=== PATIENT | male | born 1960 | race African-American/Black ===

== ENCOUNTER 2016-11-06 14:46 | Inpatient (IN) | payer MEDICARE, MEDICAID ==
[~2016-11-06] VITALS: Ht 182.9 cm; Wt 135.2 kg
[~2016-11-06 14:46] MED LIST: ALLO100T PO; APIX5TAB PO; ASPI81TA44 PO; CARV12.52 PO; CARV25TA PO; COLE1TAB PO; CYAN10002 IM; DIGO125T PO; DILT180C2 PO; DILT180C64 PO; FAMO-63 PO; FURO20TA3 PO; HYDR-2666 PO; INSU100I13 SQ; INSU100I16 SQ; INSU100I17 SQ; INSU100I27 SQ; INSU100I7 SQ; LACT20SO PO; LEVO250T25 PO; LOSA1TAB17 PO; LOSA25TA PO; LOSA50TA2 PO; LUBI8CAP3 PO; MAGN296S PO; METF500T9 PO; METR500T PO; PANT40TA5 PO; POLY17PO5 PO; POTA10TA10 PO; PRED-220 PO; SACC250C PO; SIME80TA PO; TEMA15CA6 PO
[2016-11-06] MEDS ORDERED: DILTIAZEM 125 MG in IV DEXTROSE 5% 100 ML IV PRN (15:45)
[2016-11-06 15:56] LABS: BASO # 0.1 x10^3/uL (0.0-0.2); BASO % 2 % (0-3); EOS % 4 % (0-3); HEMATOCRIT 40.1 % (39.0-53.0); HEMOGLOBIN 13.4 g/dL (13.0-17.5); LYMPH # 1.6 x10^3/uL (1.0-4.8); LYMPH % 31 % (24-48); MEAN CORPUSCULAR HEMOGLOBIN 31 pg (25-35); MEAN CORPUSCULAR HGB CONC 34 g/dL (31-37); MEAN CORPUSCULAR VOLUME 92 fL (79-100); MONO % 10 % (0-9); NEUT % 55 % (31-73); PLATELET COUNT 222 x10^3/uL (140-400); RED BLOOD COUNT 4.34 x10^6/uL (4.30-5.70); RED CELL DISTRIBUTION WIDTH 13.5 % (11.5-14.5); WHITE BLOOD COUNT 5.4 x10^3/uL (4.0-11.0)
[2016-11-06] MEDS ORDERED: ASPIRIN 81 MG TAB.CHEW PO ONE (16:00)
[2016-11-06] MEDS ORDERED: IV NORMAL SALINE 1000ML BAG 1,000 ML IV SCH (16:00)
[2016-11-06 16:04] LABS: PROTHROMBIN TIME PATIENT 12.6 SEC (11.7-14.0)
--- NOTE | 2016-11-06 16:11 | EKG ---
[facility] [address] [place] [address] Test Date: 2016-11-06 Test Time: 15:00:08 Pat Name: REBEKAH GAMEZ Department: Room: Gender: M Integrity Consultant: : 1960 Requested By: DEMARIO WADSWORTH Order Number: [id number] Reading MD: Measurements Intervals [place] Rate: 95 P: CA: QRS: -32 QRSD: 84 T: 31 QT: 342 QTc: 433 Interpretive Statements IRREGULAR RHYTHM, NO P-WAVE FOUND ABNORMAL LEFT AXIS DEVIATION QRS(T) CONTOUR ABNORMALITY CONSISTENT WITH ANTERIOR INFARCT AGE UNDETERMINED CONSISTENT WITH INFEROLATERAL INFARCT PROBABLY OLD ABNORMAL ECG RI6.01 No previous ECG available for comparison
[2016-11-06 16:19] LABS: CREATININE 1.4 mg/dL (0.7-1.3); GFR 63.7
[2016-11-06 16:25] LABS: ALBUMIN 3.5 g/dL (3.4-5.0); DIRECT BILIRUBIN 0.2 mg/dL (0.0-0.2); MAGNESIUM 1.8 mg/dL (1.8-2.4); TOTAL BILIRUBIN 0.9 mg/dL (0.2-1.0); TOTAL PROTEIN 7.5 g/dL (6.4-8.2)
[2016-11-06 16:27] LABS: BILIRUBIN,URINE NEGATIVE (NEG); GLUCOSE,URINE 250 mg/dL (NEG); NITRITE,URINE NEGATIVE (NEG); PH,URINE 5.5; PROTEIN,URINE NEGATIVE (NEG-TRACE); UROBILINOGEN,URINE 0.2 mg/dL (0.2 mg/dL)
--- NOTE | 2016-11-06 16:29 | PHYS DOC ---
Past Medical History Past Medical History: A-Fib, Asthma, Cancer, CVA, Depression, Diabetes-Type II , High Cholesterol, Hypertension, Renal Disease, Other Additional Past Medical Histor: Sleep Apnea, C-PAP, MULTIPLE CARDIAC TUMORS, HOGDKINS LYMPHOMA,GOUT, C-DIFF Past Surgical History: Angioplasty, Coronary Bypass Surgery, Pacemaker, Tonsillectomy, Other Additional Past Surgical Histo: 2 surgeries to attempt to remove tumors on heart,Adenoids Alcohol Use: Occasionally Drug Use: None Adult General Chief Complaint Chief Complaint: CHEST PAIN HPI HPI Patient is a 56 year old male who presents with complaint of chest pain and shortness of breath. Patient states that he has had worsening symptoms over the past week. Patient was recently admitted to the hospital and treated for chest pain with a negative workup for acute myocardial ischemia. Patient states that he is continuing to have pain along the right side of his chest underneath her ribs. Patient started getting worsening shortness of breath and went to go see his primary physician. The patient was referred to the emergency department by his physician, Dr. Ford, after the patient was found to have A. fib with a rapid heart rate. Patient has not had any associated fevers. Patient rates his pain currently as 7 out of 10 on my evaluation. Patient denies any substernal pain at this time. Patient states that his pain does not radiate. The patient shortness of breath symptoms worsen with exertion. Review of Systems Review of Systems Constitutional: Denies fever or chills [] Eyes: Denies change in visual acuity, redness, or eye pain [] HENT: Denies nasal congestion or sore throat [] Respiratory: Shortness breath [] Cardiovascular: Chest pain, palpitations, dyspnea on exertion [] GI: Denies abdominal pain, nausea, vomiting, bloody stools or diarrhea [] : Denies dysuria or hematuria [] Musculoskeletal: Denies back pain or joint pain [] Integument: Denies rash or skin lesions [] Neurologic: Denies headache, focal weakness or sensory changes [] Endocrine: Denies polyuria or polydipsia [] Current Medications Current Medications Current Medications Medications (Trade) Dose Ordered Sig/Lizzie Start Time Stop Time Status Last Admin Dose Admin Acetaminophen (Tylenol) 650 mg PRN Q4HRS PRN 11/06/16 16:30 11/07/16 16:29 11/06/16 21:15 650 MG Aspirin 324 mg 324 mg 1X ONCE 11/06/16 16:00 11/06/16 16:01 DC 11/06/16 16:12 324 MG Diltiazem HCl/ Dextrose (Cardizem) 125 ml @ 0 mls/hr CONT PRN 11/06/16 15:45 11/06/16 16:14 5 MLS/HR Fentanyl Citrate (Fentanyl 2ml Vial) 50 mcg PRN Q2HR PRN 11/06/16 16:30 11/07/16 16:29 11/06/16 21:15 50 MCG Ondansetron HCl (Zofran) 4 mg PRN Q8HRS PRN 11/06/16 16:30 11/07/16 16:29 Sodium Chloride 1,000 ml @ 0 mls/hr Q0M 11/06/16 16:00 Allergies Allergies Allergies Coded Allergies Type Severity Reaction Last Updated Verified No Known Drug Allergies 09/02/16 No Physical Exam Physical Exam Constitutional: Alert, obese, afebrile, no acute distress. [] HENT: Normocephalic, atraumatic, bilateral external ears normal, oropharynx moist, no oral exudates, nose normal. [] Eyes: PERRLA, EOMI, conjunctiva normal, no discharge. [] Neck: Normal range of motion, no tenderness, supple, no stridor. [] Cardiovascular: Tachycardia, irregular rhythm, no murmur [] Lungs & Thorax: Bilateral breath sounds clear to auscultation [] Abdomen: Bowel sounds normal, soft, no tenderness, no masses, no pulsatile masses. [] Skin: Warm, dry, no erythema, no rash. [] Back: No tenderness, no CVA tenderness. [] Extremities: No tenderness, no cyanosis, no clubbing, ROM intact, 1+ pitting edema bilaterally. [] Neurologic: Alert and oriented X 3, normal motor function, normal sensory function, no focal deficits noted. [] Current Patient Data Vital Signs Vital Signs Date Time Temp Pulse Resp B/P Pulse Ox O2 Delivery O2 Flow Rate FiO2 11/06/16 17:37 92 10 172/101 97 Room Air 11/06/16 15:05 98.1 98.1 Lab Values Laboratory Tests Test 11/06/16 15:40 11/06/16 16:20 White Blood Count 5.4x10^3/uL (4.0-11.0) Red Blood Count 4.34x10^6/uL (4.30-5.70) Hemoglobin 13.4g/dL (13.0-17.5) Hematocrit 40.1% (39.0-53.0) Mean Corpuscular Volume 92fL (79-100) Mean Corpuscular Hemoglobin 31pg (25-35) Mean Corpuscular Hemoglobin Concent 34g/dL (31-37) Red Cell Distribution Width 13.5% (11.5-14.5) Platelet Count 222x10^3/uL (140-400) Neutrophils (%) (Auto) 55% (31-73) Lymphocytes (%) (Auto) 31% (24-48) Monocytes (%) (Auto) 10% (0-9) H Eosinophils (%) (Auto) 4% (0-3) H Basophils (%) (Auto) 2% (0-3) Neutrophils # (Auto) 2.9x10^3uL (1.8-7.7) Lymphocytes # (Auto) 1.6x10^3/uL (1.0-4.8) Monocytes # (Auto) 0.5x10^3/uL (0.0-1.1) Eosinophils # (Auto) 0.2x10^3/uL (0.0-0.7) Basophils # (Auto) 0.1x10^3/uL (0.0-0.2) Prothrombin Time 12.6SEC (11.7-14.0) Prothrombin Time INR 1.0 (0.8-1.1) Sodium Level 137mmol/L (136-145) Potassium Level 4.0mmol/L (3.5-5.1) Chloride Level 102mmol/L (98-107) Carbon Dioxide Level 28mmol/L (21-32) Anion Gap 7 (6-14) Blood Urea Nitrogen 22mg/dL (8-26) Creatinine 1.4mg/dL (0.7-1.3) H Estimated GFR (Cockcroft-Gault) 63.7 Glucose Level 181mg/dL (70-99) H Calcium Level 9.0mg/dL (8.5-10.1) Magnesium Level 1.8mg/dL (1.8-2.4) Total Bilirubin 0.9mg/dL (0.2-1.0) Direct Bilirubin 0.2mg/dL (0.0-0.2) Aspartate Amino Transferase (AST) 13U/L (15-37) L Alanine Aminotransferase (ALT) 22U/L (16-63) Alkaline Phosphatase 70U/L (46-116) Creatine Kinase 87U/L (39-308) Creatine Kinase MB (Mass) 1.8ng/mL (0.0-3.6) Creatine Kinase MB Relative Index 2.1% (0-4) Troponin I Quantitative 0.024ng/mL (0.000-0.055) IS-Xyq-F-Type Natriuretic Peptide 411pg/mL (0-124) H Total Protein 7.5g/dL (6.4-8.2) Albumin 3.5g/dL (3.4-5.0) Urine Collection Type Unknown Urine Color Yellow Urine Clarity Clear Urine pH 5.5 Urine Specific [place] 1.020 Urine Protein Negativemg/dL (NEG-TRACE) Urine Glucose (UA) 250mg/dL (NEG) Urine Ketones (Stick) Negativemg/dL (NEG) Urine Blood Negative (NEG) Urine Nitrite Negative (NEG) Urine Bilirubin Negative (NEG) Urine Urobilinogen Dipstick 0.2mg/dL (0.2 mg/dL) Urine Leukocyte Esterase Negative (NEG) Urine RBC 0/HPF (0-2) Urine WBC 0/HPF (0-4) Urine Squamous Epithelial Cells None/LPF Urine Bacteria 0/HPF (0-FEW) Urine Mucus Mod/LPF Laboratory Tests 11/06/16 15:40 Laboratory Tests 11/06/16 15:40 EKG EKG Interpreted by me: Heart rate 95, atrial fibrillation, rapid rate, left axis deviation, no acute ST/T-wave abnormalities present [] Radiology/Procedures Radiology/Procedures [facility] [address] [place], [place] [id number] IMAGING REPORT Signed PATIENT: REBEKAH GAMEZ ACCOUNT: [id number] : 1960 LOCATION: ER AGE: 56 SEX: M EXAM STATUS: REG ER ORD. PHYSICIAN: DEMARIO WADSWORTH MD REASON: chest pain PROCEDURE: PORTABLE CHEST 1V Portable chest, 11/06/2016: History: Chest pain Comparison is made to a study from 10/30/2016. There is been a previous median sternotomy. A left sided transvenous pacemaker is in place with a single lead extending into the right ventricle. The heart is at the upper limits of normal in size. The pulmonary vascularity is normal. No pulmonary infiltrates are seen. There is no evidence of pleural fluid. IMPRESSION: No acute cardiopulmonary abnormality is detected. DICTATED and SIGNED BY: NOELLE COSTA MD DATE: 11/06/16 3990 CC: DEMARIO WADSWORTH MD; PEMA HINOJOSA MD ~ [] Course & Med Decision Making Course & Med Decision Making Pertinent Labs and Imaging studies reviewed. (See chart for details) Patient brought an EKG to the emergency department which showed a heart rate of 116. The patient has been in A. fib with RVR. I spoke with Dr. Lew who evaluated the patient in hospital. He agreed with initiation of a Cardizem drip at this time for rate control. He will follow patient in hospital. Patient was admitted to Dr. Ford for further care. Dragon Disclaimer Dragon Disclaimer This electronic medical record was generated, in whole or in part, using a voice recognition dictation system. Departure Departure Impression: Primary Impression: Atrial fibrillation with RVR Additional Impressions: Chest pain Type 2 diabetes mellitus Disposition: ADMITTED INPATIENT Admitting Physician: Roshan Ford Condition: GUARDED Referrals: PEMA HINOJOSA MD (PCP) Problem Qualifiers Additional Impressions: Chest pain Chest pain type: unspecified Qualified Code: R07.9 - Chest pain, unspecified Type 2 diabetes mellitus Diabetes mellitus complication status: with hyperglycemia Diabetes mellitus jail insulin use: unspecified jail insulin use status Qualified Code : E11.65 - Type 2 diabetes mellitus with hyperglycemia DEMARIO WADSWORTH MD Nov 06, 2016 16:29
[2016-11-06] MEDS ORDERED: ACETAMINOPHEN 325 MG TABLET. PO PRN (16:30)
[2016-11-06] MEDS ORDERED: FENTANYL PF 100 MCG/2 ML VIAL. IV PRN (16:30)
[2016-11-06] MEDS ORDERED: ONDANSETRON PF 4 MG/2 ML VIAL. IV PRN (16:30)
--- NOTE | 2016-11-06 16:38 | RAD ---
Portable chest, 11/06/2016: History: Chest pain Comparison is made to a study from 10/30/2016. There is been a previous median sternotomy. A left sided transvenous pacemaker is in place with a single lead extending into the right ventricle. The heart is at the upper limits of normal in size. The pulmonary vascularity is normal. No pulmonary infiltrates are seen. There is no evidence of pleural fluid. IMPRESSION: No acute cardiopulmonary abnormality is detected.
[2016-11-06 16:39] LABS: BACTERIA,URINE 0 /HPF (0-FEW); RBC,URINE 0 /HPF (0-2); WBC,URINE 0 /HPF (0-4)
[2016-11-06 16:46] LABS: CKMB INDEX 2.1 % (0-4); CKMB MASS 1.8 ng/mL (0.0-3.6)
[2016-11-06] MEDS ORDERED: SINCALIDE IV ONE (19:00)
[2016-11-06] MEDS ORDERED: NORMAL SALINE IV ONE (19:00)
--- NOTE | 2016-11-06 20:40 | RAD ---
PROCEDURE Hepatobiliary scintigraphy. HISTORY Right upper quadrant pain. TECHNIQUE Hepatobiliary scintigraphy was performed. 5.0 millicuries technetium 99 M labeled Choletec IV was administered without complication. 2.7 micrograms of CCK was administered and gallbladder ejection fraction calculated. COMPARISON None provided. FINDINGS There is prompt uptake of radiotracer by the hepatic parenchyma. Gallbladder is visualized by 10 minutes. Bowel activity is noted. Gallbladder ejection fraction is calculated at 91 percent. IMPRESSION Normal hepatobiliary scintigraphy with normal gallbladder ejection fraction. Electronically signed by: Damian Bose MD (Nov 06, 2016 20:39:37)
[2016-11-06 21:00] VITALS: BP 134/98
[2016-11-06] MEDS ORDERED: DEXTROSE 50% 25 GM / 50ML DISP.SYRIN. IV PRN (22:45)
[2016-11-06] MEDS ORDERED: TEMAZEPAM 15 MG CAPSULE PO PRN (22:45)
[2016-11-06] MEDS ORDERED: MAGNESIUM CITRATE 296 ML SOLUTION. PO PRN (22:45)
[2016-11-06] MEDS ORDERED: HYDROCODONE/APAP 5/325MG TABLET. PO PRN (22:45)
[2016-11-06] MEDS ORDERED: LACTULOSE 20 GM/30 ML SOLUTION. PO PRN (23:00)
[2016-11-06] MEDS ORDERED: INSULN ASP PRT/INSULIN ASPART 300 UNITS/3 ML INSULN.PEN. SQ SCH (23:00)
[2016-11-06 23:43] VITALS: BP 183/97
[2016-11-06] MEDS ORDERED: LABETALOL 20 MG/4 ML DISP.SYRIN. IVP ONE (23:45)
--- NOTE | 2016-11-07 00:32 | ACF ---
Admission Forms Criteria CHEST PAIN Clinical Indications for Admission to Inpatient Care (Place 'X' for any and all applicable criteria): Admission is indicated for chest pain and ANY ONE of the following(1)(2)(3)(4)(5 ): [ ]I. Angina with acute coronary syndrome (Also use Myocardial Infarction or Angina guideline) [X ]II. Hemodynamic instability [ ]III. Angina needing acute intervention as indicated by ALL of the following( 11)(12): [ ]a) Unstable angina is present as indicated by angina that is ANY ONE of the following: [ ]i) New onset [ ]ii) Nocturnal [ ]iii) Prolonged at rest [ ]iv) Progressive [ ]b) Angina warrants acute intervention as indicated by ANY ONE of the following: [ ]i) Recurrent angina (e.g, not responding as previously to treatment) [ ]ii) Angina at rest or with low-level activities despite initial medical therapy [ ]iii) New or presumably new ST-segment depression on ECG [ ]iv) Signs or symptoms of heart failure (eg, dyspnea, pulmonary edema) [ ]v) New or worsening mitral regurgitation [ ]vi) Hemodynamic instability [ ]vii) Dangerous arrhythmia (eg, sustained ventricular tachycardia) [ ]viii) History of percutaneous coronary intervention within 6 months [ ]ix) History of coronary artery bypass graft surgery [ ]x) MARTHA risk score of 2 or greater[A] [ ]xi) History of Diabetes(14) [ ]xii) High-risk cardiac ischemia findings on noninvasive testing (e.g, echocardiogram, treadmill testing, nuclear scan) [ ]xiii) Chronic renal insufficiency (ie, estimated GFR less than 60 mL/min/1.732m) [ ]xiv) Left ventricular ejection fraction less than 40% [ ]IV. Evidence of LA (eg, cardiac biomarkers positive, ST-segment elevation on ECG) also use Myocardial Infarction Criteria Form. [ ]V. Pulmonary edema [ ]. Respiratory distress [ ]VII. Chest pain indicative of serious diagnosis other than coronary artery disease (eg, aortic dissection) [ ]VIII. Contraindications and/or Inappropriate clinical situations for Observational Care in patients with Chest Pain, when ANY ONE of the following is required: [ ]a) Patient with risk factor for pulmonary embolism, acute coronary syndrome and myocardial infarction (18) [ ]b) Patient with Pulmonary embolism require an average LOS of 4.3 days, therefore emergency department observation management is inappropriate 18,23 [ ]c) Painful condition/s in the elderly, have the highest rate of recidivism after emergency department observation management (10.8%) 20,21,22 [ ]d) Elevated cardiac biomarker requires intensive and exhaustive care (19) [ ]IX. General contraindications and/or Inappropriate clinical situations for Observational Care in patients with Chest Pain, when ANY ONE of the following is required: [ ]a) Prediction of prolongation of LOS based on ANY ONE of the following may be considered as a contraindication for observational care 2, 3, 4, 5, 6, 7, 8, 9, 10, 11 [ ]i) Age > 65 yrs. [ ]ii) Patient arriving by ambulance [ ]iii) Patient with high acuity [ ]iv) Patient requiring vital sign monitoring [ ]v) Patient on IV medication [ ]b) Systolic blood pressures 180mmHg 3,12 [ ]c) Patient with altered mental status including delirium and other alteration of consciousness, (3) [ ]d) Patient whose discharge disposition will be to a snf home or rehabilitation home should not be managed in Emergency Department Observation Unit. CMS rule requires 3 days hospital stay before such placement. 3,13 [ ]e) Patient with failure to thrive due to broad array of etiologies 3,16,17 [ ]f) Inability to ambulate 3,14 Extended stay beyond goal length of stay may be needed for (1)(28): [ ]a) Specific condition diagnosed after evaluation (eg, pulmonary embolism, aortic dissection) [ ]b) Unstable angina [ ]c) Continued suspicion of acute coronary syndrome with inability to complete needed cardiac evaluation (eg, patient clinically unable to undergo stress testing) [ ]d) Myocardial infarction (Contents from ANGINA and CHEST PAIN clinical indications for admission to inpatient care have been integrated in this form) The original [email or web address] content created by [employer] has been revised. The portions of the content which have been revised are identified through the use of italic text or in bold, and [employer] or [employer] has neither reviewed nor approved the modified material. All other unmodified content is copyright [employer]. Please see references footnoted in the original [email or web address] edition 2016 Admission Criteria Met?: Yes GAIL RAZA Nov 07, 2016 00:32
[2016-11-07 03:20] VITALS: BP 192/96
[2016-11-07] MEDS ORDERED: LOSARTAN POTASSIUM 50 MG TABLET. PO SCH ×2 (05:00→09:00)
[2016-11-07 05:43] LABS: BASO % 1 % (0-3); EOS % 5 % (0-3); HEMATOCRIT 40.1 % (39.0-53.0); HEMOGLOBIN 13.3 g/dL (13.0-17.5); LYMPH # 1.7 x10^3/uL (1.0-4.8); LYMPH % 37 % (24-48); MEAN CORPUSCULAR HEMOGLOBIN 32 pg (25-35); MEAN CORPUSCULAR HGB CONC 33 g/dL (31-37); MEAN CORPUSCULAR VOLUME 96 fL (79-100); MONO % 10 % (0-9); NEUT % 48 % (31-73); PLATELET COUNT 200 x10^3/uL (140-400); RED BLOOD COUNT 4.18 x10^6/uL (4.30-5.70); RED CELL DISTRIBUTION WIDTH 13.7 % (11.5-14.5); WHITE BLOOD COUNT 4.6 x10^3/uL (4.0-11.0)
[2016-11-07 07:04] LABS: CALCIUM 8.5 mg/dL (8.5-10.1); CREATININE 1.4 mg/dL (0.7-1.3); GFR 63.7; POTASSIUM 3.3 mmol/L (3.5-5.1)
[2016-11-07 07:50] VITALS: BP 159/107
[2016-11-07] MEDS ORDERED: POTASSIUM CHLORIDE 10 MEQ TABLET.ER. PO SCH (08:00)
[2016-11-07] MEDS ORDERED: ASPIRIN 81 MG TAB.CHEW PO SCH (09:00)
[2016-11-07] MEDS ORDERED: METFORMIN XR 500 MG TAB.ER.24H PO SCH (09:00)
[2016-11-07] MEDS ORDERED: LUBIPROSTONE 8 MCG CAPSULE PO SCH (09:00)
[2016-11-07] MEDS ORDERED: ALLOPURINOL 100 MG TABLET. PO SCH (09:00)
[2016-11-07] MEDS: CARVEDILOL 12.5 MG TABLET PO SCH ×2 (09:09→17:00)
[2016-11-07 10:40] VITALS: BP 146/83
[2016-11-07 11:08] VITALS: BP 151/88
[2016-11-07] MEDS ORDERED: DILTIAZEM HCL 120 MG CAP.ER.24H PO SCH (11:45)
[2016-11-07] MEDS ORDERED: LIDOCAINE (700MG/PATCH) PATCH. TD SCH (12:00)
--- NOTE | 2016-11-07 13:20 | PDOC1 ---
History and Physical Date of Admission Date of Admission DATE: 11/07/16 TIME: 13:17 Past Medical History Cardiovascular: AFIB, CAD, HTN Pulmonary: COPD CENTRAL NERVOUS SYSTEM: CVA, TIA GI: Constipation Heme/Onc: B12 deficiency, Other Psych: Depression Rheumatologic: Gout Endocrine: Diabetes Family History Family History: Cancer, Diabetes Social History ALCOHOL: heavy Current Problem List Problem List Problems Medical Problems: (1) Atrial fibrillation with RVR Status: Acute (2) Atrial fibrillation with RVR Status: Acute (3) Chest pain Status: Acute (4) Type 2 diabetes mellitus Status: Acute Problems: Current Medications Current Medications Current Medications Aspirin 324 mg 324 mg 1X ONCE PO Last administered on 11/06/16 16:12; Start at 16:00; Stop 11/06/16 at 16:01; Status DC Sodium Chloride 1,000 ml @ 0 mls/hr Q0M IV ; Start 11/06/16 at 16:00 Diltiazem HCl/ Dextrose (Cardizem) 125 ml @ 0 mls/hr CONT PRN IV SEE I/O RECORD Last administered on 11/06/16 16:14; Start 11/06/16 at 15:45; Stop at 11:44; Status DC Ondansetron HCl (Zofran) 4 mg PRN Q8HRS PRN IV NAUSEA/VOMITING; Start 11/06/16 at 16:30; Stop 11/07/16 at 16:29 Fentanyl Citrate (Fentanyl 2ml Vial) 50 mcg PRN Q2HR PRN IV PAIN Last administered on 11/06/16 21:15; Start 11/06/16 at 16:30; Stop 11/07/16 at 16:29 Acetaminophen 650 mg 650 mg PRN Q4HRS PRN PO FEVER Last administered on 21:15; Start 11/06/16 at 16:30; Stop 11/07/16 at 16:29 Sincalide/Sodium Chloride (Kinevac/Iv Sodium Chloride 0.9% 50ml) 30 ml @ 120 mls/hr 1X ONCE IV Last administered on 11/06/16 19:00; Start 11/06/16 at 19:00 ; Stop 11/06/16 at 19:14; Status DC Allopurinol (Zyloprim) 100 mg DAILY PO ; Start 11/07/16 at 09:00 Aspirin (Children'S Aspirin) 81 mg DAILY PO ; Start 11/07/16 at 09:00 Carvedilol (Coreg) 12.5 mg BIDWMEALS PO Last administered on 11/07/16 09:09; Start 11/07/16 at 08:00 Acetaminophen/ Hydrocodone Bitart (Lortab 5/325) 1 tab PRN Q4HRS PRN PO MILD PAIN; Start 11/06/16 at 22:45 Insulin Aspart Prota 70%/Aspart 30% (Novolog Mix 70-30) 30 units QHS SQ Last administered on 11/06/16 23:44; Start 11/06/16 at 23:00 Losartan Potassium (Cozaar) 100 mg DAILY PO ; Start 11/07/16 at 09:00; Stop at 09:00; Status DC Lubiprostone (Amitiza) 8 mcg BID PO ; Start 11/07/16 at 09:00 Magnesium Citrate (Citroma) 296 ml PRN DAILY PRN PO CONSTIPATION; Start at 22:45 Metformin HCl (Glucophage Xr) 500 mg DAILY PO ; Start 11/07/16 at 09:00 Temazepam (Restoril) 15 mg PRN QHS PRN PO INSOMNIA; Start 11/06/16 at 22:45 Lactulose 20 gm PRN BID PRN PO CONSTIPATION; Start 11/06/16 at 23:00 Potassium Chloride (Klor-Con) 10 meq DAILYWBKFT PO ; Start 11/07/16 at 08:00 Dextrose 12.5 gm PRN Q15MIN PRN IV SEE COMMENTS; Start 11/06/16 at 22:45 Labetalol HCl (Normodyne) 10 mg 1X ONCE IVP Last administered on 11/06/16 23: 37; Start 11/06/16 at 23:45; Stop 11/06/16 at 23:46; Status DC Losartan Potassium (Cozaar) 100 mg DAILY PO Last administered on 11/07/16 04:39 ; Start 11/07/16 at 05:00 Diltiazem HCl (Cardizem 24hr Cd) 120 mg DAILY PO Last administered on 11/07/16 12:48; Start 11/07/16 at 11:45 Lidocaine (Lidoderm) 1 patch DAILY TD ; Start 11/07/16 at 12:00 Active Scripts Active Cozaar (Losartan Potassium) 50 Mg Tablet 100 Mg PO DAILY Lactulose 20 Gm/30 Ml Solution 20 Gm PO BID PRN Novolog Mix 70-30 Flexpen Syrn (Insuln Asp Prt/Insulin Aspart) 100 Unit/1 Ml Insuln.pen 30 Units SQ QHS Hydrocodone-Apap 5-325 (Hydrocodone Bit/Acetaminophen) 1 Each Tablet 1 Tab PO PRN Q4HRS PRN 14 Days Carvedilol 12.5 Mg Tablet 12.5 Mg PO BIDWMEALS Restoril (Temazepam) 15 Mg Capsule 15 Mg PO PRN QHS PRN Reported Magnesium Citrate 296 Ml Solution 296 Ml PO PRN PRN Amitiza (Lubiprostone) 8 Mcg Capsule 2 Cap PO BID Allopurinol 100 Mg Tablet 100 Mg PO DAILY Potassium Chloride 10 Meq Tablet.er 10 Meq PO DAILY Metformin Hcl Er (Metformin Hcl) 500 Mg Tab.er.24h 1 Tab PO DAILY Children's Aspirin (Aspirin) 81 Mg Tab.chew 81 Mg PO DAILY Allergies Allergies: Coded Allergies: No Known Drug Allergies (Unverified , 09/02/16) Vitals Vitals Vital Signs Date Time Temp Pulse Resp B/P Pulse Ox O2 Delivery O2 Flow Rate FiO2 11/07/16 12:48 73 145/88 11/07/16 11:08 97.5 22 95 Room Air 97.5 Labs Labs Laboratory Tests Test 11/06/16 15:40 11/06/16 16:20 11/06/16 20:54 11/06/16 23:00 White Blood Count 5.4x10^3/uL (4.0-11.0) Red Blood Count 4.34x10^6/uL (4.30-5.70) Hemoglobin 13.4g/dL (13.0-17.5) Hematocrit 40.1% (39.0-53.0) Mean Corpuscular Volume 92fL (79-100) Mean Corpuscular Hemoglobin 31pg (25-35) Mean Corpuscular Hemoglobin Concent 34g/dL (31-37) Red Cell Distribution Width 13.5% (11.5-14.5) Platelet Count 222x10^3/uL (140-400) Neutrophils (%) (Auto) 55% (31-73) Lymphocytes (%) (Auto) 31% (24-48) Monocytes (%) (Auto) 10% (0-9) Eosinophils (%) (Auto) 4% (0-3) Basophils (%) (Auto) 2% (0-3) Neutrophils # (Auto) 2.9x10^3uL (1.8-7.7) Lymphocytes # (Auto) 1.6x10^3/uL (1.0-4.8) Monocytes # (Auto) 0.5x10^3/uL (0.0-1.1) Eosinophils # (Auto) 0.2x10^3/uL (0.0-0.7) Basophils # (Auto) 0.1x10^3/uL (0.0-0.2) Prothrombin Time 12.6SEC (11.7-14.0) Prothromb Time International Ratio 1.0 (0.8-1.1) Sodium Level 137mmol/L (136-145) Potassium Level 4.0mmol/L (3.5-5.1) Chloride Level 102mmol/L (98-107) Carbon Dioxide Level 28mmol/L (21-32) Anion Gap 7 (6-14) Blood Urea Nitrogen 22mg/dL (8-26) Creatinine 1.4mg/dL (0.7-1.3) Estimated GFR (Cockcroft-Gault) 63.7 Glucose Level 181mg/dL (70-99) Calcium Level 9.0mg/dL (8.5-10.1) Magnesium Level 1.8mg/dL (1.8-2.4) Total Bilirubin 0.9mg/dL (0.2-1.0) Direct Bilirubin 0.2mg/dL (0.0-0.2) Aspartate Amino Transf (AST/SGOT) 13U/L (15-37) Alanine Aminotransferase (ALT/SGPT) 22U/L (16-63) Alkaline Phosphatase 70U/L (46-116) Creatine Kinase 87U/L (39-308) Creatine Kinase MB (Mass) 1.8ng/mL (0.0-3.6) Creatine Kinase MB Relative Index 2.1% (0-4) Troponin I Quantitative 0.024ng/mL (0.000-0.055) < 0.017ng/mL (0.000-0.055) PN-Hwy-V-Type Natriuretic Peptide 411pg/mL (0-124) Total Protein 7.5g/dL (6.4-8.2) Albumin 3.5g/dL (3.4-5.0) Urine Collection Type Unknown Urine Color Yellow Urine Clarity Clear Urine pH 5.5 Urine Specific [place] 1.020 Urine Protein Negativemg/dL (NEG-TRACE) Urine Glucose (UA) 250mg/dL (NEG) Urine Ketones (Stick) Negativemg/dL (NEG) Urine Blood Negative (NEG) Urine Nitrite Negative (NEG) Urine Bilirubin Negative (NEG) Urine Urobilinogen Dipstick 0.2mg/dL (0.2 mg/dL) Urine Leukocyte Esterase Negative (NEG) Urine RBC 0/HPF (0-2) Urine WBC 0/HPF (0-4) Urine Squamous Epithelial Cells None/LPF Urine Bacteria 0/HPF (0-FEW) Urine Mucus Mod/LPF Glucose (Fingerstick) 150mg/dL (70-99) Test 11/07/16 04:45 11/07/16 07:51 11/07/16 11:11 White Blood Count 4.6x10^3/uL (4.0-11.0) Red Blood Count 4.18x10^6/uL (4.30-5.70) Hemoglobin 13.3g/dL (13.0-17.5) Hematocrit 40.1% (39.0-53.0) Mean Corpuscular Volume 96fL (79-100) Mean Corpuscular Hemoglobin 32pg (25-35) Mean Corpuscular Hemoglobin Concent 33g/dL (31-37) Red Cell Distribution Width 13.7% (11.5-14.5) Platelet Count 200x10^3/uL (140-400) Neutrophils (%) (Auto) 48% (31-73) Lymphocytes (%) (Auto) 37% (24-48) Monocytes (%) (Auto) 10% (0-9) Eosinophils (%) (Auto) 5% (0-3) Basophils (%) (Auto) 1% (0-3) Neutrophils # (Auto) 2.2x10^3uL (1.8-7.7) Lymphocytes # (Auto) 1.7x10^3/uL (1.0-4.8) Monocytes # (Auto) 0.4x10^3/uL (0.0-1.1) Eosinophils # (Auto) 0.2x10^3/uL (0.0-0.7) Basophils # (Auto) 0.0x10^3/uL (0.0-0.2) Sodium Level 136mmol/L (136-145) Potassium Level 3.3mmol/L (3.5-5.1) Chloride Level 101mmol/L (98-107) Carbon Dioxide Level 24mmol/L (21-32) Anion Gap 11 (6-14) Blood Urea Nitrogen 21mg/dL (8-26) Creatinine 1.4mg/dL (0.7-1.3) Estimated GFR (Cockcroft-Gault) 63.7 Glucose Level 261mg/dL (70-99) Calcium Level 8.5mg/dL (8.5-10.1) Troponin I Quantitative 0.023ng/mL (0.000-0.055) Glucose (Fingerstick) 98mg/dL (70-99) 85mg/dL (70-99) Laboratory Tests Test 11/06/16 15:40 11/06/16 16:20 11/06/16 20:54 11/06/16 23:00 White Blood Count 5.4x10^3/uL (4.0-11.0) Red Blood Count 4.34x10^6/uL (4.30-5.70) Hemoglobin 13.4g/dL (13.0-17.5) Hematocrit 40.1% (39.0-53.0) Mean Corpuscular Volume 92fL (79-100) Mean Corpuscular Hemoglobin 31pg (25-35) Mean Corpuscular Hemoglobin Concent 34g/dL (31-37) Red Cell Distribution Width 13.5% (11.5-14.5) Platelet Count 222x10^3/uL (140-400) Neutrophils (%) (Auto) 55% (31-73) Lymphocytes (%) (Auto) 31% (24-48) Monocytes (%) (Auto) 10% (0-9) Eosinophils (%) (Auto) 4% (0-3) Basophils (%) (Auto) 2% (0-3) Neutrophils # (Auto) 2.9x10^3uL (1.8-7.7) Lymphocytes # (Auto) 1.6x10^3/uL (1.0-4.8) Monocytes # (Auto) 0.5x10^3/uL (0.0-1.1) Eosinophils # (Auto) 0.2x10^3/uL (0.0-0.7) Basophils # (Auto) 0.1x10^3/uL (0.0-0.2) Prothrombin Time 12.6SEC (11.7-14.0) Prothromb Time International Ratio 1.0 (0.8-1.1) Sodium Level 137mmol/L (136-145) Potassium Level 4.0mmol/L (3.5-5.1) Chloride Level 102mmol/L (98-107) Carbon Dioxide Level 28mmol/L (21-32) Anion Gap 7 (6-14) Blood Urea Nitrogen 22mg/dL (8-26) Creatinine 1.4mg/dL (0.7-1.3) Estimated GFR (Cockcroft-Gault) 63.7 Glucose Level 181mg/dL (70-99) Calcium Level 9.0mg/dL (8.5-10.1) Magnesium Level 1.8mg/dL (1.8-2.4) Total Bilirubin 0.9mg/dL (0.2-1.0) Direct Bilirubin 0.2mg/dL (0.0-0.2) Aspartate Amino Transf (AST/SGOT) 13U/L (15-37) Alanine Aminotransferase (ALT/SGPT) 22U/L (16-63) Alkaline Phosphatase 70U/L (46-116) Creatine Kinase 87U/L (39-308) Creatine Kinase MB (Mass) 1.8ng/mL (0.0-3.6) Creatine Kinase MB Relative Index 2.1% (0-4) Troponin I Quantitative 0.024ng/mL (0.000-0.055) < 0.017ng/mL (0.000-0.055) SC-Wfp-K-Type Natriuretic Peptide 411pg/mL (0-124) Total Protein 7.5g/dL (6.4-8.2) Albumin 3.5g/dL (3.4-5.0) Urine Collection Type Unknown Urine Color Yellow Urine Clarity Clear Urine pH 5.5 Urine Specific [place] 1.020 Urine Protein Negativemg/dL (NEG-TRACE) Urine Glucose (UA) 250mg/dL (NEG) Urine Ketones (Stick) Negativemg/dL (NEG) Urine Blood Negative (NEG) Urine Nitrite Negative (NEG) Urine Bilirubin Negative (NEG) Urine Urobilinogen Dipstick 0.2mg/dL (0.2 mg/dL) Urine Leukocyte Esterase Negative (NEG) Urine RBC 0/HPF (0-2) Urine WBC 0/HPF (0-4) Urine Squamous Epithelial Cells None/LPF Urine Bacteria 0/HPF (0-FEW) Urine Mucus Mod/LPF Glucose (Fingerstick) 150mg/dL (70-99) Test 11/07/16 04:45 11/07/16 07:51 11/07/16 11:11 White Blood Count 4.6x10^3/uL (4.0-11.0) Red Blood Count 4.18x10^6/uL (4.30-5.70) Hemoglobin 13.3g/dL (13.0-17.5) Hematocrit 40.1% (39.0-53.0) Mean Corpuscular Volume 96fL (79-100) Mean Corpuscular Hemoglobin 32pg (25-35) Mean Corpuscular Hemoglobin Concent 33g/dL (31-37) Red Cell Distribution Width 13.7% (11.5-14.5) Platelet Count 200x10^3/uL (140-400) Neutrophils (%) (Auto) 48% (31-73) Lymphocytes (%) (Auto) 37% (24-48) Monocytes (%) (Auto) 10% (0-9) Eosinophils (%) (Auto) 5% (0-3) Basophils (%) (Auto) 1% (0-3) Neutrophils # (Auto) 2.2x10^3uL (1.8-7.7) Lymphocytes # (Auto) 1.7x10^3/uL (1.0-4.8) Monocytes # (Auto) 0.4x10^3/uL (0.0-1.1) Eosinophils # (Auto) 0.2x10^3/uL (0.0-0.7) Basophils # (Auto) 0.0x10^3/uL (0.0-0.2) Sodium Level 136mmol/L (136-145) Potassium Level 3.3mmol/L (3.5-5.1) Chloride Level 101mmol/L (98-107) Carbon Dioxide Level 24mmol/L (21-32) Anion Gap 11 (6-14) Blood Urea Nitrogen 21mg/dL (8-26) Creatinine 1.4mg/dL (0.7-1.3) Estimated GFR (Cockcroft-Gault) 63.7 Glucose Level 261mg/dL (70-99) Calcium Level 8.5mg/dL (8.5-10.1) Troponin I Quantitative 0.023ng/mL (0.000-0.055) Glucose (Fingerstick) 98mg/dL (70-99) 85mg/dL (70-99) VTE Prophylaxis Ordered VTE Prophylaxis Devices: Yes VTE Pharmacological Prophylaxi: Yes Assessment/Plan Assessment/Plan full report dictated, Afib, RVR, rate now controlled after being started on IV cardizem, will try to change to po and hopefully discharge later today, 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
[2016-11-07 15:52] VITALS: BP 128/95
[2016-11-07] MEDS ORDERED: LIDO700A4 TD (16:08)
[2016-11-07] MEDS ORDERED: DILT120C97 PO (16:08)
--- NOTE | 2016-11-07 16:24 | PDOC2 ---
CONSULT Date of Consult Date of Consult DATE: 11/07/16 TIME: 16:18 Reason for Consult Reason for Consult: Chest pain and A. fib with RVR Referring Physician Referring Physician: Dr. Ford Identification/Chief Complaint Chief Complaint Chest pain and A. fib with RVR History of Present Illness Reason for Visit: This patient is a 56-year-old gentleman that has had multiple recent admissions to this institution. He has a known cardiomyopathy as well as as hypertension, obesity, atrial fibrillation, and episodes of chest pains. The chest pains that he has been having are more of a right upper quadrant and right lower chest pains that are sharp no diaphoresis, no loss of consciousness , he has had some palpitations from time to time but they are not related to the chest pains from the right side of the chest. He comes in feeling his fast pulse and ongoing constant pain to the right upper quadrant. The troponins were negative and his EKG shows no changes. Past Medical History Cardiovascular: AFIB, CAD, HTN Pulmonary: COPD CENTRAL NERVOUS SYSTEM: CVA, TIA GI: Constipation Heme/Onc: B12 deficiency, Other Psych: Depression Rheumatologic: Gout Endocrine: Diabetes Family History Family History: Cancer, Diabetes Social History ALCOHOL: heavy Current Problem List Problem List Problems Medical Problems: (1) Atrial fibrillation with RVR Status: Acute (2) Atrial fibrillation with RVR Status: Acute (3) Chest pain Status: Acute (4) Type 2 diabetes mellitus Status: Acute Current Medications Current Medications Current Medications Aspirin 324 mg 324 mg 1X ONCE PO Last administered on 11/06/16 16:12; Start at 16:00; Stop 11/06/16 at 16:01; Status DC Sodium Chloride 1,000 ml @ 0 mls/hr Q0M IV ; Start 11/06/16 at 16:00 Diltiazem HCl/ Dextrose (Cardizem) 125 ml @ 0 mls/hr CONT PRN IV SEE I/O RECORD Last administered on 11/06/16 16:14; Start 11/06/16 at 15:45; Stop at 11:44; Status DC Ondansetron HCl (Zofran) 4 mg PRN Q8HRS PRN IV NAUSEA/VOMITING; Start 11/06/16 at 16:30; Stop 11/07/16 at 16:29 Fentanyl Citrate (Fentanyl 2ml Vial) 50 mcg PRN Q2HR PRN IV PAIN Last administered on 11/06/16 21:15; Start 11/06/16 at 16:30; Stop 11/07/16 at 16:29 Acetaminophen 650 mg 650 mg PRN Q4HRS PRN PO FEVER Last administered on 21:15; Start 11/06/16 at 16:30; Stop 11/07/16 at 16:29 Sincalide/Sodium Chloride (Kinevac/Iv Sodium Chloride 0.9% 50ml) 30 ml @ 120 mls/hr 1X ONCE IV Last administered on 11/06/16 19:00; Start 11/06/16 at 19:00 ; Stop 11/06/16 at 19:14; Status DC Allopurinol (Zyloprim) 100 mg DAILY PO Last administered on 11/07/16 16:09; Start 11/07/16 at 09:00 Aspirin (Children'S Aspirin) 81 mg DAILY PO Last administered on 11/07/16 16:09 ; Start 11/07/16 at 09:00 Carvedilol (Coreg) 12.5 mg BIDWMEALS PO Last administered on 11/07/16 09:09; Start 11/07/16 at 08:00 Acetaminophen/ Hydrocodone Bitart (Lortab 5/325) 1 tab PRN Q4HRS PRN PO MILD PAIN; Start 11/06/16 at 22:45 Insulin Aspart Prota 70%/Aspart 30% (Novolog Mix 70-30) 30 units QHS SQ Last administered on 11/06/16 23:44; Start 11/06/16 at 23:00 Losartan Potassium (Cozaar) 100 mg DAILY PO ; Start 11/07/16 at 09:00; Stop at 09:00; Status DC Lubiprostone (Amitiza) 8 mcg BID PO Last administered on 11/07/16 16:08; Start 11/07/16 at 09:00 Magnesium Citrate (Citroma) 296 ml PRN DAILY PRN PO CONSTIPATION; Start at 22:45 Metformin HCl (Glucophage Xr) 500 mg DAILY PO ; Start 11/07/16 at 09:00 Temazepam (Restoril) 15 mg PRN QHS PRN PO INSOMNIA; Start 11/06/16 at 22:45 Lactulose 20 gm PRN BID PRN PO CONSTIPATION; Start 11/06/16 at 23:00 Potassium Chloride (Klor-Con) 10 meq DAILYWBKFT PO Last administered on 16:09; Start 11/07/16 at 08:00 Dextrose 12.5 gm PRN Q15MIN PRN IV SEE COMMENTS; Start 11/06/16 at 22:45 Labetalol HCl (Normodyne) 10 mg 1X ONCE IVP Last administered on 11/06/16 23: 37; Start 11/06/16 at 23:45; Stop 11/06/16 at 23:46; Status DC Losartan Potassium (Cozaar) 100 mg DAILY PO Last administered on 11/07/16 04:39 ; Start 11/07/16 at 05:00 Diltiazem HCl (Cardizem 24hr Cd) 120 mg DAILY PO Last administered on 11/07/16 12:48; Start 11/07/16 at 11:45 Lidocaine (Lidoderm) 1 patch DAILY TD Last administered on 11/07/16 16:09; Start 11/07/16 at 12:00 Active Scripts Active Cozaar (Losartan Potassium) 50 Mg Tablet 100 Mg PO DAILY Lactulose 20 Gm/30 Ml Solution 20 Gm PO BID PRN Novolog Mix 70-30 Flexpen Syrn (Insuln Asp Prt/Insulin Aspart) 100 Unit/1 Ml Insuln.pen 30 Units SQ QHS Hydrocodone-Apap 5-325 (Hydrocodone Bit/Acetaminophen) 1 Each Tablet 1 Tab PO PRN Q4HRS PRN 14 Days Carvedilol 12.5 Mg Tablet 12.5 Mg PO BIDWMEALS Restoril (Temazepam) 15 Mg Capsule 15 Mg PO PRN QHS PRN Reported Magnesium Citrate 296 Ml Solution 296 Ml PO PRN PRN Amitiza (Lubiprostone) 8 Mcg Capsule 2 Cap PO BID Allopurinol 100 Mg Tablet 100 Mg PO DAILY Potassium Chloride 10 Meq Tablet.er 10 Meq PO DAILY Metformin Hcl Er (Metformin Hcl) 500 Mg Tab.er.24h 1 Tab PO DAILY Children's Aspirin (Aspirin) 81 Mg Tab.chew 81 Mg PO DAILY Allergies Allergies: Coded Allergies: No Known Drug Allergies (Unverified , 09/02/16) Physical Exam Physical Exam H EENT pupils are reactive. Oral mucosa well-hydrated. Neck is supple no JVD. Lungs clear. Heart irregularly irregular, no changes in murmur. Abdomen is protuberant but soft bowel sounds are present there is tenderness over the right upper quadrant. Extremities 1+ edema. Impression this patient comes in with palpitations and A. fib with RVR but after receiving IV Cardizem he is ventricular response has slowed down into the 80s. To me he just has chronic atrial fibrillation and we need to control the rate. The chest and right upper quadrant pain of the abdomen do not appear to be cardiac in nature and he may be more due to chest wall. I agree with present plan to discharge the patient and send him home on by mouth Cardizem. I will follow the patient as an outpatient. Thank you very much for asking me to participate in the care of this patient Vitals VITALS Vital Signs Date Time Temp Pulse Resp B/P Pulse Ox O2 Delivery O2 Flow Rate FiO2 11/07/16 15:52 96 23 128/95 94 Room Air 11/07/16 11:08 97.5 97.5 Labs Labs Laboratory Tests Test 11/06/16 15:40 11/06/16 16:20 11/06/16 20:54 11/06/16 23:00 White Blood Count 5.4x10^3/uL (4.0-11.0) Red Blood Count 4.34x10^6/uL (4.30-5.70) Hemoglobin 13.4g/dL (13.0-17.5) Hematocrit 40.1% (39.0-53.0) Mean Corpuscular Volume 92fL (79-100) Mean Corpuscular Hemoglobin 31pg (25-35) Mean Corpuscular Hemoglobin Concent 34g/dL (31-37) Red Cell Distribution Width 13.5% (11.5-14.5) Platelet Count 222x10^3/uL (140-400) Neutrophils (%) (Auto) 55% (31-73) Lymphocytes (%) (Auto) 31% (24-48) Monocytes (%) (Auto) 10% (0-9) Eosinophils (%) (Auto) 4% (0-3) Basophils (%) (Auto) 2% (0-3) Neutrophils # (Auto) 2.9x10^3uL (1.8-7.7) Lymphocytes # (Auto) 1.6x10^3/uL (1.0-4.8) Monocytes # (Auto) 0.5x10^3/uL (0.0-1.1) Eosinophils # (Auto) 0.2x10^3/uL (0.0-0.7) Basophils # (Auto) 0.1x10^3/uL (0.0-0.2) Prothrombin Time 12.6SEC (11.7-14.0) Prothromb Time International Ratio 1.0 (0.8-1.1) Sodium Level 137mmol/L (136-145) Potassium Level 4.0mmol/L (3.5-5.1) Chloride Level 102mmol/L (98-107) Carbon Dioxide Level 28mmol/L (21-32) Anion Gap 7 (6-14) Blood Urea Nitrogen 22mg/dL (8-26) Creatinine 1.4mg/dL (0.7-1.3) Estimated GFR (Cockcroft-Gault) 63.7 Glucose Level 181mg/dL (70-99) Calcium Level 9.0mg/dL (8.5-10.1) Magnesium Level 1.8mg/dL (1.8-2.4) Total Bilirubin 0.9mg/dL (0.2-1.0) Direct Bilirubin 0.2mg/dL (0.0-0.2) Aspartate Amino Transf (AST/SGOT) 13U/L (15-37) Alanine Aminotransferase (ALT/SGPT) 22U/L (16-63) Alkaline Phosphatase 70U/L (46-116) Creatine Kinase 87U/L (39-308) Creatine Kinase MB (Mass) 1.8ng/mL (0.0-3.6) Creatine Kinase MB Relative Index 2.1% (0-4) Troponin I Quantitative 0.024ng/mL (0.000-0.055) < 0.017ng/mL (0.000-0.055) GE-Tns-W-Type Natriuretic Peptide 411pg/mL (0-124) Total Protein 7.5g/dL (6.4-8.2) Albumin 3.5g/dL (3.4-5.0) Urine Collection Type Unknown Urine Color Yellow Urine Clarity Clear Urine pH 5.5 Urine Specific [place] 1.020 Urine Protein Negativemg/dL (NEG-TRACE) Urine Glucose (UA) 250mg/dL (NEG) Urine Ketones (Stick) Negativemg/dL (NEG) Urine Blood Negative (NEG) Urine Nitrite Negative (NEG) Urine Bilirubin Negative (NEG) Urine Urobilinogen Dipstick 0.2mg/dL (0.2 mg/dL) Urine Leukocyte Esterase Negative (NEG) Urine RBC 0/HPF (0-2) Urine WBC 0/HPF (0-4) Urine Squamous Epithelial Cells None/LPF Urine Bacteria 0/HPF (0-FEW) Urine Mucus Mod/LPF Glucose (Fingerstick) 150mg/dL (70-99) Test 11/07/16 04:45 11/07/16 07:51 11/07/16 11:11 White Blood Count 4.6x10^3/uL (4.0-11.0) Red Blood Count 4.18x10^6/uL (4.30-5.70) Hemoglobin 13.3g/dL (13.0-17.5) Hematocrit 40.1% (39.0-53.0) Mean Corpuscular Volume 96fL (79-100) Mean Corpuscular Hemoglobin 32pg (25-35) Mean Corpuscular Hemoglobin Concent 33g/dL (31-37) Red Cell Distribution Width 13.7% (11.5-14.5) Platelet Count 200x10^3/uL (140-400) Neutrophils (%) (Auto) 48% (31-73) Lymphocytes (%) (Auto) 37% (24-48) Monocytes (%) (Auto) 10% (0-9) Eosinophils (%) (Auto) 5% (0-3) Basophils (%) (Auto) 1% (0-3) Neutrophils # (Auto) 2.2x10^3uL (1.8-7.7) Lymphocytes # (Auto) 1.7x10^3/uL (1.0-4.8) Monocytes # (Auto) 0.4x10^3/uL (0.0-1.1) Eosinophils # (Auto) 0.2x10^3/uL (0.0-0.7) Basophils # (Auto) 0.0x10^3/uL (0.0-0.2) Sodium Level 136mmol/L (136-145) Potassium Level 3.3mmol/L (3.5-5.1) Chloride Level 101mmol/L (98-107) Carbon Dioxide Level 24mmol/L (21-32) Anion Gap 11 (6-14) Blood Urea Nitrogen 21mg/dL (8-26) Creatinine 1.4mg/dL (0.7-1.3) Estimated GFR (Cockcroft-Gault) 63.7 Glucose Level 261mg/dL (70-99) Calcium Level 8.5mg/dL (8.5-10.1) Troponin I Quantitative 0.023ng/mL (0.000-0.055) Glucose (Fingerstick) 98mg/dL (70-99) 85mg/dL (70-99) Laboratory Tests Test 11/06/16 16:20 11/06/16 20:54 11/06/16 23:00 11/07/16 04:45 Urine Collection Type Unknown Urine Color Yellow Urine Clarity Clear Urine pH 5.5 Urine Specific [place] 1.020 Urine Protein Negativemg/dL (NEG-TRACE) Urine Glucose (UA) 250mg/dL (NEG) Urine Ketones (Stick) Negativemg/dL (NEG) Urine Blood Negative (NEG) Urine Nitrite Negative (NEG) Urine Bilirubin Negative (NEG) Urine Urobilinogen Dipstick 0.2mg/dL (0.2 mg/dL) Urine Leukocyte Esterase Negative (NEG) Urine RBC 0/HPF (0-2) Urine WBC 0/HPF (0-4) Urine Squamous Epithelial Cells None/LPF Urine Bacteria 0/HPF (0-FEW) Urine Mucus Mod/LPF Glucose (Fingerstick) 150mg/dL (70-99) Troponin I Quantitative < 0.017ng/mL (0.000-0.055) 0.023ng/mL (0.000-0.055) White Blood Count 4.6x10^3/uL (4.0-11.0) Red Blood Count 4.18x10^6/uL (4.30-5.70) Hemoglobin 13.3g/dL (13.0-17.5) Hematocrit 40.1% (39.0-53.0) Mean Corpuscular Volume 96fL (79-100) Mean Corpuscular Hemoglobin 32pg (25-35) Mean Corpuscular Hemoglobin Concent 33g/dL (31-37) Red Cell Distribution Width 13.7% (11.5-14.5) Platelet Count 200x10^3/uL (140-400) Neutrophils (%) (Auto) 48% (31-73) Lymphocytes (%) (Auto) 37% (24-48) Monocytes (%) (Auto) 10% (0-9) Eosinophils (%) (Auto) 5% (0-3) Basophils (%) (Auto) 1% (0-3) Neutrophils # (Auto) 2.2x10^3uL (1.8-7.7) Lymphocytes # (Auto) 1.7x10^3/uL (1.0-4.8) Monocytes # (Auto) 0.4x10^3/uL (0.0-1.1) Eosinophils # (Auto) 0.2x10^3/uL (0.0-0.7) Basophils # (Auto) 0.0x10^3/uL (0.0-0.2) Sodium Level 136mmol/L (136-145) Potassium Level 3.3mmol/L (3.5-5.1) Chloride Level 101mmol/L (98-107) Carbon Dioxide Level 24mmol/L (21-32) Anion Gap 11 (6-14) Blood Urea Nitrogen 21mg/dL (8-26) Creatinine 1.4mg/dL (0.7-1.3) Estimated GFR (Cockcroft-Gault) 63.7 Glucose Level 261mg/dL (70-99) Calcium Level 8.5mg/dL (8.5-10.1) Test 11/07/16 07:51 11/07/16 11:11 Glucose (Fingerstick) 98mg/dL (70-99) 85mg/dL (70-99) GEORGES DE LA FUENTE MD Nov 07, 2016 16:24
--- NOTE | 2016-11-07 16:37 | PDOC ---
Provider Note Provider Note discharge dictated #[id number] Meli FIELDS MD Nov 07, 2016 16:37
--- NOTE | 2016-11-07 18:44 | HP ---
ADMIT DATE: 11/07/2016 HISTORY AND PHYSICAL AND DISCHARGE SUMMARY COMBINED. ADMISSION DIAGNOSIS: Atrial fibrillation with rapid ventricular response. DISCHARGE DIAGNOSES: Atrial fibrillation with rapid ventricular response. ASSOCIATED DIAGNOSES: Type 2 diabetes, right chest wall pain, hypertension, chronic diastolic heart failure, hyperlipidemia, history of Hodgkin's disease, obstructive sleep apnea, gout, stage III chronic kidney disease. HISTORY OF PRESENT ILLNESS AND HOSPITAL COURSE: This is a 56-year-old -[place] Citizen male who was just released on 11/02/2016 from this facility after receiving a pacemaker. He came in to the office to follow up on his right upper quadrant abdominal pain for which no etiology was determined while he was in the hospital. While here though he was noted to have a heart rate of approximately 140. EKG was done and confirmed he had atrial fib with a rate ranging from 120-140. He was therefore sent back to the Emergency Room where he was started on a Cardizem drip. Overnight on the drip, though his heart rate has stabilized and is now in the 80s. He is taking p.o. well and his other medications well and is transitioned to oral Cardizem 120 mg, which seems to be holding down his rate. He was seen in consultation by Dr. Lew. No other cardiac changes were made. His pacemaker is doing well. His right upper quadrant abdominal pain was evaluated with a HIDA scan which was unremarkable showing normal gallbladder function. He has previously had a gastric emptying study that was quick to empty and previous imaging with CT scans also was unrevealing. PAST MEDICAL HISTORY: Significant for poorly controlled diabetes, but he seems to be on a better insulin regimen, but he does no appetite or diet control. History of atrial fib, CHF, hypertension, hyperlipidemia, Hodgkin's lymphoma, allergic rhinitis. PAST SURGICAL HISTORY: Include colonoscopy in 2013 and lymphoma resection ____. He was hospitalized in 2012 with a stroke and 2002 with lymphoma and CHF in 2009 and he just recently had his pacemaker placed this past week. ALLERGIES: He has no known drug allergies. HOME MEDICATIONS: Potassium chloride 10 mEq daily, Amitiza 8 mcg b.i.d., indomethacin 50 mg t.i.d., MiraLax 17 grams daily, carvedilol 25 mg b.i.d., mirtazapine 15 mg at bedtime, loratadine 10 mg daily, allopurinol 100 mg daily, NovoLog 70/30 insulin 70 units b.i.d., metformin 500 mg 2 daily. FAMILY HISTORY: Mother is alive at 80+ years with diabetes, end-stage renal disease. Father is with prostate and colon cancer, brother has colon cancer. Maternal grandmother had end-stage renal disease. SOCIAL HISTORY: He is not a smoker. He does drink some alcohol. His diet quality is poor. He will typically drink 7-9 drinks daily. Denies any substance abuse. He is not and lives alone, is disabled. REVIEW OF SYSTEMS: CONSTITUTIONAL: Negative for fever, chills or night sweats. ENT: Negative for sore throat or allergy symptoms. RESPIRATORY: Negative for cough. CARDIOVASCULAR: Chest pain around his pacemaker site. MUSCULOSKELETAL: Denies back pain or any gout symptoms, no acute joint swelling. SKIN: Without rashes or new lesions. NEUROLOGIC: Negative for syncope or seizures. Urinary: Negative for dysuria. PHYSICAL EXAMINATION: VITAL SIGNS: 299.4 pounds, BMI of 41. Blood pressure 124/72, heart rate of 113 and irregular. CHEST: Lungs are clear. ABDOMEN: Obese, soft, minimal edema. No clubbing, no cyanosis. Neurologic: He is alert. He is oriented. He is ambulating well. His pacemaker site is a little bit tender, but healing. He has got his left arm in a shoulder harness. LABORATORY DATA: Show a normal CBC. Potassium is 3.3 this morning, otherwise chemistry is unremarkable, EGFR 63, creatinine 1.4. Troponin is negative, second one did come up to 0.023 though. Urinalysis positive for glucose. Coags were unremarkable. IMAGING STUDIES: Chest x-ray showed no acute cardiopulmonary abnormality. His HIDA scan showed normal hepatobiliary scintigraphy with normal gallbladder ejection fraction. He does have some pinpoint tenderness on his anterior chest wall consistent with a Rib-Tip syndrome. ASSESSMENT: 1. Atrial fibrillation with RVR that has now been controlled with IV Cardizem and converted to p.o. and maintaining controlled rate. 2. Right upper quadrant/ right chest wall pain consistent with Rib-Tip syndrome. No evidence of gallbladder dysfunction or other etiology. 3. Type 2 diabetes, pretty well controlled here, but his diet at home is not good. PLAN: He will be released home. DISCHARGE MEDICATIONS: diltiazem CD 120 mg daily, Lidoderm patch daily to his right anterior lower rib area, allopurinol 100 mg daily, aspirin 81 daily, carvedilol 12.5 b.i.d. with meals, hydrocodone APAP 5/325 q.4 hours p.r.n. pain while recovering from his pacemaker placement, NovoLog mix 70/30, 30 units subQ h.s., lactulose 20 grams b.i.d., losartan 100 mg daily, Amitiza 8 mcg 2 caps b.i.d., magnesium citrate p.r.n. constipation, metformin extended release 500 mg 1 daily, potassium chloride 10 mEq daily, temazepam 15 mg at bedtime. PLAN: Diet will be diabetic. He will avoid alcohol and will follow up in the office with me within a week or two and with Dr. Lew. W Cata FIELDS MD DR: JESUS/sagar JOB#: [id number] / [id number]
== END 2016-11-07 18:28 | disposition home or self-care (01) | DRG 309 ==
LOC: ER 14:46 → 2 NORTH 17:37
PROVIDERS: ADMIT Family Medicine; ATTEND Family Medicine
DX: I48.91 Unspecified atrial fibrillation (principal); I13.0 Hypertensive heart and chronic kidney disease with heart failure and stage 1 through stage 4 chronic kidney disease, or unspecified chronic kidney disease; I50.32 Chronic diastolic (congestive) heart failure; Z68.41 Body mass index [BMI] 40.0-44.9, adult; I42.9 Cardiomyopathy, unspecified; E11.22 Type 2 diabetes mellitus with diabetic chronic kidney disease; E66.9 Obesity, unspecified; E78.00 Pure hypercholesterolemia, unspecified; E78.5 Hyperlipidemia, unspecified; G47.33 Obstructive sleep apnea (adult) (pediatric); I25.10 Atherosclerotic heart disease of native coronary artery without angina pectoris; J44.9 Chronic obstructive pulmonary disease, unspecified; E11.65 Type 2 diabetes mellitus with hyperglycemia; F32.9 Major depressive disorder, single episode, unspecified; E53.8 Deficiency of other specified B group vitamins; J45.909 Unspecified asthma, uncomplicated; M10.9 Gout, unspecified; N18.3 Chronic kidney disease, stage 3 (moderate); Z80.0 Family history of malignant neoplasm of digestive organs; Z83.3 Family history of diabetes mellitus; Z85.71 Personal history of Hodgkin lymphoma; Z86.73 Personal history of transient ischemic attack (TIA), and cerebral infarction without residual deficits; Z95.0 Presence of cardiac pacemaker; Z80.42 Family history of malignant neoplasm of prostate
CPT/HCPCS: 36415; 71010; 78226; 80048; 80076; 81001; 82553; 82947; 83735; 83880; 84484; 85027; 85610; 93005; 96365; 96366; 96374; 96375; A9537; J1815; J2805; J3010; J3490; 99285-25

== ENCOUNTER 2017-01-04 09:59 | Emergency (ER) | payer MEDICARE, MEDICAID ==
[~2017-01-04] VITALS: Ht 182.9 cm; Wt 135.6 kg
[~2017-01-04 09:59] MED LIST changes: +DILT120C97 PO; +LIDO700A4 TD
[2017-01-04] MEDS ORDERED: ASPIRIN 325 MG TABLET PO ONE (10:15)
--- NOTE | 2017-01-04 10:20 | EKG ---
[facility] [address] [place] [address] Test Date: 2017-01-04 Test Time: 10:10:33 Pat Name: REBEKAH GAMEZ Department: Room: Gender: M Needleworker: : 1960 Requested By: Bernardino PUENTES Order Number: [id number] Reading MD: Jewel Hunt Measurements Intervals [place] Rate: 128 P: ND: QRS: -42 QRSD: 82 T: 37 QT: 308 QTc: 453 Interpretive Statements ACCELERATED JUNCTIONAL RHYTHM ABNORMAL LEFT AXIS DEVIATION QRS(T) CONTOUR ABNORMALITY CONSISTENT WITH ANTERIOR INFARCT PROBABLY OLD CONSISTENT WITH INFEROLATERAL INFARCT PROBABLY OLD RI6.01 Unconfirmed report Electronically Signed On 01-04-2017 14:19:45 CRIMPER OPERATOR by Jewel Hunt
[2017-01-04 10:34] LABS: BASO # 0.1 x10^3/uL (0.0-0.2); BASO % 1 % (0-3); EOS % 1 % (0-3); HEMATOCRIT 40.7 % (39.0-53.0); LYMPH # 1.4 x10^3/uL (1.0-4.8); LYMPH % 23 % (24-48); MEAN CORPUSCULAR HEMOGLOBIN 32 pg (25-35); MEAN CORPUSCULAR HGB CONC 34 g/dL (31-37); MEAN CORPUSCULAR VOLUME 92 fL (79-100); MONO % 11 % (0-9); NEUT % 64 % (31-73); PLATELET COUNT 222 x10^3/uL (140-400); RED BLOOD COUNT 4.43 x10^6/uL (4.30-5.70); RED CELL DISTRIBUTION WIDTH 13.7 % (11.5-14.5); WHITE BLOOD COUNT 5.9 x10^3/uL (4.0-11.0)
--- NOTE | 2017-01-04 10:44 | RAD ---
PA and lateral chest radiographs 01/04/2017 Clinical history: Left-sided chest pain for 2 months. PA and lateral digital radiographs of the chest were obtained. Comparison study is dated 11/06/2016. A pacemaker is unchanged in position. The patient is status post median sternotomy. The cardiac silhouette is mildly enlarged. The thoracic aorta is tortuous. Atherosclerotic calcification of the thoracic aorta is seen. No acute pulmonary infiltrate is noted. No pneumothorax or pleural effusion is seen. Degenerative changes are seen involving the thoracic spine. Impression: No acute abnormality is seen.
[2017-01-04 10:46] LABS: CALCIUM 9.1 mg/dL (8.5-10.1); CREATININE 1.4 mg/dL (0.7-1.3); GFR 63.7; POTASSIUM 4.1 mmol/L (3.5-5.1)
[2017-01-04 11:17] LABS: BARBITURATES NEG (NEG); BENZODIAZEPINES NEG (NEG); CANNABINOIDS NEG (NEG); COCAINE POS (NEG); ETHANOL, URINE NEG (NEG); METHADONE NEG (NEG); OPIATES NEG (NEG); PHENCYCLIDINE NEG (NEG)
[2017-01-04] MEDS ORDERED: DILTIAZEM IV PUSH 25 MG/5 ML VIAL. ONE (12:08)
--- NOTE | 2017-01-04 12:14 | PHYS DOC ---
Past Medical History Past Medical History: A-Fib, Asthma, Cancer, Constipation, CVA, Depression, Diabetes-Type II, High Cholesterol, Hypertension, Renal Disease, Other Additional Past Medical Histor: Sleep Apnea, MULTIPLE CARDIAC TUMORS, HOGDKINS LYMPHOMA,GOUT, C-DIFF Past Surgical History: Angioplasty, Coronary Bypass Surgery, Pacemaker, Tonsillectomy, Other Additional Past Surgical Histo: 2 surgeries to attempt to remove tumors on heart,Adenoids Alcohol Use: Occasionally Drug Use: None Adult General Chief Complaint Chief Complaint: RAPID HEART RATE HPI HPI Patient is a 56 year old male who presents from primary care doctor's office for tachycardia. He notes months of intermittent, brief, frequent right lower chest pain that has been worked up multiple times in the past few months ago. He states this is unchanged from prior examinations. He denies OTC medication use, but he is out of a couple of his home meds. He denies fever or chills, dyspnea, cough, nausea or vomiting, palpitations, diaphoresis, orthopnea, leg pain or swelling, diarrhea, dysuria, back pain. Review of Systems Review of Systems Constitutional: Denies fever or chills [] Eyes: Denies change in visual acuity, redness, or eye pain [] HENT: Denies nasal congestion or sore throat [] Respiratory: Denies cough or shortness of breath [] Cardiovascular: No additional information not addressed in HPI [] GI: Denies abdominal pain, nausea, vomiting, bloody stools or diarrhea [] : Denies dysuria or hematuria [] Musculoskeletal: Denies back pain or joint pain [] Integument: Denies rash or skin lesions [] Neurologic: Denies headache, focal weakness or sensory changes [] Endocrine: Denies polyuria or polydipsia [] Current Medications Current Medications Current Medications Medications (Trade) Dose Ordered Sig/Lizzie Start Time Stop Time Status Last Admin Dose Admin Aspirin (Will Aspirin) 325 mg 1X ONCE 01/04/17 10:15 01/04/17 10:17 DC 01/04/17 10:15 325 MG Diltiazem HCl (Cardizem) 25 mg STK-MED ONCE 01/04/17 12:08 01/04/17 12:09 DC Allergies Allergies Allergies Coded Allergies Type Severity Reaction Last Updated Verified No Known Drug Allergies 09/02/16 No Physical Exam Physical Exam Constitutional: Well developed, well nourished, no acute distress, non-toxic appearance. [] HENT: Normocephalic, atraumatic, bilateral external ears normal, oropharynx moist, nose normal. [] Eyes: PERRLA, EOMI. [] Neck: Normal range of motion, supple. [] Cardiovascular: Regular tachycardia [] Lungs & Thorax: Bilateral breath sounds clear to auscultation [] Abdomen: Bowel sounds normal, soft, no tenderness. [] Skin: Warm, dry, no erythema, no rash. [] Back: No tenderness, no CVA tenderness. [] Extremities: No tenderness, ROM intact, no edema. [] Neurologic: Alert and oriented X 3, normal motor function, normal sensory function, no focal deficits noted. [] Psychologic: Affect normal, judgement normal, mood normal. [] Current Patient Data Vital Signs Vital Signs Date Time Temp Pulse Resp B/P Pulse Ox O2 Delivery O2 Flow Rate FiO2 01/04/17 12:18 126 11 174/96 98 Room Air 01/04/17 10:16 97.6 97.6 Lab Values Laboratory Tests Test 01/04/17 10:15 01/04/17 10:45 White Blood Count 5.9x10^3/uL (4.0-11.0) Red Blood Count 4.43x10^6/uL (4.30-5.70) Hemoglobin 14.0g/dL (13.0-17.5) Hematocrit 40.7% (39.0-53.0) Mean Corpuscular Volume 92fL (79-100) Mean Corpuscular Hemoglobin 32pg (25-35) Mean Corpuscular Hemoglobin Concent 34g/dL (31-37) Red Cell Distribution Width 13.7% (11.5-14.5) Platelet Count 222x10^3/uL (140-400) Neutrophils (%) (Auto) 64% (31-73) Lymphocytes (%) (Auto) 23% (24-48) L Monocytes (%) (Auto) 11% (0-9) H Eosinophils (%) (Auto) 1% (0-3) Basophils (%) (Auto) 1% (0-3) Neutrophils # (Auto) 3.7x10^3uL (1.8-7.7) Lymphocytes # (Auto) 1.4x10^3/uL (1.0-4.8) Monocytes # (Auto) 0.7x10^3/uL (0.0-1.1) Eosinophils # (Auto) 0.1x10^3/uL (0.0-0.7) Basophils # (Auto) 0.1x10^3/uL (0.0-0.2) Prothrombin Time 13.0SEC (11.7-14.0) Prothrombin Time INR 1.0 (0.8-1.1) Sodium Level 141mmol/L (136-145) Potassium Level 4.1mmol/L (3.5-5.1) Chloride Level 104mmol/L (98-107) Carbon Dioxide Level 27mmol/L (21-32) Anion Gap 10 (6-14) Blood Urea Nitrogen 18mg/dL (8-26) Creatinine 1.4mg/dL (0.7-1.3) H Estimated GFR (Cockcroft-Gault) 63.7 Glucose Level 149mg/dL (70-99) H Calcium Level 9.1mg/dL (8.5-10.1) Troponin I Quantitative 0.017ng/mL (0.000-0.055) AP-Vio-O-Type Natriuretic Peptide 577pg/mL (0-124) H Urine Opiates Screen Neg (NEG) Urine Methadone Screen Neg (NEG) Urine Barbiturates Neg (NEG) Urine Phencyclidine Screen Neg (NEG) Urine Amphetamine/Methamphetamine Neg (NEG) Urine Benzodiazepines Screen Neg (NEG) Urine Cocaine Screen Pos (NEG) Urine Cannabinoids Screen Neg (NEG) Urine Ethyl Alcohol Neg (NEG) Laboratory Tests 01/04/17 10:15 Laboratory Tests 01/04/17 10:15 EKG EKG EKG as interpreted by me as accelerated junctional rhythm, rate 128, no ST-T changes, no ectopy Radiology/Procedures Radiology/Procedures Chest xray as interpreted by me with no acute cardiopulmonary disease process Course & Med Decision Making Course & Med Decision Making Pertinent Labs and Imaging studies reviewed. (See chart for details) Laboratory evaluation remarkable for positive cocaine on UDS. Patient adamantly denies use of cocaine. He has decreases in his heart rate to the 70s and 80s with slight vagal maneuvers, but heart rate returns to 120s with activity. He is otherwise asymptomatic other than chronic symptoms. Discussed case with Dr. Lew, cardiology, who has seen the patient at bedside and recommends giving single dose of diltiazem IV and discharging the patient to follow-up. Encouraged medication compliance and drug abstinence (although he continues to deny use). Return precautions given. He understands and agrees with plan. Dragon Disclaimer Dragon Disclaimer This electronic medical record was generated, in whole or in part, using a voice recognition dictation system. Departure Departure Impression: Primary Impression: Chest pain Additional Impression: Tachycardia Disposition: 01 HOME, SELF-CARE Condition: STABLE Referrals: PEMA ARIAS MD (PCP) Patient Instructions: Chest Pain (Nonspecific), [id number] Additional Instructions: Resume your home medications. Follow-up with Dr. Arias and Dr. Lew. Please call for appointment. Return for any concerns. Problem Qualifiers Primary Impression: Chest pain Chest pain type: unspecified Qualified Code: R07.9 - Chest pain, unspecified Bernardino PUENTES MD Jan 04, 2017 12:14
[2017-01-04] MEDS ORDERED: DILTIAZEM IV PUSH 25 MG/5 ML VIAL. IVP ONE (12:15)
[2017-01-04 12:18] VITALS: BP 174/96
== END 2017-01-04 12:38 | disposition home or self-care (01) ==
LOC: ER 09:59
DX: R07.89 Other chest pain (principal); R00.0 Tachycardia, unspecified; E11.22 Type 2 diabetes mellitus with diabetic chronic kidney disease; I12.9 Hypertensive chronic kidney disease with stage 1 through stage 4 chronic kidney disease, or unspecified chronic kidney disease; N18.9 Chronic kidney disease, unspecified; I48.91 Unspecified atrial fibrillation; J45.909 Unspecified asthma, uncomplicated; F32.9 Major depressive disorder, single episode, unspecified; E78.00 Pure hypercholesterolemia, unspecified; M10.9 Gout, unspecified; G47.30 Sleep apnea, unspecified; Z85.72 Personal history of non-Hodgkin lymphomas; Z86.73 Personal history of transient ischemic attack (TIA), and cerebral infarction without residual deficits; Z95.1 Presence of aortocoronary bypass graft; Z96.89 Presence of other specified functional implants
CPT/HCPCS: 36415; 71020; 80048; 83880; 84484; 85027; 85610; 93005; 96374; 99285; G0481; J3490

== ENCOUNTER 2017-05-13 11:20 | Inpatient (IN) | payer MEDICARE, MEDICAID ==
[~2017-05-13] VITALS: Ht 180.3 cm; Wt 140.8 kg
[~2017-05-13 11:20] MED LIST changes: +DILT120C80 PO; -DILT120C97 PO; -HYDR-2666 PO; +HYDR-2758 PO; -LUBI8CAP3 PO; +LUBI8CAP4 PO; -MAGN296S PO; +MAGN296S9 PO; +POLY17PO29 PO; -POLY17PO5 PO; -POTA10TA10 PO; +POTA10TA12 PO
[2017-05-13 11:53] LABS: BASO # 0.1 x10^3/uL (0.0-0.2); BASO % 1 % (0-3); EOS % 2 % (0-3); HEMOGLOBIN 13.2 g/dL (13.0-17.5); LYMPH # 1.5 x10^3/uL (1.0-4.8); LYMPH % 22 % (24-48); MEAN CORPUSCULAR HEMOGLOBIN 33 pg (25-35); MEAN CORPUSCULAR HGB CONC 34 g/dL (31-37); MEAN CORPUSCULAR VOLUME 96 fL (79-100); MONO % 9 % (0-9); NEUT % 65 % (31-73); PLATELET COUNT 189 x10^3/uL (140-400); RED BLOOD COUNT 4.07 x10^6/uL (4.30-5.70); RED CELL DISTRIBUTION WIDTH 14.3 % (11.5-14.5); WHITE BLOOD COUNT 6.7 x10^3/uL (4.0-11.0)
--- NOTE | 2017-05-13 12:07 | RAD ---
Chest radiograph 05/13/2017 at 1149 hours Indication: Shortness of air Comparison: Chest radiograph 01/04/2017 Technique: Single portable upright view of the chest is provided. Findings: Left-sided cardiac device is identified with leads projecting over the right apical. Median sternotomy changes are present. Cardiomediastinal silhouette is borderline enlarged. No pulmonary vascular congestion. No pneumothorax. No pleural effusions. Lungs are clear. Osseous structures are normal. Impression: Borderline cardiomegaly. Lungs are otherwise clear.
[2017-05-13 12:13] LABS: BILIRUBIN,URINE NEGATIVE (NEG); GLUCOSE,URINE 250 mg/dL (NEG); NITRITE,URINE NEGATIVE (NEG); PROTEIN,URINE NEGATIVE (NEG-TRACE); UROBILINOGEN,URINE 0.2 mg/dL (0.2 mg/dL)
[2017-05-13 12:24] LABS: BACTERIA,URINE 0 /HPF (0-FEW); RBC,URINE 0 /HPF (0-2); WBC,URINE 0 /HPF (0-4)
[2017-05-13 12:30] LABS: CREATININE 1.5 mg/dL (0.7-1.3); GFR 58.8; POTASSIUM 4.1 mmol/L (3.5-5.1)
[2017-05-13 12:34] LABS: ALBUMIN 3.4 g/dL (3.4-5.0); ALBUMIN/GLOBULIN RATIO 0.9 (1.0-1.7); TOTAL BILIRUBIN 1.3 mg/dL (0.2-1.0); TOTAL PROTEIN 7.4 g/dL (6.4-8.2)
--- NOTE | 2017-05-13 12:49 | ED.ADGEN ---
Past Medical History Past Medical History: A-Fib, Asthma, Cancer, Constipation, CVA, Depression, Diabetes-Type II, High Cholesterol, Hypertension, Renal Disease, Other Additional Past Medical Histor: Sleep Apnea, MULTIPLE CARDIAC TUMORS, HOGDKINS LYMPHOMA,GOUT, C-DIFF Past Surgical History: Angioplasty, Coronary Bypass Surgery, Pacemaker, Tonsillectomy, Other Additional Past Surgical Histo: 2 surgeries to attempt to remove tumors on heart,Adenoids Alcohol Use: Occasionally Drug Use: None Adult General Chief Complaint Chief Complaint: SHORTNESS OF BREATH HPI HPI Patient is a 56 year old with history of cardiomyopathy, congestive heart failure, A. fib, diabetes who presents with shortness of breath for the past several days. Patient reports increased leg swelling, urinary frequency urgency and dyspnea with exertion. Denies chest pain, chest tightness, wheezing. Patient denies productive cough. No fever chills or sweats. Denies history of DVT or PE. Patient's curing oven tender is Dr. Tee Lew. Patient's PCP is Dr. Alvarez Ford. Review of Systems Review of Systems ROS as per HPI. Current Medications Current Medications Current Medications Medications (Trade) Dose Ordered Sig/Lizzie Start Time Stop Time Status Last Admin Dose Admin Albuterol Sulfate (Ventolin Neb Soln) 5 mg 1X ONCE 05/13/17 13:00 05/13/17 13:01 DC Albuterol/ Ipratropium (Duoneb) 3 ml STK-MED ONCE 05/13/17 13:16 05/13/17 13:17 DC Clonidine HCl (Catapres) 0.3 mg 1X ONCE 05/13/17 13:00 05/13/17 13:01 DC 05/13/17 13:16 0.3 MG Furosemide (Lasix) 40 mg 1X ONCE 05/13/17 13:00 05/13/17 13:01 DC 05/13/17 13:07 40 MG Ipratropium [place] (Atrovent) 0.5 mg 1X ONCE 05/13/17 13:00 05/13/17 13:01 DC Allergies Allergies Allergies Coded Allergies Type Severity Reaction Last Updated Verified No Known Drug Allergies 09/02/16 No Physical Exam Physical Exam Constitutional: Well developed, well nourished, no acute distress, non-toxic appearance. HENT: Normocephalic, atraumatic, bilateral external ears normal, oropharynx moist, no oral exudates, nose normal. Eyes: PERRL. Neck: Normal range of motion, no tenderness. Cardiovascular:Heart rate regular rhythm, no murmur. Lungs & Thorax: Respirations labored, diminished breath sounds secondary to habitus. No wheezes or rales appreciated. Abdomen: Bowel sounds normal, soft, obesity compromising evaluation, nontender. Skin: Warm, dry. Back: No tenderness. Extremities: No tenderness, 1+ bipedal edema, negative Homans signs. Neurologic: Alert and oriented X 3, normal motor function, normal sensory function, no focal deficits noted. Psychologic: Affect normal, judgement normal, mood normal. Current Patient Data Vital Signs Vital Signs Date Time Temp Pulse Resp B/P (MAP) Pulse Ox O2 Delivery O2 Flow Rate FiO2 05/13/17 14:00 122 137/100 (112) 05/13/17 13:17 99 Room Air 05/13/17 11:37 98.6 18 98.6 Lab Values Laboratory Tests Test 05/13/17 11:30 05/13/17 11:45 05/13/17 12:10 Urine Collection Type Unknown Urine Color Yellow Urine Clarity Clear Urine pH 6.0 Urine Specific [place] 1.010 Urine Protein Negative mg/dL (NEG-TRACE) Urine Glucose (UA) 250 mg/dL (NEG) Urine Ketones (Stick) Negative mg/dL (NEG) Urine Blood Negative (NEG) Urine Nitrite Negative (NEG) Urine Bilirubin Negative (NEG) Urine Urobilinogen Dipstick 0.2 mg/dL (0.2 mg/dL) Urine Leukocyte Esterase Negative (NEG) Urine RBC 0 /HPF (0-2) Urine WBC 0 /HPF (0-4) Urine Bacteria 0 /HPF (0-FEW) Urine Hyaline Casts Few /HPF Urine Mucus Slight /LPF White Blood Count 6.7 x10^3/uL (4.0-11.0) Red Blood Count 4.07 x10^6/uL (4.30-5.70) L Hemoglobin 13.2 g/dL (13.0-17.5) Hematocrit 39.0 % (39.0-53.0) Mean Corpuscular Volume 96 fL (79-100) Mean Corpuscular Hemoglobin 33 pg (25-35) Mean Corpuscular Hemoglobin Concent 34 g/dL (31-37) Red Cell Distribution Width 14.3 % (11.5-14.5) Platelet Count 189 x10^3/uL (140-400) Neutrophils (%) (Auto) 65 % (31-73) Lymphocytes (%) (Auto) 22 % (24-48) L Monocytes (%) (Auto) 9 % (0-9) Eosinophils (%) (Auto) 2 % (0-3) Basophils (%) (Auto) 1 % (0-3) Neutrophils # (Auto) 4.3 x10^3uL (1.8-7.7) Lymphocytes # (Auto) 1.5 x10^3/uL (1.0-4.8) Monocytes # (Auto) 0.6 x10^3/uL (0.0-1.1) Eosinophils # (Auto) 0.1 x10^3/uL (0.0-0.7) Basophils # (Auto) 0.1 x10^3/uL (0.0-0.2) Troponin I Quantitative < 0.017 ng/mL (0.000-0.055) Sodium Level 141 mmol/L (136-145) Potassium Level 4.1 mmol/L (3.5-5.1) Chloride Level 103 mmol/L (98-107) Carbon Dioxide Level 29 mmol/L (21-32) Anion Gap 9 (6-14) Blood Urea Nitrogen 18 mg/dL (8-26) Creatinine 1.5 mg/dL (0.7-1.3) H Estimated GFR (Cockcroft-Gault) 58.8 BUN/Creatinine Ratio 12 (6-20) Glucose Level 210 mg/dL (70-99) H Calcium Level 9.0 mg/dL (8.5-10.1) Total Bilirubin 1.3 mg/dL (0.2-1.0) H Aspartate Amino Transferase (AST) 15 U/L (15-37) Alanine Aminotransferase (ALT) 15 U/L (16-63) L Alkaline Phosphatase 76 U/L (46-116) BE-Rzi-T-Type Natriuretic Peptide 467 pg/mL (0-124) H Total Protein 7.4 g/dL (6.4-8.2) Albumin 3.4 g/dL (3.4-5.0) Albumin/Globulin Ratio 0.9 (1.0-1.7) L Laboratory Tests 7/13/17 11:45 Laboratory Tests 05/13/17 12:10 EKG EKG ] Radiology/Procedures Radiology/Procedures [Chest x-ray: NAD per EMS.] Course & Med Decision Making Course & Med Decision Making Pertinent Labs and Imaging studies reviewed. (See chart for details) [Patient with acute congestive heart failure retention. Lasix and blood pressure medication given. Dr. Lew to admit.] Violet Disclaimer Violet Disclaimer This electronic medical record was generated, in whole or in part, using a voice recognition dictation system. MIGUEL GUTIERRES DO May 13, 2017 12:49
[2017-05-13] MEDS ORDERED: ALBUTEROL SULFATE 2.5 MG/3 ML NEBU. NEB ONE (13:00)
[2017-05-13] MEDS ORDERED: IPRATROPIUM BROMIDE 0.5 MG/2.5 ML NEBU. NEB ONE (13:00)
[2017-05-13] MEDS ORDERED: cloNIDine HCL 0.1 MG TABLET PO ONE (13:00)
[2017-05-13] MEDS ORDERED: FUROSEMIDE 40 MG/4 ML VIAL. IVP ONE (13:00)
[2017-05-13] MEDS ORDERED: IPRATRPIUM/ALBUTEROL 0.5/2.5MG 3 ML NEBU. ONE (13:16)
--- NOTE | 2017-05-13 14:32 | EKG ---
[facility] [address] [place] [address] Test Date: 2017-05-13 Test Time: 12:59:22 Pat Name: REBEKAH GAMEZ Department: Room: Gender: M Financial Management Consultant: : 1960 Requested By: MIGUEL GUTIERRES Order Number: [id number] Reading MD: Measurements Intervals [place] Rate: 119 P: ME: QRS: -34 QRSD: 88 T: 38 QT: 332 QTc: 474 Interpretive Statements ACCELERATED JUNCTIONAL RHYTHM ABNORMAL LEFT AXIS DEVIATION INCOMPLETE RIGHT BUNDLE BRANCH BLOCK QRS(T) CONTOUR ABNORMALITY CONSISTENT WITH ANTERIOR INFARCT PROBABLY OLD CONSISTENT WITH INFEROLATERAL INFARCT PROBABLY OLD ABNORMAL ECG RI6.01 No previous ECG available for comparison
--- NOTE | 2017-05-13 15:25 | ACF ---
Admit Criteria Forms Admit Criteria Forms Admit Criteria Forms HEART FAILURE: COMMON COMPLICATIONS (Place 'X' for any and all applicable criteria): Ongoing inpatient care may be indicated for heart failure with 1 or more of the following (1)(2)(3)(4)(5)(6)(7)(8): [ ]I. New-onset heart failure [ ]II. Acute cardiac ischemia causing or associated with failure [ ]III. Ongoing need for care for primary condition requiring frequent therapy adjustments because of changes in cardiac function (eg, drug dosage changes for drugs that are renally metabolized) [ X]IV. Complications of heart failure, including 1 or more of the following: [ ]a) Hemodynamic instability [ ]b) Pericardial effusion [ ]c) Symptomatic pleural effusion [ ]d) Hypoxemia [ ]e) Tachypnea [X ]f) Dyspnea [ ]g) Syncope [ ]h) Altered mental status [ ]i) Acute renal insufficiency that is severe (reduction of more than 50% in estimated glomerular filtration rate from baseline) or progressive reduction of more than 25% in estimated glomerular filtration rate from baseline, with creatinine continuing to rise) [ ]j) Debilitating anasarca (eg tissue breakdown with infection, inability to void due to edema) (E) [ ]k) Clinically significant metabolic abnormalities due to heart failure (eg, new-onset metabolic acidosis) Extended stay may be needed until ALL of the following are present (1)(3)(18)(41 )(55) [ ]a) Hemodynamic stability [ ]b) Stable and effective diuretic regimen established (or patient on stable dialysis regimen if in chronic renal failure) [ ]c) Volume status acceptable on oral medication [ ]d) Breathing comfortably at rest [ ]e) Saturation of arterial oxygen greater than 90% or at acceptable baseline [ ]f) Pulmonary edema absent or improved [ ]g) Peripheral or sacral edema absent or improved [ ]h) Renal function stable and manageable at a lower level of care [ ]i) Complications (eg, pleural effusion) resolved or manageable at a lower level of care [ ]g) Patient or caregiver has received written discharge instructions or educational material addressing activity level, diet, discharge medications, follow-up appointment, weight monitoring, and what to do if symptoms worsen.(25)(26) The original [employer] content created by [employer] has been revised. The portions of the content which have been revised are identified through the use of italic text, and [facility] has neither reviewed nor approved the modified material.All other unmodified content is copyright [facility]. Please see references footnoted in the original [facility] edition 2014 MARAH GODINEZ May 13, 2017 15:25
[2017-05-13] MEDS: IPRATRPIUM/ALBUTEROL 0.5/2.5MG 3 ML NEBU. NEB SCH ×2 (16:00→19:26)
[2017-05-13] MEDS ORDERED: MAGNESIUM CITRATE 296 ML SOLUTION. PO PRN (17:15)
[2017-05-13] MEDS ORDERED: LACTULOSE 20 GM/30 ML SOLUTION. PO PRN (17:30)
[2017-05-13] MEDS ORDERED: hydrALAZINE 20 MG/ML VIAL. IVP PRN (18:30)
[2017-05-13] MEDS ORDERED: ACETAMINOPHEN 325 MG TABLET. PO PRN (18:30)
[2017-05-13] MEDS ORDERED: HYDROcodone/APAP 5/325MG 1 TAB TABLET PO PRN (18:30)
[2017-05-13] MEDS ORDERED: ONDANSETRON PF 4 MG/2 ML VIAL. IV PRN (18:30)
--- NOTE | 2017-05-13 18:30 | PDOC1 ---
History and Physical History of Present Illness History of Present Illness Date of exam 05/13/2017 6:30 PM Chief complaint shortness of breath History of present illness : A 55-year-old -[place] male patient with prior history of "congestive heart failure and type 2 diabetes mellitus and several comorbid conditions who went to see Dr. Lew for regular office follow-up visit, patient noted to have a increased shortness of breath for last 10 days with increased urinary frequency he has to get up and walk to the bathroom every 1 hour. Has been directly to the ER by Dr. Lew patient received IV Lasix in the ER and asking me to admit for a shortness of breath. Initially case was admitted to Dr. Ford later I was asked to take over. At the time of examination, patient complains of shortness of breath for last 10 days with the PND and the urinary frequency denies any noncompliance. He denies any chest pain palpitations or syncope. Past Medical History Past Medical History Diabetes mellitus type 2, chronically uncontrolled; atrial fibrillation; congestive heart failure, EF 35%; hypertension; hyperlipidemia; Hodgkin's lymphoma; history of alcohol abuse; COPD; gout; C. difficile colitis; chronic constipation; Cardiovascular: AFIB, CAD, CHF, HTN Pulmonary: COPD CENTRAL NERVOUS SYSTEM: CVA, TIA GI: Constipation Heme/Onc: B12 deficiency, Other Psych: Depression Rheumatologic: Gout Endocrine: Diabetes Past Surgical History Past Surgical History Pro time heart surgeries to remove cardiac towards pacemaker placement Past Surgical History: Pacemaker Family History Family History Hodgkins lymphoma, prostate cancer, Family History: Cancer, Diabetes Social History Smoke: No ALCOHOL: none Drugs: None Current Medications Current Medications Current Medications Medications (Trade) Dose Ordered Sig/Lizzie Start Time Stop Time Status Last Admin Dose Admin Acetaminophen/ Hydrocodone Bitart (Lortab 5/325) 1 tab PRN Q4HRS PRN 05/13/17 17:15 Albuterol Sulfate (Ventolin Neb Soln) 5 mg 1X ONCE 05/13/17 13:00 05/13/17 13:01 DC Albuterol/ Ipratropium (Duoneb) 3 ml RTQID 05/13/17 16:00 05/14/17 15:59 Allopurinol (Zyloprim) 100 mg DAILY 05/14/17 09:00 Aspirin (Children'S Aspirin) 81 mg DAILY 05/14/17 09:00 Carvedilol (Coreg) 12.5 mg BIDWMEALS 05/13/17 18:00 Clonidine HCl (Catapres) 0.3 mg 1X ONCE 05/13/17 13:00 05/13/17 13:01 DC 05/13/17 13:16 0.3 MG Diltiazem HCl (Cardizem 24hr Cd) 120 mg DAILY 05/14/17 09:00 Furosemide (Lasix) 20 mg BID92 05/14/17 09:00 Insulin Aspart Prota 70%/Aspart 30% (Novolog Mix 70-30) 30 units QHS 05/13/17 21:00 Ipratropium [place] (Atrovent) 0.5 mg 1X ONCE 05/13/17 13:00 05/13/17 13:01 DC Lactulose 20 gm PRN BID PRN 05/13/17 17:30 Lidocaine (Lidoderm) 1 patch DAILY 05/14/17 09:00 Losartan Potassium (Cozaar) 100 mg DAILY 05/14/17 09:00 Lubiprostone (Amitiza) 16 mcg BID 05/13/17 21:00 Magnesium Citrate (Citroma) 296 ml PRN DAILY PRN 05/13/17 17:15 Metformin HCl (Glucophage Xr) 500 mg DAILY 05/14/17 09:00 Potassium Chloride (Klor-Con) 10 meq DAILY 05/14/17 09:00 Temazepam (Restoril) 15 mg PRN QHS PRN 05/13/17 17:15 Allergies Allergies Allergies Coded Allergies Type Severity Reaction Last Updated Verified No Known Drug Allergies 09/02/16 No ROS Review of System CONSTITUTIONAL: No fever or chills EYES: No recent changes SKIN: No rash or itching CARDIOVASCULAR: No chest pain, syncope, palpitations, or edema RESPIRATORY: SOB GASTROINTESTINAL: No nausea, vomiting or abdominal pain NEUROLOGICAL: No headaches or weakness ENDOCRINE: No cold or heat intolerance GENITOURINARY: frequency of urination MUSCULOSKELETAL: No back pain or joint pain LYMPHATICS: No enlarged lymph nodes PSYCHIATRIC: No anxiety or depression Physical Exam Physical Exam GEN.: No apparent distress. Alert and oriented 3, obese HEENT: Head is normocephalic, atraumatic NECK: Supple. No JVD LUNGS: Clear to auscultation. decreased breath sounds. HEART: RRR, S1, S2 present. Peripheral pulses intact ABDOMEN: Soft, nontender. Positive bowel sounds. EXTREMITIES: Without any cyanosis. Mild edema NEUROLOGIC: Normal speech, normal tone PSYCHIATRIC: Normal affect, slow in response SKIN: No no visible ulcerations Vitals Vitals Vital Signs Date Time Temp Pulse Resp B/P (MAP) Pulse Ox O2 Delivery O2 Flow Rate FiO2 05/13/17 16:00 96 112/65 (81) 95 05/13/17 13:17 Room Air 05/13/17 11:37 98.6 18 98.6 Labs Labs Laboratory Tests Test 05/13/17 11:30 05/13/17 11:45 05/13/17 12:10 Urine Collection Type Unknown Urine Color Yellow Urine Clarity Clear Urine pH 6.0 Urine Specific [place] 1.010 Urine Protein Negative mg/dL (NEG-TRACE) Urine Glucose (UA) 250 mg/dL (NEG) Urine Ketones (Stick) Negative mg/dL (NEG) Urine Blood Negative (NEG) Urine Nitrite Negative (NEG) Urine Bilirubin Negative (NEG) Urine Urobilinogen Dipstick 0.2 mg/dL (0.2 mg/dL) Urine Leukocyte Esterase Negative (NEG) Urine RBC 0 /HPF (0-2) Urine WBC 0 /HPF (0-4) Urine Bacteria 0 /HPF (0-FEW) Urine Hyaline Casts Few /HPF Urine Mucus Slight /LPF White Blood Count 6.7 x10^3/uL (4.0-11.0) Red Blood Count 4.07 x10^6/uL (4.30-5.70) Hemoglobin 13.2 g/dL (13.0-17.5) Hematocrit 39.0 % (39.0-53.0) Mean Corpuscular Volume 96 fL (79-100) Mean Corpuscular Hemoglobin 33 pg (25-35) Mean Corpuscular Hemoglobin Concent 34 g/dL (31-37) Red Cell Distribution Width 14.3 % (11.5-14.5) Platelet Count 189 x10^3/uL (140-400) Neutrophils (%) (Auto) 65 % (31-73) Lymphocytes (%) (Auto) 22 % (24-48) Monocytes (%) (Auto) 9 % (0-9) Eosinophils (%) (Auto) 2 % (0-3) Basophils (%) (Auto) 1 % (0-3) Neutrophils # (Auto) 4.3 x10^3uL (1.8-7.7) Lymphocytes # (Auto) 1.5 x10^3/uL (1.0-4.8) Monocytes # (Auto) 0.6 x10^3/uL (0.0-1.1) Eosinophils # (Auto) 0.1 x10^3/uL (0.0-0.7) Basophils # (Auto) 0.1 x10^3/uL (0.0-0.2) Troponin I Quantitative < 0.017 ng/mL (0.000-0.055) Sodium Level 141 mmol/L (136-145) Potassium Level 4.1 mmol/L (3.5-5.1) Chloride Level 103 mmol/L (98-107) Carbon Dioxide Level 29 mmol/L (21-32) Anion Gap 9 (6-14) Blood Urea Nitrogen 18 mg/dL (8-26) Creatinine 1.5 mg/dL (0.7-1.3) Estimated GFR (Cockcroft-Gault) 58.8 BUN/Creatinine Ratio 12 (6-20) Glucose Level 210 mg/dL (70-99) Calcium Level 9.0 mg/dL (8.5-10.1) Total Bilirubin 1.3 mg/dL (0.2-1.0) Aspartate Amino Transf (AST/SGOT) 15 U/L (15-37) Alanine Aminotransferase (ALT/SGPT) 15 U/L (16-63) Alkaline Phosphatase 76 U/L (46-116) CM-Egs-B-Type Natriuretic Peptide 467 pg/mL (0-124) Total Protein 7.4 g/dL (6.4-8.2) Albumin 3.4 g/dL (3.4-5.0) Albumin/Globulin Ratio 0.9 (1.0-1.7) Laboratory Tests Test 05/13/17 11:30 05/13/17 11:45 05/13/17 12:10 Urine Collection Type Unknown Urine Color Yellow Urine Clarity Clear Urine pH 6.0 Urine Specific [place] 1.010 Urine Protein Negative mg/dL (NEG-TRACE) Urine Glucose (UA) 250 mg/dL (NEG) Urine Ketones (Stick) Negative mg/dL (NEG) Urine Blood Negative (NEG) Urine Nitrite Negative (NEG) Urine Bilirubin Negative (NEG) Urine Urobilinogen Dipstick 0.2 mg/dL (0.2 mg/dL) Urine Leukocyte Esterase Negative (NEG) Urine RBC 0 /HPF (0-2) Urine WBC 0 /HPF (0-4) Urine Bacteria 0 /HPF (0-FEW) Urine Hyaline Casts Few /HPF Urine Mucus Slight /LPF White Blood Count 6.7 x10^3/uL (4.0-11.0) Red Blood Count 4.07 x10^6/uL (4.30-5.70) Hemoglobin 13.2 g/dL (13.0-17.5) Hematocrit 39.0 % (39.0-53.0) Mean Corpuscular Volume 96 fL (79-100) Mean Corpuscular Hemoglobin 33 pg (25-35) Mean Corpuscular Hemoglobin Concent 34 g/dL (31-37) Red Cell Distribution Width 14.3 % (11.5-14.5) Platelet Count 189 x10^3/uL (140-400) Neutrophils (%) (Auto) 65 % (31-73) Lymphocytes (%) (Auto) 22 % (24-48) Monocytes (%) (Auto) 9 % (0-9) Eosinophils (%) (Auto) 2 % (0-3) Basophils (%) (Auto) 1 % (0-3) Neutrophils # (Auto) 4.3 x10^3uL (1.8-7.7) Lymphocytes # (Auto) 1.5 x10^3/uL (1.0-4.8) Monocytes # (Auto) 0.6 x10^3/uL (0.0-1.1) Eosinophils # (Auto) 0.1 x10^3/uL (0.0-0.7) Basophils # (Auto) 0.1 x10^3/uL (0.0-0.2) Troponin I Quantitative < 0.017 ng/mL (0.000-0.055) Sodium Level 141 mmol/L (136-145) Potassium Level 4.1 mmol/L (3.5-5.1) Chloride Level 103 mmol/L (98-107) Carbon Dioxide Level 29 mmol/L (21-32) Anion Gap 9 (6-14) Blood Urea Nitrogen 18 mg/dL (8-26) Creatinine 1.5 mg/dL (0.7-1.3) Estimated GFR (Cockcroft-Gault) 58.8 BUN/Creatinine Ratio 12 (6-20) Glucose Level 210 mg/dL (70-99) Calcium Level 9.0 mg/dL (8.5-10.1) Total Bilirubin 1.3 mg/dL (0.2-1.0) Aspartate Amino Transf (AST/SGOT) 15 U/L (15-37) Alanine Aminotransferase (ALT/SGPT) 15 U/L (16-63) Alkaline Phosphatase 76 U/L (46-116) TS-Ptj-V-Type Natriuretic Peptide 467 pg/mL (0-124) Total Protein 7.4 g/dL (6.4-8.2) Albumin 3.4 g/dL (3.4-5.0) Albumin/Globulin Ratio 0.9 (1.0-1.7) VTE Prophylaxis Ordered VTE Prophylaxis Devices: Yes VTE Pharmacological Prophylaxi: No Assessment/Plan Assessment/Plan Acute shortness of breath with prior history of congestive heart failure and sleep apnea. Obesity morbid Hypertension Diabetes mellitus type 2 uncontrolled Sleep apnea Increased urinary frequency Chronic A. fib Plan IV diuresis, monitor electrolytes, monitor intake and output, daily weights, telemetry, Echocardiogram in a.m. Cardiology consultation, pacer interrogation, Prostate ultrasound and PSA ordered as patient has family history prostate cancers Labs reviewed old records reviewed. Case discussed with the Dr. Feliciano, requested me to see the patient. Images reviewed. No congestion noted. EKG personally reviewed, tachycardia with junctional rhythm. Sliding scale insulin with the home long-acting insulin Other chronic conditions in place to be in stable Provide the has needed nebulizations or shortness of breath Encourage CPAP from home. JANELLE PARRA MD May 13, 2017 18:30
[2017-05-13] MEDS ORDERED: DEXTROSE 50% 25 GM / 50ML DISP.SYRIN. IV PRN (19:00)
[2017-05-13 19:10] VITALS: BP 135/92
[2017-05-13] MEDS: CARVEDILOL 12.5 MG TABLET. PO SCH (19:21)
[2017-05-13] MEDS ORDERED: POTASSIUM CHLORIDE 20 MEQ TABLET.ER. PO ONE (20:30)
[2017-05-13] MEDS ORDERED: INSULN ASP PRT/INSULIN ASPART 300 UNITS/3 ML INSULN.PEN. SQ SCH ×2 (20:30→21:00)
[2017-05-13] MEDS: LUBIPROSTONE 8 MCG CAPSULE PO SCH (21:10)
[2017-05-13] MEDS: TEMAZEPAM 15 MG CAPSULE PO PRN (21:10)
[2017-05-13 23:15] VITALS: BP 91/56
[2017-05-14] MEDS: HYDROcodone/APAP 5/325MG 1 TAB TABLET PO PRN ×2 (01:04→20:56)
[2017-05-14 03:20] VITALS: BP 93/63
[2017-05-14 05:59] LABS: BASO % 0 % (0-3); EOS % 4 % (0-3); HEMATOCRIT 36.5 % (39.0-53.0); HEMOGLOBIN 12.5 g/dL (13.0-17.5); LYMPH # 1.3 x10^3/uL (1.0-4.8); LYMPH % 27 % (24-48); MEAN CORPUSCULAR HEMOGLOBIN 33 pg (25-35); MEAN CORPUSCULAR HGB CONC 34 g/dL (31-37); MEAN CORPUSCULAR VOLUME 96 fL (79-100); MONO % 11 % (0-9); NEUT % 58 % (31-73); PLATELET COUNT 172 x10^3/uL (140-400); RED BLOOD COUNT 3.82 x10^6/uL (4.30-5.70); RED CELL DISTRIBUTION WIDTH 14.4 % (11.5-14.5); WHITE BLOOD COUNT 4.8 x10^3/uL (4.0-11.0)
[2017-05-14 06:27] LABS: CALCIUM 8.3 mg/dL (8.5-10.1); CREATININE 1.7 mg/dL (0.7-1.3); GFR 50.9; POTASSIUM 3.6 mmol/L (3.5-5.1)
[2017-05-14 07:00] VITALS: BP 138/77
[2017-05-14] MEDS: IPRATRPIUM/ALBUTEROL 0.5/2.5MG 3 ML NEBU. NEB SCH ×3 (07:29→15:16)
[2017-05-14] MEDS: INSULIN ASPART 300 UNITS/3 ML INSULN.PEN SQ SCH ×5 (08:00→17:32)
[2017-05-14] MEDS: ALLOPURINOL 100 MG TABLET. PO SCH (10:14)
[2017-05-14] MEDS: LOSARTAN POTASSIUM 50 MG TABLET. PO SCH (10:14)
[2017-05-14] MEDS: LUBIPROSTONE 8 MCG CAPSULE PO SCH ×2 (10:15→20:55)
[2017-05-14] MEDS: POTASSIUM CHLORIDE 10 MEQ TABLET.ER. PO SCH (10:15)
[2017-05-14] MEDS: metFORMIN XR 500 MG TAB.ER.24H PO SCH (10:15)
[2017-05-14] MEDS: ASPIRIN CHEWABLE 81 MG TABLET. PO SCH (10:15)
[2017-05-14] MEDS: CARVEDILOL 12.5 MG TABLET. PO SCH ×2 (10:16→17:20)
[2017-05-14] MEDS: FUROSEMIDE 20 MG/2 ML VIAL. IVP SCH ×3 (10:17→17:21)
[2017-05-14] MEDS: LIDOCAINE (700MG/PATCH) PATCH. TD SCH (10:17)
[2017-05-14 11:00] VITALS: BP 135/78
--- NOTE | 2017-05-14 11:32 | PDOC2 ---
CONSULT Date of Consult Date of Consult DATE: 05/14/17 TIME: 11:28 Reason for Consult Reason for Consult: acute chf exacerbation Referring Physician Referring Physician: Gilmar Rivas MD Identification/Chief Complaint Chief Complaint Shortness of breath Problems: Source Source: Patient History of Present Illness Reason for Visit: Mr King is a 56 yr old male who presents with shortness of breath with chf exacerbation and uncontrolled diabetes. The patient was being seen in the outpatient clinic where he was noted to have diffuse edema in his face, arms, and legs. He has had shortness of breath and increased urinary frequency over the past week. He currently doesn't report any chest pain, or shortness of breath. Past Medical History Cardiovascular: AFIB, CAD, CHF, HTN Pulmonary: COPD CENTRAL NERVOUS SYSTEM: CVA, TIA GI: Constipation Heme/Onc: B12 deficiency, Other Psych: Depression Rheumatologic: Gout Endocrine: Diabetes Past Surgical History Past Surgical History: Pacemaker Family History Family History: Cancer, Diabetes Social History No ALCOHOL: none Drugs: None Current Medications Current Medications Current Medications Furosemide (Lasix) 40 mg 1X ONCE IVP Last administered on 05/13/17 13:07; Start 05/13/17 at 13:00; Stop 05/13/17 at 13:01; Status DC Albuterol Sulfate (Ventolin Neb Soln) 5 mg 1X ONCE NEB ; Start 05/13/17 at 13: 00; Stop 05/13/17 at 13:01; Status DC Ipratropium [place] (Atrovent) 0.5 mg 1X ONCE NEB ; Start 05/13/17 at 13:00; Stop 05/13/17 at 13:01; Status DC Clonidine HCl (Catapres) 0.3 mg 1X ONCE PO Last administered on 05/13/17 13: 16; Start 05/13/17 at 13:00; Stop 05/13/17 at 13:01; Status DC Albuterol/ Ipratropium (Duoneb) 3 ml STK-MED ONCE .ROUTE ; Start 05/13/17 at 13: 16; Stop 05/13/17 at 13:17; Status DC Albuterol/ Ipratropium (Duoneb) 3 ml RTQID NEB Last administered on 05/14/17 07:29; Start 05/13/17 at 16:00; Stop 05/14/17 at 15:59 Furosemide (Lasix) 20 mg BID92 IVP Last administered on 05/14/17 10:17; Start 05/14/17 at 09:00 Allopurinol (Zyloprim) 100 mg DAILY PO Last administered on 05/14/17 10:14; Start 05/14/17 at 09:00 Aspirin (Children'S Aspirin) 81 mg DAILY PO Last administered on 05/14/17 10: 15; Start 05/14/17 at 09:00 Carvedilol (Coreg) 12.5 mg BIDWMEALS PO Last administered on 05/14/17 10:16; Start 05/13/17 at 18:00 Diltiazem HCl (Cardizem 24hr Cd) 120 mg DAILY PO Last administered on 10:15; Start 05/14/17 at 09:00 Acetaminophen/ Hydrocodone Bitart (Lortab 5/325) 1 tab PRN Q4HRS PRN PO MILD PAIN Last administered on 05/14/17 01:04; Start 05/13/17 at 17:15 Insulin Aspart Prota 70%/Aspart 30% (Novolog Mix 70-30) 30 units QHS SQ ; Start 05/13/17 at 21:00; Stop 05/13/17 at 21:00; Status DC Lidocaine (Lidoderm) 1 patch DAILY TD Last administered on 05/14/17 10:17; Start 05/14/17 at 09:00 Losartan Potassium (Cozaar) 100 mg DAILY PO Last administered on 05/14/17 10: 14; Start 05/14/17 at 09:00 Lubiprostone (Amitiza) 16 mcg BID PO Last administered on 05/14/17 10:15; Start 05/13/17 at 21:00 Magnesium Citrate (Citroma) 296 ml PRN DAILY PRN PO CONSTIPATION; Start at 17:15 Metformin HCl (Glucophage Xr) 500 mg DAILY PO Last administered on 05/14/17 10 :15; Start 05/14/17 at 09:00 Potassium Chloride (Klor-Con) 10 meq DAILY PO Last administered on 05/14/17 10 :15; Start 05/14/17 at 09:00 Temazepam (Restoril) 15 mg PRN QHS PRN PO INSOMNIA Last administered on 21:10; Start 05/13/17 at 17:15 Lactulose 20 gm PRN BID PRN PO CONSTIPATION; Start 05/13/17 at 17:30 Acetaminophen (Tylenol) 325 mg PRN Q6HRS PRN PO MILD PAIN / TEMP; Start at 18:30 Acetaminophen/ Hydrocodone Bitart (Lortab 5/325) 1 tab PRN Q6HRS PRN PO MODERATE TO SEVERE PAIN; Start 05/13/17 at 18:30; Stop 05/14/17 at 09:15; Status DC Hydralazine HCl (Apresoline) 10 mg PRN Q4HRS PRN IVP ELEVATED BP, SEE COMMENTS ; Start 05/13/17 at 18:30 Ondansetron HCl (Zofran) 4 mg PRN Q8HRS PRN IV NAUSEA/VOMITING; Start 05/13/17 at 18:30 Albuterol Sulfate (Ventolin Neb Soln) 2.5 mg PRN Q4HRS PRN NEB SHORTNESS OF BREATH; Start 05/13/17 at 18:30 Insulin Aspart (NovoLOG) 0-9 UNITS TIDWMEALS SQ ; Start 05/14/17 at 08:00 Dextrose (Dextrose 50%-Water Syringe) 12.5 gm PRN Q15MIN PRN IV SEE COMMENTS; Start 05/13/17 at 19:00 Potassium Chloride (Klor-Con) 20 meq 1X ONCE PO Last administered on 21:10; Start 05/13/17 at 20:30; Stop 05/13/17 at 20:31; Status DC Insulin Aspart Prota 70%/Aspart 30% (Novolog Mix 70-30) 60 units BIDWMEALS SQ Last administered on 05/13/17 21:13; Start 05/13/17 at 20:30 Active Scripts Active Lidoderm (Lidocaine) 700 Mg Adh..patch 1 Patch TD DAILY Diltiazem 24HR Cd (Diltiazem Hcl) 120 Mg Cap.er.24h 120 Mg PO DAILY Cozaar (Losartan Potassium) 50 Mg Tablet 100 Mg PO DAILY Lactulose 20 Gm/30 Ml Solution 20 Gm PO BID PRN Novolog Mix 70-30 Flexpen Syrn (Insuln Asp Prt/Insulin Aspart) 100 Unit/1 Ml Insuln.pen 30 Units SQ QHS Hydrocodone-Apap 5-325 (Hydrocodone Bit/Acetaminophen) 1 Each Tablet 1 Tab PO PRN Q4HRS PRN 14 Days Carvedilol 12.5 Mg Tablet 12.5 Mg PO BIDWMEALS Restoril (Temazepam) 15 Mg Capsule 15 Mg PO PRN QHS PRN Reported Magnesium Citrate 296 Ml Solution 296 Ml PO PRN PRN Amitiza (Lubiprostone) 8 Mcg Capsule 2 Cap PO BID Allopurinol 100 Mg Tablet 100 Mg PO DAILY Potassium Chloride 10 Meq Tablet.er 10 Meq PO DAILY Metformin Hcl Er (Metformin Hcl) 500 Mg Tab.er.24h 1 Tab PO DAILY Children's Aspirin (Aspirin) 81 Mg Tab.chew 81 Mg PO DAILY Allergies Allergies: Coded Allergies: No Known Drug Allergies (Unverified , 09/02/16) Physical Exam General: Alert, No acute distress Lungs: Clear to auscultation (b/l), Normal air movement Heart: Regular rate (and rhythm), Other (S1 and S2 difficult to ausculate ) Extremities: Normal pulses (2/4 radial b/l), Other (improved edema in face, arms, legs) Vitals VITALS Vital Signs Date Time Temp Pulse Resp B/P (MAP) Pulse Ox O2 Delivery O2 Flow Rate FiO2 05/14/17 10:16 69 138/77 05/14/17 07:30 98 Nasal Cannula 2.0 05/14/17 07:00 97.6 18 97.6 Labs Labs Laboratory Tests Test 05/13/17 11:30 05/13/17 11:45 05/13/17 12:10 05/13/17 21:09 Urine Collection Type Unknown Urine Color Yellow Urine Clarity Clear Urine pH 6.0 Urine Specific [place] 1.010 Urine Protein Negative mg/dL (NEG-TRACE) Urine Glucose (UA) 250 mg/dL (NEG) Urine Ketones (Stick) Negative mg/dL (NEG) Urine Blood Negative (NEG) Urine Nitrite Negative (NEG) Urine Bilirubin Negative (NEG) Urine Urobilinogen Dipstick 0.2 mg/dL (0.2 mg/dL) Urine Leukocyte Esterase Negative (NEG) Urine RBC 0 /HPF (0-2) Urine WBC 0 /HPF (0-4) Urine Bacteria 0 /HPF (0-FEW) Urine Hyaline Casts Few /HPF Urine Mucus Slight /LPF White Blood Count 6.7 x10^3/uL (4.0-11.0) Red Blood Count 4.07 x10^6/uL (4.30-5.70) Hemoglobin 13.2 g/dL (13.0-17.5) Hematocrit 39.0 % (39.0-53.0) Mean Corpuscular Volume 96 fL (79-100) Mean Corpuscular Hemoglobin 33 pg (25-35) Mean Corpuscular Hemoglobin Concent 34 g/dL (31-37) Red Cell Distribution Width 14.3 % (11.5-14.5) Platelet Count 189 x10^3/uL (140-400) Neutrophils (%) (Auto) 65 % (31-73) Lymphocytes (%) (Auto) 22 % (24-48) Monocytes (%) (Auto) 9 % (0-9) Eosinophils (%) (Auto) 2 % (0-3) Basophils (%) (Auto) 1 % (0-3) Neutrophils # (Auto) 4.3 x10^3uL (1.8-7.7) Lymphocytes # (Auto) 1.5 x10^3/uL (1.0-4.8) Monocytes # (Auto) 0.6 x10^3/uL (0.0-1.1) Eosinophils # (Auto) 0.1 x10^3/uL (0.0-0.7) Basophils # (Auto) 0.1 x10^3/uL (0.0-0.2) Troponin I Quantitative < 0.017 ng/mL (0.000-0.055) Sodium Level 141 mmol/L (136-145) Potassium Level 4.1 mmol/L (3.5-5.1) Chloride Level 103 mmol/L (98-107) Carbon Dioxide Level 29 mmol/L (21-32) Anion Gap 9 (6-14) Blood Urea Nitrogen 18 mg/dL (8-26) Creatinine 1.5 mg/dL (0.7-1.3) Estimated GFR (Cockcroft-Gault) 58.8 BUN/Creatinine Ratio 12 (6-20) Glucose Level 210 mg/dL (70-99) Calcium Level 9.0 mg/dL (8.5-10.1) Total Bilirubin 1.3 mg/dL (0.2-1.0) Aspartate Amino Transf (AST/SGOT) 15 U/L (15-37) Alanine Aminotransferase (ALT/SGPT) 15 U/L (16-63) Alkaline Phosphatase 76 U/L (46-116) PV-Vnd-W-Type Natriuretic Peptide 467 pg/mL (0-124) Total Protein 7.4 g/dL (6.4-8.2) Albumin 3.4 g/dL (3.4-5.0) Albumin/Globulin Ratio 0.9 (1.0-1.7) Glucose (Fingerstick) 255 mg/dL (70-99) Test 05/13/17 22:15 05/14/17 04:11 05/14/17 06:43 Troponin I Quantitative < 0.017 ng/mL (0.000-0.055) White Blood Count 4.8 x10^3/uL (4.0-11.0) Red Blood Count 3.82 x10^6/uL (4.30-5.70) Hemoglobin 12.5 g/dL (13.0-17.5) Hematocrit 36.5 % (39.0-53.0) Mean Corpuscular Volume 96 fL (79-100) Mean Corpuscular Hemoglobin 33 pg (25-35) Mean Corpuscular Hemoglobin Concent 34 g/dL (31-37) Red Cell Distribution Width 14.4 % (11.5-14.5) Platelet Count 172 x10^3/uL (140-400) Neutrophils (%) (Auto) 58 % (31-73) Lymphocytes (%) (Auto) 27 % (24-48) Monocytes (%) (Auto) 11 % (0-9) Eosinophils (%) (Auto) 4 % (0-3) Basophils (%) (Auto) 0 % (0-3) Neutrophils # (Auto) 2.7 x10^3uL (1.8-7.7) Lymphocytes # (Auto) 1.3 x10^3/uL (1.0-4.8) Monocytes # (Auto) 0.5 x10^3/uL (0.0-1.1) Eosinophils # (Auto) 0.2 x10^3/uL (0.0-0.7) Basophils # (Auto) 0.0 x10^3/uL (0.0-0.2) Sodium Level 141 mmol/L (136-145) Potassium Level 3.6 mmol/L (3.5-5.1) Chloride Level 103 mmol/L (98-107) Carbon Dioxide Level 30 mmol/L (21-32) Anion Gap 8 (6-14) Blood Urea Nitrogen 21 mg/dL (8-26) Creatinine 1.7 mg/dL (0.7-1.3) Estimated GFR (Cockcroft-Gault) 50.9 Glucose Level 191 mg/dL (70-99) Calcium Level 8.3 mg/dL (8.5-10.1) Prostate Specific Antigen 0.40 ng/mL (0.00-4.00) Glucose (Fingerstick) 206 mg/dL (70-99) Laboratory Tests Test 05/13/17 11:30 05/13/17 11:45 05/13/17 12:10 05/13/17 21:09 Urine Collection Type Unknown Urine Color Yellow Urine Clarity Clear Urine pH 6.0 Urine Specific [place] 1.010 Urine Protein Negative mg/dL (NEG-TRACE) Urine Glucose (UA) 250 mg/dL (NEG) Urine Ketones (Stick) Negative mg/dL (NEG) Urine Blood Negative (NEG) Urine Nitrite Negative (NEG) Urine Bilirubin Negative (NEG) Urine Urobilinogen Dipstick 0.2 mg/dL (0.2 mg/dL) Urine Leukocyte Esterase Negative (NEG) Urine RBC 0 /HPF (0-2) Urine WBC 0 /HPF (0-4) Urine Bacteria 0 /HPF (0-FEW) Urine Hyaline Casts Few /HPF Urine Mucus Slight /LPF White Blood Count 6.7 x10^3/uL (4.0-11.0) Red Blood Count 4.07 x10^6/uL (4.30-5.70) Hemoglobin 13.2 g/dL (13.0-17.5) Hematocrit 39.0 % (39.0-53.0) Mean Corpuscular Volume 96 fL (79-100) Mean Corpuscular Hemoglobin 33 pg (25-35) Mean Corpuscular Hemoglobin Concent 34 g/dL (31-37) Red Cell Distribution Width 14.3 % (11.5-14.5) Platelet Count 189 x10^3/uL (140-400) Neutrophils (%) (Auto) 65 % (31-73) Lymphocytes (%) (Auto) 22 % (24-48) Monocytes (%) (Auto) 9 % (0-9) Eosinophils (%) (Auto) 2 % (0-3) Basophils (%) (Auto) 1 % (0-3) Neutrophils # (Auto) 4.3 x10^3uL (1.8-7.7) Lymphocytes # (Auto) 1.5 x10^3/uL (1.0-4.8) Monocytes # (Auto) 0.6 x10^3/uL (0.0-1.1) Eosinophils # (Auto) 0.1 x10^3/uL (0.0-0.7) Basophils # (Auto) 0.1 x10^3/uL (0.0-0.2) Troponin I Quantitative < 0.017 ng/mL (0.000-0.055) Sodium Level 141 mmol/L (136-145) Potassium Level 4.1 mmol/L (3.5-5.1) Chloride Level 103 mmol/L (98-107) Carbon Dioxide Level 29 mmol/L (21-32) Anion Gap 9 (6-14) Blood Urea Nitrogen 18 mg/dL (8-26) Creatinine 1.5 mg/dL (0.7-1.3) Estimated GFR (Cockcroft-Gault) 58.8 BUN/Creatinine Ratio 12 (6-20) Glucose Level 210 mg/dL (70-99) Calcium Level 9.0 mg/dL (8.5-10.1) Total Bilirubin 1.3 mg/dL (0.2-1.0) Aspartate Amino Transf (AST/SGOT) 15 U/L (15-37) Alanine Aminotransferase (ALT/SGPT) 15 U/L (16-63) Alkaline Phosphatase 76 U/L (46-116) RJ-Lcs-G-Type Natriuretic Peptide 467 pg/mL (0-124) Total Protein 7.4 g/dL (6.4-8.2) Albumin 3.4 g/dL (3.4-5.0) Albumin/Globulin Ratio 0.9 (1.0-1.7) Glucose (Fingerstick) 255 mg/dL (70-99) Test 05/13/17 22:15 05/14/17 04:11 05/14/17 06:43 Troponin I Quantitative < 0.017 ng/mL (0.000-0.055) White Blood Count 4.8 x10^3/uL (4.0-11.0) Red Blood Count 3.82 x10^6/uL (4.30-5.70) Hemoglobin 12.5 g/dL (13.0-17.5) Hematocrit 36.5 % (39.0-53.0) Mean Corpuscular Volume 96 fL (79-100) Mean Corpuscular Hemoglobin 33 pg (25-35) Mean Corpuscular Hemoglobin Concent 34 g/dL (31-37) Red Cell Distribution Width 14.4 % (11.5-14.5) Platelet Count 172 x10^3/uL (140-400) Neutrophils (%) (Auto) 58 % (31-73) Lymphocytes (%) (Auto) 27 % (24-48) Monocytes (%) (Auto) 11 % (0-9) Eosinophils (%) (Auto) 4 % (0-3) Basophils (%) (Auto) 0 % (0-3) Neutrophils # (Auto) 2.7 x10^3uL (1.8-7.7) Lymphocytes # (Auto) 1.3 x10^3/uL (1.0-4.8) Monocytes # (Auto) 0.5 x10^3/uL (0.0-1.1) Eosinophils # (Auto) 0.2 x10^3/uL (0.0-0.7) Basophils # (Auto) 0.0 x10^3/uL (0.0-0.2) Sodium Level 141 mmol/L (136-145) Potassium Level 3.6 mmol/L (3.5-5.1) Chloride Level 103 mmol/L (98-107) Carbon Dioxide Level 30 mmol/L (21-32) Anion Gap 8 (6-14) Blood Urea Nitrogen 21 mg/dL (8-26) Creatinine 1.7 mg/dL (0.7-1.3) Estimated GFR (Cockcroft-Gault) 50.9 Glucose Level 191 mg/dL (70-99) Calcium Level 8.3 mg/dL (8.5-10.1) Prostate Specific Antigen 0.40 ng/mL (0.00-4.00) Glucose (Fingerstick) 206 mg/dL (70-99) Assessment/Plan Assessment/Plan Mr King is a 56 yr old male who presented with shortness of breath with acute chf exacerbation and uncontrolled diabetes. 1) chf - continue iv diuretics, echo ordered 2) diabetes - continue home diabetic regimen, symptomatic care Thank you for allowing me to participate in the care of this patient. GEORGES DE LA FUENTE MD May 14, 2017 11:32
--- NOTE | 2017-05-14 14:19 | PDOC ---
PROGRESS NOTES Chief Complaint Chief Complaint Acute shortness of breath 2/2 exacerbation of congestive heart failure and sleep apnea. acute hypoxic resp failure Obesity morbid Hypertension Diabetes mellitus type 2 uncontrolled 70/30 bid Sleep apnea with CPAP urination difficulty, BPH likely Chronic A. fib wo AC PPM plan: fu with card echo lasix 20mg iv bid labs tmr in and out pelvic US pending, neg PSA, add flomax change insulin to levemir 40u qhs, aspart 15u tid, ssi dvt ppx History of Present Illness History of Present Illness on NC which is new to him, 2l SOB uncontrolled dm2 home CPAP nocturnal urination, difficulty to urinate Vitals Vitals Vital Signs Date Time Temp Pulse Resp B/P (MAP) Pulse Ox O2 Delivery O2 Flow Rate FiO2 05/14/17 11:32 Nasal Cannula 2.0 05/14/17 11:00 97.6 75 18 135/78 (97) 99 97.6 Physical Exam General: Alert, No acute distress Heart: Normal S1, Normal S2, Other (IRRegular, no murmurs) Lungs: Clear Abdomen: Normal bowel sounds, Soft Extremities: No clubbing, No cyanosis, Normal pulses (2/4 radial b/l), Other ( improved edema in face, arms, legs) Skin: No rashes Labs LABS Laboratory Tests Test 05/13/17 21:09 05/13/17 22:15 05/14/17 04:11 05/14/17 06:43 Glucose (Fingerstick) 255 mg/dL (70-99) 206 mg/dL (70-99) Troponin I Quantitative < 0.017 ng/mL (0.000-0.055) White Blood Count 4.8 x10^3/uL (4.0-11.0) Red Blood Count 3.82 x10^6/uL (4.30-5.70) Hemoglobin 12.5 g/dL (13.0-17.5) Hematocrit 36.5 % (39.0-53.0) Mean Corpuscular Volume 96 fL (79-100) Mean Corpuscular Hemoglobin 33 pg (25-35) Mean Corpuscular Hemoglobin Concent 34 g/dL (31-37) Red Cell Distribution Width 14.4 % (11.5-14.5) Platelet Count 172 x10^3/uL (140-400) Neutrophils (%) (Auto) 58 % (31-73) Lymphocytes (%) (Auto) 27 % (24-48) Monocytes (%) (Auto) 11 % (0-9) Eosinophils (%) (Auto) 4 % (0-3) Basophils (%) (Auto) 0 % (0-3) Neutrophils # (Auto) 2.7 x10^3uL (1.8-7.7) Lymphocytes # (Auto) 1.3 x10^3/uL (1.0-4.8) Monocytes # (Auto) 0.5 x10^3/uL (0.0-1.1) Eosinophils # (Auto) 0.2 x10^3/uL (0.0-0.7) Basophils # (Auto) 0.0 x10^3/uL (0.0-0.2) Sodium Level 141 mmol/L (136-145) Potassium Level 3.6 mmol/L (3.5-5.1) Chloride Level 103 mmol/L (98-107) Carbon Dioxide Level 30 mmol/L (21-32) Anion Gap 8 (6-14) Blood Urea Nitrogen 21 mg/dL (8-26) Creatinine 1.7 mg/dL (0.7-1.3) Estimated GFR (Cockcroft-Gault) 50.9 Glucose Level 191 mg/dL (70-99) Calcium Level 8.3 mg/dL (8.5-10.1) Prostate Specific Antigen 0.40 ng/mL (0.00-4.00) Test 05/14/17 11:56 Glucose (Fingerstick) 256 mg/dL (70-99) Review of Systems Review of Systems no fever, chills, sob or chest pain Comment Review of Relevant I have reviewed the following items antonino (where applicable) has been applied. Labs Laboratory Tests Test 05/13/17 11:30 05/13/17 11:45 05/13/17 12:10 05/13/17 21:09 Urine Collection Type Unknown Urine Color Yellow Urine Clarity Clear Urine pH 6.0 Urine Specific [place] 1.010 Urine Protein Negative mg/dL (NEG-TRACE) Urine Glucose (UA) 250 mg/dL (NEG) Urine Ketones (Stick) Negative mg/dL (NEG) Urine Blood Negative (NEG) Urine Nitrite Negative (NEG) Urine Bilirubin Negative (NEG) Urine Urobilinogen Dipstick 0.2 mg/dL (0.2 mg/dL) Urine Leukocyte Esterase Negative (NEG) Urine RBC 0 /HPF (0-2) Urine WBC 0 /HPF (0-4) Urine Bacteria 0 /HPF (0-FEW) Urine Hyaline Casts Few /HPF Urine Mucus Slight /LPF White Blood Count 6.7 x10^3/uL (4.0-11.0) Red Blood Count 4.07 x10^6/uL (4.30-5.70) Hemoglobin 13.2 g/dL (13.0-17.5) Hematocrit 39.0 % (39.0-53.0) Mean Corpuscular Volume 96 fL (79-100) Mean Corpuscular Hemoglobin 33 pg (25-35) Mean Corpuscular Hemoglobin Concent 34 g/dL (31-37) Red Cell Distribution Width 14.3 % (11.5-14.5) Platelet Count 189 x10^3/uL (140-400) Neutrophils (%) (Auto) 65 % (31-73) Lymphocytes (%) (Auto) 22 % (24-48) Monocytes (%) (Auto) 9 % (0-9) Eosinophils (%) (Auto) 2 % (0-3) Basophils (%) (Auto) 1 % (0-3) Neutrophils # (Auto) 4.3 x10^3uL (1.8-7.7) Lymphocytes # (Auto) 1.5 x10^3/uL (1.0-4.8) Monocytes # (Auto) 0.6 x10^3/uL (0.0-1.1) Eosinophils # (Auto) 0.1 x10^3/uL (0.0-0.7) Basophils # (Auto) 0.1 x10^3/uL (0.0-0.2) Troponin I Quantitative < 0.017 ng/mL (0.000-0.055) Sodium Level 141 mmol/L (136-145) Potassium Level 4.1 mmol/L (3.5-5.1) Chloride Level 103 mmol/L (98-107) Carbon Dioxide Level 29 mmol/L (21-32) Anion Gap 9 (6-14) Blood Urea Nitrogen 18 mg/dL (8-26) Creatinine 1.5 mg/dL (0.7-1.3) Estimated GFR (Cockcroft-Gault) 58.8 BUN/Creatinine Ratio 12 (6-20) Glucose Level 210 mg/dL (70-99) Calcium Level 9.0 mg/dL (8.5-10.1) Total Bilirubin 1.3 mg/dL (0.2-1.0) Aspartate Amino Transf (AST/SGOT) 15 U/L (15-37) Alanine Aminotransferase (ALT/SGPT) 15 U/L (16-63) Alkaline Phosphatase 76 U/L (46-116) QI-Suz-E-Type Natriuretic Peptide 467 pg/mL (0-124) Total Protein 7.4 g/dL (6.4-8.2) Albumin 3.4 g/dL (3.4-5.0) Albumin/Globulin Ratio 0.9 (1.0-1.7) Glucose (Fingerstick) 255 mg/dL (70-99) Test 05/13/17 22:15 05/14/17 04:11 05/14/17 06:43 05/14/17 11:56 Troponin I Quantitative < 0.017 ng/mL (0.000-0.055) White Blood Count 4.8 x10^3/uL (4.0-11.0) Red Blood Count 3.82 x10^6/uL (4.30-5.70) Hemoglobin 12.5 g/dL (13.0-17.5) Hematocrit 36.5 % (39.0-53.0) Mean Corpuscular Volume 96 fL (79-100) Mean Corpuscular Hemoglobin 33 pg (25-35) Mean Corpuscular Hemoglobin Concent 34 g/dL (31-37) Red Cell Distribution Width 14.4 % (11.5-14.5) Platelet Count 172 x10^3/uL (140-400) Neutrophils (%) (Auto) 58 % (31-73) Lymphocytes (%) (Auto) 27 % (24-48) Monocytes (%) (Auto) 11 % (0-9) Eosinophils (%) (Auto) 4 % (0-3) Basophils (%) (Auto) 0 % (0-3) Neutrophils # (Auto) 2.7 x10^3uL (1.8-7.7) Lymphocytes # (Auto) 1.3 x10^3/uL (1.0-4.8) Monocytes # (Auto) 0.5 x10^3/uL (0.0-1.1) Eosinophils # (Auto) 0.2 x10^3/uL (0.0-0.7) Basophils # (Auto) 0.0 x10^3/uL (0.0-0.2) Sodium Level 141 mmol/L (136-145) Potassium Level 3.6 mmol/L (3.5-5.1) Chloride Level 103 mmol/L (98-107) Carbon Dioxide Level 30 mmol/L (21-32) Anion Gap 8 (6-14) Blood Urea Nitrogen 21 mg/dL (8-26) Creatinine 1.7 mg/dL (0.7-1.3) Estimated GFR (Cockcroft-Gault) 50.9 Glucose Level 191 mg/dL (70-99) Calcium Level 8.3 mg/dL (8.5-10.1) Prostate Specific Antigen 0.40 ng/mL (0.00-4.00) Glucose (Fingerstick) 206 mg/dL (70-99) 256 mg/dL (70-99) Laboratory Tests Test 05/13/17 21:09 05/13/17 22:15 05/14/17 04:11 05/14/17 06:43 Glucose (Fingerstick) 255 mg/dL (70-99) 206 mg/dL (70-99) Troponin I Quantitative < 0.017 ng/mL (0.000-0.055) White Blood Count 4.8 x10^3/uL (4.0-11.0) Red Blood Count 3.82 x10^6/uL (4.30-5.70) Hemoglobin 12.5 g/dL (13.0-17.5) Hematocrit 36.5 % (39.0-53.0) Mean Corpuscular Volume 96 fL (79-100) Mean Corpuscular Hemoglobin 33 pg (25-35) Mean Corpuscular Hemoglobin Concent 34 g/dL (31-37) Red Cell Distribution Width 14.4 % (11.5-14.5) Platelet Count 172 x10^3/uL (140-400) Neutrophils (%) (Auto) 58 % (31-73) Lymphocytes (%) (Auto) 27 % (24-48) Monocytes (%) (Auto) 11 % (0-9) Eosinophils (%) (Auto) 4 % (0-3) Basophils (%) (Auto) 0 % (0-3) Neutrophils # (Auto) 2.7 x10^3uL (1.8-7.7) Lymphocytes # (Auto) 1.3 x10^3/uL (1.0-4.8) Monocytes # (Auto) 0.5 x10^3/uL (0.0-1.1) Eosinophils # (Auto) 0.2 x10^3/uL (0.0-0.7) Basophils # (Auto) 0.0 x10^3/uL (0.0-0.2) Sodium Level 141 mmol/L (136-145) Potassium Level 3.6 mmol/L (3.5-5.1) Chloride Level 103 mmol/L (98-107) Carbon Dioxide Level 30 mmol/L (21-32) Anion Gap 8 (6-14) Blood Urea Nitrogen 21 mg/dL (8-26) Creatinine 1.7 mg/dL (0.7-1.3) Estimated GFR (Cockcroft-Gault) 50.9 Glucose Level 191 mg/dL (70-99) Calcium Level 8.3 mg/dL (8.5-10.1) Prostate Specific Antigen 0.40 ng/mL (0.00-4.00) Test 05/14/17 11:56 Glucose (Fingerstick) 256 mg/dL (70-99) Medications Current Medications Furosemide (Lasix) 40 mg 1X ONCE IVP Last administered on 05/13/17t 13:07; Start 05/13/17 at 13:00; Stop 05/13/17 at 13:01; Status DC Albuterol Sulfate (Ventolin Neb Soln) 5 mg 1X ONCE NEB ; Start 05/13/17 at 13: 00; Stop 05/13/17 at 13:01; Status DC Ipratropium [place] (Atrovent) 0.5 mg 1X ONCE NEB ; Start 05/13/17 at 13:00; Stop 05/13/17 at 13:01; Status DC Clonidine HCl (Catapres) 0.3 mg 1X ONCE PO Last administered on 05/13/17t 13: 16; Start 05/13/17 at 13:00; Stop 05/13/17 at 13:01; Status DC Albuterol/ Ipratropium (Duoneb) 3 ml STK-MED ONCE .ROUTE ; Start 05/13/17 at 13: 16; Stop 05/13/17 at 13:17; Status DC Albuterol/ Ipratropium (Duoneb) 3 ml RTQID NEB Last administered on 05/14/17 11:31; Start 05/13/17 at 16:00; Stop 05/14/17 at 15:59 Furosemide (Lasix) 20 mg BID92 IVP Last administered on 05/14/17 10:17; Start 05/14/17 at 09:00 Allopurinol (Zyloprim) 100 mg DAILY PO Last administered on 05/14/17 10:14; Start 05/14/17 at 09:00 Aspirin (Children'S Aspirin) 81 mg DAILY PO Last administered on 05/14/17 10: 15; Start 05/14/17 at 09:00 Carvedilol (Coreg) 12.5 mg BIDWMEALS PO Last administered on 05/14/17 10:16; Start 05/13/17 at 18:00 Diltiazem HCl (Cardizem 24hr Cd) 120 mg DAILY PO Last administered on 10:15; Start 05/14/17 at 09:00 Acetaminophen/ Hydrocodone Bitart (Lortab 5/325) 1 tab PRN Q4HRS PRN PO MILD PAIN Last administered on 05/14/17 01:04; Start 05/13/17 at 17:15 Insulin Aspart Prota 70%/Aspart 30% (Novolog Mix 70-30) 30 units QHS SQ ; Start 05/13/17 at 21:00; Stop 05/13/17 at 21:00; Status DC Lidocaine (Lidoderm) 1 patch DAILY TD Last administered on 05/14/17 10:17; Start 05/14/17 at 09:00 Losartan Potassium (Cozaar) 100 mg DAILY PO Last administered on 05/14/17 10: 14; Start 05/14/17 at 09:00 Lubiprostone (Amitiza) 16 mcg BID PO Last administered on 05/14/17 10:15; Start 05/13/17 at 21:00 Magnesium Citrate (Citroma) 296 ml PRN DAILY PRN PO CONSTIPATION; Start at 17:15 Metformin HCl (Glucophage Xr) 500 mg DAILY PO Last administered on 05/14/17 10 :15; Start 05/14/17 at 09:00 Potassium Chloride (Klor-Con) 10 meq DAILY PO Last administered on 05/14/17 10 :15; Start 05/14/17 at 09:00 Temazepam (Restoril) 15 mg PRN QHS PRN PO INSOMNIA Last administered on 21:10; Start 05/13/17 at 17:15 Lactulose 20 gm PRN BID PRN PO CONSTIPATION; Start 05/13/17 at 17:30 Acetaminophen (Tylenol) 325 mg PRN Q6HRS PRN PO MILD PAIN / TEMP; Start at 18:30 Acetaminophen/ Hydrocodone Bitart (Lortab 5/325) 1 tab PRN Q6HRS PRN PO MODERATE TO SEVERE PAIN; Start 05/13/17 at 18:30; Stop 05/14/17 at 09:15; Status DC Hydralazine HCl (Apresoline) 10 mg PRN Q4HRS PRN IVP ELEVATED BP, SEE COMMENTS ; Start 05/13/17 at 18:30 Ondansetron HCl (Zofran) 4 mg PRN Q8HRS PRN IV NAUSEA/VOMITING; Start 05/13/17 at 18:30 Albuterol Sulfate (Ventolin Neb Soln) 2.5 mg PRN Q4HRS PRN NEB SHORTNESS OF BREATH; Start 05/13/17 at 18:30 Insulin Aspart (NovoLOG) 0-9 UNITS TIDWMEALS SQ Last administered on 05/14/17 13:42; Start 05/14/17 at 08:00 Dextrose (Dextrose 50%-Water Syringe) 12.5 gm PRN Q15MIN PRN IV SEE COMMENTS; Start 05/13/17 at 19:00 Potassium Chloride (Klor-Con) 20 meq 1X ONCE PO Last administered on 21:10; Start 05/13/17 at 20:30; Stop 05/13/17 at 20:31; Status DC Insulin Aspart Prota 70%/Aspart 30% (Novolog Mix 70-30) 60 units BIDWMEALS SQ Last administered on 05/13/17 21:13; Start 05/13/17 at 20:30; Stop 05/14/17 at 12:14; Status DC Insulin Aspart (NovoLOG) 15 units TIDAC SQ Last administered on 05/14/17 13:40 ; Start 05/14/17 at 12:30 Insulin Detemir (Levemir) 40 units QHS SQ ; Start 05/14/17 at 21:00 Tamsulosin HCl (Flomax) 0.4 mg QHS PO ; Start 05/14/17 at 21:00 Active Scripts Active Lidoderm (Lidocaine) 700 Mg Adh..patch 1 Patch TD DAILY Diltiazem 24HR Cd (Diltiazem Hcl) 120 Mg Cap.er.24h 120 Mg PO DAILY Cozaar (Losartan Potassium) 50 Mg Tablet 100 Mg PO DAILY Lactulose 20 Gm/30 Ml Solution 20 Gm PO BID PRN Novolog Mix 70-30 Flexpen Syrn (Insuln Asp Prt/Insulin Aspart) 100 Unit/1 Ml Insuln.pen 30 Units SQ QHS Hydrocodone-Apap 5-325 (Hydrocodone Bit/Acetaminophen) 1 Each Tablet 1 Tab PO PRN Q4HRS PRN 14 Days Carvedilol 12.5 Mg Tablet 12.5 Mg PO BIDWMEALS Restoril (Temazepam) 15 Mg Capsule 15 Mg PO PRN QHS PRN Reported Magnesium Citrate 296 Ml Solution 296 Ml PO PRN PRN Amitiza (Lubiprostone) 8 Mcg Capsule 2 Cap PO BID Allopurinol 100 Mg Tablet 100 Mg PO DAILY Potassium Chloride 10 Meq Tablet.er 10 Meq PO DAILY Metformin Hcl Er (Metformin Hcl) 500 Mg Tab.er.24h 1 Tab PO DAILY Children's Aspirin (Aspirin) 81 Mg Tab.chew 81 Mg PO DAILY Vitals/I & O Vital Sign - Last 24 Hours 05/13/17 05/13/17 05/13/17 05/13/17 15:00 15:30 16:00 19:10 Temp 97.6 97.6 Pulse 106 106 96 68 Resp 18 B/P (MAP) 113/72 (86) 96/62 (73) 112/65 (81) 135/92 (106) Pulse Ox 95 97 95 98 O2 Delivery Room Air 05/13/17 05/13/17 05/13/1717 19:21 19:28 23:15 01:04 Temp 97.6 97.6 Pulse 73 77 Resp 18 18 B/P (MAP) 135/92 91/56 (68) Pulse Ox 98 97 95 O2 Delivery Room Air Room Air Nasal Cannula O2 Flow Rate 2.0 05/14/17 05/14/17 05/14/17 05/14/17 01:13 02:04 03:20 07:00 Temp 98.5 97.6 98.5 97.6 Pulse 82 69 Resp 20 18 18 B/P (MAP) 93/63 (73) 138/77 (97) Pulse Ox 97 99 O2 Delivery Nasal Cannula Room Air Room Air O2 Flow Rate 2.0 05/14/17 05/14/17 05/14/17 05/14/17 07:30 08:00 10:14 10:15 Pulse 69 69 B/P (MAP) 138/77 138/77 Pulse Ox 98 O2 Delivery Nasal Cannula Room Air O2 Flow Rate 2.0 05/14/17 05/14/17 05/14/17 10:16 11:00 11:32 Temp 97.6 97.6 Pulse 69 75 Resp 18 B/P (MAP) 138/77 135/78 (97) Pulse Ox 99 O2 Delivery Room Air Nasal Cannula O2 Flow Rate 2.0 Intake and Output 05/13/17 05/13/17 05/14/17 15:00 23:00 07:00 Output Total 300 ml Balance -300 ml ALMAS ARELLANO MD May 14, 2017 14:19
[2017-05-14 15:00] VITALS: BP 108/81
[2017-05-14 19:25] VITALS: BP 107/77
[2017-05-14] MEDS: TAMSULOSIN 0.4 MG CAP.ER.24H. PO SCH (20:55)
[2017-05-14] MEDS: HEPARIN PF for SUB-Q USE 5,000 UNIT/0.5 ML VIAL. SQ SCH (21:00)
[2017-05-14] MEDS ORDERED: INSULIN DETEMIR 300 UNITS/3 ML INSULN.PEN. SQ SCH (21:00)
[2017-05-14 23:00] VITALS: BP 104/81
[2017-05-15 03:05] VITALS: BP 138/77
[2017-05-15 05:19] LABS: BASO % 1 % (0-3); EOS % 4 % (0-3); HEMATOCRIT 39.3 % (39.0-53.0); LYMPH # 1.7 x10^3/uL (1.0-4.8); LYMPH % 34 % (24-48); MEAN CORPUSCULAR HEMOGLOBIN 32 pg (25-35); MEAN CORPUSCULAR HGB CONC 33 g/dL (31-37); MEAN CORPUSCULAR VOLUME 98 fL (79-100); MONO % 9 % (0-9); NEUT % 52 % (31-73); PLATELET COUNT 163 x10^3/uL (140-400); RED BLOOD COUNT 4.01 x10^6/uL (4.30-5.70); RED CELL DISTRIBUTION WIDTH 14.6 % (11.5-14.5)
[2017-05-15 05:27] LABS: CALCIUM 8.9 mg/dL (8.5-10.1); CREATININE 1.8 mg/dL (0.7-1.3); GFR 47.6; POTASSIUM 3.9 mmol/L (3.5-5.1)
[2017-05-15 07:30] VITALS: BP 110/73
[2017-05-15] MEDS: INSULIN ASPART 300 UNITS/3 ML INSULN.PEN SQ SCH ×4 (07:30→17:36)
[2017-05-15] MEDS: HEPARIN PF for SUB-Q USE 5,000 UNIT/0.5 ML VIAL. SQ SCH ×3 (07:50→21:27)
[2017-05-15] MEDS: LIDOCAINE (700MG/PATCH) PATCH. TD SCH (08:45)
[2017-05-15] MEDS: ALLOPURINOL 100 MG TABLET. PO SCH (08:49)
[2017-05-15] MEDS: LUBIPROSTONE 8 MCG CAPSULE PO SCH ×2 (08:49→21:20)
[2017-05-15] MEDS: metFORMIN XR 500 MG TAB.ER.24H PO SCH (08:49)
[2017-05-15] MEDS: POTASSIUM CHLORIDE 10 MEQ TABLET.ER. PO SCH (08:49)
[2017-05-15] MEDS: LOSARTAN POTASSIUM 50 MG TABLET. PO SCH (08:50)
[2017-05-15] MEDS: CARVEDILOL 12.5 MG TABLET. PO SCH ×2 (08:51→17:33)
[2017-05-15] MEDS: FUROSEMIDE 20 MG/2 ML VIAL. IVP SCH ×2 (08:51→13:40)
[2017-05-15] MEDS: ASPIRIN CHEWABLE 81 MG TABLET. PO SCH (08:51)
[2017-05-15 11:00] VITALS: BP 113/73
--- NOTE | 2017-05-15 13:19 | PDOC ---
PROGRESS NOTES Subjective Subjective Patient feels better today but still complaining of dyspnea. Objective Objective Vital Signs Date Time Temp Pulse Resp B/P (MAP) Pulse Ox O2 Delivery O2 Flow Rate FiO2 05/15/17 11:00 96.6 72 20 113/73 (86) 96 Room Air 96.6 05/15/17 08:00 2.0 Intake and Output 05/15/17 07:00 Intake Total 2600 ml Output Total 1600 ml Balance 1000 ml Intake Oral 2600 ml Output Urine Total 1600 ml Physical Exam Physical Exam Moving air better. Less edema. Assessment Assessment CHF is improving. I agree with present plan. Comment Review of Relevant I have reviewed the following items antonino (where applicable) has been applied. Labs Laboratory Tests Test 05/13/17 21:09 05/13/17 22:15 05/14/17 04:11 05/14/17 06:43 Glucose (Fingerstick) 255 mg/dL (70-99) 206 mg/dL (70-99) Troponin I Quantitative < 0.017 ng/mL (0.000-0.055) White Blood Count 4.8 x10^3/uL (4.0-11.0) Red Blood Count 3.82 x10^6/uL (4.30-5.70) Hemoglobin 12.5 g/dL (13.0-17.5) Hematocrit 36.5 % (39.0-53.0) Mean Corpuscular Volume 96 fL (79-100) Mean Corpuscular Hemoglobin 33 pg (25-35) Mean Corpuscular Hemoglobin Concent 34 g/dL (31-37) Red Cell Distribution Width 14.4 % (11.5-14.5) Platelet Count 172 x10^3/uL (140-400) Neutrophils (%) (Auto) 58 % (31-73) Lymphocytes (%) (Auto) 27 % (24-48) Monocytes (%) (Auto) 11 % (0-9) Eosinophils (%) (Auto) 4 % (0-3) Basophils (%) (Auto) 0 % (0-3) Neutrophils # (Auto) 2.7 x10^3uL (1.8-7.7) Lymphocytes # (Auto) 1.3 x10^3/uL (1.0-4.8) Monocytes # (Auto) 0.5 x10^3/uL (0.0-1.1) Eosinophils # (Auto) 0.2 x10^3/uL (0.0-0.7) Basophils # (Auto) 0.0 x10^3/uL (0.0-0.2) Sodium Level 141 mmol/L (136-145) Potassium Level 3.6 mmol/L (3.5-5.1) Chloride Level 103 mmol/L (98-107) Carbon Dioxide Level 30 mmol/L (21-32) Anion Gap 8 (6-14) Blood Urea Nitrogen 21 mg/dL (8-26) Creatinine 1.7 mg/dL (0.7-1.3) Estimated GFR (Cockcroft-Gault) 50.9 Glucose Level 191 mg/dL (70-99) Calcium Level 8.3 mg/dL (8.5-10.1) Prostate Specific Antigen 0.40 ng/mL (0.00-4.00) Test 05/14/17 11:56 05/14/17 16:52 05/14/17 21:26 05/15/17 04:30 Glucose (Fingerstick) 256 mg/dL (70-99) 296 mg/dL (70-99) 199 mg/dL (70-99) White Blood Count 5.0 x10^3/uL (4.0-11.0) Red Blood Count 4.01 x10^6/uL (4.30-5.70) Hemoglobin 13.0 g/dL (13.0-17.5) Hematocrit 39.3 % (39.0-53.0) Mean Corpuscular Volume 98 fL (79-100) Mean Corpuscular Hemoglobin 32 pg (25-35) Mean Corpuscular Hemoglobin Concent 33 g/dL (31-37) Red Cell Distribution Width 14.6 % (11.5-14.5) Platelet Count 163 x10^3/uL (140-400) Neutrophils (%) (Auto) 52 % (31-73) Lymphocytes (%) (Auto) 34 % (24-48) Monocytes (%) (Auto) 9 % (0-9) Eosinophils (%) (Auto) 4 % (0-3) Basophils (%) (Auto) 1 % (0-3) Neutrophils # (Auto) 2.6 x10^3uL (1.8-7.7) Lymphocytes # (Auto) 1.7 x10^3/uL (1.0-4.8) Monocytes # (Auto) 0.4 x10^3/uL (0.0-1.1) Eosinophils # (Auto) 0.2 x10^3/uL (0.0-0.7) Basophils # (Auto) 0.0 x10^3/uL (0.0-0.2) Test 05/15/17 05:00 05/15/17 07:40 05/15/17 11:08 Sodium Level 136 mmol/L (136-145) Potassium Level 3.9 mmol/L (3.5-5.1) Chloride Level 100 mmol/L (98-107) Carbon Dioxide Level 29 mmol/L (21-32) Anion Gap 7 (6-14) Blood Urea Nitrogen 22 mg/dL (8-26) Creatinine 1.8 mg/dL (0.7-1.3) Estimated GFR (Cockcroft-Gault) 47.6 Glucose Level 332 mg/dL (70-99) Calcium Level 8.9 mg/dL (8.5-10.1) Glucose (Fingerstick) 252 mg/dL (70-99) 232 mg/dL (70-99) Laboratory Tests Test 05/14/17 16:52 05/14/17 21:26 05/15/17 04:30 05/15/17 05:00 Glucose (Fingerstick) 296 mg/dL (70-99) 199 mg/dL (70-99) White Blood Count 5.0 x10^3/uL (4.0-11.0) Red Blood Count 4.01 x10^6/uL (4.30-5.70) Hemoglobin 13.0 g/dL (13.0-17.5) Hematocrit 39.3 % (39.0-53.0) Mean Corpuscular Volume 98 fL (79-100) Mean Corpuscular Hemoglobin 32 pg (25-35) Mean Corpuscular Hemoglobin Concent 33 g/dL (31-37) Red Cell Distribution Width 14.6 % (11.5-14.5) Platelet Count 163 x10^3/uL (140-400) Neutrophils (%) (Auto) 52 % (31-73) Lymphocytes (%) (Auto) 34 % (24-48) Monocytes (%) (Auto) 9 % (0-9) Eosinophils (%) (Auto) 4 % (0-3) Basophils (%) (Auto) 1 % (0-3) Neutrophils # (Auto) 2.6 x10^3uL (1.8-7.7) Lymphocytes # (Auto) 1.7 x10^3/uL (1.0-4.8) Monocytes # (Auto) 0.4 x10^3/uL (0.0-1.1) Eosinophils # (Auto) 0.2 x10^3/uL (0.0-0.7) Basophils # (Auto) 0.0 x10^3/uL (0.0-0.2) Sodium Level 136 mmol/L (136-145) Potassium Level 3.9 mmol/L (3.5-5.1) Chloride Level 100 mmol/L (98-107) Carbon Dioxide Level 29 mmol/L (21-32) Anion Gap 7 (6-14) Blood Urea Nitrogen 22 mg/dL (8-26) Creatinine 1.8 mg/dL (0.7-1.3) Estimated GFR (Cockcroft-Gault) 47.6 Glucose Level 332 mg/dL (70-99) Calcium Level 8.9 mg/dL (8.5-10.1) Test 05/15/17 07:40 05/15/17 11:08 Glucose (Fingerstick) 252 mg/dL (70-99) 232 mg/dL (70-99) Medications Current Medications Furosemide (Lasix) 40 mg 1X ONCE IVP Last administered on 05/13/17t 13:07; Start 05/13/17 at 13:00; Stop 05/13/17 at 13:01; Status DC Albuterol Sulfate (Ventolin Neb Soln) 5 mg 1X ONCE NEB ; Start 05/13/17 at 13: 00; Stop 05/13/17 at 13:01; Status DC Ipratropium [place] (Atrovent) 0.5 mg 1X ONCE NEB ; Start 05/13/17 at 13:00; Stop 05/13/17 at 13:01; Status DC Clonidine HCl (Catapres) 0.3 mg 1X ONCE PO Last administered on 05/13/17t 13: 16; Start 05/13/17 at 13:00; Stop 05/13/17 at 13:01; Status DC Albuterol/ Ipratropium (Duoneb) 3 ml STK-MED ONCE .ROUTE ; Start 05/13/17 at 13: 16; Stop 05/13/17 at 13:17; Status DC Albuterol/ Ipratropium (Duoneb) 3 ml RTQID NEB Last administered on 05/14/17 15:16; Start 05/13/17 at 16:00; Stop 05/14/17 at 15:59; Status DC Furosemide (Lasix) 20 mg BID92 IVP Last administered on 05/14/17 10:17; Start 05/14/17 at 09:00; Stop 05/14/17 at 17:08; Status DC Allopurinol (Zyloprim) 100 mg DAILY PO Last administered on 05/15/17 08:49; Start 05/14/17 at 09:00 Aspirin (Children'S Aspirin) 81 mg DAILY PO Last administered on 05/15/17 08: 51; Start 05/14/17 at 09:00 Carvedilol (Coreg) 12.5 mg BIDWMEALS PO Last administered on 05/15/17 08:51; Start 05/13/17 at 18:00 Diltiazem HCl (Cardizem 24hr Cd) 120 mg DAILY PO Last administered on 08:49; Start 05/14/17 at 09:00 Acetaminophen/ Hydrocodone Bitart (Lortab 5/325) 1 tab PRN Q4HRS PRN PO MILD PAIN Last administered on 05/14/17 20:56; Start 05/13/17 at 17:15 Insulin Aspart Prota 70%/Aspart 30% (Novolog Mix 70-30) 30 units QHS SQ ; Start 05/13/17 at 21:00; Stop 05/13/17 at 21:00; Status DC Lidocaine (Lidoderm) 1 patch DAILY TD Last administered on 05/15/17 08:45; Start 05/14/17 at 09:00 Losartan Potassium (Cozaar) 100 mg DAILY PO Last administered on 05/15/17 08: 50; Start 05/14/17 at 09:00 Lubiprostone (Amitiza) 16 mcg BID PO Last administered on 05/15/17 08:49; Start 05/13/17 at 21:00 Magnesium Citrate (Citroma) 296 ml PRN DAILY PRN PO CONSTIPATION; Start at 17:15 Metformin HCl (Glucophage Xr) 500 mg DAILY PO Last administered on 05/15/17 08 :49; Start 05/14/17 at 09:00 Potassium Chloride (Klor-Con) 10 meq DAILY PO Last administered on 05/15/17 08 :49; Start 05/14/17 at 09:00 Temazepam (Restoril) 15 mg PRN QHS PRN PO INSOMNIA Last administered on 21:10; Start 05/13/17 at 17:15 Lactulose 20 gm PRN BID PRN PO CONSTIPATION; Start 05/13/17 at 17:30 Acetaminophen (Tylenol) 325 mg PRN Q6HRS PRN PO MILD PAIN / TEMP; Start at 18:30 Acetaminophen/ Hydrocodone Bitart (Lortab 5/325) 1 tab PRN Q6HRS PRN PO MODERATE TO SEVERE PAIN; Start 05/13/17 at 18:30; Stop 05/14/17 at 09:15; Status DC Hydralazine HCl (Apresoline) 10 mg PRN Q4HRS PRN IVP ELEVATED BP, SEE COMMENTS ; Start 05/13/17 at 18:30 Ondansetron HCl (Zofran) 4 mg PRN Q8HRS PRN IV NAUSEA/VOMITING; Start 05/13/17 at 18:30 Albuterol Sulfate (Ventolin Neb Soln) 2.5 mg PRN Q4HRS PRN NEB SHORTNESS OF BREATH; Start 05/13/17 at 18:30 Insulin Aspart (NovoLOG) 0-9 UNITS TIDWMEALS SQ Last administered on 05/15/17 12:07; Start 05/14/17 at 08:00 Dextrose (Dextrose 50%-Water Syringe) 12.5 gm PRN Q15MIN PRN IV SEE COMMENTS; Start 05/13/17 at 19:00 Potassium Chloride (Klor-Con) 20 meq 1X ONCE PO Last administered on 21:10; Start 05/13/17 at 20:30; Stop 05/13/17 at 20:31; Status DC Insulin Aspart Prota 70%/Aspart 30% (Novolog Mix 70-30) 60 units BIDWMEALS SQ Last administered on 05/13/17 21:13; Start 05/13/17 at 20:30; Stop 05/14/17 at 12:14; Status DC Insulin Aspart (NovoLOG) 15 units TIDAC SQ Last administered on 05/14/17 17:31 ; Start 05/14/17 at 12:30; Stop 05/15/17 at 10:44; Status DC Insulin Detemir (Levemir) 40 units QHS SQ ; Start 05/14/17 at 21:00; Stop at 10:44; Status DC Tamsulosin HCl (Flomax) 0.4 mg QHS PO Last administered on 05/14/17 20:55; Start 05/14/17 at 21:00 Heparin Sodium (Porcine) (Heparin Sq) 5,000 unit Q8HRS SQ Last administered on 05/15/17 07:50; Start 05/14/17 at 22:00 Furosemide (Lasix) 40 mg [id number] IVP Last administered on 05/15/17 08:51; Start 05/14/17 at 17:15 Insulin Aspart Prota 70%/Aspart 30% (Novolog Mix 70-30) 15 units QHS SQ ; Start 05/15/17 at 21:00; Stop 05/15/17 at 21:00; Status DC Insulin Aspart Prota 70%/Aspart 30% (Novolog Mix 70-30) 30 units QHS SQ ; Start 05/15/17 at 21:00 Active Scripts Active Lidoderm (Lidocaine) 700 Mg Adh..patch 1 Patch TD DAILY Diltiazem 24HR Cd (Diltiazem Hcl) 120 Mg Cap.er.24h 120 Mg PO DAILY Cozaar (Losartan Potassium) 50 Mg Tablet 100 Mg PO DAILY Lactulose 20 Gm/30 Ml Solution 20 Gm PO BID PRN Hydrocodone-Apap 5-325 (Hydrocodone Bit/Acetaminophen) 1 Each Tablet 1 Tab PO PRN Q4HRS PRN 14 Days Carvedilol 12.5 Mg Tablet 12.5 Mg PO BIDWMEALS Restoril (Temazepam) 15 Mg Capsule 15 Mg PO PRN QHS PRN Reported Magnesium Citrate 296 Ml Solution 296 Ml PO PRN PRN Amitiza (Lubiprostone) 8 Mcg Capsule 2 Cap PO BID Allopurinol 100 Mg Tablet 100 Mg PO DAILY Potassium Chloride 10 Meq Tablet.er 10 Meq PO DAILY Metformin Hcl Er (Metformin Hcl) 500 Mg Tab.er.24h 1 Tab PO DAILY Children's Aspirin (Aspirin) 81 Mg Tab.chew 81 Mg PO DAILY Vitals/I & O Vital Sign - Last 24 Hours 05/14/17 05/14/17 05/14/17 05/14/17 15:00 15:18 17:20 19:25 Temp 97.4 98.2 97.4 98.2 Pulse 71 71 120 Resp 17 22 B/P (MAP) 108/81 (90) 108/81 107/77 (87) Pulse Ox 99 98 O2 Delivery Room Air Nasal Cannula Nasal Cannula O2 Flow Rate 2.0 2.0 05/14/17 05/14/17 05/15/17 05/15/17 20:00 23:00 03:05 07:30 Temp 98.1 97.9 97.7 98.1 97.9 97.7 Pulse 87 84 70 Resp 23 22 20 B/P (MAP) 104/81 (89) 138/77 (97) 110/73 (85) Pulse Ox 96 99 99 O2 Delivery Nasal Cannula Nasal Cannula Nasal Cannula Nasal Cannula O2 Flow Rate 2.0 2.0 2.0 2.0 05/15/17 05/15/17 05/15/17 05/15/17 08:00 08:49 08:50 08:51 Pulse 70 70 70 B/P (MAP) 110/73 110/73 110/73 O2 Delivery Nasal Cannula O2 Flow Rate 2.0 05/15/17 11:00 Temp 96.6 96.6 Pulse 72 Resp 20 B/P (MAP) 113/73 (86) Pulse Ox 96 O2 Delivery Room Air Intake and Output 05/14/17 05/14/17 05/15/17 15:00 23:00 07:00 Intake Total 2000 ml 600 ml Output Total 1100 ml 500 ml Balance 900 ml 100 ml GEORGES DE LA FUENTE MD May 15, 2017 13:19
--- NOTE | 2017-05-15 14:07 | PDOC ---
PROGRESS NOTES Chief Complaint Chief Complaint Acute shortness of breath 2/2 exacerbation of congestive heart failure and sleep apnea. acute hypoxic resp failure Obesity morbid Hypertension Diabetes mellitus type 2 uncontrolled 70/30 bid Sleep apnea with CPAP urination difficulty, BPH likely Chronic A. fib wo AC PPM ABRAM, vasomotor plan: fu with card echo, pelvic US pending lasix 40 mg iv bid as per card labs tmr in and out pelvic US pending, neg PSA, add flomax dc insulin to levemir 40u qhs, aspart 15u tid, since pt refused. will go back to home regimen ,ssi dvt ppx History of Present Illness History of Present Illness on NC which is new to him, 2l SOB uncontrolled dm2, on combined insulin 60u bid, refused the regimen here home CPAP nocturnal urination, difficulty to urinate Vitals Vitals Vital Signs Date Time Temp Pulse Resp B/P (MAP) Pulse Ox O2 Delivery O2 Flow Rate FiO2 05/15/17 11:00 96.6 72 20 113/73 (86) 96 Room Air 96.6 05/15/17 08:00 2.0 Physical Exam General: Alert, No acute distress Heart: Normal S1, Normal S2, Other (IRRegular, no murmurs) Lungs: Clear Abdomen: Normal bowel sounds, Soft Extremities: No clubbing, No cyanosis, Normal pulses (2/4 radial b/l), Other ( improved edema in face, arms, legs) Skin: No rashes Labs LABS Laboratory Tests Test 05/14/17 16:52 05/14/17 21:26 05/15/17 04:30 05/15/17 05:00 Glucose (Fingerstick) 296 mg/dL (70-99) 199 mg/dL (70-99) White Blood Count 5.0 x10^3/uL (4.0-11.0) Red Blood Count 4.01 x10^6/uL (4.30-5.70) Hemoglobin 13.0 g/dL (13.0-17.5) Hematocrit 39.3 % (39.0-53.0) Mean Corpuscular Volume 98 fL (79-100) Mean Corpuscular Hemoglobin 32 pg (25-35) Mean Corpuscular Hemoglobin Concent 33 g/dL (31-37) Red Cell Distribution Width 14.6 % (11.5-14.5) Platelet Count 163 x10^3/uL (140-400) Neutrophils (%) (Auto) 52 % (31-73) Lymphocytes (%) (Auto) 34 % (24-48) Monocytes (%) (Auto) 9 % (0-9) Eosinophils (%) (Auto) 4 % (0-3) Basophils (%) (Auto) 1 % (0-3) Neutrophils # (Auto) 2.6 x10^3uL (1.8-7.7) Lymphocytes # (Auto) 1.7 x10^3/uL (1.0-4.8) Monocytes # (Auto) 0.4 x10^3/uL (0.0-1.1) Eosinophils # (Auto) 0.2 x10^3/uL (0.0-0.7) Basophils # (Auto) 0.0 x10^3/uL (0.0-0.2) Sodium Level 136 mmol/L (136-145) Potassium Level 3.9 mmol/L (3.5-5.1) Chloride Level 100 mmol/L (98-107) Carbon Dioxide Level 29 mmol/L (21-32) Anion Gap 7 (6-14) Blood Urea Nitrogen 22 mg/dL (8-26) Creatinine 1.8 mg/dL (0.7-1.3) Estimated GFR (Cockcroft-Gault) 47.6 Glucose Level 332 mg/dL (70-99) Calcium Level 8.9 mg/dL (8.5-10.1) Test 05/15/17 07:40 05/15/17 11:08 Glucose (Fingerstick) 252 mg/dL (70-99) 232 mg/dL (70-99) Review of Systems Review of Systems no fever, chills, chest pain Comment Review of Relevant I have reviewed the following items antonino (where applicable) has been applied. Labs Laboratory Tests Test 05/13/17 21:09 05/13/17 22:15 05/14/17 04:11 05/14/17 06:43 Glucose (Fingerstick) 255 mg/dL (70-99) 206 mg/dL (70-99) Troponin I Quantitative < 0.017 ng/mL (0.000-0.055) White Blood Count 4.8 x10^3/uL (4.0-11.0) Red Blood Count 3.82 x10^6/uL (4.30-5.70) Hemoglobin 12.5 g/dL (13.0-17.5) Hematocrit 36.5 % (39.0-53.0) Mean Corpuscular Volume 96 fL (79-100) Mean Corpuscular Hemoglobin 33 pg (25-35) Mean Corpuscular Hemoglobin Concent 34 g/dL (31-37) Red Cell Distribution Width 14.4 % (11.5-14.5) Platelet Count 172 x10^3/uL (140-400) Neutrophils (%) (Auto) 58 % (31-73) Lymphocytes (%) (Auto) 27 % (24-48) Monocytes (%) (Auto) 11 % (0-9) Eosinophils (%) (Auto) 4 % (0-3) Basophils (%) (Auto) 0 % (0-3) Neutrophils # (Auto) 2.7 x10^3uL (1.8-7.7) Lymphocytes # (Auto) 1.3 x10^3/uL (1.0-4.8) Monocytes # (Auto) 0.5 x10^3/uL (0.0-1.1) Eosinophils # (Auto) 0.2 x10^3/uL (0.0-0.7) Basophils # (Auto) 0.0 x10^3/uL (0.0-0.2) Sodium Level 141 mmol/L (136-145) Potassium Level 3.6 mmol/L (3.5-5.1) Chloride Level 103 mmol/L (98-107) Carbon Dioxide Level 30 mmol/L (21-32) Anion Gap 8 (6-14) Blood Urea Nitrogen 21 mg/dL (8-26) Creatinine 1.7 mg/dL (0.7-1.3) Estimated GFR (Cockcroft-Gault) 50.9 Glucose Level 191 mg/dL (70-99) Calcium Level 8.3 mg/dL (8.5-10.1) Prostate Specific Antigen 0.40 ng/mL (0.00-4.00) Test 05/14/17 11:56 05/14/17 16:52 05/14/17 21:26 05/15/17 04:30 Glucose (Fingerstick) 256 mg/dL (70-99) 296 mg/dL (70-99) 199 mg/dL (70-99) White Blood Count 5.0 x10^3/uL (4.0-11.0) Red Blood Count 4.01 x10^6/uL (4.30-5.70) Hemoglobin 13.0 g/dL (13.0-17.5) Hematocrit 39.3 % (39.0-53.0) Mean Corpuscular Volume 98 fL (79-100) Mean Corpuscular Hemoglobin 32 pg (25-35) Mean Corpuscular Hemoglobin Concent 33 g/dL (31-37) Red Cell Distribution Width 14.6 % (11.5-14.5) Platelet Count 163 x10^3/uL (140-400) Neutrophils (%) (Auto) 52 % (31-73) Lymphocytes (%) (Auto) 34 % (24-48) Monocytes (%) (Auto) 9 % (0-9) Eosinophils (%) (Auto) 4 % (0-3) Basophils (%) (Auto) 1 % (0-3) Neutrophils # (Auto) 2.6 x10^3uL (1.8-7.7) Lymphocytes # (Auto) 1.7 x10^3/uL (1.0-4.8) Monocytes # (Auto) 0.4 x10^3/uL (0.0-1.1) Eosinophils # (Auto) 0.2 x10^3/uL (0.0-0.7) Basophils # (Auto) 0.0 x10^3/uL (0.0-0.2) Test 05/15/17 05:00 05/15/17 07:40 05/15/17 11:08 Sodium Level 136 mmol/L (136-145) Potassium Level 3.9 mmol/L (3.5-5.1) Chloride Level 100 mmol/L (98-107) Carbon Dioxide Level 29 mmol/L (21-32) Anion Gap 7 (6-14) Blood Urea Nitrogen 22 mg/dL (8-26) Creatinine 1.8 mg/dL (0.7-1.3) Estimated GFR (Cockcroft-Gault) 47.6 Glucose Level 332 mg/dL (70-99) Calcium Level 8.9 mg/dL (8.5-10.1) Glucose (Fingerstick) 252 mg/dL (70-99) 232 mg/dL (70-99) Laboratory Tests Test 05/14/17 16:52 05/14/17 21:26 05/15/17 04:30 05/15/17 05:00 Glucose (Fingerstick) 296 mg/dL (70-99) 199 mg/dL (70-99) White Blood Count 5.0 x10^3/uL (4.0-11.0) Red Blood Count 4.01 x10^6/uL (4.30-5.70) Hemoglobin 13.0 g/dL (13.0-17.5) Hematocrit 39.3 % (39.0-53.0) Mean Corpuscular Volume 98 fL (79-100) Mean Corpuscular Hemoglobin 32 pg (25-35) Mean Corpuscular Hemoglobin Concent 33 g/dL (31-37) Red Cell Distribution Width 14.6 % (11.5-14.5) Platelet Count 163 x10^3/uL (140-400) Neutrophils (%) (Auto) 52 % (31-73) Lymphocytes (%) (Auto) 34 % (24-48) Monocytes (%) (Auto) 9 % (0-9) Eosinophils (%) (Auto) 4 % (0-3) Basophils (%) (Auto) 1 % (0-3) Neutrophils # (Auto) 2.6 x10^3uL (1.8-7.7) Lymphocytes # (Auto) 1.7 x10^3/uL (1.0-4.8) Monocytes # (Auto) 0.4 x10^3/uL (0.0-1.1) Eosinophils # (Auto) 0.2 x10^3/uL (0.0-0.7) Basophils # (Auto) 0.0 x10^3/uL (0.0-0.2) Sodium Level 136 mmol/L (136-145) Potassium Level 3.9 mmol/L (3.5-5.1) Chloride Level 100 mmol/L (98-107) Carbon Dioxide Level 29 mmol/L (21-32) Anion Gap 7 (6-14) Blood Urea Nitrogen 22 mg/dL (8-26) Creatinine 1.8 mg/dL (0.7-1.3) Estimated GFR (Cockcroft-Gault) 47.6 Glucose Level 332 mg/dL (70-99) Calcium Level 8.9 mg/dL (8.5-10.1) Test 05/15/17 07:40 05/15/17 11:08 Glucose (Fingerstick) 252 mg/dL (70-99) 232 mg/dL (70-99) Medications Current Medications Furosemide (Lasix) 40 mg 1X ONCE IVP Last administered on 05/13/17 13:07; Start 05/13/17 at 13:00; Stop 05/13/17 at 13:01; Status DC Albuterol Sulfate (Ventolin Neb Soln) 5 mg 1X ONCE NEB ; Start 05/13/17 at 13: 00; Stop 05/13/17 at 13:01; Status DC Ipratropium [place] (Atrovent) 0.5 mg 1X ONCE NEB ; Start 05/13/17 at 13:00; Stop 05/13/17 at 13:01; Status DC Clonidine HCl (Catapres) 0.3 mg 1X ONCE PO Last administered on 05/13/17 13: 16; Start 05/13/17 at 13:00; Stop 05/13/17 at 13:01; Status DC Albuterol/ Ipratropium (Duoneb) 3 ml STK-MED ONCE .ROUTE ; Start 05/13/17 at 13: 16; Stop 05/13/17 at 13:17; Status DC Albuterol/ Ipratropium (Duoneb) 3 ml RTQID NEB Last administered on 05/14/17 15:16; Start 05/13/17 at 16:00; Stop 05/14/17 at 15:59; Status DC Furosemide (Lasix) 20 mg [id number] IVP Last administered on 05/14/17 10:17; Start 05/14/17 at 09:00; Stop 05/14/17 at 17:08; Status DC Allopurinol (Zyloprim) 100 mg DAILY PO Last administered on 05/15/17 08:49; Start 05/14/17 at 09:00 Aspirin (Children'S Aspirin) 81 mg DAILY PO Last administered on 05/15/17 08: 51; Start 05/14/17 at 09:00 Carvedilol (Coreg) 12.5 mg BIDWMEALS PO Last administered on 05/15/17 08:51; Start 05/13/17 at 18:00 Diltiazem HCl (Cardizem 24hr Cd) 120 mg DAILY PO Last administered on 08:49; Start 05/14/17 at 09:00 Acetaminophen/ Hydrocodone Bitart (Lortab 5/325) 1 tab PRN Q4HRS PRN PO MILD PAIN Last administered on 05/14/17 20:56; Start 05/13/17 at 17:15 Insulin Aspart Prota 70%/Aspart 30% (Novolog Mix 70-30) 30 units QHS SQ ; Start 05/13/17 at 21:00; Stop 05/13/17 at 21:00; Status DC Lidocaine (Lidoderm) 1 patch DAILY TD Last administered on 05/15/17 08:45; Start 05/14/17 at 09:00 Losartan Potassium (Cozaar) 100 mg DAILY PO Last administered on 05/15/17 08: 50; Start 05/14/17 at 09:00 Lubiprostone (Amitiza) 16 mcg BID PO Last administered on 05/15/17 08:49; Start 05/13/17 at 21:00 Magnesium Citrate (Citroma) 296 ml PRN DAILY PRN PO CONSTIPATION; Start at 17:15 Metformin HCl (Glucophage Xr) 500 mg DAILY PO Last administered on 05/15/17 08 :49; Start 05/14/17 at 09:00 Potassium Chloride (Klor-Con) 10 meq DAILY PO Last administered on 05/15/17 08 :49; Start 05/14/17 at 09:00 Temazepam (Restoril) 15 mg PRN QHS PRN PO INSOMNIA Last administered on 21:10; Start 05/13/17 at 17:15 Lactulose 20 gm PRN BID PRN PO CONSTIPATION; Start 05/13/17 at 17:30 Acetaminophen (Tylenol) 325 mg PRN Q6HRS PRN PO MILD PAIN / TEMP; Start at 18:30 Acetaminophen/ Hydrocodone Bitart (Lortab 5/325) 1 tab PRN Q6HRS PRN PO MODERATE TO SEVERE PAIN; Start 05/13/17 at 18:30; Stop 05/14/17 at 09:15; Status DC Hydralazine HCl (Apresoline) 10 mg PRN Q4HRS PRN IVP ELEVATED BP, SEE COMMENTS ; Start 05/13/17 at 18:30 Ondansetron HCl (Zofran) 4 mg PRN Q8HRS PRN IV NAUSEA/VOMITING; Start 05/13/17 at 18:30 Albuterol Sulfate (Ventolin Neb Soln) 2.5 mg PRN Q4HRS PRN NEB SHORTNESS OF BREATH; Start 05/13/17 at 18:30 Insulin Aspart (NovoLOG) 0-9 UNITS TIDWMEALS SQ Last administered on 05/15/17 12:07; Start 05/14/17 at 08:00 Dextrose (Dextrose 50%-Water Syringe) 12.5 gm PRN Q15MIN PRN IV SEE COMMENTS; Start 05/13/17 at 19:00 Potassium Chloride (Klor-Con) 20 meq 1X ONCE PO Last administered on 21:10; Start 05/13/17 at 20:30; Stop 05/13/17 at 20:31; Status DC Insulin Aspart Prota 70%/Aspart 30% (Novolog Mix 70-30) 60 units BIDWMEALS SQ Last administered on 05/13/17 21:13; Start 05/13/17 at 20:30; Stop 05/14/17 at 12:14; Status DC Insulin Aspart (NovoLOG) 15 units TIDAC SQ Last administered on 05/14/17 17:31 ; Start 05/14/17 at 12:30; Stop 05/15/17 at 10:44; Status DC Insulin Detemir (Levemir) 40 units QHS SQ ; Start 05/14/17 at 21:00; Stop at 10:44; Status DC Tamsulosin HCl (Flomax) 0.4 mg QHS PO Last administered on 05/14/17 20:55; Start 05/14/17 at 21:00 Heparin Sodium (Porcine) (Heparin Sq) 5,000 unit Q8HRS SQ Last administered on 05/15/17 13:45; Start 05/14/17 at 22:00 Furosemide (Lasix) 40 mg [id number] IVP Last administered on 7/15/17at 13:40; Start 05/14/17 at 17:15 Insulin Aspart Prota 70%/Aspart 30% (Novolog Mix 70-30) 15 units QHS SQ ; Start 05/15/17 at 21:00; Stop 05/15/17 at 21:00; Status DC Insulin Aspart Prota 70%/Aspart 30% (Novolog Mix 70-30) 30 units QHS SQ ; Start 05/15/17 at 21:00 Active Scripts Active Lidoderm (Lidocaine) 700 Mg Adh..patch 1 Patch TD DAILY Diltiazem 24HR Cd (Diltiazem Hcl) 120 Mg Cap.er.24h 120 Mg PO DAILY Cozaar (Losartan Potassium) 50 Mg Tablet 100 Mg PO DAILY Lactulose 20 Gm/30 Ml Solution 20 Gm PO BID PRN Hydrocodone-Apap 5-325 (Hydrocodone Bit/Acetaminophen) 1 Each Tablet 1 Tab PO PRN Q4HRS PRN 14 Days Carvedilol 12.5 Mg Tablet 12.5 Mg PO BIDWMEALS Restoril (Temazepam) 15 Mg Capsule 15 Mg PO PRN QHS PRN Reported Magnesium Citrate 296 Ml Solution 296 Ml PO PRN PRN Amitiza (Lubiprostone) 8 Mcg Capsule 2 Cap PO BID Allopurinol 100 Mg Tablet 100 Mg PO DAILY Potassium Chloride 10 Meq Tablet.er 10 Meq PO DAILY Metformin Hcl Er (Metformin Hcl) 500 Mg Tab.er.24h 1 Tab PO DAILY Children's Aspirin (Aspirin) 81 Mg Tab.chew 81 Mg PO DAILY Vitals/I & O Vital Sign - Last 24 Hours 05/14/17 05/14/17 05/14/17 05/14/17 15:00 15:18 17:20 19:25 Temp 97.4 98.2 97.4 98.2 Pulse 71 71 120 Resp 17 22 B/P (MAP) 108/81 (90) 108/81 107/77 (87) Pulse Ox 99 98 O2 Delivery Room Air Nasal Cannula Nasal Cannula O2 Flow Rate 2.0 2.0 05/14/17 05/14/17 05/15/17 05/15/17 20:00 23:00 03:05 07:30 Temp 98.1 97.9 97.7 98.1 97.9 97.7 Pulse 87 84 70 Resp 23 22 20 B/P (MAP) 104/81 (89) 138/77 (97) 110/73 (85) Pulse Ox 96 99 99 O2 Delivery Nasal Cannula Nasal Cannula Nasal Cannula Nasal Cannula O2 Flow Rate 2.0 2.0 2.0 2.0 05/15/17 05/15/17 05/15/17 05/15/17 08:00 08:49 08:50 08:51 Pulse 70 70 70 B/P (MAP) 110/73 110/73 110/73 O2 Delivery Nasal Cannula O2 Flow Rate 2.0 05/15/17 11:00 Temp 96.6 96.6 Pulse 72 Resp 20 B/P (MAP) 113/73 (86) Pulse Ox 96 O2 Delivery Room Air Intake and Output 05/14/17 05/14/17 05/15/17 15:00 23:00 07:00 Intake Total 2000 ml 600 ml Output Total 1100 ml 500 ml Balance 900 ml 100 ml ALMAS ARELLANO MD May 15, 2017 14:07
[2017-05-15 15:30] VITALS: BP 101/67
[2017-05-15 19:31] VITALS: BP 110/76
[2017-05-15] MEDS ORDERED: INSULN ASP PRT/INSULIN ASPART 300 UNITS/3 ML INSULN.PEN. SQ SCH ×2 (21:00)
[2017-05-15] MEDS: HYDROcodone/APAP 5/325MG 1 TAB TABLET PO PRN (21:20)
[2017-05-15] MEDS: TEMAZEPAM 15 MG CAPSULE PO PRN (21:21)
[2017-05-15] MEDS: TAMSULOSIN 0.4 MG CAP.ER.24H. PO SCH (21:21)
[2017-05-15] MEDS: INSULN ASP PRT/INSULIN ASPART 300 UNITS/3 ML INSULN.PEN. SQ SCH (21:34)
[2017-05-15 23:19] VITALS: BP_SYST 129; BP_SYST 141; BP_DIAS 66; BP_DIAS 81
[2017-05-16] VITALS (9 sets, daily range): BP systolic 97–141; BP diastolic 68–94
[2017-05-16] MEDS: HYDROcodone/APAP 5/325MG 1 TAB TABLET PO PRN ×2 (02:42→21:42)
[2017-05-16 05:34] LABS: BASO % 1 % (0-3); EOS % 5 % (0-3); HEMATOCRIT 37.3 % (39.0-53.0); HEMOGLOBIN 12.9 g/dL (13.0-17.5); LYMPH # 1.6 x10^3/uL (1.0-4.8); LYMPH % 32 % (24-48); MEAN CORPUSCULAR HEMOGLOBIN 33 pg (25-35); MEAN CORPUSCULAR HGB CONC 35 g/dL (31-37); MEAN CORPUSCULAR VOLUME 95 fL (79-100); MONO % 13 % (0-9); NEUT % 49 % (31-73); PLATELET COUNT 173 x10^3/uL (140-400); RED BLOOD COUNT 3.92 x10^6/uL (4.30-5.70); RED CELL DISTRIBUTION WIDTH 14.3 % (11.5-14.5)
[2017-05-16 05:48] LABS: GFR 42.2; POTASSIUM 3.8 mmol/L (3.5-5.1)
[2017-05-16] MEDS: HEPARIN PF for SUB-Q USE 5,000 UNIT/0.5 ML VIAL. SQ SCH ×3 (06:19→21:54)
[2017-05-16] MEDS: INSULIN ASPART 300 UNITS/3 ML INSULN.PEN SQ SCH ×3 (08:00→17:08)
[2017-05-16] MEDS: LUBIPROSTONE 8 MCG CAPSULE PO SCH ×2 (08:01→21:43)
[2017-05-16] MEDS: POTASSIUM CHLORIDE 10 MEQ TABLET.ER. PO SCH (08:02)
[2017-05-16] MEDS: CARVEDILOL 12.5 MG TABLET. PO SCH ×2 (08:02→17:06)
[2017-05-16] MEDS: LOSARTAN POTASSIUM 50 MG TABLET. PO SCH (08:03)
[2017-05-16] MEDS: ASPIRIN CHEWABLE 81 MG TABLET. PO SCH (08:03)
[2017-05-16] MEDS: ALLOPURINOL 100 MG TABLET. PO SCH (08:03)
[2017-05-16] MEDS: metFORMIN XR 500 MG TAB.ER.24H PO SCH (08:03)
[2017-05-16] MEDS: FUROSEMIDE 20 MG/2 ML VIAL. IVP SCH ×2 (08:04→13:00)
[2017-05-16] MEDS: INSULN ASP PRT/INSULIN ASPART 300 UNITS/3 ML INSULN.PEN. SQ SCH ×2 (08:05→21:53)
[2017-05-16] MEDS: LIDOCAINE (700MG/PATCH) PATCH. TD SCH (08:10)
[2017-05-16] MEDS: ALBUTEROL SULFATE 2.5 MG/3 ML NEBU. NEB PRN ×3 (08:21→17:10)
[2017-05-16] MEDS ORDERED: diphenhydrAMINE HCL 25 MG CAPSULE PO PRN (10:00)
--- NOTE | 2017-05-16 13:03 | PDOC ---
PROGRESS NOTES Chief Complaint Chief Complaint Acute shortness of breath 2/2 exacerbation of congestive heart failure and sleep apnea. acute hypoxic resp failure Obesity morbid Hypertension Diabetes mellitus type 2 uncontrolled 70/30 bid Sleep apnea with CPAP urination difficulty, BPH likely Chronic A. fib wo AC PPM ABRAM, vasomotor erection dysfunction could be 2/2 meds and dm2 plan: fu with card echo pending lasix 40 mg iv bid as per card labs tmr in and out neg PSA, add flomax dc insulin to levemir 40u qhs, aspart 15u tid, since pt refused. will go back to home regimen ,ssi insomnia, add benadryl dvt ppx hope dc in 1-2ds History of Present Illness History of Present Illness on NC which is new to him, 2l SOB better , still on NC 2 L uncontrolled dm2, on combined insulin 60u bid, refused the regimen here. PT usually skip his AM insulin since he takes a big dinner , and skips his other meals usually home CPAP nocturnal urination, difficulty to urinate, erection dysfunction Cr higher Vitals Vitals Vital Signs Date Time Temp Pulse Resp B/P (MAP) Pulse Ox O2 Delivery O2 Flow Rate FiO2 05/16/17 11:00 98.9 87 16 112/76 (88) 96 Nasal Cannula 2.0 98.9 Physical Exam General: Alert, No acute distress Heart: Normal S1, Normal S2, Other (IRRegular, no murmurs) Lungs: Clear Abdomen: Normal bowel sounds, Soft Extremities: No clubbing, No cyanosis, Normal pulses (2/4 radial b/l), Other ( improved edema in face, arms, legs) Skin: No rashes Labs LABS Laboratory Tests Test 05/15/17 16:28 05/15/17 21:28 05/16/17 04:38 05/16/17 07:41 Glucose (Fingerstick) 242 mg/dL (70-99) 297 mg/dL (70-99) 160 mg/dL (70-99) White Blood Count 5.0 x10^3/uL (4.0-11.0) Red Blood Count 3.92 x10^6/uL (4.30-5.70) Hemoglobin 12.9 g/dL (13.0-17.5) Hematocrit 37.3 % (39.0-53.0) Mean Corpuscular Volume 95 fL (79-100) Mean Corpuscular Hemoglobin 33 pg (25-35) Mean Corpuscular Hemoglobin Concent 35 g/dL (31-37) Red Cell Distribution Width 14.3 % (11.5-14.5) Platelet Count 173 x10^3/uL (140-400) Neutrophils (%) (Auto) 49 % (31-73) Lymphocytes (%) (Auto) 32 % (24-48) Monocytes (%) (Auto) 13 % (0-9) Eosinophils (%) (Auto) 5 % (0-3) Basophils (%) (Auto) 1 % (0-3) Neutrophils # (Auto) 2.5 x10^3uL (1.8-7.7) Lymphocytes # (Auto) 1.6 x10^3/uL (1.0-4.8) Monocytes # (Auto) 0.6 x10^3/uL (0.0-1.1) Eosinophils # (Auto) 0.3 x10^3/uL (0.0-0.7) Basophils # (Auto) 0.0 x10^3/uL (0.0-0.2) Sodium Level 138 mmol/L (136-145) Potassium Level 3.8 mmol/L (3.5-5.1) Chloride Level 101 mmol/L (98-107) Carbon Dioxide Level 28 mmol/L (21-32) Anion Gap 9 (6-14) Blood Urea Nitrogen 26 mg/dL (8-26) Creatinine 2.0 mg/dL (0.7-1.3) Estimated GFR (Cockcroft-Gault) 42.2 Glucose Level 189 mg/dL (70-99) Calcium Level 9.0 mg/dL (8.5-10.1) Test 05/16/17 11:41 Glucose (Fingerstick) 175 mg/dL (70-99) Review of Systems Review of Systems no fever, chills, chest pain Comment Review of Relevant I have reviewed the following items antonino (where applicable) has been applied. Labs Laboratory Tests Test 05/14/17 16:52 05/14/17 21:26 05/15/17 04:30 05/15/17 05:00 Glucose (Fingerstick) 296 mg/dL (70-99) 199 mg/dL (70-99) White Blood Count 5.0 x10^3/uL (4.0-11.0) Red Blood Count 4.01 x10^6/uL (4.30-5.70) Hemoglobin 13.0 g/dL (13.0-17.5) Hematocrit 39.3 % (39.0-53.0) Mean Corpuscular Volume 98 fL (79-100) Mean Corpuscular Hemoglobin 32 pg (25-35) Mean Corpuscular Hemoglobin Concent 33 g/dL (31-37) Red Cell Distribution Width 14.6 % (11.5-14.5) Platelet Count 163 x10^3/uL (140-400) Neutrophils (%) (Auto) 52 % (31-73) Lymphocytes (%) (Auto) 34 % (24-48) Monocytes (%) (Auto) 9 % (0-9) Eosinophils (%) (Auto) 4 % (0-3) Basophils (%) (Auto) 1 % (0-3) Neutrophils # (Auto) 2.6 x10^3uL (1.8-7.7) Lymphocytes # (Auto) 1.7 x10^3/uL (1.0-4.8) Monocytes # (Auto) 0.4 x10^3/uL (0.0-1.1) Eosinophils # (Auto) 0.2 x10^3/uL (0.0-0.7) Basophils # (Auto) 0.0 x10^3/uL (0.0-0.2) Hemoglobin A1c 7.9 % (4.8-5.6) Sodium Level 136 mmol/L (136-145) Potassium Level 3.9 mmol/L (3.5-5.1) Chloride Level 100 mmol/L (98-107) Carbon Dioxide Level 29 mmol/L (21-32) Anion Gap 7 (6-14) Blood Urea Nitrogen 22 mg/dL (8-26) Creatinine 1.8 mg/dL (0.7-1.3) Estimated GFR (Cockcroft-Gault) 47.6 Glucose Level 332 mg/dL (70-99) Calcium Level 8.9 mg/dL (8.5-10.1) Test 05/15/17 07:40 05/15/17 11:08 05/15/17 16:28 05/15/17 21:28 Glucose (Fingerstick) 252 mg/dL (70-99) 232 mg/dL (70-99) 242 mg/dL (70-99) 297 mg/dL (70-99) Test 05/16/17 04:38 05/16/17 07:41 05/16/17 11:41 White Blood Count 5.0 x10^3/uL (4.0-11.0) Red Blood Count 3.92 x10^6/uL (4.30-5.70) Hemoglobin 12.9 g/dL (13.0-17.5) Hematocrit 37.3 % (39.0-53.0) Mean Corpuscular Volume 95 fL (79-100) Mean Corpuscular Hemoglobin 33 pg (25-35) Mean Corpuscular Hemoglobin Concent 35 g/dL (31-37) Red Cell Distribution Width 14.3 % (11.5-14.5) Platelet Count 173 x10^3/uL (140-400) Neutrophils (%) (Auto) 49 % (31-73) Lymphocytes (%) (Auto) 32 % (24-48) Monocytes (%) (Auto) 13 % (0-9) Eosinophils (%) (Auto) 5 % (0-3) Basophils (%) (Auto) 1 % (0-3) Neutrophils # (Auto) 2.5 x10^3uL (1.8-7.7) Lymphocytes # (Auto) 1.6 x10^3/uL (1.0-4.8) Monocytes # (Auto) 0.6 x10^3/uL (0.0-1.1) Eosinophils # (Auto) 0.3 x10^3/uL (0.0-0.7) Basophils # (Auto) 0.0 x10^3/uL (0.0-0.2) Sodium Level 138 mmol/L (136-145) Potassium Level 3.8 mmol/L (3.5-5.1) Chloride Level 101 mmol/L (98-107) Carbon Dioxide Level 28 mmol/L (21-32) Anion Gap 9 (6-14) Blood Urea Nitrogen 26 mg/dL (8-26) Creatinine 2.0 mg/dL (0.7-1.3) Estimated GFR (Cockcroft-Gault) 42.2 Glucose Level 189 mg/dL (70-99) Calcium Level 9.0 mg/dL (8.5-10.1) Glucose (Fingerstick) 160 mg/dL (70-99) 175 mg/dL (70-99) Laboratory Tests Test 05/15/17 16:28 05/15/17 21:28 05/16/17 04:38 05/16/17 07:41 Glucose (Fingerstick) 242 mg/dL (70-99) 297 mg/dL (70-99) 160 mg/dL (70-99) White Blood Count 5.0 x10^3/uL (4.0-11.0) Red Blood Count 3.92 x10^6/uL (4.30-5.70) Hemoglobin 12.9 g/dL (13.0-17.5) Hematocrit 37.3 % (39.0-53.0) Mean Corpuscular Volume 95 fL (79-100) Mean Corpuscular Hemoglobin 33 pg (25-35) Mean Corpuscular Hemoglobin Concent 35 g/dL (31-37) Red Cell Distribution Width 14.3 % (11.5-14.5) Platelet Count 173 x10^3/uL (140-400) Neutrophils (%) (Auto) 49 % (31-73) Lymphocytes (%) (Auto) 32 % (24-48) Monocytes (%) (Auto) 13 % (0-9) Eosinophils (%) (Auto) 5 % (0-3) Basophils (%) (Auto) 1 % (0-3) Neutrophils # (Auto) 2.5 x10^3uL (1.8-7.7) Lymphocytes # (Auto) 1.6 x10^3/uL (1.0-4.8) Monocytes # (Auto) 0.6 x10^3/uL (0.0-1.1) Eosinophils # (Auto) 0.3 x10^3/uL (0.0-0.7) Basophils # (Auto) 0.0 x10^3/uL (0.0-0.2) Sodium Level 138 mmol/L (136-145) Potassium Level 3.8 mmol/L (3.5-5.1) Chloride Level 101 mmol/L (98-107) Carbon Dioxide Level 28 mmol/L (21-32) Anion Gap 9 (6-14) Blood Urea Nitrogen 26 mg/dL (8-26) Creatinine 2.0 mg/dL (0.7-1.3) Estimated GFR (Cockcroft-Gault) 42.2 Glucose Level 189 mg/dL (70-99) Calcium Level 9.0 mg/dL (8.5-10.1) Test 05/16/17 11:41 Glucose (Fingerstick) 175 mg/dL (70-99) Medications Current Medications Furosemide (Lasix) 40 mg 1X ONCE IVP Last administered on 05/13/17 13:07; Start 05/13/17 at 13:00; Stop 05/13/17 at 13:01; Status DC Albuterol Sulfate (Ventolin Neb Soln) 5 mg 1X ONCE NEB ; Start 05/13/17 at 13: 00; Stop 05/13/17 at 13:01; Status DC Ipratropium [place] (Atrovent) 0.5 mg 1X ONCE NEB ; Start 05/13/17 at 13:00; Stop 05/13/17 at 13:01; Status DC Clonidine HCl (Catapres) 0.3 mg 1X ONCE PO Last administered on 05/13/17 13: 16; Start 05/13/17 at 13:00; Stop 05/13/17 at 13:01; Status DC Albuterol/ Ipratropium (Duoneb) 3 ml STK-MED ONCE .ROUTE ; Start 05/13/17 at 13: 16; Stop 05/13/17 at 13:17; Status DC Albuterol/ Ipratropium (Duoneb) 3 ml RTQID NEB Last administered on 05/14/17 15:16; Start 05/13/17 at 16:00; Stop 05/14/17 at 15:59; Status DC Furosemide (Lasix) 20 mg BID92 IVP Last administered on 05/14/17 10:17; Start 05/14/17 at 09:00; Stop 05/14/17 at 17:08; Status DC Allopurinol (Zyloprim) 100 mg DAILY PO Last administered on 05/16/17 08:03; Start 05/14/17 at 09:00 Aspirin (Children'S Aspirin) 81 mg DAILY PO Last administered on 05/16/17 08: 03; Start 05/14/17 at 09:00 Carvedilol (Coreg) 12.5 mg BIDWMEALS PO Last administered on 05/16/17 08:02; Start 05/13/17 at 18:00 Diltiazem HCl (Cardizem 24hr Cd) 120 mg DAILY PO Last administered on 08:02; Start 05/14/17 at 09:00 Acetaminophen/ Hydrocodone Bitart (Lortab 5/325) 1 tab PRN Q4HRS PRN PO MILD PAIN Last administered on 05/16/17 02:42; Start 05/13/17 at 17:15 Insulin Aspart Prota 70%/Aspart 30% (Novolog Mix 70-30) 30 units QHS SQ ; Start 05/13/17 at 21:00; Stop 05/13/17 at 21:00; Status DC Lidocaine (Lidoderm) 1 patch DAILY TD Last administered on 05/15/17 08:45; Start 05/14/17 at 09:00 Losartan Potassium (Cozaar) 100 mg DAILY PO Last administered on 05/16/17 08: 03; Start 05/14/17 at 09:00 Lubiprostone (Amitiza) 16 mcg BID PO Last administered on 05/16/17 08:01; Start 05/13/17 at 21:00 Magnesium Citrate (Citroma) 296 ml PRN DAILY PRN PO CONSTIPATION Last administered on 05/15/17 17:33; Start 05/13/17 at 17:15 Metformin HCl (Glucophage Xr) 500 mg DAILY PO Last administered on 05/16/17 08 :03; Start 05/14/17 at 09:00 Potassium Chloride (Klor-Con) 10 meq DAILY PO Last administered on 05/16/17 08 :02; Start 05/14/17 at 09:00 Temazepam (Restoril) 15 mg PRN QHS PRN PO INSOMNIA Last administered on 21:21; Start 05/13/17 at 17:15 Lactulose 20 gm PRN BID PRN PO CONSTIPATION; Start 05/13/17 at 17:30 Acetaminophen (Tylenol) 325 mg PRN Q6HRS PRN PO MILD PAIN / TEMP; Start at 18:30 Acetaminophen/ Hydrocodone Bitart (Lortab 5/325) 1 tab PRN Q6HRS PRN PO MODERATE TO SEVERE PAIN; Start 05/13/17 at 18:30; Stop 05/14/17 at 09:15; Status DC Hydralazine HCl (Apresoline) 10 mg PRN Q4HRS PRN IVP ELEVATED BP, SEE COMMENTS ; Start 05/13/17 at 18:30 Ondansetron HCl (Zofran) 4 mg PRN Q8HRS PRN IV NAUSEA/VOMITING; Start 05/13/17 at 18:30 Albuterol Sulfate (Ventolin Neb Soln) 2.5 mg PRN Q4HRS PRN NEB SHORTNESS OF BREATH Last administered on 05/16/17 08:21; Start 05/13/17 at 18:30 Insulin Aspart (NovoLOG) 0-9 UNITS TIDWMEALS SQ Last administered on 05/15/17 17:36; Start 05/14/17 at 08:00 Dextrose (Dextrose 50%-Water Syringe) 12.5 gm PRN Q15MIN PRN IV SEE COMMENTS; Start 05/13/17 at 19:00 Potassium Chloride (Klor-Con) 20 meq 1X ONCE PO Last administered on 21:10; Start 05/13/17 at 20:30; Stop 05/13/17 at 20:31; Status DC Insulin Aspart Prota 70%/Aspart 30% (Novolog Mix 70-30) 60 units BIDWMEALS SQ Last administered on 05/13/17 21:13; Start 05/13/17 at 20:30; Stop 05/14/17 at 12:14; Status DC Insulin Aspart (NovoLOG) 15 units TIDAC SQ Last administered on 05/14/17 17:31 ; Start 05/14/17 at 12:30; Stop 05/15/17 at 10:44; Status DC Insulin Detemir (Levemir) 40 units QHS SQ ; Start 05/14/17 at 21:00; Stop at 10:44; Status DC Tamsulosin HCl (Flomax) 0.4 mg QHS PO Last administered on 05/15/17 21:21; Start 05/14/17 at 21:00 Heparin Sodium (Porcine) (Heparin Sq) 5,000 unit Q8HRS SQ Last administered on 05/16/17 06:19; Start 05/14/17 at 22:00 Furosemide (Lasix) 40 mg BID92 IVP Last administered on 05/16/17 08:04; Start 05/14/17 at 17:15 Insulin Aspart Prota 70%/Aspart 30% (Novolog Mix 70-30) 15 units QHS SQ ; Start 05/15/17 at 21:00; Stop 05/15/17 at 21:00; Status DC Insulin Aspart Prota 70%/Aspart 30% (Novolog Mix 70-30) 30 units QHS SQ ; Start 05/15/17 at 21:00; Stop 05/15/17 at 21:00; Status DC Insulin Aspart Prota 70%/Aspart 30% (Novolog Mix 70-30) 50 units BID SQ Last administered on 05/15/17 21:34; Start 05/15/17 at 21:00; Stop 05/16/17 at 09:13 ; Status DC Insulin Aspart Prota 70%/Aspart 30% (Novolog Mix 70-30) 50 units QHS SQ ; Start 05/16/17 at 21:00; Stop 05/16/17 at 21:00; Status DC Insulin Aspart Prota 70%/Aspart 30% (Novolog Mix 70-30) 50 units BID SQ ; Start 05/16/17 at 21:00 Diphenhydramine HCl (Benadryl) 25 mg PRN QHS PRN PO INSOMNIA; Start 05/16/17 at 10:00 Active Scripts Active Lidoderm (Lidocaine) 700 Mg Adh..patch 1 Patch TD DAILY Diltiazem 24HR Cd (Diltiazem Hcl) 120 Mg Cap.er.24h 120 Mg PO DAILY Cozaar (Losartan Potassium) 50 Mg Tablet 100 Mg PO DAILY Lactulose 20 Gm/30 Ml Solution 20 Gm PO BID PRN Hydrocodone-Apap 5-325 (Hydrocodone Bit/Acetaminophen) 1 Each Tablet 1 Tab PO PRN Q4HRS PRN 14 Days Carvedilol 12.5 Mg Tablet 12.5 Mg PO BIDWMEALS Restoril (Temazepam) 15 Mg Capsule 15 Mg PO PRN QHS PRN Reported Magnesium Citrate 296 Ml Solution 296 Ml PO PRN PRN Amitiza (Lubiprostone) 8 Mcg Capsule 2 Cap PO BID Allopurinol 100 Mg Tablet 100 Mg PO DAILY Potassium Chloride 10 Meq Tablet.er 10 Meq PO DAILY Metformin Hcl Er (Metformin Hcl) 500 Mg Tab.er.24h 1 Tab PO DAILY Children's Aspirin (Aspirin) 81 Mg Tab.chew 81 Mg PO DAILY Vitals/I & O Vital Sign - Last 24 Hours 05/15/17 05/15/17 05/15/17 05/15/17 15:30 17:33 19:31 20:00 Temp 97.2 97.4 97.2 97.4 Pulse 55 55 83 Resp 20 22 B/P (MAP) 101/67 (78) 101/67 110/76 (87) Pulse Ox 99 96 O2 Delivery Nasal Cannula Nasal Cannula Room Air O2 Flow Rate 2.0 2.0 2.0 05/15/17 05/16/17 05/16/17 05/16/17 23:19 03:05 07:00 08:00 Temp 97.8 97.7 97.9 97.8 97.7 97.9 Pulse 74 84 74 Resp 22 19 14 B/P (MAP) 129/81 (97) 108/72 (84) 141/89 (106) Pulse Ox 98 99 96 O2 Delivery Nasal Cannula Nasal Cannula Nasal Cannula Room Air O2 Flow Rate 2.0 2.0 2.0 2.0 05/16/17 05/16/17 05/16/17 05/16/17 08:02 08:02 08:03 08:21 Pulse 84 84 84 B/P (MAP) 108/72 108/72 108/72 Pulse Ox 96 O2 Delivery Nasal Cannula O2 Flow Rate 2.0 05/16/17 11:00 Temp 98.9 98.9 Pulse 87 Resp 16 B/P (MAP) 112/76 (88) Pulse Ox 96 O2 Delivery Nasal Cannula O2 Flow Rate 2.0 Intake and Output 05/15/17 05/15/17 05/16/17 15:00 23:00 07:00 Intake Total 120 ml 840 ml 1200 ml Output Total 600 ml 950 ml 700 ml Balance -480 ml -110 ml 500 ml ALMAS ARELLANO MD May 16, 2017 13:03
--- NOTE | 2017-05-16 14:13 | PDOC ---
Provider Note Provider Note Covering for Dr. Lew. shortness of breath has significantly improved. There is no edema of the legs. Lungs are clear. He complains of right lower quadrant pain. A sonogram has been requested. Dr. Lew will see him tomorrow. GIULLERMO REARDON MD May 16, 2017 14:13
--- NOTE | 2017-05-16 16:56 | RAD ---
Ultrasound of the right groin. History: Right groin pain Ultrasound was used to evaluate the right groin. There is no adenopathy noted. There is no mass identified. There is no abnormal fluid collection. An evaluation for a hernia was not performed, but a large hernia was not evident.. Impression: 1. No mass or abnormal fluid collection noted in the right groin.
[2017-05-16] MEDS ORDERED: INSULN ASP PRT/INSULIN ASPART 300 UNITS/3 ML INSULN.PEN. SQ SCH (21:00)
[2017-05-16] MEDS: TAMSULOSIN 0.4 MG CAP.ER.24H. PO SCH (21:43)
[2017-05-16] MEDS: TEMAZEPAM 15 MG CAPSULE PO PRN (23:32)
[2017-05-17 03:20] VITALS: BP 97/77
[2017-05-17 05:13] LABS: BASO % 1 % (0-3); EOS % 5 % (0-3); HEMATOCRIT 37.2 % (39.0-53.0); HEMOGLOBIN 12.2 g/dL (13.0-17.5); LYMPH # 1.8 x10^3/uL (1.0-4.8); LYMPH % 34 % (24-48); MEAN CORPUSCULAR HEMOGLOBIN 32 pg (25-35); MEAN CORPUSCULAR HGB CONC 33 g/dL (31-37); MEAN CORPUSCULAR VOLUME 98 fL (79-100); MONO % 11 % (0-9); NEUT % 49 % (31-73); PLATELET COUNT 168 x10^3/uL (140-400); RED CELL DISTRIBUTION WIDTH 14.5 % (11.5-14.5); WHITE BLOOD COUNT 5.2 x10^3/uL (4.0-11.0)
[2017-05-17 05:52] LABS: CALCIUM 8.3 mg/dL (8.5-10.1); CREATININE 1.9 mg/dL (0.7-1.3); GFR 44.8; POTASSIUM 3.9 mmol/L (3.5-5.1)
[2017-05-17] MEDS: HEPARIN PF for SUB-Q USE 5,000 UNIT/0.5 ML VIAL. SQ SCH ×3 (06:28→22:28)
[2017-05-17 07:00] VITALS: BP 147/91
[2017-05-17] MEDS: INSULIN ASPART 300 UNITS/3 ML INSULN.PEN SQ SCH ×3 (08:00→16:27)
[2017-05-17] MEDS: FUROSEMIDE 20 MG/2 ML VIAL. IVP SCH (08:53)
[2017-05-17] MEDS: POTASSIUM CHLORIDE 10 MEQ TABLET.ER. PO SCH (08:54)
[2017-05-17] MEDS: ASPIRIN CHEWABLE 81 MG TABLET. PO SCH (08:54)
[2017-05-17] MEDS: ALLOPURINOL 100 MG TABLET. PO SCH (08:54)
[2017-05-17] MEDS: metFORMIN XR 500 MG TAB.ER.24H PO SCH (08:54)
[2017-05-17] MEDS: LUBIPROSTONE 8 MCG CAPSULE PO SCH ×2 (08:55→22:18)
[2017-05-17] MEDS: LOSARTAN POTASSIUM 50 MG TABLET. PO SCH (08:55)
[2017-05-17] MEDS: CARVEDILOL 12.5 MG TABLET. PO SCH ×2 (08:56→16:31)
[2017-05-17] MEDS: LIDOCAINE (700MG/PATCH) PATCH. TD SCH (08:58)
[2017-05-17] MEDS: INSULN ASP PRT/INSULIN ASPART 300 UNITS/3 ML INSULN.PEN. SQ SCH ×2 (09:02→22:29)
--- NOTE | 2017-05-17 09:54 | PDOC ---
PROGRESS NOTES Subjective Subjective Mr King is sitting up in bed. He doesn't have any chest pain. He still complains of some shortness of breath, more so when he gets up to walk. Objective Objective Vital Signs Date Time Temp Pulse Resp B/P (MAP) Pulse Ox O2 Delivery O2 Flow Rate FiO2 05/17/17 08:56 87 147/91 05/17/17 07:00 97.8 22 96 Room Air 97.8 05/17/17 03:20 2.0 Intake and Output 05/17/17 07:00 Intake Total 2110 ml Output Total 1800 ml Balance 310 ml Intake Oral 2110 ml Output Urine Total 1800 ml Physical Exam Heart: Regular rate (and rhythm), Normal S1, Normal S2 Extremities: No edema (in legs b/l), Normal pulses (2/4 radial b/l) General: Alert, No acute distress Lungs: Normal air movement, Other (lungs sounds improving b/l) Assessment Assessment Mr King has improved breathing and edema showing overall improvement in his CHF. Recommend switching to lasix po 40mg qday Comment Review of Relevant I have reviewed the following items antonino (where applicable) has been applied. Labs Laboratory Tests Test 05/15/17 11:08 05/15/17 16:28 05/15/17 21:28 05/16/17 04:38 Glucose (Fingerstick) 232 mg/dL (70-99) 242 mg/dL (70-99) 297 mg/dL (70-99) White Blood Count 5.0 x10^3/uL (4.0-11.0) Red Blood Count 3.92 x10^6/uL (4.30-5.70) Hemoglobin 12.9 g/dL (13.0-17.5) Hematocrit 37.3 % (39.0-53.0) Mean Corpuscular Volume 95 fL (79-100) Mean Corpuscular Hemoglobin 33 pg (25-35) Mean Corpuscular Hemoglobin Concent 35 g/dL (31-37) Red Cell Distribution Width 14.3 % (11.5-14.5) Platelet Count 173 x10^3/uL (140-400) Neutrophils (%) (Auto) 49 % (31-73) Lymphocytes (%) (Auto) 32 % (24-48) Monocytes (%) (Auto) 13 % (0-9) Eosinophils (%) (Auto) 5 % (0-3) Basophils (%) (Auto) 1 % (0-3) Neutrophils # (Auto) 2.5 x10^3uL (1.8-7.7) Lymphocytes # (Auto) 1.6 x10^3/uL (1.0-4.8) Monocytes # (Auto) 0.6 x10^3/uL (0.0-1.1) Eosinophils # (Auto) 0.3 x10^3/uL (0.0-0.7) Basophils # (Auto) 0.0 x10^3/uL (0.0-0.2) Sodium Level 138 mmol/L (136-145) Potassium Level 3.8 mmol/L (3.5-5.1) Chloride Level 101 mmol/L (98-107) Carbon Dioxide Level 28 mmol/L (21-32) Anion Gap 9 (6-14) Blood Urea Nitrogen 26 mg/dL (8-26) Creatinine 2.0 mg/dL (0.7-1.3) Estimated GFR (Cockcroft-Gault) 42.2 Glucose Level 189 mg/dL (70-99) Calcium Level 9.0 mg/dL (8.5-10.1) Test 05/16/17 07:41 05/16/17 11:41 05/16/17 16:51 05/16/17 20:35 Glucose (Fingerstick) 160 mg/dL (70-99) 175 mg/dL (70-99) 258 mg/dL (70-99) 202 mg/dL (70-99) Test 05/17/17 03:40 05/17/17 08:29 White Blood Count 5.2 x10^3/uL (4.0-11.0) Red Blood Count 3.80 x10^6/uL (4.30-5.70) Hemoglobin 12.2 g/dL (13.0-17.5) Hematocrit 37.2 % (39.0-53.0) Mean Corpuscular Volume 98 fL (79-100) Mean Corpuscular Hemoglobin 32 pg (25-35) Mean Corpuscular Hemoglobin Concent 33 g/dL (31-37) Red Cell Distribution Width 14.5 % (11.5-14.5) Platelet Count 168 x10^3/uL (140-400) Neutrophils (%) (Auto) 49 % (31-73) Lymphocytes (%) (Auto) 34 % (24-48) Monocytes (%) (Auto) 11 % (0-9) Eosinophils (%) (Auto) 5 % (0-3) Basophils (%) (Auto) 1 % (0-3) Neutrophils # (Auto) 2.6 x10^3uL (1.8-7.7) Lymphocytes # (Auto) 1.8 x10^3/uL (1.0-4.8) Monocytes # (Auto) 0.6 x10^3/uL (0.0-1.1) Eosinophils # (Auto) 0.3 x10^3/uL (0.0-0.7) Basophils # (Auto) 0.0 x10^3/uL (0.0-0.2) Sodium Level 138 mmol/L (136-145) Potassium Level 3.9 mmol/L (3.5-5.1) Chloride Level 100 mmol/L (98-107) Carbon Dioxide Level 29 mmol/L (21-32) Anion Gap 9 (6-14) Blood Urea Nitrogen 29 mg/dL (8-26) Creatinine 1.9 mg/dL (0.7-1.3) Estimated GFR (Cockcroft-Gault) 44.8 Glucose Level 242 mg/dL (70-99) Calcium Level 8.3 mg/dL (8.5-10.1) Glucose (Fingerstick) 176 mg/dL (70-99) Laboratory Tests Test 05/16/17 11:41 05/16/17 16:51 05/16/17 20:35 05/17/17 03:40 Glucose (Fingerstick) 175 mg/dL (70-99) 258 mg/dL (70-99) 202 mg/dL (70-99) White Blood Count 5.2 x10^3/uL (4.0-11.0) Red Blood Count 3.80 x10^6/uL (4.30-5.70) Hemoglobin 12.2 g/dL (13.0-17.5) Hematocrit 37.2 % (39.0-53.0) Mean Corpuscular Volume 98 fL (79-100) Mean Corpuscular Hemoglobin 32 pg (25-35) Mean Corpuscular Hemoglobin Concent 33 g/dL (31-37) Red Cell Distribution Width 14.5 % (11.5-14.5) Platelet Count 168 x10^3/uL (140-400) Neutrophils (%) (Auto) 49 % (31-73) Lymphocytes (%) (Auto) 34 % (24-48) Monocytes (%) (Auto) 11 % (0-9) Eosinophils (%) (Auto) 5 % (0-3) Basophils (%) (Auto) 1 % (0-3) Neutrophils # (Auto) 2.6 x10^3uL (1.8-7.7) Lymphocytes # (Auto) 1.8 x10^3/uL (1.0-4.8) Monocytes # (Auto) 0.6 x10^3/uL (0.0-1.1) Eosinophils # (Auto) 0.3 x10^3/uL (0.0-0.7) Basophils # (Auto) 0.0 x10^3/uL (0.0-0.2) Sodium Level 138 mmol/L (136-145) Potassium Level 3.9 mmol/L (3.5-5.1) Chloride Level 100 mmol/L (98-107) Carbon Dioxide Level 29 mmol/L (21-32) Anion Gap 9 (6-14) Blood Urea Nitrogen 29 mg/dL (8-26) Creatinine 1.9 mg/dL (0.7-1.3) Estimated GFR (Cockcroft-Gault) 44.8 Glucose Level 242 mg/dL (70-99) Calcium Level 8.3 mg/dL (8.5-10.1) Test 05/17/17 08:29 Glucose (Fingerstick) 176 mg/dL (70-99) Medications Current Medications Furosemide (Lasix) 40 mg 1X ONCE IVP Last administered on 05/13/17t 13:07; Start 05/13/17 at 13:00; Stop 05/13/17 at 13:01; Status DC Albuterol Sulfate (Ventolin Neb Soln) 5 mg 1X ONCE NEB ; Start 05/13/17 at 13: 00; Stop 05/13/17 at 13:01; Status DC Ipratropium [place] (Atrovent) 0.5 mg 1X ONCE NEB ; Start 05/13/17 at 13:00; Stop 05/13/17 at 13:01; Status DC Clonidine HCl (Catapres) 0.3 mg 1X ONCE PO Last administered on 05/13/17 13: 16; Start 05/13/17 at 13:00; Stop 05/13/17 at 13:01; Status DC Albuterol/ Ipratropium (Duoneb) 3 ml STK-MED ONCE .ROUTE ; Start 05/13/17 at 13: 16; Stop 05/13/17 at 13:17; Status DC Albuterol/ Ipratropium (Duoneb) 3 ml RTQID NEB Last administered on 05/14/17 15:16; Start 05/13/17 at 16:00; Stop 05/14/17 at 15:59; Status DC Furosemide (Lasix) 20 mg [id number] IVP Last administered on 05/14/17 10:17; Start 05/14/17 at 09:00; Stop 05/14/17 at 17:08; Status DC Allopurinol (Zyloprim) 100 mg DAILY PO Last administered on 05/17/17 08:54; Start 05/14/17 at 09:00 Aspirin (Children'S Aspirin) 81 mg DAILY PO Last administered on 05/17/17 08: 54; Start 05/14/17 at 09:00 Carvedilol (Coreg) 12.5 mg BIDWMEALS PO Last administered on 05/17/17 08:56; Start 05/13/17 at 18:00 Diltiazem HCl (Cardizem 24hr Cd) 120 mg DAILY PO Last administered on 08:54; Start 05/14/17 at 09:00 Acetaminophen/ Hydrocodone Bitart (Lortab 5/325) 1 tab PRN Q4HRS PRN PO MILD PAIN Last administered on 05/16/17 21:42; Start 05/13/17 at 17:15 Insulin Aspart Prota 70%/Aspart 30% (Novolog Mix 70-30) 30 units QHS SQ ; Start 05/13/17 at 21:00; Stop 05/13/17 at 21:00; Status DC Lidocaine (Lidoderm) 1 patch DAILY TD Last administered on 05/17/17 08:58; Start 05/14/17 at 09:00 Losartan Potassium (Cozaar) 100 mg DAILY PO Last administered on 05/17/17 08: 55; Start 05/14/17 at 09:00 Lubiprostone (Amitiza) 16 mcg BID PO Last administered on 05/17/17 08:55; Start 05/13/17 at 21:00 Magnesium Citrate (Citroma) 296 ml PRN DAILY PRN PO CONSTIPATION Last administered on 05/15/17 17:33; Start 05/13/17 at 17:15 Metformin HCl (Glucophage Xr) 500 mg DAILY PO Last administered on 05/17/17 08 :54; Start 05/14/17 at 09:00 Potassium Chloride (Klor-Con) 10 meq DAILY PO Last administered on 05/17/17 08 :54; Start 05/14/17 at 09:00 Temazepam (Restoril) 15 mg PRN QHS PRN PO INSOMNIA Last administered on 23:32; Start 05/13/17 at 17:15 Lactulose 20 gm PRN BID PRN PO CONSTIPATION; Start 05/13/17 at 17:30 Acetaminophen (Tylenol) 325 mg PRN Q6HRS PRN PO MILD PAIN / TEMP; Start at 18:30 Acetaminophen/ Hydrocodone Bitart (Lortab 5/325) 1 tab PRN Q6HRS PRN PO MODERATE TO SEVERE PAIN; Start 05/13/17 at 18:30; Stop 05/14/17 at 09:15; Status DC Hydralazine HCl (Apresoline) 10 mg PRN Q4HRS PRN IVP ELEVATED BP, SEE COMMENTS ; Start 05/13/17 at 18:30 Ondansetron HCl (Zofran) 4 mg PRN Q8HRS PRN IV NAUSEA/VOMITING; Start 05/13/17 at 18:30 Albuterol Sulfate (Ventolin Neb Soln) 2.5 mg PRN Q4HRS PRN NEB SHORTNESS OF BREATH Last administered on 05/16/17 17:10; Start 05/13/17 at 18:30 Insulin Aspart (NovoLOG) 0-9 UNITS TIDWMEALS SQ Last administered on 05/16/17 17:08; Start 05/14/17 at 08:00 Dextrose (Dextrose 50%-Water Syringe) 12.5 gm PRN Q15MIN PRN IV SEE COMMENTS; Start 05/13/17 at 19:00 Potassium Chloride (Klor-Con) 20 meq 1X ONCE PO Last administered on 21:10; Start 05/13/17 at 20:30; Stop 05/13/17 at 20:31; Status DC Insulin Aspart Prota 70%/Aspart 30% (Novolog Mix 70-30) 60 units BIDWMEALS SQ Last administered on 05/13/17 21:13; Start 05/13/17 at 20:30; Stop 05/14/17 at 12:14; Status DC Insulin Aspart (NovoLOG) 15 units TIDAC SQ Last administered on 05/14/17 17:31 ; Start 05/14/17 at 12:30; Stop 05/15/17 at 10:44; Status DC Insulin Detemir (Levemir) 40 units QHS SQ ; Start 05/14/17 at 21:00; Stop at 10:44; Status DC Tamsulosin HCl (Flomax) 0.4 mg QHS PO Last administered on 05/16/17 21:43; Start 05/14/17 at 21:00 Heparin Sodium (Porcine) (Heparin Sq) 5,000 unit Q8HRS SQ Last administered on 05/17/17 06:28; Start 05/14/17 at 22:00 Furosemide (Lasix) 40 mg [id number] IVP Last administered on 05/17/17 08:53; Start 05/14/17 at 17:15 Insulin Aspart Prota 70%/Aspart 30% (Novolog Mix 70-30) 15 units QHS SQ ; Start 05/15/17 at 21:00; Stop 05/15/17 at 21:00; Status DC Insulin Aspart Prota 70%/Aspart 30% (Novolog Mix 70-30) 30 units QHS SQ ; Start 05/15/17 at 21:00; Stop 05/15/17 at 21:00; Status DC Insulin Aspart Prota 70%/Aspart 30% (Novolog Mix 70-30) 50 units BID SQ Last administered on 05/15/17 21:34; Start 05/15/17 at 21:00; Stop 05/16/17 at 09:13 ; Status DC Insulin Aspart Prota 70%/Aspart 30% (Novolog Mix 70-30) 50 units QHS SQ ; Start 05/16/17 at 21:00; Stop 05/16/17 at 21:00; Status DC Insulin Aspart Prota 70%/Aspart 30% (Novolog Mix 70-30) 50 units BID SQ Last administered on 05/17/17 09:02; Start 05/16/17 at 21:00 Diphenhydramine HCl (Benadryl) 25 mg PRN QHS PRN PO INSOMNIA Last administered on 05/16/17 23:32; Start 05/16/17 at 10:00 Active Scripts Active Lidoderm (Lidocaine) 700 Mg Adh..patch 1 Patch TD DAILY Diltiazem 24HR Cd (Diltiazem Hcl) 120 Mg Cap.er.24h 120 Mg PO DAILY Cozaar (Losartan Potassium) 50 Mg Tablet 100 Mg PO DAILY Lactulose 20 Gm/30 Ml Solution 20 Gm PO BID PRN Hydrocodone-Apap 5-325 (Hydrocodone Bit/Acetaminophen) 1 Each Tablet 1 Tab PO PRN Q4HRS PRN 14 Days Carvedilol 12.5 Mg Tablet 12.5 Mg PO BIDWMEALS Restoril (Temazepam) 15 Mg Capsule 15 Mg PO PRN QHS PRN Reported Magnesium Citrate 296 Ml Solution 296 Ml PO PRN PRN Amitiza (Lubiprostone) 8 Mcg Capsule 2 Cap PO BID Allopurinol 100 Mg Tablet 100 Mg PO DAILY Potassium Chloride 10 Meq Tablet.er 10 Meq PO DAILY Metformin Hcl Er (Metformin Hcl) 500 Mg Tab.er.24h 1 Tab PO DAILY Children's Aspirin (Aspirin) 81 Mg Tab.chew 81 Mg PO DAILY Vitals/I & O Vital Sign - Last 24 Hours 05/16/17 05/16/17 05/16/17 05/16/17 11:00 13:45 15:00 16:00 Temp 98.9 97.9 98.9 97.9 Pulse 87 77 108 Resp 16 16 B/P (MAP) 112/76 (88) 115/76 (89) 121/81 (94) Pulse Ox 96 96 96 96 O2 Delivery Nasal Cannula Nasal Cannula Room Air Room Air O2 Flow Rate 2.0 2.0 2.0 05/16/17 05/16/17 05/16/17 05/16/17 17:00 17:06 17:13 18:00 Temp 98.9 98.9 98.9 98.9 Pulse 72 108 82 Resp 16 16 B/P (MAP) 124/68 (86) 121/81 115/68 (84) Pulse Ox 98 99 96 O2 Delivery Room Air Nasal Cannula Room Air O2 Flow Rate 2.0 05/16/17 05/16/17 05/16/17 05/16/17 19:25 20:00 22:55 23:00 Temp 97.8 98.2 97.8 98.2 Pulse 93 117 104 Resp 20 20 B/P (MAP) 97/69 (78) 132/94 (107) Pulse Ox 98 97 O2 Delivery Nasal Cannula Room Air Nasal Cannula O2 Flow Rate 2.0 2.0 05/17/17 05/17/17 05/17/17 05/17/17 03:20 05:00 06:00 07:00 Temp 97.9 97.8 97.9 97.8 Pulse 90 103 94 87 Resp 18 22 B/P (MAP) 97/77 (84) 147/91 (109) Pulse Ox 96 96 O2 Delivery Nasal Cannula Room Air O2 Flow Rate 2.0 05/17/17 05/17/17 05/17/17 08:54 08:55 08:56 Pulse 87 87 87 B/P (MAP) 147/91 147/91 147/91 Intake and Output 05/16/17 05/16/17 05/17/17 15:00 23:00 07:00 Intake Total 720 ml 750 ml 640 ml Output Total 1500 ml 300 ml Balance 720 ml -750 ml 340 ml GEORGES DE LA FUENTE MD May 17, 2017 09:54
[2017-05-17 11:00] VITALS: BP 111/81
--- NOTE | 2017-05-17 11:52 | PDOC ---
PROGRESS NOTES Chief Complaint Chief Complaint Acute shortness of breath 2/2 exacerbation of congestive heart failure and sleep apnea. acute hypoxic resp failure Obesity morbid Hypertension Diabetes mellitus type 2 uncontrolled 70/30 bid Sleep apnea with CPAP urination difficulty, BPH likely Chronic A. fib wo AC PPM ABRAM, vasomotor erection dysfunction could be 2/2 meds and dm2 plan: fu with card echo pending lasix 40 mg iv bid as per card, change to 40mg po daily on 05/17 labs tmr in and out neg PSA, add flomax, pelvic US for BPH dc insulin to levemir 40u qhs, aspart 15u tid, since pt refused. will go back to home regimen ,ssi insomnia, add benadryl dvt ppx hba1c 7.9 hope dc tmr, need 6min walk History of Present Illness History of Present Illness on NC which is new to him, 2l SOB better , still on NC 2 L, exertional sob when walk wo NC uncontrolled dm2, on combined insulin 60u bid, refused the regimen here. PT usually skip his AM insulin since he takes a big dinner , and skips his other meals usually home CPAP nocturnal urination, difficulty to urinate, erection dysfunction Cr higher Vitals Vitals Vital Signs Date Time Temp Pulse Resp B/P (MAP) Pulse Ox O2 Delivery O2 Flow Rate FiO2 05/17/17 11:00 97.4 102 20 111/81 (91) 100 97.4 05/17/17 07:00 Room Air 05/17/17 03:20 2.0 Physical Exam General: Alert, No acute distress Heart: Regular rate (and rhythm), Normal S1, Normal S2 Lungs: Clear Abdomen: Normal bowel sounds, Soft Extremities: No edema (in legs b/l), Normal pulses (2/4 radial b/l) Skin: No rashes Labs LABS Laboratory Tests Test 05/16/17 16:51 05/16/17 20:35 05/17/17 03:40 05/17/17 08:29 Glucose (Fingerstick) 258 mg/dL (70-99) 202 mg/dL (70-99) 176 mg/dL (70-99) White Blood Count 5.2 x10^3/uL (4.0-11.0) Red Blood Count 3.80 x10^6/uL (4.30-5.70) Hemoglobin 12.2 g/dL (13.0-17.5) Hematocrit 37.2 % (39.0-53.0) Mean Corpuscular Volume 98 fL (79-100) Mean Corpuscular Hemoglobin 32 pg (25-35) Mean Corpuscular Hemoglobin Concent 33 g/dL (31-37) Red Cell Distribution Width 14.5 % (11.5-14.5) Platelet Count 168 x10^3/uL (140-400) Neutrophils (%) (Auto) 49 % (31-73) Lymphocytes (%) (Auto) 34 % (24-48) Monocytes (%) (Auto) 11 % (0-9) Eosinophils (%) (Auto) 5 % (0-3) Basophils (%) (Auto) 1 % (0-3) Neutrophils # (Auto) 2.6 x10^3uL (1.8-7.7) Lymphocytes # (Auto) 1.8 x10^3/uL (1.0-4.8) Monocytes # (Auto) 0.6 x10^3/uL (0.0-1.1) Eosinophils # (Auto) 0.3 x10^3/uL (0.0-0.7) Basophils # (Auto) 0.0 x10^3/uL (0.0-0.2) Sodium Level 138 mmol/L (136-145) Potassium Level 3.9 mmol/L (3.5-5.1) Chloride Level 100 mmol/L (98-107) Carbon Dioxide Level 29 mmol/L (21-32) Anion Gap 9 (6-14) Blood Urea Nitrogen 29 mg/dL (8-26) Creatinine 1.9 mg/dL (0.7-1.3) Estimated GFR (Cockcroft-Gault) 44.8 Glucose Level 242 mg/dL (70-99) Calcium Level 8.3 mg/dL (8.5-10.1) Review of Systems Review of Systems no fever, chills, chest pain Comment Review of Relevant I have reviewed the following items antonino (where applicable) has been applied. Labs Laboratory Tests Test 05/15/17 16:28 05/15/17 21:28 05/16/17 04:38 05/16/17 07:41 Glucose (Fingerstick) 242 mg/dL (70-99) 297 mg/dL (70-99) 160 mg/dL (70-99) White Blood Count 5.0 x10^3/uL (4.0-11.0) Red Blood Count 3.92 x10^6/uL (4.30-5.70) Hemoglobin 12.9 g/dL (13.0-17.5) Hematocrit 37.3 % (39.0-53.0) Mean Corpuscular Volume 95 fL (79-100) Mean Corpuscular Hemoglobin 33 pg (25-35) Mean Corpuscular Hemoglobin Concent 35 g/dL (31-37) Red Cell Distribution Width 14.3 % (11.5-14.5) Platelet Count 173 x10^3/uL (140-400) Neutrophils (%) (Auto) 49 % (31-73) Lymphocytes (%) (Auto) 32 % (24-48) Monocytes (%) (Auto) 13 % (0-9) Eosinophils (%) (Auto) 5 % (0-3) Basophils (%) (Auto) 1 % (0-3) Neutrophils # (Auto) 2.5 x10^3uL (1.8-7.7) Lymphocytes # (Auto) 1.6 x10^3/uL (1.0-4.8) Monocytes # (Auto) 0.6 x10^3/uL (0.0-1.1) Eosinophils # (Auto) 0.3 x10^3/uL (0.0-0.7) Basophils # (Auto) 0.0 x10^3/uL (0.0-0.2) Sodium Level 138 mmol/L (136-145) Potassium Level 3.8 mmol/L (3.5-5.1) Chloride Level 101 mmol/L (98-107) Carbon Dioxide Level 28 mmol/L (21-32) Anion Gap 9 (6-14) Blood Urea Nitrogen 26 mg/dL (8-26) Creatinine 2.0 mg/dL (0.7-1.3) Estimated GFR (Cockcroft-Gault) 42.2 Glucose Level 189 mg/dL (70-99) Calcium Level 9.0 mg/dL (8.5-10.1) Test 05/16/17 11:41 05/16/17 16:51 05/16/17 20:35 05/17/17 03:40 Glucose (Fingerstick) 175 mg/dL (70-99) 258 mg/dL (70-99) 202 mg/dL (70-99) White Blood Count 5.2 x10^3/uL (4.0-11.0) Red Blood Count 3.80 x10^6/uL (4.30-5.70) Hemoglobin 12.2 g/dL (13.0-17.5) Hematocrit 37.2 % (39.0-53.0) Mean Corpuscular Volume 98 fL (79-100) Mean Corpuscular Hemoglobin 32 pg (25-35) Mean Corpuscular Hemoglobin Concent 33 g/dL (31-37) Red Cell Distribution Width 14.5 % (11.5-14.5) Platelet Count 168 x10^3/uL (140-400) Neutrophils (%) (Auto) 49 % (31-73) Lymphocytes (%) (Auto) 34 % (24-48) Monocytes (%) (Auto) 11 % (0-9) Eosinophils (%) (Auto) 5 % (0-3) Basophils (%) (Auto) 1 % (0-3) Neutrophils # (Auto) 2.6 x10^3uL (1.8-7.7) Lymphocytes # (Auto) 1.8 x10^3/uL (1.0-4.8) Monocytes # (Auto) 0.6 x10^3/uL (0.0-1.1) Eosinophils # (Auto) 0.3 x10^3/uL (0.0-0.7) Basophils # (Auto) 0.0 x10^3/uL (0.0-0.2) Sodium Level 138 mmol/L (136-145) Potassium Level 3.9 mmol/L (3.5-5.1) Chloride Level 100 mmol/L (98-107) Carbon Dioxide Level 29 mmol/L (21-32) Anion Gap 9 (6-14) Blood Urea Nitrogen 29 mg/dL (8-26) Creatinine 1.9 mg/dL (0.7-1.3) Estimated GFR (Cockcroft-Gault) 44.8 Glucose Level 242 mg/dL (70-99) Calcium Level 8.3 mg/dL (8.5-10.1) Test 05/17/17 08:29 Glucose (Fingerstick) 176 mg/dL (70-99) Laboratory Tests Test 05/16/17 16:51 05/16/17 20:35 05/17/17 03:40 05/17/17 08:29 Glucose (Fingerstick) 258 mg/dL (70-99) 202 mg/dL (70-99) 176 mg/dL (70-99) White Blood Count 5.2 x10^3/uL (4.0-11.0) Red Blood Count 3.80 x10^6/uL (4.30-5.70) Hemoglobin 12.2 g/dL (13.0-17.5) Hematocrit 37.2 % (39.0-53.0) Mean Corpuscular Volume 98 fL (79-100) Mean Corpuscular Hemoglobin 32 pg (25-35) Mean Corpuscular Hemoglobin Concent 33 g/dL (31-37) Red Cell Distribution Width 14.5 % (11.5-14.5) Platelet Count 168 x10^3/uL (140-400) Neutrophils (%) (Auto) 49 % (31-73) Lymphocytes (%) (Auto) 34 % (24-48) Monocytes (%) (Auto) 11 % (0-9) Eosinophils (%) (Auto) 5 % (0-3) Basophils (%) (Auto) 1 % (0-3) Neutrophils # (Auto) 2.6 x10^3uL (1.8-7.7) Lymphocytes # (Auto) 1.8 x10^3/uL (1.0-4.8) Monocytes # (Auto) 0.6 x10^3/uL (0.0-1.1) Eosinophils # (Auto) 0.3 x10^3/uL (0.0-0.7) Basophils # (Auto) 0.0 x10^3/uL (0.0-0.2) Sodium Level 138 mmol/L (136-145) Potassium Level 3.9 mmol/L (3.5-5.1) Chloride Level 100 mmol/L (98-107) Carbon Dioxide Level 29 mmol/L (21-32) Anion Gap 9 (6-14) Blood Urea Nitrogen 29 mg/dL (8-26) Creatinine 1.9 mg/dL (0.7-1.3) Estimated GFR (Cockcroft-Gault) 44.8 Glucose Level 242 mg/dL (70-99) Calcium Level 8.3 mg/dL (8.5-10.1) Medications Current Medications Furosemide (Lasix) 40 mg 1X ONCE IVP Last administered on 05/13/17 13:07; Start 05/13/17 at 13:00; Stop 05/13/17 at 13:01; Status DC Albuterol Sulfate (Ventolin Neb Soln) 5 mg 1X ONCE NEB ; Start 05/13/17 at 13: 00; Stop 05/13/17 at 13:01; Status DC Ipratropium [place] (Atrovent) 0.5 mg 1X ONCE NEB ; Start 05/13/17 at 13:00; Stop 05/13/17 at 13:01; Status DC Clonidine HCl (Catapres) 0.3 mg 1X ONCE PO Last administered on 05/13/17 13: 16; Start 05/13/17 at 13:00; Stop 05/13/17 at 13:01; Status DC Albuterol/ Ipratropium (Duoneb) 3 ml STK-MED ONCE .ROUTE ; Start 05/13/17 at 13: 16; Stop 05/13/17 at 13:17; Status DC Albuterol/ Ipratropium (Duoneb) 3 ml RTQID NEB Last administered on 05/14/17 15:16; Start 05/13/17 at 16:00; Stop 05/14/17 at 15:59; Status DC Furosemide (Lasix) 20 mg [id number] IVP Last administered on 05/14/17 10:17; Start 05/14/17 at 09:00; Stop 05/14/17 at 17:08; Status DC Allopurinol (Zyloprim) 100 mg DAILY PO Last administered on 05/17/17 08:54; Start 05/14/17 at 09:00 Aspirin (Children'S Aspirin) 81 mg DAILY PO Last administered on 05/17/17 08: 54; Start 05/14/17 at 09:00 Carvedilol (Coreg) 12.5 mg BIDWMEALS PO Last administered on 05/17/17 08:56; Start 05/13/17 at 18:00 Diltiazem HCl (Cardizem 24hr Cd) 120 mg DAILY PO Last administered on 08:54; Start 05/14/17 at 09:00 Acetaminophen/ Hydrocodone Bitart (Lortab 5/325) 1 tab PRN Q4HRS PRN PO MILD PAIN Last administered on 05/16/17 21:42; Start 05/13/17 at 17:15 Insulin Aspart Prota 70%/Aspart 30% (Novolog Mix 70-30) 30 units QHS SQ ; Start 05/13/17 at 21:00; Stop 05/13/17 at 21:00; Status DC Lidocaine (Lidoderm) 1 patch DAILY TD Last administered on 05/17/17 08:58; Start 05/14/17 at 09:00 Losartan Potassium (Cozaar) 100 mg DAILY PO Last administered on 05/17/17 08: 55; Start 05/14/17 at 09:00 Lubiprostone (Amitiza) 16 mcg BID PO Last administered on 05/17/17 08:55; Start 05/13/17 at 21:00 Magnesium Citrate (Citroma) 296 ml PRN DAILY PRN PO CONSTIPATION Last administered on 05/15/17 17:33; Start 05/13/17 at 17:15 Metformin HCl (Glucophage Xr) 500 mg DAILY PO Last administered on 05/17/17 08 :54; Start 05/14/17 at 09:00 Potassium Chloride (Klor-Con) 10 meq DAILY PO Last administered on 05/17/17 08 :54; Start 05/14/17 at 09:00 Temazepam (Restoril) 15 mg PRN QHS PRN PO INSOMNIA Last administered on 23:32; Start 05/13/17 at 17:15 Lactulose 20 gm PRN BID PRN PO CONSTIPATION; Start 05/13/17 at 17:30 Acetaminophen (Tylenol) 325 mg PRN Q6HRS PRN PO MILD PAIN / TEMP; Start at 18:30 Acetaminophen/ Hydrocodone Bitart (Lortab 5/325) 1 tab PRN Q6HRS PRN PO MODERATE TO SEVERE PAIN; Start 05/13/17 at 18:30; Stop 05/14/17 at 09:15; Status DC Hydralazine HCl (Apresoline) 10 mg PRN Q4HRS PRN IVP ELEVATED BP, SEE COMMENTS ; Start 05/13/17 at 18:30 Ondansetron HCl (Zofran) 4 mg PRN Q8HRS PRN IV NAUSEA/VOMITING; Start 05/13/17 at 18:30 Albuterol Sulfate (Ventolin Neb Soln) 2.5 mg PRN Q4HRS PRN NEB SHORTNESS OF BREATH Last administered on 05/16/17 17:10; Start 05/13/17 at 18:30 Insulin Aspart (NovoLOG) 0-9 UNITS TIDWMEALS SQ Last administered on 05/16/17 17:08; Start 05/14/17 at 08:00 Dextrose (Dextrose 50%-Water Syringe) 12.5 gm PRN Q15MIN PRN IV SEE COMMENTS; Start 05/13/17 at 19:00 Potassium Chloride (Klor-Con) 20 meq 1X ONCE PO Last administered on 21:10; Start 05/13/17 at 20:30; Stop 05/13/17 at 20:31; Status DC Insulin Aspart Prota 70%/Aspart 30% (Novolog Mix 70-30) 60 units BIDWMEALS SQ Last administered on 05/13/17 21:13; Start 05/13/17 at 20:30; Stop 05/14/17 at 12:14; Status DC Insulin Aspart (NovoLOG) 15 units TIDAC SQ Last administered on 05/14/17 17:31 ; Start 05/14/17 at 12:30; Stop 05/15/17 at 10:44; Status DC Insulin Detemir (Levemir) 40 units QHS SQ ; Start 05/14/17 at 21:00; Stop at 10:44; Status DC Tamsulosin HCl (Flomax) 0.4 mg QHS PO Last administered on 05/16/17 21:43; Start 05/14/17 at 21:00 Heparin Sodium (Porcine) (Heparin Sq) 5,000 unit Q8HRS SQ Last administered on 05/17/17 06:28; Start 05/14/17 at 22:00 Furosemide (Lasix) 40 mg BID92 IVP Last administered on 05/17/17 08:53; Start 05/14/17 at 17:15; Stop 05/17/17 at 11:46; Status DC Insulin Aspart Prota 70%/Aspart 30% (Novolog Mix 70-30) 15 units QHS SQ ; Start 05/15/17 at 21:00; Stop 05/15/17 at 21:00; Status DC Insulin Aspart Prota 70%/Aspart 30% (Novolog Mix 70-30) 30 units QHS SQ ; Start 05/15/17 at 21:00; Stop 05/15/17 at 21:00; Status DC Insulin Aspart Prota 70%/Aspart 30% (Novolog Mix 70-30) 50 units BID SQ Last administered on 05/15/17 21:34; Start 05/15/17 at 21:00; Stop 05/16/17 at 09:13 ; Status DC Insulin Aspart Prota 70%/Aspart 30% (Novolog Mix 70-30) 50 units QHS SQ ; Start 05/16/17 at 21:00; Stop 05/16/17 at 21:00; Status DC Insulin Aspart Prota 70%/Aspart 30% (Novolog Mix 70-30) 50 units BID SQ Last administered on 05/17/17 09:02; Start 05/16/17 at 21:00 Diphenhydramine HCl (Benadryl) 25 mg PRN QHS PRN PO INSOMNIA Last administered on 05/16/17 23:32; Start 05/16/17 at 10:00 Furosemide (Lasix) 40 mg DAILY PO ; Start 05/18/17 at 09:00 Active Scripts Active Lidoderm (Lidocaine) 700 Mg Adh..patch 1 Patch TD DAILY Diltiazem 24HR Cd (Diltiazem Hcl) 120 Mg Cap.er.24h 120 Mg PO DAILY Cozaar (Losartan Potassium) 50 Mg Tablet 100 Mg PO DAILY Lactulose 20 Gm/30 Ml Solution 20 Gm PO BID PRN Hydrocodone-Apap 5-325 (Hydrocodone Bit/Acetaminophen) 1 Each Tablet 1 Tab PO PRN Q4HRS PRN 14 Days Carvedilol 12.5 Mg Tablet 12.5 Mg PO BIDWMEALS Restoril (Temazepam) 15 Mg Capsule 15 Mg PO PRN QHS PRN Reported Magnesium Citrate 296 Ml Solution 296 Ml PO PRN PRN Amitiza (Lubiprostone) 8 Mcg Capsule 2 Cap PO BID Allopurinol 100 Mg Tablet 100 Mg PO DAILY Potassium Chloride 10 Meq Tablet.er 10 Meq PO DAILY Metformin Hcl Er (Metformin Hcl) 500 Mg Tab.er.24h 1 Tab PO DAILY Children's Aspirin (Aspirin) 81 Mg Tab.chew 81 Mg PO DAILY Vitals/I & O Vital Sign - Last 24 Hours 05/16/17 05/16/17 05/16/17 05/16/17 13:45 15:00 16:00 17:00 Temp 97.9 98.9 97.9 98.9 Pulse 77 108 72 Resp 16 16 B/P (MAP) 115/76 (89) 121/81 (94) 124/68 (86) Pulse Ox 96 96 96 98 O2 Delivery Nasal Cannula Room Air Room Air Room Air O2 Flow Rate 2.0 2.0 05/16/17 05/16/17 05/16/17 05/16/17 17:06 17:13 18:00 19:25 Temp 98.9 97.8 98.9 97.8 Pulse 108 82 93 Resp 16 20 B/P (MAP) 121/81 115/68 (84) 97/69 (78) Pulse Ox 99 96 98 O2 Delivery Nasal Cannula Room Air Nasal Cannula O2 Flow Rate 2.0 2.0 05/16/17 05/16/17 05/16/17 05/17/17 20:00 22:55 23:00 03:20 Temp 98.2 97.9 98.2 97.9 Pulse 117 104 90 Resp 20 18 B/P (MAP) 132/94 (107) 97/77 (84) Pulse Ox 97 96 O2 Delivery Room Air Nasal Cannula Nasal Cannula O2 Flow Rate 2.0 2.0 05/17/17 05/17/17 05/17/17 05/17/17 05:00 06:00 07:00 08:54 Temp 97.8 97.8 Pulse 103 94 87 87 Resp 22 B/P (MAP) 147/91 (109) 147/91 Pulse Ox 96 O2 Delivery Room Air 05/17/17 05/17/17 05/17/17 08:55 08:56 11:00 Temp 97.4 97.4 Pulse 87 87 102 Resp 20 B/P (MAP) 147/91 147/91 111/81 (91) Pulse Ox 100 Intake and Output 05/16/17 05/16/17 05/17/17 15:00 23:00 07:00 Intake Total 720 ml 750 ml 640 ml Output Total 1500 ml 300 ml Balance 720 ml -750 ml 340 ml ALMAS ARELLANO MD May 17, 2017 11:52
[2017-05-17] MEDS: ALBUTEROL SULFATE 2.5 MG/3 ML NEBU. NEB PRN ×2 (12:18→15:19)
--- NOTE | 2017-05-17 12:19 | RAD ---
Indication polyuria. Assess for enlarged prostate. A limited pelvic ultrasound examination was performed. Examination was targeted to the prostate. The prostate is grossly unremarkable. Prosthetic enlargement is not seen. The prostate volume is estimated at approximately 12 cc
[2017-05-17 15:00] VITALS: BP 105/69
[2017-05-17 19:10] VITALS: BP 86/67
[2017-05-17] MEDS: TAMSULOSIN 0.4 MG CAP.ER.24H. PO SCH (22:18)
[2017-05-17] MEDS: TEMAZEPAM 15 MG CAPSULE PO PRN (22:27)
[2017-05-17 23:05] VITALS: BP 119/75
[2017-05-18 03:15] VITALS: BP 107/76
[2017-05-18 05:12] LABS: BASO # 0.1 x10^3/uL (0.0-0.2); BASO % 1 % (0-3); EOS % 5 % (0-3); HEMATOCRIT 39.1 % (39.0-53.0); HEMOGLOBIN 12.9 g/dL (13.0-17.5); LYMPH # 1.4 x10^3/uL (1.0-4.8); LYMPH % 26 % (24-48); MEAN CORPUSCULAR HEMOGLOBIN 32 pg (25-35); MEAN CORPUSCULAR HGB CONC 33 g/dL (31-37); MEAN CORPUSCULAR VOLUME 97 fL (79-100); MONO % 13 % (0-9); NEUT % 56 % (31-73); PLATELET COUNT 191 x10^3/uL (140-400); RED BLOOD COUNT 4.02 x10^6/uL (4.30-5.70); RED CELL DISTRIBUTION WIDTH 14.5 % (11.5-14.5); WHITE BLOOD COUNT 5.4 x10^3/uL (4.0-11.0)
[2017-05-18 05:34] LABS: CALCIUM 8.6 mg/dL (8.5-10.1); CREATININE 1.8 mg/dL (0.7-1.3); GFR 47.6; POTASSIUM 3.7 mmol/L (3.5-5.1)
[2017-05-18] MEDS: HEPARIN PF for SUB-Q USE 5,000 UNIT/0.5 ML VIAL. SQ SCH ×2 (06:10→14:00)
[2017-05-18 07:00] VITALS: BP 159/99
[2017-05-18] MEDS: ALBUTEROL SULFATE 2.5 MG/3 ML NEBU. NEB PRN (07:49)
[2017-05-18] MEDS: INSULIN ASPART 300 UNITS/3 ML INSULN.PEN SQ SCH ×2 (08:00→12:00)
[2017-05-18] MEDS: LOSARTAN POTASSIUM 50 MG TABLET. PO SCH (08:29)
[2017-05-18] MEDS: LUBIPROSTONE 8 MCG CAPSULE PO SCH (08:29)
[2017-05-18] MEDS: metFORMIN XR 500 MG TAB.ER.24H PO SCH (08:29)
[2017-05-18] MEDS: ASPIRIN CHEWABLE 81 MG TABLET. PO SCH (08:30)
[2017-05-18] MEDS: POTASSIUM CHLORIDE 10 MEQ TABLET.ER. PO SCH (08:30)
[2017-05-18] MEDS: CARVEDILOL 12.5 MG TABLET. PO SCH (08:30)
[2017-05-18] MEDS: ALLOPURINOL 100 MG TABLET. PO SCH (08:31)
[2017-05-18] MEDS: INSULN ASP PRT/INSULIN ASPART 300 UNITS/3 ML INSULN.PEN. SQ SCH (08:31)
[2017-05-18] MEDS: LIDOCAINE (700MG/PATCH) PATCH. TD SCH (08:32)
[2017-05-18] MEDS ORDERED: FUROSEMIDE 40 MG TABLET. PO SCH (09:00)
[2017-05-18] MEDS ORDERED: FURO40TA4 PO (10:55)
[2017-05-18] MEDS ORDERED: TAMS0.4C97 PO (10:55)
[2017-05-18 11:00] VITALS: BP 120/78
--- NOTE | 2017-05-18 12:44 | PDOC ---
PROGRESS NOTES Subjective Subjective Mr King had no acute events overnight. He hasn't had any chest pain. His shortness of breath is improving. Leg edema is resolved. Objective Objective Vital Signs Date Time Temp Pulse Resp B/P (MAP) Pulse Ox O2 Delivery O2 Flow Rate FiO2 05/18/17 11:00 99 22 120/78 (92) 97 Room Air 05/18/17 08:00 2.0 05/18/17 07:00 97.5 97.5 Intake and Output 05/18/17 07:00 Intake Total 840 ml Output Total 2775 ml Balance -1935 ml Intake Oral 840 ml Output Urine Total 1275 ml Stool Total 1500 ml Physical Exam Heart: Regular rate (and rhythm), Normal S1, Normal S2 Extremities: Normal pulses (2/4 radial b/l) General: Alert, No acute distress Lungs: Clear to auscultation (b/l), Normal air movement Assessment Assessment Mr King is a 56 yr old male who presented with chf exacerbation/shortness of breath 1) chf - resolving with lasix po Patient is sufficiently compensated cardiac russo for discharge. Comment Review of Relevant I have reviewed the following items antonino (where applicable) has been applied. Labs Laboratory Tests Test 05/16/17 16:51 05/16/17 20:35 05/17/17 03:40 05/17/17 08:29 Glucose (Fingerstick) 258 mg/dL (70-99) 202 mg/dL (70-99) 176 mg/dL (70-99) White Blood Count 5.2 x10^3/uL (4.0-11.0) Red Blood Count 3.80 x10^6/uL (4.30-5.70) Hemoglobin 12.2 g/dL (13.0-17.5) Hematocrit 37.2 % (39.0-53.0) Mean Corpuscular Volume 98 fL (79-100) Mean Corpuscular Hemoglobin 32 pg (25-35) Mean Corpuscular Hemoglobin Concent 33 g/dL (31-37) Red Cell Distribution Width 14.5 % (11.5-14.5) Platelet Count 168 x10^3/uL (140-400) Neutrophils (%) (Auto) 49 % (31-73) Lymphocytes (%) (Auto) 34 % (24-48) Monocytes (%) (Auto) 11 % (0-9) Eosinophils (%) (Auto) 5 % (0-3) Basophils (%) (Auto) 1 % (0-3) Neutrophils # (Auto) 2.6 x10^3uL (1.8-7.7) Lymphocytes # (Auto) 1.8 x10^3/uL (1.0-4.8) Monocytes # (Auto) 0.6 x10^3/uL (0.0-1.1) Eosinophils # (Auto) 0.3 x10^3/uL (0.0-0.7) Basophils # (Auto) 0.0 x10^3/uL (0.0-0.2) Sodium Level 138 mmol/L (136-145) Potassium Level 3.9 mmol/L (3.5-5.1) Chloride Level 100 mmol/L (98-107) Carbon Dioxide Level 29 mmol/L (21-32) Anion Gap 9 (6-14) Blood Urea Nitrogen 29 mg/dL (8-26) Creatinine 1.9 mg/dL (0.7-1.3) Estimated GFR (Cockcroft-Gault) 44.8 Glucose Level 242 mg/dL (70-99) Calcium Level 8.3 mg/dL (8.5-10.1) Test 05/17/17 11:50 05/17/17 17:06 05/17/17 20:40 05/18/17 03:00 Glucose (Fingerstick) 148 mg/dL (70-99) 164 mg/dL (70-99) 253 mg/dL (70-99) Sodium Level 142 mmol/L (136-145) Potassium Level 3.7 mmol/L (3.5-5.1) Chloride Level 103 mmol/L (98-107) Carbon Dioxide Level 32 mmol/L (21-32) Anion Gap 7 (6-14) Blood Urea Nitrogen 28 mg/dL (8-26) Creatinine 1.8 mg/dL (0.7-1.3) Estimated GFR (Cockcroft-Gault) 47.6 Glucose Level 63 mg/dL (70-99) Calcium Level 8.6 mg/dL (8.5-10.1) Test 05/18/17 03:50 05/18/17 08:06 05/18/17 08:29 05/18/17 09:35 White Blood Count 5.4 x10^3/uL (4.0-11.0) Red Blood Count 4.02 x10^6/uL (4.30-5.70) Hemoglobin 12.9 g/dL (13.0-17.5) Hematocrit 39.1 % (39.0-53.0) Mean Corpuscular Volume 97 fL (79-100) Mean Corpuscular Hemoglobin 32 pg (25-35) Mean Corpuscular Hemoglobin Concent 33 g/dL (31-37) Red Cell Distribution Width 14.5 % (11.5-14.5) Platelet Count 191 x10^3/uL (140-400) Neutrophils (%) (Auto) 56 % (31-73) Lymphocytes (%) (Auto) 26 % (24-48) Monocytes (%) (Auto) 13 % (0-9) Eosinophils (%) (Auto) 5 % (0-3) Basophils (%) (Auto) 1 % (0-3) Neutrophils # (Auto) 3.0 x10^3uL (1.8-7.7) Lymphocytes # (Auto) 1.4 x10^3/uL (1.0-4.8) Monocytes # (Auto) 0.7 x10^3/uL (0.0-1.1) Eosinophils # (Auto) 0.3 x10^3/uL (0.0-0.7) Basophils # (Auto) 0.1 x10^3/uL (0.0-0.2) Glucose (Fingerstick) 55 mg/dL (70-99) 118 mg/dL (70-99) 138 mg/dL (70-99) Test 05/18/17 11:56 Glucose (Fingerstick) 242 mg/dL (70-99) Laboratory Tests Test 05/17/17 17:06 05/17/17 20:40 05/18/17 03:00 05/18/17 03:50 Glucose (Fingerstick) 164 mg/dL (70-99) 253 mg/dL (70-99) Sodium Level 142 mmol/L (136-145) Potassium Level 3.7 mmol/L (3.5-5.1) Chloride Level 103 mmol/L (98-107) Carbon Dioxide Level 32 mmol/L (21-32) Anion Gap 7 (6-14) Blood Urea Nitrogen 28 mg/dL (8-26) Creatinine 1.8 mg/dL (0.7-1.3) Estimated GFR (Cockcroft-Gault) 47.6 Glucose Level 63 mg/dL (70-99) Calcium Level 8.6 mg/dL (8.5-10.1) White Blood Count 5.4 x10^3/uL (4.0-11.0) Red Blood Count 4.02 x10^6/uL (4.30-5.70) Hemoglobin 12.9 g/dL (13.0-17.5) Hematocrit 39.1 % (39.0-53.0) Mean Corpuscular Volume 97 fL (79-100) Mean Corpuscular Hemoglobin 32 pg (25-35) Mean Corpuscular Hemoglobin Concent 33 g/dL (31-37) Red Cell Distribution Width 14.5 % (11.5-14.5) Platelet Count 191 x10^3/uL (140-400) Neutrophils (%) (Auto) 56 % (31-73) Lymphocytes (%) (Auto) 26 % (24-48) Monocytes (%) (Auto) 13 % (0-9) Eosinophils (%) (Auto) 5 % (0-3) Basophils (%) (Auto) 1 % (0-3) Neutrophils # (Auto) 3.0 x10^3uL (1.8-7.7) Lymphocytes # (Auto) 1.4 x10^3/uL (1.0-4.8) Monocytes # (Auto) 0.7 x10^3/uL (0.0-1.1) Eosinophils # (Auto) 0.3 x10^3/uL (0.0-0.7) Basophils # (Auto) 0.1 x10^3/uL (0.0-0.2) Test 05/18/17 08:06 05/18/17 08:29 05/18/17 09:35 05/18/17 11:56 Glucose (Fingerstick) 55 mg/dL (70-99) 118 mg/dL (70-99) 138 mg/dL (70-99) 242 mg/dL (70-99) Medications Current Medications Furosemide (Lasix) 40 mg 1X ONCE IVP Last administered on 05/13/17 13:07; Start 05/13/17 at 13:00; Stop 05/13/17 at 13:01; Status DC Albuterol Sulfate (Ventolin Neb Soln) 5 mg 1X ONCE NEB ; Start 05/13/17 at 13: 00; Stop 05/13/17 at 13:01; Status DC Ipratropium Y[place]an (Atrovent) 0.5 mg 1X ONCE NEB ; Start 05/13/17 at 13:00; Stop 05/13/17 at 13:01; Status DC Clonidine HCl (Catapres) 0.3 mg 1X ONCE PO Last administered on 05/13/17 13: 16; Start 05/13/17 at 13:00; Stop 05/13/17 at 13:01; Status DC Albuterol/ Ipratropium (Duoneb) 3 ml STK-MED ONCE .ROUTE ; Start 05/13/17 at 13: 16; Stop 05/13/17 at 13:17; Status DC Albuterol/ Ipratropium (Duoneb) 3 ml RTQID NEB Last administered on 05/14/17 15:16; Start 05/13/17 at 16:00; Stop 05/14/17 at 15:59; Status DC Furosemide (Lasix) 20 mg BID92 IVP Last administered on 05/14/17 10:17; Start 05/14/17 at 09:00; Stop 05/14/17 at 17:08; Status DC Allopurinol (Zyloprim) 100 mg DAILY PO Last administered on 05/18/17 08:31; Start 05/14/17 at 09:00 Aspirin (Children'S Aspirin) 81 mg DAILY PO Last administered on 05/18/17 08: 30; Start 05/14/17 at 09:00 Carvedilol (Coreg) 12.5 mg BIDWMEALS PO Last administered on 05/18/17 08:30; Start 05/13/17 at 18:00 Diltiazem HCl (Cardizem 24hr Cd) 120 mg DAILY PO Last administered on 08:28; Start 05/14/17 at 09:00 Acetaminophen/ Hydrocodone Bitart (Lortab 5/325) 1 tab PRN Q4HRS PRN PO MILD PAIN Last administered on 05/16/17 21:42; Start 05/13/17 at 17:15 Insulin Aspart Prota 70%/Aspart 30% (Novolog Mix 70-30) 30 units QHS SQ ; Start 05/13/17 at 21:00; Stop 05/13/17 at 21:00; Status DC Lidocaine (Lidoderm) 1 patch DAILY TD Last administered on 05/18/17 08:32; Start 05/14/17 at 09:00 Losartan Potassium (Cozaar) 100 mg DAILY PO Last administered on 05/18/17 08: 29; Start 05/14/17 at 09:00 Lubiprostone (Amitiza) 16 mcg BID PO Last administered on 05/18/17 08:29; Start 05/13/17 at 21:00 Magnesium Citrate (Citroma) 296 ml PRN DAILY PRN PO CONSTIPATION Last administered on 05/15/17 17:33; Start 05/13/17 at 17:15 Metformin HCl (Glucophage Xr) 500 mg DAILY PO Last administered on 05/18/17 08 :29; Start 05/14/17 at 09:00 Potassium Chloride (Klor-Con) 10 meq DAILY PO Last administered on 05/18/17 08 :30; Start 05/14/17 at 09:00 Temazepam (Restoril) 15 mg PRN QHS PRN PO INSOMNIA Last administered on 22:27; Start 05/13/17 at 17:15 Lactulose 20 gm PRN BID PRN PO CONSTIPATION; Start 05/13/17 at 17:30 Acetaminophen (Tylenol) 325 mg PRN Q6HRS PRN PO MILD PAIN / TEMP; Start at 18:30 Acetaminophen/ Hydrocodone Bitart (Lortab 5/325) 1 tab PRN Q6HRS PRN PO MODERATE TO SEVERE PAIN; Start 05/13/17 at 18:30; Stop 05/14/17 at 09:15; Status DC Hydralazine HCl (Apresoline) 10 mg PRN Q4HRS PRN IVP ELEVATED BP, SEE COMMENTS ; Start 05/13/17 at 18:30 Ondansetron HCl (Zofran) 4 mg PRN Q8HRS PRN IV NAUSEA/VOMITING; Start 05/13/17 at 18:30 Albuterol Sulfate (Ventolin Neb Soln) 2.5 mg PRN Q4HRS PRN NEB SHORTNESS OF BREATH Last administered on 05/18/17 07:49; Start 05/13/17 at 18:30 Insulin Aspart (NovoLOG) 0-9 UNITS TIDWMEALS SQ Last administered on 05/16/17 17:08; Start 05/14/17 at 08:00 Dextrose (Dextrose 50%-Water Syringe) 12.5 gm PRN Q15MIN PRN IV SEE COMMENTS Last administered on 05/18/17 08:28; Start 05/13/17 at 19:00 Potassium Chloride (Klor-Con) 20 meq 1X ONCE PO Last administered on 21:10; Start 05/13/17 at 20:30; Stop 05/13/17 at 20:31; Status DC Insulin Aspart Prota 70%/Aspart 30% (Novolog Mix 70-30) 60 units BIDWMEALS SQ Last administered on 05/13/17 21:13; Start 05/13/17 at 20:30; Stop 05/14/17 at 12:14; Status DC Insulin Aspart (NovoLOG) 15 units TIDAC SQ Last administered on 05/14/17 17:31 ; Start 05/14/17 at 12:30; Stop 05/15/17 at 10:44; Status DC Insulin Detemir (Levemir) 40 units QHS SQ ; Start 05/14/17 at 21:00; Stop at 10:44; Status DC Tamsulosin HCl (Flomax) 0.4 mg QHS PO Last administered on 05/17/17 22:18; Start 05/14/17 at 21:00 Heparin Sodium (Porcine) (Heparin Sq) 5,000 unit Q8HRS SQ Last administered on 05/18/17 06:10; Start 05/14/17 at 22:00 Furosemide (Lasix) 40 mg BID92 IVP Last administered on 05/17/17 08:53; Start 05/14/17 at 17:15; Stop 05/17/17 at 11:46; Status DC Insulin Aspart Prota 70%/Aspart 30% (Novolog Mix 70-30) 15 units QHS SQ ; Start 05/15/17 at 21:00; Stop 05/15/17 at 21:00; Status DC Insulin Aspart Prota 70%/Aspart 30% (Novolog Mix 70-30) 30 units QHS SQ ; Start 05/15/17 at 21:00; Stop 05/15/17 at 21:00; Status DC Insulin Aspart Prota 70%/Aspart 30% (Novolog Mix 70-30) 50 units BID SQ Last administered on 05/15/17 21:34; Start 05/15/17 at 21:00; Stop 05/16/17 at 09:13 ; Status DC Insulin Aspart Prota 70%/Aspart 30% (Novolog Mix 70-30) 50 units QHS SQ ; Start 05/16/17 at 21:00; Stop 05/16/17 at 21:00; Status DC Insulin Aspart Prota 70%/Aspart 30% (Novolog Mix 70-30) 50 units BID SQ Last administered on 05/17/17 22:29; Start 05/16/17 at 21:00 Diphenhydramine HCl (Benadryl) 25 mg PRN QHS PRN PO INSOMNIA Last administered on 05/16/17 23:32; Start 05/16/17 at 10:00 Furosemide (Lasix) 40 mg DAILY PO Last administered on 05/18/17 08:31; Start 05/18/17 at 09:00 Active Scripts Active Flomax (Tamsulosin Hcl) 0.4 Mg Cap.er.24h 0.4 Mg PO QHS 30 Days Furosemide 40 Mg Tablet 40 Mg PO DAILY 30 Days Lidoderm (Lidocaine) 700 Mg Adh..patch 1 Patch TD DAILY Diltiazem 24HR Cd (Diltiazem Hcl) 120 Mg Cap.er.24h 120 Mg PO DAILY Cozaar (Losartan Potassium) 50 Mg Tablet 100 Mg PO DAILY Lactulose 20 Gm/30 Ml Solution 20 Gm PO BID PRN Hydrocodone-Apap 5-325 (Hydrocodone Bit/Acetaminophen) 1 Each Tablet 1 Tab PO PRN Q4HRS PRN 14 Days Carvedilol 12.5 Mg Tablet 12.5 Mg PO BIDWMEALS Restoril (Temazepam) 15 Mg Capsule 15 Mg PO PRN QHS PRN Reported Magnesium Citrate 296 Ml Solution 296 Ml PO PRN PRN Amitiza (Lubiprostone) 8 Mcg Capsule 2 Cap PO BID Allopurinol 100 Mg Tablet 100 Mg PO DAILY Potassium Chloride 10 Meq Tablet.er 10 Meq PO DAILY Metformin Hcl Er (Metformin Hcl) 500 Mg Tab.er.24h 1 Tab PO DAILY Children's Aspirin (Aspirin) 81 Mg Tab.chew 81 Mg PO DAILY Vitals/I & O Vital Sign - Last 24 Hours 05/17/17 05/17/17 05/17/17 05/17/17 15:00 15:20 16:31 19:10 Temp 97.7 97.7 97.7 97.7 Pulse 82 82 84 Resp 22 20 B/P (MAP) 105/69 (81) 105/69 86/67 (73) Pulse Ox 98 98 O2 Delivery Room Air Nasal Cannula Nasal Cannula O2 Flow Rate 2.0 2.0 05/17/17 05/17/17 05/18/17 05/18/17 20:00 23:05 03:15 07:00 Temp 98.2 97.8 97.5 98.2 97.8 97.5 Pulse 75 83 92 Resp 18 20 24 B/P (MAP) 119/75 (90) 107/76 (86) 159/99 (119) Pulse Ox 98 93 100 O2 Delivery Room Air Nasal Cannula Room Air Room Air O2 Flow Rate 2.0 05/18/17 05/18/17 05/18/17 05/18/17 07:49 08:00 08:28 08:29 Pulse 92 92 B/P (MAP) 159/99 159/99 Pulse Ox 99 O2 Delivery Nasal Cannula Nasal Cannula O2 Flow Rate 2.0 2.0 05/18/17 05/18/17 08:30 11:00 Pulse 92 99 Resp 22 B/P (MAP) 159/99 120/78 (92) Pulse Ox 97 O2 Delivery Room Air Intake and Output 05/17/17 05/17/17 05/18/17 15:00 23:00 07:00 Intake Total 840 ml Output Total 2100 ml 675 ml Balance -2100 ml 165 ml GEORGES DE LA FUENTE MD May 18, 2017 12:44
--- NOTE | 2017-05-18 13:37 | PDOC3 ---
Discharge Summary [facility] Date of Admission: May 13, 2017 Discharge Date: May 18, 2017 Admitting Diagnosis Acute shortness of breath 2/2 exacerbation of congestive heart failure and sleep apnea. acute hypoxic resp failure Obesity morbid Hypertension Diabetes mellitus type 2 uncontrolled 70/30 bid Sleep apnea with CPAP urination difficulty, BPH likely Chronic A. fib wo AC PPM ABRAM, vasomotor erection dysfunction could be 2/2 meds and dm2 Problems: CONSULTS card Brief Hospital Course Mr. King is a 56 old M, ASTHMa on albuterol 2-3 times per week, no home o2, comes for sob. likely 2/2 CHF. echo still pending. dr. Villegas on board pt feels better with lasix 40mg iv bid, cr stable. he also has c/o frequent urination, UA neg. pelvic US not remarkable. dc home with lasix 40mg daily, flomax, fu with card and uro christopher. 6 min pending dc time 35min General: Alert, No acute distress Heart: Regular rate (and rhythm), Normal S1, Normal S2 Lungs: Clear Abdomen: Normal bowel sounds, Soft Extremities: No edema (in legs b/l), Normal pulses (2/4 radial b/l) Skin: No rashes Patient History: FH: CHF (congestive heart failure) father FH: colon cancer G8 BROTHER Family history: Cardiovascular disease (situation) 32 MOTHER father Family history: Diabetes mellitus (situation) 32 MOTHER Problems: Disposition home CONDITION AT DISCHARGE: Improved Diet cardiac Scheduled Allopurinol (Allopurinol), 100 MG PO DAILY, (Reported) Aspirin (Children's Aspirin), 81 MG PO DAILY, (Reported) Carvedilol (Carvedilol), 12.5 MG PO BIDWMEALS Diltiazem Hcl (Diltiazem 24HR Cd), 120 MG PO DAILY Furosemide (Furosemide), 40 MG PO DAILY Lidocaine (Lidoderm), 1 PATCH TD DAILY Losartan Potassium (Cozaar), 100 MG PO DAILY Lubiprostone (Amitiza), 2 CAP PO BID, (Reported) Metformin Hcl (Metformin Hcl Er), 1 TAB PO DAILY, (Reported) Potassium Chloride (Potassium Chloride), 10 MEQ PO DAILY, (Reported) Tamsulosin Hcl (Flomax), 0.4 MG PO QHS Scheduled PRN Hydrocodone Bit/Acetaminophen (Hydrocodone-Apap 5-325 ), 1 TAB PO PRN Q4HRS PRN for MILD PAIN Lactulose (Lactulose), 20 GM PO BID PRN for CONSTIPATION Magnesium Citrate (Magnesium Citrate), 296 ML PO PRN PRN for CONSTIPATION, ( Reported) Temazepam (Restoril), 15 MG PO PRN QHS PRN for INSOMNIA Discontinued Medications Insuln Asp Prt/Insulin Aspart (Novolog Mix 70-30 Flexpen Syrn), 30 UNITS SQ QHS Follow Up pcp and card in 2 weeks ALMAS ARELLANO MD May 18, 2017 13:37
== END 2017-05-18 14:50 | disposition home or self-care (01) | DRG 291 ==
LOC: ER 11:20 → 2 NORTH 14:30
PROVIDERS: ADMIT Internal Medicine; ATTEND Internal Medicine
DX: I11.0 Hypertensive heart disease with heart failure (principal); N17.0 Acute kidney failure with tubular necrosis; J96.01 Acute respiratory failure with hypoxia; I42.9 Cardiomyopathy, unspecified; E66.01 Morbid (severe) obesity due to excess calories; I25.10 Atherosclerotic heart disease of native coronary artery without angina pectoris; I48.2 Chronic atrial fibrillation; I50.9 Heart failure, unspecified; J44.9 Chronic obstructive pulmonary disease, unspecified; N40.1 Benign prostatic hyperplasia with lower urinary tract symptoms; M10.9 Gout, unspecified; G47.30 Sleep apnea, unspecified; E78.00 Pure hypercholesterolemia, unspecified; E78.5 Hyperlipidemia, unspecified; E53.8 Deficiency of other specified B group vitamins; F32.9 Major depressive disorder, single episode, unspecified; K59.09 Other constipation; F10.10 Alcohol abuse, uncomplicated; Z80.42 Family history of malignant neoplasm of prostate; Z80.7 Family history of other malignant neoplasms of lymphoid, hematopoietic and related tissues; Z80.0 Family history of malignant neoplasm of digestive organs; Z82.49 Family history of ischemic heart disease and other diseases of the circulatory system; Z85.71 Personal history of Hodgkin lymphoma; Z83.3 Family history of diabetes mellitus; Z86.73 Personal history of transient ischemic attack (TIA), and cerebral infarction without residual deficits; Z95.0 Presence of cardiac pacemaker; Z90.89 Acquired absence of other organs; R35.0 Frequency of micturition; E11.65 Type 2 diabetes mellitus with hyperglycemia
CPT/HCPCS: 36415; 71010; 76856; 76881; 80048; 80053; 81001; 82962; 83036; 83880; 84484; 85027; 93005; 94250; 94620; 94640; 94760; 96374; A6539; G0103; J1815; J1940; J7042; J7613; J7620; Q0163; 97110; 99285-25

== ENCOUNTER 2017-05-31 13:48 | Inpatient (IN) | payer MEDICARE, MEDICAID ==
[~2017-05-31] VITALS: Ht 182.9 cm; Wt 136.2 kg
[~2017-05-31 13:48] MED LIST changes: +FURO40TA4 PO; +TAMS0.4C97 PO
--- NOTE | 2017-05-31 14:10 | PHYS DOC ---
Past Medical History Past Medical History: A-Fib, Asthma, Cancer, Constipation, CVA, Depression, Diabetes-Type II, High Cholesterol, Hypertension, Renal Disease, Other Additional Past Medical Histor: Sleep Apnea, MULTIPLE CARDIAC TUMORS, HOGDKINS LYMPHOMA,GOUT, C-DIFF Past Surgical History: Angioplasty, Coronary Bypass Surgery, Pacemaker, Tonsillectomy, Other Additional Past Surgical Histo: 2 surgeries to attempt to remove tumors on heart,Adenoids Alcohol Use: Occasionally Drug Use: None Adult General Chief Complaint Chief Complaint: SHORTNESS OF BREATH HPI HPI Patient is a 56 year old -[place] male who presents with shortness of breath and right-sided chest pain. State his pain in his right chest as a sharp stabbing pain comes and goes can't determine what makes it come on or go away but is been there for the last 2 weeks. He is also complaining of shortness of breath is been getting worse for the last 2 weeks. He states this morning he got up he could hardly ambulatory from bed to his bathroom without becoming short of breath. He states he's been taking his water pill and urinating frequently but is shortness of breath is getting worse. Denies any fevers chills nausea vomiting or abdominal discomfort. He states he's been compliant with all his medications. He does have a remote history of Hodgkin's lymphoma and he has not followed up with the cancer center, even though he is supposed to be having every 6 months CAT scans. Review of Systems Review of Systems Constitutional: Denies fever or chills [] Eyes: Denies change in visual acuity, redness, or eye pain [] HENT: Denies nasal congestion or sore throat [] Respiratory: Positive for cough and shortness of breath [] Cardiovascular: No additional information not addressed in HPI [] GI: Denies abdominal pain, nausea, vomiting, bloody stools or diarrhea [] : Denies dysuria or hematuria [] Musculoskeletal: Denies back pain or joint pain [] Integument: Denies rash or skin lesions [] Neurologic: Denies headache, focal weakness or sensory changes [] Endocrine: Denies polyuria or polydipsia [] Current Medications Current Medications Current Medications Medications (Trade) Dose Ordered Sig/Lizzie Start Time Stop Time Status Last Admin Dose Admin Info (Do NOT chart on this entry -- for MONITORING) 1 each PRN DAILY PRN 05/31/17 16:30 06/02/17 16:29 Iohexol (Omnipaque 350 Mg/ml) 100 ml 1X ONCE 05/31/17 16:30 05/31/17 16:31 DC 05/31/17 16:33 100 ML Ondansetron HCl (Zofran) 4 mg PRN Q8HRS PRN 05/31/17 16:45 06/01/17 16:44 Allergies Allergies Allergies Coded Allergies Type Severity Reaction Last Updated Verified No Known Drug Allergies 09/02/16 No Physical Exam Physical Exam Constitutional: Well developed, well nourished, no acute distress, non-toxic appearance. [] HENT: Normocephalic, atraumatic, bilateral external ears normal, oropharynx moist, no oral exudates, nose normal. [] Eyes: PERRLA, EOMI, conjunctiva normal, no discharge. [] Neck: Normal range of motion, no tenderness, supple, no stridor. [] Cardiovascular:Heart rate tachycardic, no murmur [] Lungs & Thorax: Bilateral breath sounds clear to auscultation [] Abdomen: Bowel sounds normal, soft, no tenderness, no masses, no pulsatile masses. [] Skin: Warm, dry, no erythema, no rash. [] Back: No tenderness, no CVA tenderness. [] Extremities: No tenderness, no cyanosis, no clubbing, ROM intact, no edema. [] Neurologic: Alert and oriented X 3, normal motor function, normal sensory function, no focal deficits noted. [] Psychologic: Affect normal, judgement normal, mood normal. [] Current Patient Data Vital Signs Vital Signs Date Time Temp Pulse Resp B/P (MAP) Pulse Ox O2 Delivery O2 Flow Rate FiO2 05/31/17 14:49 82 14 141/94 (110) 96 Room Air 05/31/17 14:03 97.5 97.5 Lab Values Laboratory Tests Test 05/31/17 14:15 05/31/17 14:20 05/31/17 14:25 D-Dimer (Rimma) < 0.27 ug/mlFEU White Blood Count 6.3 x10^3/uL (4.0-11.0) Red Blood Count 4.06 x10^6/uL (4.30-5.70) L Hemoglobin 13.3 g/dL (13.0-17.5) Hematocrit 38.3 % (39.0-53.0) L Mean Corpuscular Volume 94 fL (79-100) Mean Corpuscular Hemoglobin 33 pg (25-35) Mean Corpuscular Hemoglobin Concent 35 g/dL (31-37) Red Cell Distribution Width 14.2 % (11.5-14.5) Platelet Count 203 x10^3/uL (140-400) Neutrophils (%) (Auto) 65 % (31-73) Lymphocytes (%) (Auto) 22 % (24-48) L Monocytes (%) (Auto) 9 % (0-9) Eosinophils (%) (Auto) 3 % (0-3) Basophils (%) (Auto) 1 % (0-3) Neutrophils # (Auto) 4.1 x10^3uL (1.8-7.7) Lymphocytes # (Auto) 1.4 x10^3/uL (1.0-4.8) Monocytes # (Auto) 0.5 x10^3/uL (0.0-1.1) Eosinophils # (Auto) 0.2 x10^3/uL (0.0-0.7) Basophils # (Auto) 0.1 x10^3/uL (0.0-0.2) Prothrombin Time 12.1 SEC (11.7-14.0) Prothrombin Time INR 1.0 (0.8-1.1) Sodium Level 141 mmol/L (136-145) Potassium Level 3.9 mmol/L (3.5-5.1) Chloride Level 103 mmol/L (98-107) Carbon Dioxide Level 29 mmol/L (21-32) Anion Gap 9 (6-14) Blood Urea Nitrogen 25 mg/dL (8-26) Creatinine 1.6 mg/dL (0.7-1.3) H Estimated GFR (Cockcroft-Gault) 54.6 Glucose Level 227 mg/dL (70-99) H Calcium Level 8.4 mg/dL (8.5-10.1) L Magnesium Level 1.7 mg/dL (1.8-2.4) L Total Bilirubin 1.3 mg/dL (0.2-1.0) H Direct Bilirubin 0.3 mg/dL (0.0-0.2) H Aspartate Amino Transferase (AST) 16 U/L (15-37) Alanine Aminotransferase (ALT) 22 U/L (16-63) Alkaline Phosphatase 79 U/L (46-116) Creatine Kinase 111 U/L (39-308) Creatine Kinase MB (Mass) 2.4 ng/mL (0.0-3.6) Creatine Kinase MB Relative Index 2.2 % (0-4) Troponin I Quantitative < 0.017 ng/mL (0.000-0.055) VC-Vln-D-Type Natriuretic Peptide 392 pg/mL (0-124) H Total Protein 7.2 g/dL (6.4-8.2) Albumin 3.5 g/dL (3.4-5.0) Lipase 93 U/L (73-393) Urine Collection Type Unknown Urine Color Yellow Urine Clarity Clear Urine pH 5.5 Urine Specific [place] 1.020 Urine Protein Negative mg/dL (NEG-TRACE) Urine Glucose (UA) >=1000 mg/dL (NEG) Urine Ketones (Stick) Negative mg/dL (NEG) Urine Blood Negative (NEG) Urine Nitrite Negative (NEG) Urine Bilirubin Negative (NEG) Urine Urobilinogen Dipstick 0.2 mg/dL (0.2 mg/dL) Urine Leukocyte Esterase Negative (NEG) Urine RBC 0 /HPF (0-2) Urine WBC 0 /HPF (0-4) Urine Squamous Epithelial Cells Occ /LPF Urine Bacteria 0 /HPF (0-FEW) Urine Mucus Slight /LPF Laboratory Tests 05/31/17 14:20 Laboratory Tests 05/31/17 14:20 EKG EKG EKG shows sinus rhythm with rate of [address] elevations or T-wave inversions appreciated, left axis deviation noted, QTC 414 milliseconds, as interpreted by me. Radiology/Procedures Radiology/Procedures [facility] [address] [place], [place] [id number] IMAGING REPORT Signed PATIENT: REBEKAH GAMEZ ACCOUNT: [id number] : 1960 LOCATION: ER AGE: 56 SEX: M EXAM STATUS: REG ER ORD. PHYSICIAN: BEATRICE VÁSQUEZ MD REASON: soa PROCEDURE: PORTABLE CHEST 1V Single view of the Chest 05/31/2017 4:10 PM Indication: Shortness of breath. Chest pain Comparison: Chest radiograph May 13, 2017 Findings: No pneumothorax or pleural effusion is seen. No new infiltrate is identified. Heart size is mildly enlarged but stable. There is a pacemaking device from a left subclavian approach which is grossly stable. Prior median sternotomy noted. Superior most sternal wire is noted to be fractured, but similar to prior exam. No acute osseous changes are appreciated. Impression: No evidence of acute cardiopulmonary process or acute change from prior study. DICTATED and SIGNED BY: KIMBERLY CASTANEDA MD DATE: 05/31/17 1430 CC: BEATRICE VÁSQUEZ MD; PEMA HINOJOSA MD ~ Impressions: Shortness of breath Chest pain Course & Med Decision Making Course & Med Decision Making Pertinent Labs and Imaging studies reviewed. (See chart for details) EKG, labs, chest x-ray nonacute. CT angios pending at this time. We'll admit for continued workup and evaluation. Patient's being admitted to the hospitalist with interim orders written. Dragon Disclaimer Dragon Disclaimer This electronic medical record was generated, in whole or in part, using a voice recognition dictation system. Departure Departure Impression: Primary Impression: Shortness of breath Disposition: ADMITTED INPATIENT Admitting Physician: Gwen Navarro Condition: STABLE Referrals: PEMA HINOJOSA MD (PCP) BEATRICE VÁSQUEZ MD May 31, 2017 14:10
--- NOTE | 2017-05-31 14:19 | EKG ---
[facility] [address] [place] [address] Test Date: 2017-05-31 Test Time: 14:05:05 Pat Name: REBEKAH GAMEZ Department: Room: Gender: M Radio Installer: : 1960 Requested By: BEATRICE VÁSQUEZ Order Number: [id number] Reading MD: Tee Lew Measurements Intervals [place] Rate: 81 P: 0 UT: 234 QRS: -25 QRSD: 84 T: 33 QT: 356 QTc: 414 Interpretive Statements SINUS RHYTHM ATRIAL PREMATURE COMPLEX(ES) PROLONGED UT INTERVAL LEFTWARD AXIS QRS(T) CONTOUR ABNORMALITY CONSISTENT WITH INFERIOR INFARCT PROBABLY OLD RI6.01 Unconfirmed report Compared to ECG 05/13/2017 12:59:22 First degree AV block now present Sinus tachycardia no longer present Myocardial infarct finding still present Electronically Signed On 05-31-2017 17:48:43 CDT by Tee Lew
[2017-05-31 14:31] LABS: BASO # 0.1 x10^3/uL (0.0-0.2); BASO % 1 % (0-3); EOS % 3 % (0-3); HEMATOCRIT 38.3 % (39.0-53.0); HEMOGLOBIN 13.3 g/dL (13.0-17.5); LYMPH # 1.4 x10^3/uL (1.0-4.8); LYMPH % 22 % (24-48); MEAN CORPUSCULAR HEMOGLOBIN 33 pg (25-35); MEAN CORPUSCULAR HGB CONC 35 g/dL (31-37); MEAN CORPUSCULAR VOLUME 94 fL (79-100); MONO % 9 % (0-9); NEUT % 65 % (31-73); PLATELET COUNT 203 x10^3/uL (140-400); RED BLOOD COUNT 4.06 x10^6/uL (4.30-5.70); RED CELL DISTRIBUTION WIDTH 14.2 % (11.5-14.5); WHITE BLOOD COUNT 6.3 x10^3/uL (4.0-11.0)
[2017-05-31 14:33] LABS: BILIRUBIN,URINE NEGATIVE (NEG); GLUCOSE,URINE >=1000 mg/dL (NEG); NITRITE,URINE NEGATIVE (NEG); PH,URINE 5.5; PROTEIN,URINE NEGATIVE (NEG-TRACE); UROBILINOGEN,URINE 0.2 mg/dL (0.2 mg/dL)
[2017-05-31 14:41] LABS: BACTERIA,URINE 0 /HPF (0-FEW); RBC,URINE 0 /HPF (0-2); SQUAMOUS EPITHELIAL CELL,UR OCC /LPF; WBC,URINE 0 /HPF (0-4)
[2017-05-31 14:41] LABS: PROTHROMBIN TIME PATIENT 12.1 SEC (11.7-14.0)
--- NOTE | 2017-05-31 14:43 | RAD ---
Single view of the Chest 05/31/2017 4:10 PM Indication: Shortness of breath. Chest pain Comparison: Chest radiograph May 13, 2017 Findings: No pneumothorax or pleural effusion is seen. No new infiltrate is identified. Heart size is mildly enlarged but stable. There is a pacemaking device from a left subclavian approach which is grossly stable. Prior median sternotomy noted. Superior most sternal wire is noted to be fractured, but similar to prior exam. No acute osseous changes are appreciated. Impression: No evidence of acute cardiopulmonary process or acute change from prior study.
[2017-05-31 14:48] LABS: CALCIUM 8.4 mg/dL (8.5-10.1); CREATININE 1.6 mg/dL (0.7-1.3); GFR 54.6; POTASSIUM 3.9 mmol/L (3.5-5.1)
[2017-05-31 14:54] LABS: ALBUMIN 3.5 g/dL (3.4-5.0); DIRECT BILIRUBIN 0.3 mg/dL (0.0-0.2); MAGNESIUM 1.7 mg/dL (1.8-2.4); TOTAL BILIRUBIN 1.3 mg/dL (0.2-1.0); TOTAL PROTEIN 7.2 g/dL (6.4-8.2)
[2017-05-31 15:03] LABS: CKMB MASS 2.4 ng/mL (0.0-3.6)
[2017-05-31] MEDS ORDERED: CONTRAST GIVEN MC PRN (16:30)
[2017-05-31] MEDS ORDERED: IOHEXOL 350 MG/ML 100 ML VIAL. IV ONE (16:30)
[2017-05-31] MEDS ORDERED: ONDANSETRON PF 4 MG/2 ML VIAL. IV PRN (16:45)
--- NOTE | 2017-05-31 16:56 | RAD ---
CT angiography chest 05/31/2017 Clinical indication: Shortness of breath and chest pain. Comparison: CT chest 10/27/2016. Technique: Multiple CT images of the chest were obtained following uneventful intravenous administration of 60 mL Omnipaque 300. MIPS were obtained. Coronal and sagittal reformations were obtained. PQRS Compliance Statement: One or more of the following individualized dose reduction techniques were utilized for this examination: 1. Automated exposure control 2. Adjustment of the mA and/or kV according to patient size 3. Use of iterative reconstruction technique CTA chest: Heart size is normal without significant pericardial effusion. The thoracic aorta is normal in caliber with aortic valvular leaflet calcifications. Prior median sternotomy. Left chest wall cardiac connection device with transvenous pacer lead. No central or major segmental pulmonary artery filling defect to suggest pulmonary embolism. A few stable mildly prominent left axillary mediastinal lymph nodes without pathologic enlargement by CT size criteria. There are right hilar calcified lymph nodes. The central airways are patent. There is a tiny subpleural calcified granuloma in the right lower lobe. Calcified granuloma in the lingula. There are few scattered sub-5 mm noncalcified nodules in the left lung with a artists' booking representative nodule in the left lower lobe (series 3/image 77) which does not need to be followed according to new guidelines. No pleural effusion or pneumothorax. There is multilevel thoracic spondylosis. There are no destructive osseous lesions. Limited images of the upper abdomen: Stable superior pole left renal cyst. Impression: No central or major segmental pulmonary artery filling defect to suggest pulmonary embolism.
[2017-05-31 19:00] VITALS: BP 156/100
[2017-05-31 19:29] VITALS: BP 141/94
[2017-05-31] MEDS ORDERED: INSU100I16 SQ (19:43)
[2017-05-31] MEDS ORDERED: MAGNESIUM CITRATE 296 ML SOLUTION. PO PRN (19:45)
[2017-05-31] MEDS ORDERED: HYDROcodone/APAP 5/325MG 1 TAB TABLET PO PRN (19:45)
[2017-05-31] MEDS ORDERED: TEMAZEPAM 15 MG CAPSULE PO PRN (19:45)
[2017-05-31] MEDS ORDERED: INSU100I17 SQ (19:54)
[2017-05-31] MEDS ORDERED: INSU100V13 SQ (19:54)
[2017-05-31] MEDS ORDERED: LACTULOSE 20 GM/30 ML SOLUTION. PO PRN (20:15)
[2017-05-31] MEDS ORDERED: DEXTROSE 50% 25 GM / 50ML DISP.SYRIN. IV PRN (20:45)
[2017-05-31] MEDS: TAMSULOSIN 0.4 MG CAP.ER.24H. PO SCH (20:55)
[2017-05-31] MEDS: CARVEDILOL 12.5 MG TABLET. PO SCH (20:55)
[2017-05-31] MEDS: LUBIPROSTONE 8 MCG CAPSULE PO SCH (20:55)
[2017-05-31] MEDS: INSULIN ASPART 300 UNITS/3 ML INSULN.PEN SQ SCH (20:59)
[2017-05-31] MEDS: INSULIN DETEMIR 300 UNITS/3 ML INSULN.PEN. SQ SCH (20:59)
[2017-05-31] MEDS ORDERED: ZOLPIDEM 5 MG TABLET. PO PRN (22:15)
[2017-05-31] MEDS ORDERED: ALBUTEROL SULFATE 2.5 MG/3 ML NEBU. NEB PRN (22:15)
--- NOTE | 2017-05-31 22:20 | PDOC1 ---
History and Physical Date of Admission Date of Admission DATE: 05/31/17 TIME: 22:17 History of Present Illness History of Present Illness Patient is a 56 year old -[place] male who presents with shortness of breath and right-sided chest pain. State his pain in his right chest as a sharp stabbing pain comes and goes can't determine what makes it come on or go away but is been there for the last 2 weeks. He is also complaining of shortness of breath is been getting worse for the last 2 weeks. He states this morning he got up he could hardly ambulatory from bed to his bathroom without becoming short of breath. He states he's been taking his water pill and urinating frequently but is shortness of breath is getting worse. Denies any fevers chills nausea vomiting or abdominal discomfort. He states he's been compliant with all his medications. He does have a remote history of Hodgkin's lymphoma and he has not followed up with the cancer center, even though he is supposed to be having every 6 months CAT scans. Past Medical History Cardiovascular: AFIB, CAD, CHF, HTN Pulmonary: COPD CENTRAL NERVOUS SYSTEM: CVA, TIA GI: Constipation Heme/Onc: B12 deficiency, Cancer (Hodgkins), Other Psych: Depression Rheumatologic: Gout Endocrine: Diabetes Past Surgical History Past Surgical History: Pacemaker Family History Family History: Cancer, Diabetes Social History Smoke: No ALCOHOL: none Drugs: None Current Problem List Problem List Problems Medical Problems: (1) Shortness of breath Status: Acute Problems: Current Medications Current Medications Current Medications Iohexol (Omnipaque 350 Mg/ml) 100 ml 1X ONCE IV Last administered on t 16:33; Start 05/31/17 at 16:30; Stop 05/31/17 at 16:31; Status DC Info (Do NOT chart on this entry -- for MONITORING) 1 each PRN DAILY PRN MC SEE COMMENTS; Start 05/31/17 at 16:30; Stop 06/02/17 at 16:29 Ondansetron HCl (Zofran) 4 mg PRN Q8HRS PRN IV NAUSEA/VOMITING; Start 05/31/17 at 16:45; Stop 06/01/17 at 16:44 Allopurinol (Zyloprim) 100 mg DAILY PO ; Start 06/01/17 at 09:00 Aspirin (Children'S Aspirin) 81 mg DAILY08 PO ; Start 06/01/17 at 08:00 Carvedilol (Coreg) 12.5 mg BIDWMEALS PO Last administered on 05/31/17 20:55; Start 05/31/17 at 21:00 Diltiazem HCl (Cardizem 24hr Cd) 120 mg DAILY PO ; Start 06/01/17 at 09:00 Furosemide (Lasix) 40 mg DAILY PO ; Start 06/01/17 at 09:00 Acetaminophen/ Hydrocodone Bitart (Lortab 5/325) 1 tab PRN Q4HRS PRN PO MILD PAIN; Start 05/31/17 at 19:45 Lidocaine (Lidoderm) 1 patch DAILY TD ; Start 06/01/17 at 09:00 Losartan Potassium (Cozaar) 100 mg DAILY PO ; Start 06/01/17 at 09:00 Lubiprostone (Amitiza) 16 mcg BIDWMEALS PO Last administered on 05/31/17 20:55 ; Start 05/31/17 at 21:00 Magnesium Citrate (Citroma) 296 ml PRN DAILY PRN PO CONSTIPATION; Start at 19:45 Metformin HCl (Glucophage Xr) 500 mg DAILYWBKFT PO ; Start 06/03/17 at 08:00 Potassium Chloride (Klor-Con) 10 meq DAILY08 PO ; Start 06/01/17 at 08:00 Tamsulosin HCl (Flomax) 0.4 mg QHS PO Last administered on 05/31/17 20:55; Start 05/31/17 at 21:00 Temazepam (Restoril) 15 mg PRN QHS PRN PO INSOMNIA Last administered on 20:55; Start 05/31/17 at 19:45 Lactulose 20 gm PRN BID PRN PO CONSTIPATION; Start 05/31/17 at 20:15 Insulin Detemir (Levemir) 50 units QHS SQ Last administered on 05/31/17 20:59 ; Start 05/31/17 at 21:00 Insulin Aspart (NovoLOG) 20 units TIDAC SQ ; Start 06/01/17 at 07:30 Insulin Aspart (NovoLOG) 0-9 UNITS QIDACHS SQ Last administered on 05/31/17 20 :59; Start 05/31/17 at 21:00 Dextrose (Dextrose 50%-Water Syringe) 12.5 gm PRN Q15MIN PRN IV SEE COMMENTS; Start 05/31/17 at 20:45 Albuterol/ Ipratropium (Duoneb) 3 ml BID NEB ; Start 05/31/17 at 21:00 Active Scripts Active Flomax (Tamsulosin Hcl) 0.4 Mg Cap.er.24h 0.4 Mg PO QHS 30 Days Furosemide 40 Mg Tablet 40 Mg PO DAILY 30 Days Lidoderm (Lidocaine) 700 Mg Adh..patch 1 Patch TD DAILY Diltiazem 24HR Cd (Diltiazem Hcl) 120 Mg Cap.er.24h 120 Mg PO DAILY Cozaar (Losartan Potassium) 50 Mg Tablet 100 Mg PO DAILY Lactulose 20 Gm/30 Ml Solution 20 Gm PO BID PRN Hydrocodone-Apap 5-325 (Hydrocodone Bit/Acetaminophen) 1 Each Tablet 1 Tab PO PRN Q4HRS PRN 14 Days Carvedilol 12.5 Mg Tablet 12.5 Mg PO BIDWMEALS Restoril (Temazepam) 15 Mg Capsule 15 Mg PO PRN QHS PRN Reported Novolog Mix 70-30 Flexpen Syrn (Insuln Asp Prt/Insulin Aspart) 100 Unit/1 Ml Insuln.pen 60 Unit SQ BID Magnesium Citrate 296 Ml Solution 296 Ml PO PRN PRN Amitiza (Lubiprostone) 8 Mcg Capsule 2 Cap PO BID Allopurinol 100 Mg Tablet 100 Mg PO DAILY Potassium Chloride 10 Meq Tablet.er 10 Meq PO DAILY Metformin Hcl Er (Metformin Hcl) 500 Mg Tab.er.24h 1 Tab PO DAILY Children's Aspirin (Aspirin) 81 Mg Tab.chew 81 Mg PO DAILY Allergies Allergies: Coded Allergies: No Known Drug Allergies (Unverified , 09/02/16) ROS General: YES: Malaise, No: Chills, Night Sweats, Fatigue, Appetite, Other PSYCHOLOGICAL ROS: YES: Sleep disturbances, No: Anxiety, Behavioral Disorder, Concentration difficultie, Decreased libido , Depression, Disorientation, Hallucinations, Hostility, Irritablity, Memory difficulties, Mood Swings, Obsessive thoughts, Other Eyes: No Blurry vision, No Decreased vision, No Double vision, No Dry eyes, No Excessive tearing, No Eye Pain, No Itchy Eyes, No Loss of vision, No Photophobia , No Scotomata, No Uses contacts, No Uses glasses, No Other HEENT: No: Heacaches, Visual Changes, Hearing change, Nasal congestion, Nasal discharge, Oral lesions, Sinus pain, Sore Throat, Epistaxis, Sneezing, Snoring, Tinnitus, Vertigo, Vocal changes, Other Respiratory: YES: Cough, Shortness of breath, SOB with excertion, Sputum Changes Cardiovascular: yes Chest Pain, No Palpitations, No Orthopnea, No Paroxysmal Noc. Dyspnea, No Edema, No Lt Headedness, No Other Gastrointestinal: No Nausea, No Vomiting, No Abdominal Pain, No Diarrhea, No Constipation, No Melena, No Hematochezia, No Other Genitourinary: No Dysuria, No Frequency, No Incontinence, No Hematuria, No Retention, No Discharge, No Urgency, No Pain, No Flank Pain, No Other, No , No , No , No , No , No , No Musculoskeletal: Yes Joint Pain Neurological: No Behavorial Changes, No Bowel/Bladder ControlChng, No Confusion , No Dizziness, No Gait Disturbance, No Headaches, No Impaired Coord/balance, No Memory Loss, No Numbness/Tingling, No Seizures, No Speech Problems, No Tremors, No Visual Changes, No Weakness, No Other Skin: No Dry Skin, No Eczema, No Hair Changes, No Lumps, No Mole Changes, No Mottling, No Nail Changes, No Pruritus, No Rash, No Skin Lesion Changes, No Other, No Acne Physical Exam General: Alert, Oriented X3, Cooperative, mild distress HEENT: EOMI, Mucous membr. moist/pink Lungs: Normal air movement, Other (end wheeze) Heart: no gallops, no murmurs Abdomen: Normal bowel sounds, Soft Extremities: No clubbing, No edema Skin: No significant lesion Neuro: Normal tone, Sensation intact Psych/Mental Status: Mood NL Vitals Vitals Vital Signs Date Time Temp Pulse Resp B/P (MAP) Pulse Ox O2 Delivery O2 Flow Rate FiO2 05/31/17 20:55 82 141/94 05/31/17 19:29 97.5 96 97.5 05/31/17 19:15 Room Air 05/31/17 19:00 18 Labs Labs Laboratory Tests Test 05/31/17 14:15 05/31/17 14:20 05/31/17 14:25 05/31/17 20:28 D-Dimer (Rimma) < 0.27 ug/mlFEU White Blood Count 6.3 x10^3/uL (4.0-11.0) Red Blood Count 4.06 x10^6/uL (4.30-5.70) Hemoglobin 13.3 g/dL (13.0-17.5) Hematocrit 38.3 % (39.0-53.0) Mean Corpuscular Volume 94 fL (79-100) Mean Corpuscular Hemoglobin 33 pg (25-35) Mean Corpuscular Hemoglobin Concent 35 g/dL (31-37) Red Cell Distribution Width 14.2 % (11.5-14.5) Platelet Count 203 x10^3/uL (140-400) Neutrophils (%) (Auto) 65 % (31-73) Lymphocytes (%) (Auto) 22 % (24-48) Monocytes (%) (Auto) 9 % (0-9) Eosinophils (%) (Auto) 3 % (0-3) Basophils (%) (Auto) 1 % (0-3) Neutrophils # (Auto) 4.1 x10^3uL (1.8-7.7) Lymphocytes # (Auto) 1.4 x10^3/uL (1.0-4.8) Monocytes # (Auto) 0.5 x10^3/uL (0.0-1.1) Eosinophils # (Auto) 0.2 x10^3/uL (0.0-0.7) Basophils # (Auto) 0.1 x10^3/uL (0.0-0.2) Prothrombin Time 12.1 SEC (11.7-14.0) Prothromb Time International Ratio 1.0 (0.8-1.1) Sodium Level 141 mmol/L (136-145) Potassium Level 3.9 mmol/L (3.5-5.1) Chloride Level 103 mmol/L (98-107) Carbon Dioxide Level 29 mmol/L (21-32) Anion Gap 9 (6-14) Blood Urea Nitrogen 25 mg/dL (8-26) Creatinine 1.6 mg/dL (0.7-1.3) Estimated GFR (Cockcroft-Gault) 54.6 Glucose Level 227 mg/dL (70-99) Calcium Level 8.4 mg/dL (8.5-10.1) Magnesium Level 1.7 mg/dL (1.8-2.4) Total Bilirubin 1.3 mg/dL (0.2-1.0) Direct Bilirubin 0.3 mg/dL (0.0-0.2) Aspartate Amino Transf (AST/SGOT) 16 U/L (15-37) Alanine Aminotransferase (ALT/SGPT) 22 U/L (16-63) Alkaline Phosphatase 79 U/L (46-116) Creatine Kinase 111 U/L (39-308) Creatine Kinase MB (Mass) 2.4 ng/mL (0.0-3.6) Creatine Kinase MB Relative Index 2.2 % (0-4) Troponin I Quantitative < 0.017 ng/mL (0.000-0.055) TL-Djg-Z-Type Natriuretic Peptide 392 pg/mL (0-124) Total Protein 7.2 g/dL (6.4-8.2) Albumin 3.5 g/dL (3.4-5.0) Lipase 93 U/L (73-393) Urine Collection Type Unknown Urine Color Yellow Urine Clarity Clear Urine pH 5.5 Urine Specific [place] 1.020 Urine Protein Negative mg/dL (NEG-TRACE) Urine Glucose (UA) >=1000 mg/dL (NEG) Urine Ketones (Stick) Negative mg/dL (NEG) Urine Blood Negative (NEG) Urine Nitrite Negative (NEG) Urine Bilirubin Negative (NEG) Urine Urobilinogen Dipstick 0.2 mg/dL (0.2 mg/dL) Urine Leukocyte Esterase Negative (NEG) Urine RBC 0 /HPF (0-2) Urine WBC 0 /HPF (0-4) Urine Squamous Epithelial Cells Occ /LPF Urine Bacteria 0 /HPF (0-FEW) Urine Mucus Slight /LPF Glucose (Fingerstick) 238 mg/dL (70-99) Laboratory Tests Test 05/31/17 14:15 05/31/17 14:20 05/31/17 14:25 05/31/17 20:28 D-Dimer (Rimma) < 0.27 ug/mlFEU White Blood Count 6.3 x10^3/uL (4.0-11.0) Red Blood Count 4.06 x10^6/uL (4.30-5.70) Hemoglobin 13.3 g/dL (13.0-17.5) Hematocrit 38.3 % (39.0-53.0) Mean Corpuscular Volume 94 fL (79-100) Mean Corpuscular Hemoglobin 33 pg (25-35) Mean Corpuscular Hemoglobin Concent 35 g/dL (31-37) Red Cell Distribution Width 14.2 % (11.5-14.5) Platelet Count 203 x10^3/uL (140-400) Neutrophils (%) (Auto) 65 % (31-73) Lymphocytes (%) (Auto) 22 % (24-48) Monocytes (%) (Auto) 9 % (0-9) Eosinophils (%) (Auto) 3 % (0-3) Basophils (%) (Auto) 1 % (0-3) Neutrophils # (Auto) 4.1 x10^3uL (1.8-7.7) Lymphocytes # (Auto) 1.4 x10^3/uL (1.0-4.8) Monocytes # (Auto) 0.5 x10^3/uL (0.0-1.1) Eosinophils # (Auto) 0.2 x10^3/uL (0.0-0.7) Basophils # (Auto) 0.1 x10^3/uL (0.0-0.2) Prothrombin Time 12.1 SEC (11.7-14.0) Prothromb Time International Ratio 1.0 (0.8-1.1) Sodium Level 141 mmol/L (136-145) Potassium Level 3.9 mmol/L (3.5-5.1) Chloride Level 103 mmol/L (98-107) Carbon Dioxide Level 29 mmol/L (21-32) Anion Gap 9 (6-14) Blood Urea Nitrogen 25 mg/dL (8-26) Creatinine 1.6 mg/dL (0.7-1.3) Estimated GFR (Cockcroft-Gault) 54.6 Glucose Level 227 mg/dL (70-99) Calcium Level 8.4 mg/dL (8.5-10.1) Magnesium Level 1.7 mg/dL (1.8-2.4) Total Bilirubin 1.3 mg/dL (0.2-1.0) Direct Bilirubin 0.3 mg/dL (0.0-0.2) Aspartate Amino Transf (AST/SGOT) 16 U/L (15-37) Alanine Aminotransferase (ALT/SGPT) 22 U/L (16-63) Alkaline Phosphatase 79 U/L (46-116) Creatine Kinase 111 U/L (39-308) Creatine Kinase MB (Mass) 2.4 ng/mL (0.0-3.6) Creatine Kinase MB Relative Index 2.2 % (0-4) Troponin I Quantitative < 0.017 ng/mL (0.000-0.055) VW-Qqv-M-Type Natriuretic Peptide 392 pg/mL (0-124) Total Protein 7.2 g/dL (6.4-8.2) Albumin 3.5 g/dL (3.4-5.0) Lipase 93 U/L (73-393) Urine Collection Type Unknown Urine Color Yellow Urine Clarity Clear Urine pH 5.5 Urine Specific [place] 1.020 Urine Protein Negative mg/dL (NEG-TRACE) Urine Glucose (UA) >=1000 mg/dL (NEG) Urine Ketones (Stick) Negative mg/dL (NEG) Urine Blood Negative (NEG) Urine Nitrite Negative (NEG) Urine Bilirubin Negative (NEG) Urine Urobilinogen Dipstick 0.2 mg/dL (0.2 mg/dL) Urine Leukocyte Esterase Negative (NEG) Urine RBC 0 /HPF (0-2) Urine WBC 0 /HPF (0-4) Urine Squamous Epithelial Cells Occ /LPF Urine Bacteria 0 /HPF (0-FEW) Urine Mucus Slight /LPF Glucose (Fingerstick) 238 mg/dL (70-99) VTE Prophylaxis Ordered VTE Prophylaxis Devices: Yes VTE Pharmacological Prophylaxi: No Assessment/Plan Assessment/Plan chest pain, CHF, acute systolic, Hz of Cardiac Hodgkings, consult Onc and Dr. Lew asthma with bronchitis, dyspnea, new sputum, consult PULM Recent hx of pleural or pericardial effusions, check echo Dm2, w. morbid obesity, BMI 41 CKD 3 w/ chronic htn and Dm2 admit KEARA JACKSON MD May 31, 2017 22:20
[2017-05-31] MEDS ORDERED: BUDESONIDE 0.5 MG/2 ML NEBU. NEB ONE (22:30)
[2017-05-31] MEDS ORDERED: oxyCODONE/APAP 5/325 1 TAB TABLET PO PRN (22:30)
[2017-05-31] MEDS ORDERED: MAGNESIUM SULFATE 2GM 50 ML IV ONE (22:30)
[2017-05-31] MEDS: IPRATRPIUM/ALBUTEROL 0.5/2.5MG 3 ML NEBU. NEB SCH (22:37)
[2017-05-31 22:45] VITALS: BP 133/79
[2017-06-01 02:44] VITALS: BP 135/78
[2017-06-01 04:47] LABS: BASO % 1 % (0-3); EOS % 4 % (0-3); HEMATOCRIT 35.6 % (39.0-53.0); HEMOGLOBIN 11.8 g/dL (13.0-17.5); LYMPH # 1.6 x10^3/uL (1.0-4.8); LYMPH % 28 % (24-48); MEAN CORPUSCULAR HEMOGLOBIN 32 pg (25-35); MEAN CORPUSCULAR HGB CONC 33 g/dL (31-37); MEAN CORPUSCULAR VOLUME 97 fL (79-100); MONO % 9 % (0-9); NEUT % 59 % (31-73); PLATELET COUNT 175 x10^3/uL (140-400); RED BLOOD COUNT 3.68 x10^6/uL (4.30-5.70); RED CELL DISTRIBUTION WIDTH 14.2 % (11.5-14.5); WHITE BLOOD COUNT 5.6 x10^3/uL (4.0-11.0)
--- NOTE | 2017-06-01 04:55 | ACF ---
Admission Forms Criteria CHEST PAIN Clinical Indications for Admission to Inpatient Care (Place 'X' for any and all applicable criteria): Admission is indicated for chest pain and ANY ONE of the following(1)(2)(3)(4)(5 ): [ ]I. Angina with acute coronary syndrome (Also use Myocardial Infarction or Angina guideline) [ ]II. Hemodynamic instability [ ]III. Angina needing acute intervention as indicated by ALL of the following( 11)(12): [ ]a) Unstable angina is present as indicated by angina that is ANY ONE of the following: [ ]i) New onset [ ]ii) Nocturnal [ ]iii) Prolonged at rest [ ]iv) Progressive [ ]b) Angina warrants acute intervention as indicated by ANY ONE of the following: [ ]i) Recurrent angina (e.g, not responding as previously to treatment) [ ]ii) Angina at rest or with low-level activities despite initial medical therapy [ ]iii) New or presumably new ST-segment depression on ECG [ ]iv) Signs or symptoms of heart failure (eg, dyspnea, pulmonary edema) [ ]v) New or worsening mitral regurgitation [ ]vi) Hemodynamic instability [ ]vii) Dangerous arrhythmia (eg, sustained ventricular tachycardia) [ ]viii) History of percutaneous coronary intervention within 6 months [ ]ix) History of coronary artery bypass graft surgery [ ]x) MARTHA risk score of 2 or greater[A] [ ]xi) History of Diabetes(14) [ ]xii) High-risk cardiac ischemia findings on noninvasive testing (e.g, echocardiogram, treadmill testing, nuclear scan) [ ]xiii) Chronic renal insufficiency (ie, estimated GFR less than 60 mL/min/1.732m) [ ]xiv) Left ventricular ejection fraction less than 40% [ ]IV. Evidence of PA (eg, cardiac biomarkers positive, ST-segment elevation on ECG) also use Myocardial Infarction Criteria Form. [ ]V. Pulmonary edema [ ]. Respiratory distress [ ]VII. Chest pain indicative of serious diagnosis other than coronary artery disease (eg, aortic dissection) [ ]VIII. Contraindications and/or Inappropriate clinical situations for Observational Care in patients with Chest Pain, when ANY ONE of the following is required: [ ]a) Patient with risk factor for pulmonary embolism, acute coronary syndrome and myocardial infarction (18) [ ]b) Patient with Pulmonary embolism require an average LOS of 4.3 days, therefore emergency department observation management is inappropriate 18,23 [ ]c) Painful condition/s in the elderly, have the highest rate of recidivism after emergency department observation management (10.8%) 20,21,22 [ ]d) Elevated cardiac biomarker requires intensive and exhaustive care (19) [X]IX. General contraindications and/or Inappropriate clinical situations for Observational Care in patients with Chest Pain, when ANY ONE of the following is required: [X]a) Prediction of prolongation of LOS based on ANY ONE of the following may be considered as a contraindication for observational care 2, 3, 4, 5, 6, 7, 8, 9, 10, 11 [ ]i) Age > 65 yrs. [ ]ii) Patient arriving by ambulance [ ]iii) Patient with high acuity [X]iv) Patient requiring vital sign monitoring [ ]v) Patient on IV medication [ ]b) Systolic blood pressures 180mmHg 3,12 [ ]c) Patient with altered mental status including delirium and other alteration of consciousness, (3) [ ]d) Patient whose discharge disposition will be to a custodial home or rehabilitation home should not be managed in Emergency Department Observation Unit. CMS rule requires 3 days hospital stay before such placement. 3,13 [ ]e) Patient with failure to thrive due to broad array of etiologies 3,16,17 [ ]f) Inability to ambulate 3,14 Extended stay beyond goal length of stay may be needed for (1)(28): [ ]a) Specific condition diagnosed after evaluation (eg, pulmonary embolism, aortic dissection) [ ]b) Unstable angina [ ]c) Continued suspicion of acute coronary syndrome with inability to complete needed cardiac evaluation (eg, patient clinically unable to undergo stress testing) [ ]d) Myocardial infarction (Contents from ANGINA and CHEST PAIN clinical indications for admission to inpatient care have been integrated in this form) The original [facility] content created by [employer] has been revised. The portions of the content which have been revised are identified through the use of italic text or in bold, and [facility] has neither reviewed nor approved the modified material. All other unmodified content is copyright [employer] [facility]. Please see references footnoted in the original [facility] [employer] edition 2016 Admission Criteria Met?: Yes AYSE WILCOX Jun 01, 2017 04:55
[2017-06-01 04:59] LABS: CREATININE 1.6 mg/dL (0.7-1.3); GFR 54.6; POTASSIUM 3.7 mmol/L (3.5-5.1)
[2017-06-01 07:00] VITALS: BP 157/85
[2017-06-01] MEDS: IPRATRPIUM/ALBUTEROL 0.5/2.5MG 3 ML NEBU. NEB SCH ×2 (07:02→19:26)
[2017-06-01] MEDS: BUDESONIDE 0.5 MG/2 ML NEBU. NEB SCH ×2 (07:02→19:27)
[2017-06-01] MEDS: ALBUTEROL SULFATE 2.5 MG/3 ML NEBU. NEB SCH ×3 (07:05→15:23)
[2017-06-01] MEDS: INSULIN ASPART 300 UNITS/3 ML INSULN.PEN SQ SCH ×7 (08:40→21:00)
[2017-06-01] MEDS: ASPIRIN CHEWABLE 81 MG TABLET. PO SCH (08:44)
--- NOTE | 2017-06-01 08:44 | PDOC ---
Provider Note Provider Note Onc consult dictated- [id number] H/o hodgkin's lymphoma s/p cardiac surgery in 2002, ABVD chemo in 2004 with EMILIE. Discussed at visit 08/16 and again today that now 12 yr out, he has been cured. No ongoing imaging/ f/u needed. Defer to primary/ cardiology on heart failure issues, which I don't think are lymphoma related. Pt admits to increased salt intake recently. BOSSMAN BARRON DO Jun 01, 2017 08:44
[2017-06-01] MEDS: CARVEDILOL 12.5 MG TABLET. PO SCH ×2 (08:45→17:18)
[2017-06-01] MEDS: POTASSIUM CHLORIDE 10 MEQ TABLET.ER. PO SCH (08:45)
[2017-06-01] MEDS: FUROSEMIDE 40 MG TABLET. PO SCH (08:47)
[2017-06-01] MEDS: ALLOPURINOL 100 MG TABLET. PO SCH (08:47)
[2017-06-01] MEDS: LOSARTAN POTASSIUM 50 MG TABLET. PO SCH (08:47)
[2017-06-01] MEDS: LIDOCAINE (700MG/PATCH) PATCH. TD SCH ×2 (08:48→14:17)
[2017-06-01] MEDS: LUBIPROSTONE 8 MCG CAPSULE PO SCH ×2 (09:01→17:18)
--- NOTE | 2017-06-01 09:16 | PDOC ---
PROGRESS NOTES Chief Complaint Chief Complaint Chest pain, cough ASSESSMENT AND PLAN: 1. COPD/bronchitis: no evidence of PNA or PE on CTA, no effusions. cough with clear phlegm poss 2/2 CHF exacerbation, although no evidence of lung involvement by CXR/CTA. empiric azithro; codeine for coughing spells. cont nebs, suppl O2 2. CHF: chronic systolic and diastolic combined (echo 10/2016: EF 45%). rpt echo pending. pt has been seen by Dr Lopez in the past. continue home meds 3. CAD: ruled out for ACS by serial enzymes. pain reproducible, worse with cough - musculoskeletal 4. DM2: fairly well controlled. cont home regimen plus ISS 5. HTN: borderline control on coreg, cozaar (dilt, lasix). consider increase in BB when acute issues resolved 6. CKD3: creat stable 7. Hx Hodgkin's, treated in 2004 with chemo, no XRT. cured 8. Morbid obesity: BMI 41. nutrition consult History of Present Illness History of Present Illness cough is keeping him from getting any rest. R lateral lower rib cage pain worse with cough. no F/C. + SOB at rest Vitals Vitals Vital Signs Date Time Temp Pulse Resp B/P (MAP) Pulse Ox O2 Delivery O2 Flow Rate FiO2 06/01/17 08:47 79 157/85 06/01/17 07:05 98 Nasal Cannula 2.0 06/01/17 07:00 98.1 20 98.1 Physical Exam General: Alert, Oriented X3, Cooperative, No acute distress Heart: Regular rate Lungs: Wheezing Abdomen: Normal bowel sounds, Soft Extremities: No clubbing, No edema Skin: No significant lesion Labs LABS Laboratory Tests Test 05/31/17 14:15 05/31/17 14:20 05/31/17 14:25 05/31/17 20:28 D-Dimer (Rimma) < 0.27 ug/mlFEU White Blood Count 6.3 x10^3/uL (4.0-11.0) Red Blood Count 4.06 x10^6/uL (4.30-5.70) Hemoglobin 13.3 g/dL (13.0-17.5) Hematocrit 38.3 % (39.0-53.0) Mean Corpuscular Volume 94 fL (79-100) Mean Corpuscular Hemoglobin 33 pg (25-35) Mean Corpuscular Hemoglobin Concent 35 g/dL (31-37) Red Cell Distribution Width 14.2 % (11.5-14.5) Platelet Count 203 x10^3/uL (140-400) Neutrophils (%) (Auto) 65 % (31-73) Lymphocytes (%) (Auto) 22 % (24-48) Monocytes (%) (Auto) 9 % (0-9) Eosinophils (%) (Auto) 3 % (0-3) Basophils (%) (Auto) 1 % (0-3) Neutrophils # (Auto) 4.1 x10^3uL (1.8-7.7) Lymphocytes # (Auto) 1.4 x10^3/uL (1.0-4.8) Monocytes # (Auto) 0.5 x10^3/uL (0.0-1.1) Eosinophils # (Auto) 0.2 x10^3/uL (0.0-0.7) Basophils # (Auto) 0.1 x10^3/uL (0.0-0.2) Prothrombin Time 12.1 SEC (11.7-14.0) Prothromb Time International Ratio 1.0 (0.8-1.1) Sodium Level 141 mmol/L (136-145) Potassium Level 3.9 mmol/L (3.5-5.1) Chloride Level 103 mmol/L (98-107) Carbon Dioxide Level 29 mmol/L (21-32) Anion Gap 9 (6-14) Blood Urea Nitrogen 25 mg/dL (8-26) Creatinine 1.6 mg/dL (0.7-1.3) Estimated GFR (Cockcroft-Gault) 54.6 Glucose Level 227 mg/dL (70-99) Calcium Level 8.4 mg/dL (8.5-10.1) Magnesium Level 1.7 mg/dL (1.8-2.4) Total Bilirubin 1.3 mg/dL (0.2-1.0) Direct Bilirubin 0.3 mg/dL (0.0-0.2) Aspartate Amino Transf (AST/SGOT) 16 U/L (15-37) Alanine Aminotransferase (ALT/SGPT) 22 U/L (16-63) Alkaline Phosphatase 79 U/L (46-116) Creatine Kinase 111 U/L (39-308) Creatine Kinase MB (Mass) 2.4 ng/mL (0.0-3.6) Creatine Kinase MB Relative Index 2.2 % (0-4) Troponin I Quantitative < 0.017 ng/mL (0.000-0.055) KZ-Jqh-B-Type Natriuretic Peptide 392 pg/mL (0-124) Total Protein 7.2 g/dL (6.4-8.2) Albumin 3.5 g/dL (3.4-5.0) Lipase 93 U/L (73-393) Urine Collection Type Unknown Urine Color Yellow Urine Clarity Clear Urine pH 5.5 Urine Specific [place] 1.020 Urine Protein Negative mg/dL (NEG-TRACE) Urine Glucose (UA) >=1000 mg/dL (NEG) Urine Ketones (Stick) Negative mg/dL (NEG) Urine Blood Negative (NEG) Urine Nitrite Negative (NEG) Urine Bilirubin Negative (NEG) Urine Urobilinogen Dipstick 0.2 mg/dL (0.2 mg/dL) Urine Leukocyte Esterase Negative (NEG) Urine RBC 0 /HPF (0-2) Urine WBC 0 /HPF (0-4) Urine Squamous Epithelial Cells Occ /LPF Urine Bacteria 0 /HPF (0-FEW) Urine Mucus Slight /LPF Glucose (Fingerstick) 238 mg/dL (70-99) Test 05/31/17 22:20 06/01/17 04:30 06/01/17 07:54 Troponin I Quantitative < 0.017 ng/mL (0.000-0.055) < 0.017 ng/mL (0.000-0.055) White Blood Count 5.6 x10^3/uL (4.0-11.0) Red Blood Count 3.68 x10^6/uL (4.30-5.70) Hemoglobin 11.8 g/dL (13.0-17.5) Hematocrit 35.6 % (39.0-53.0) Mean Corpuscular Volume 97 fL (79-100) Mean Corpuscular Hemoglobin 32 pg (25-35) Mean Corpuscular Hemoglobin Concent 33 g/dL (31-37) Red Cell Distribution Width 14.2 % (11.5-14.5) Platelet Count 175 x10^3/uL (140-400) Neutrophils (%) (Auto) 59 % (31-73) Lymphocytes (%) (Auto) 28 % (24-48) Monocytes (%) (Auto) 9 % (0-9) Eosinophils (%) (Auto) 4 % (0-3) Basophils (%) (Auto) 1 % (0-3) Neutrophils # (Auto) 3.3 x10^3uL (1.8-7.7) Lymphocytes # (Auto) 1.6 x10^3/uL (1.0-4.8) Monocytes # (Auto) 0.5 x10^3/uL (0.0-1.1) Eosinophils # (Auto) 0.2 x10^3/uL (0.0-0.7) Basophils # (Auto) 0.0 x10^3/uL (0.0-0.2) Sodium Level 139 mmol/L (136-145) Potassium Level 3.7 mmol/L (3.5-5.1) Chloride Level 102 mmol/L (98-107) Carbon Dioxide Level 28 mmol/L (21-32) Anion Gap 9 (6-14) Blood Urea Nitrogen 20 mg/dL (8-26) Creatinine 1.6 mg/dL (0.7-1.3) Estimated GFR (Cockcroft-Gault) 54.6 Glucose Level 226 mg/dL (70-99) Calcium Level 9.0 mg/dL (8.5-10.1) Glucose (Fingerstick) 195 mg/dL (70-99) DEAN BOONE MD Jun 01, 2017 09:16
--- NOTE | 2017-06-01 11:13 | CONS ---
DATE OF CONSULTATION: 06/01/2017 REFERRING PROVIDER: Dr. Navarro. REASON FOR CONSULTATION: History of Hodgkin lymphoma. HISTORY OF PRESENT ILLNESS: The patient is a 56-year-old -[place] male whom I met in clinic for the first time in 08/2016 to follow up on his history of Hodgkin lymphoma. He was diagnosed with this in 2002 with reported cardiac only involvement. He stated he had surgery, which removed the majority of the tumor. However, in 2004, he apparently had a reoccurrence and was given ABVD chemotherapy. He has never had any evidence of recurrence of this. His last CT scan was performed on 04/2015 and was unremarkable. We discussed at our visit in August then now 12 years out from his original diagnosis and management, he has been cured. Historically Hodgkin lymphoma is very curable. He presents now with recurrent heart failure. He was admitted 2 weeks ago with the same issues. He does admit upon returning home that he has eaten several salty foods. He is still having ongoing issues with frequent urination and is requesting Neurology appointments. PAST MEDICAL HISTORY: Sleep apnea, hypertension, morbid obesity, hyperlipidemia, Hodgkin lymphoma, gout, diabetes, AFib and asthma. PAST SURGICAL HISTORY: Tonsillectomy, cardiac surgery related to the lymphoma in 2002 and in 2004, possible pacemaker placement. FAMILY HISTORY: Mom had previous blood clots, dad had prostate and colon cancer. Brother also with prostate cancer. SOCIAL HISTORY: No tobacco, alcohol or drugs. ALLERGIES: No known drug allergies. CURRENT MEDICATIONS: Metformin, losartan, Lidoderm patch, Lasix, diltiazem, allopurinol, Pulmicort, albuterol, potassium chloride, aspirin, NovoLog, Percocet, Ambien, detemir, Flomax, Amitiza, Coreg, Restoril and magnesium citrate. REVIEW OF SYSTEMS: Ten point review of systems completed and unremarkable with the exception of the shortness of breath, right-sided rib/chest pain, for which he was admitted. PHYSICAL EXAMINATION: VITAL SIGNS: Temperature 98.1, pulse 79, respiratory rate 20, blood pressure 157/85, 97% O2 on room air. GENERAL: He is alert and oriented, morbidly obese, appears to be in his baseline functional status. HEENT: Extraocular muscles are intact. Sclerae are without icterus. Mucous membranes are moist. CARDIOVASCULAR: Heart is regular in rhythm and rate. LUNGS: Clear to auscultation bilaterally. ABDOMEN: Soft and nontender. EXTREMITIES: 1+ edema bilateral lower extremities. NEUROLOGIC: No focal deficits. IMAGING AND LABORATORY DATA: CBC unremarkable. Creatinine 1.6. CTA of the chest was negative. ASSESSMENT AND PLAN: The patient is a 56-year-old male with the following medical problems: 1. History of Hodgkin lymphoma, status post cardiac surgery in 2002 and ABVD chemotherapy in 2004. Now 12 years out from his last treatment, he has been cured from his disease. We discussed that Hodgkin lymphoma does not typically reoccur 12 years out and is a curable form of cancer. He had a CT scan done in 04/2015, which showed no evidence of disease. We discussed at his last visit in August 2016 that ongoing imaging is not recommended. At this point, I think his shortness of breath and heart failure issues are more cardiac related. Dr. Lew, has been consulted and the repeat echocardiogram is planned. At this time, I do not anticipate ongoing hematology followup to be needed. 2. Recurrent heart failure. He does report an increase in salt intake recently. Cardiology has been consulted. Thank you for alerting me of his admission. Follow up as needed as previously discussed at his last visit. BOSSMAN BARRON DO DR: NEO/sagar JOB#: [id number] / [id number] NISA
[2017-06-01 12:00] VITALS: BP 149/82
[2017-06-01 15:00] VITALS: BP 136/92
[2017-06-01] MEDS ORDERED: CODEINE SULFATE 30 MG TABLET. PO PRN (15:00)
[2017-06-01] MEDS: AZITHROMYCIN 250 MG TABLET. PO SCH (15:53)
[2017-06-01] MEDS: CODEINE SULFATE 30 MG TABLET. PO PRN (15:54)
--- NOTE | 2017-06-01 17:33 | CARD ---
APPROVED REPORT EXAM: Two-dimensional and M-mode echocardiogram with Doppler and color Doppler. Other Information Quality : Good INDICATION Exertional Dyspnea 2D DIMENSIONS RVDd3.1 (2.9-3.5cm)Left Atrium(2D)3.8 (1.6-4.0cm) IVSd1.0 (0.7-1.1cm)Aortic Root(2D)3.4 (2.0-3.7cm) LVDd5.2 (3.9-5.9cm)LVOT Diameter2.3 (1.8-2.4cm) PWd1.0 (0.7-1.1cm)LVDs4.3 (2.5-4.0cm) FS (%) 22.5 %SV43.8 ml LVEF(%)45.0 (>50%) Aortic Valve AoV Peak Duke.169.5cm/sAoV VTI32.6cm AO Peak GR.11.5mmHgLVOT Peak Duke.101.7cm/s LVOT VTI 20.73cmAO Mean GR.7mmHg VINOD (VMAX)2.44ob2PKS (VTI)2.74cm2 Mitral Valve MV E Xuiwwlxt71.1cm/sMV DECEL OKAG937qg MV A Tttqgmni77.7cm/sMV HIH12bt E/A Ratio1.6MVA (PHT)4.50cm2 TDI E/Lateral E'8.8E/Medial E'10.8 Tricuspid Valve TR P. Etruaqxx895vp/sRAP SCJVMNXM9qwOr TR Peak Gr.22mnLjFPTY31zuPv Pulmonary Vein S1 Tupuwelg67.4cm/sD2 Yqalfvmg58.8cm/s LEFT VENTRICLE The left ventricle is normal size. There is normal left ventricular wall thickness. The Ejection Frac tion is 45%. There is mild global hypokinesis of the left ventricle. Transmitral Doppler flow pattern is Grade II-pseudonormal filling dynamics. RIGHT VENTRICLE The right ventricle is normal size. The right ventricular systolic function is normal. There is a pac emaker lead in the right ventricle. ATRIA The left atrium size is normal. The right atrium size is normal. A pacemaker is seen in the right atr ium consistent with history. The interatrial septum is intact with no evidence for an atrial septal d efect or patent foramen ovale as noted on 2-D or Doppler imaging. AORTIC VALVE The aortic valve is not well visualized but appears to be functioning normally by Doppler interrogati on. Doppler and Color Flow revealed no significant aortic regurgitation. There is no significant aort ic valvular stenosis. MITRAL VALVE The mitral valve is normal in structure and function. There is no evidence of mitral valve prolapse. There is no mitral valve stenosis. Doppler and Color Flow revealed no mitral valve regurgitation note d. TRICUSPID VALVE The tricuspid valve is normal in structure Doppler and Color Flow revealed trace tricuspid regurgitat ion. The PA pressure was estimated at 28 mmHg. There is no tricuspid valve stenosis. PULMONIC VALVE The pulmonary valve is not well visualized but appears to be functioning normally by Doppler interrog ation. Doppler and Color Flow revealed no pulmonic valvular regurgitation. There is no pulmonic valvu lar stenosis. GREAT VESSELS The aortic root is normal in size. The ascending aorta is mildly dilated at 3.6 cm. The IVC is normal in size and collapses >50% with inspiration. PERICARDIAL EFFUSION There is no evidence of significant pericardial effusion. Critical Notification Critical Value: No <Conclusion> The Ejection Fraction is 45%. Transmitral Doppler flow pattern is Grade II-pseudonormal filling dynamics. The left atrium size is normal. The right atrium size is normal. A pacemaker is seen in the right atrium consistent with history. The aortic valve is not well visualized but appears to be functioning normally by Doppler interrogati on. The mitral valve is normal in structure and function. Doppler and Color Flow revealed trace tricuspid regurgitation. The PA pressure was estimated at 28 mmHg. The pulmonary valve is not well visualized but appears to be functioning normally by Doppler interrog ation. The ascending aorta is mildly dilated at 3.6 cm. There is no evidence of significant pericardial effusion.
--- NOTE | 2017-06-01 17:41 | PDOC ---
PULMONARY PROGRESS NOTES Vitals Vital Signs Date Time Temp Pulse Resp B/P (MAP) Pulse Ox O2 Delivery O2 Flow Rate FiO2 06/01/17 17:18 116 147/102 06/01/17 17:17 Nasal Cannula 2.0 06/01/17 15:24 98 06/01/17 15:00 97.9 20 97.9 Lungs: Wheezing Cardiovascular: S1 Abdomen: Soft, Non-tender, Other Extremities: Other Labs Laboratory Tests Test 05/31/17 14:15 05/31/17 14:20 05/31/17 14:25 05/31/17 20:28 D-Dimer (Rimma) < 0.27 ug/mlFEU White Blood Count 6.3 x10^3/uL (4.0-11.0) Red Blood Count 4.06 x10^6/uL (4.30-5.70) Hemoglobin 13.3 g/dL (13.0-17.5) Hematocrit 38.3 % (39.0-53.0) Mean Corpuscular Volume 94 fL (79-100) Mean Corpuscular Hemoglobin 33 pg (25-35) Mean Corpuscular Hemoglobin Concent 35 g/dL (31-37) Red Cell Distribution Width 14.2 % (11.5-14.5) Platelet Count 203 x10^3/uL (140-400) Neutrophils (%) (Auto) 65 % (31-73) Lymphocytes (%) (Auto) 22 % (24-48) Monocytes (%) (Auto) 9 % (0-9) Eosinophils (%) (Auto) 3 % (0-3) Basophils (%) (Auto) 1 % (0-3) Neutrophils # (Auto) 4.1 x10^3uL (1.8-7.7) Lymphocytes # (Auto) 1.4 x10^3/uL (1.0-4.8) Monocytes # (Auto) 0.5 x10^3/uL (0.0-1.1) Eosinophils # (Auto) 0.2 x10^3/uL (0.0-0.7) Basophils # (Auto) 0.1 x10^3/uL (0.0-0.2) Prothrombin Time 12.1 SEC (11.7-14.0) Prothromb Time International Ratio 1.0 (0.8-1.1) Sodium Level 141 mmol/L (136-145) Potassium Level 3.9 mmol/L (3.5-5.1) Chloride Level 103 mmol/L (98-107) Carbon Dioxide Level 29 mmol/L (21-32) Anion Gap 9 (6-14) Blood Urea Nitrogen 25 mg/dL (8-26) Creatinine 1.6 mg/dL (0.7-1.3) Estimated GFR (Cockcroft-Gault) 54.6 Glucose Level 227 mg/dL (70-99) Calcium Level 8.4 mg/dL (8.5-10.1) Magnesium Level 1.7 mg/dL (1.8-2.4) Total Bilirubin 1.3 mg/dL (0.2-1.0) Direct Bilirubin 0.3 mg/dL (0.0-0.2) Aspartate Amino Transf (AST/SGOT) 16 U/L (15-37) Alanine Aminotransferase (ALT/SGPT) 22 U/L (16-63) Alkaline Phosphatase 79 U/L (46-116) Creatine Kinase 111 U/L (39-308) Creatine Kinase MB (Mass) 2.4 ng/mL (0.0-3.6) Creatine Kinase MB Relative Index 2.2 % (0-4) Troponin I Quantitative < 0.017 ng/mL (0.000-0.055) JG-Ijm-U-Type Natriuretic Peptide 392 pg/mL (0-124) Total Protein 7.2 g/dL (6.4-8.2) Albumin 3.5 g/dL (3.4-5.0) Lipase 93 U/L (73-393) Urine Collection Type Unknown Urine Color Yellow Urine Clarity Clear Urine pH 5.5 Urine Specific [place] 1.020 Urine Protein Negative mg/dL (NEG-TRACE) Urine Glucose (UA) >=1000 mg/dL (NEG) Urine Ketones (Stick) Negative mg/dL (NEG) Urine Blood Negative (NEG) Urine Nitrite Negative (NEG) Urine Bilirubin Negative (NEG) Urine Urobilinogen Dipstick 0.2 mg/dL (0.2 mg/dL) Urine Leukocyte Esterase Negative (NEG) Urine RBC 0 /HPF (0-2) Urine WBC 0 /HPF (0-4) Urine Squamous Epithelial Cells Occ /LPF Urine Bacteria 0 /HPF (0-FEW) Urine Mucus Slight /LPF Glucose (Fingerstick) 238 mg/dL (70-99) Test 05/31/17 22:20 06/01/17 04:30 06/01/17 07:54 06/01/17 11:25 Troponin I Quantitative < 0.017 ng/mL (0.000-0.055) < 0.017 ng/mL (0.000-0.055) White Blood Count 5.6 x10^3/uL (4.0-11.0) Red Blood Count 3.68 x10^6/uL (4.30-5.70) Hemoglobin 11.8 g/dL (13.0-17.5) Hematocrit 35.6 % (39.0-53.0) Mean Corpuscular Volume 97 fL (79-100) Mean Corpuscular Hemoglobin 32 pg (25-35) Mean Corpuscular Hemoglobin Concent 33 g/dL (31-37) Red Cell Distribution Width 14.2 % (11.5-14.5) Platelet Count 175 x10^3/uL (140-400) Neutrophils (%) (Auto) 59 % (31-73) Lymphocytes (%) (Auto) 28 % (24-48) Monocytes (%) (Auto) 9 % (0-9) Eosinophils (%) (Auto) 4 % (0-3) Basophils (%) (Auto) 1 % (0-3) Neutrophils # (Auto) 3.3 x10^3uL (1.8-7.7) Lymphocytes # (Auto) 1.6 x10^3/uL (1.0-4.8) Monocytes # (Auto) 0.5 x10^3/uL (0.0-1.1) Eosinophils # (Auto) 0.2 x10^3/uL (0.0-0.7) Basophils # (Auto) 0.0 x10^3/uL (0.0-0.2) Sodium Level 139 mmol/L (136-145) Potassium Level 3.7 mmol/L (3.5-5.1) Chloride Level 102 mmol/L (98-107) Carbon Dioxide Level 28 mmol/L (21-32) Anion Gap 9 (6-14) Blood Urea Nitrogen 20 mg/dL (8-26) Creatinine 1.6 mg/dL (0.7-1.3) Estimated GFR (Cockcroft-Gault) 54.6 Glucose Level 226 mg/dL (70-99) Calcium Level 9.0 mg/dL (8.5-10.1) Glucose (Fingerstick) 195 mg/dL (70-99) 140 mg/dL (70-99) Laboratory Tests Test 05/31/17 20:28 05/31/17 22:20 06/01/17 04:30 06/01/17 07:54 Glucose (Fingerstick) 238 mg/dL (70-99) 195 mg/dL (70-99) Troponin I Quantitative < 0.017 ng/mL (0.000-0.055) < 0.017 ng/mL (0.000-0.055) White Blood Count 5.6 x10^3/uL (4.0-11.0) Red Blood Count 3.68 x10^6/uL (4.30-5.70) Hemoglobin 11.8 g/dL (13.0-17.5) Hematocrit 35.6 % (39.0-53.0) Mean Corpuscular Volume 97 fL (79-100) Mean Corpuscular Hemoglobin 32 pg (25-35) Mean Corpuscular Hemoglobin Concent 33 g/dL (31-37) Red Cell Distribution Width 14.2 % (11.5-14.5) Platelet Count 175 x10^3/uL (140-400) Neutrophils (%) (Auto) 59 % (31-73) Lymphocytes (%) (Auto) 28 % (24-48) Monocytes (%) (Auto) 9 % (0-9) Eosinophils (%) (Auto) 4 % (0-3) Basophils (%) (Auto) 1 % (0-3) Neutrophils # (Auto) 3.3 x10^3uL (1.8-7.7) Lymphocytes # (Auto) 1.6 x10^3/uL (1.0-4.8) Monocytes # (Auto) 0.5 x10^3/uL (0.0-1.1) Eosinophils # (Auto) 0.2 x10^3/uL (0.0-0.7) Basophils # (Auto) 0.0 x10^3/uL (0.0-0.2) Sodium Level 139 mmol/L (136-145) Potassium Level 3.7 mmol/L (3.5-5.1) Chloride Level 102 mmol/L (98-107) Carbon Dioxide Level 28 mmol/L (21-32) Anion Gap 9 (6-14) Blood Urea Nitrogen 20 mg/dL (8-26) Creatinine 1.6 mg/dL (0.7-1.3) Estimated GFR (Cockcroft-Gault) 54.6 Glucose Level 226 mg/dL (70-99) Calcium Level 9.0 mg/dL (8.5-10.1) Test 06/01/17 11:25 Glucose (Fingerstick) 140 mg/dL (70-99) Medications Active Scripts Medications Dose Route/Sig Max Daily Dose Days Date Category Novolog Mix 70-30 Flexpen Syrn (Insuln Asp Prt/Insulin Aspart) 100 Unit/1 Ml Insuln.pen 60 Unit SQ BID 05/31/17 Reported Flomax (Tamsulosin Hcl) 0.4 Mg Cap.er.24h 0.4 Mg PO QHS 30 05/18/17 Rx Furosemide 40 Mg Tablet 40 Mg PO DAILY 30 05/18/17 Rx Lidoderm (Lidocaine) 700 Mg Adh..patch 1 Patch TD DAILY 11/07/16 Rx Diltiazem 24HR Cd (Diltiazem Hcl) 120 Mg Cap.er.24h 120 Mg PO DAILY 11/07/16 Rx Cozaar (Losartan Potassium) 50 Mg Tablet 100 Mg PO DAILY 11/02/16 Rx Lactulose 20 Gm/30 Ml Solution 20 Gm PO BID PRN 11/02/16 Rx Hydrocodone-Apap 5-325 (Hydrocodone Bit/Acetaminophen) 1 Each Tablet 1 Tab PO PRN Q4HRS PRN 14 11/02/16 Rx Carvedilol 12.5 Mg Tablet 12.5 Mg PO BIDWMEALS 11/02/16 Rx Magnesium Citrate 296 Ml Solution 296 Ml PO PRN PRN 10/26/16 Reported Amitiza (Lubiprostone) 8 Mcg Capsule 2 Cap PO BID 10/26/16 Reported Allopurinol 100 Mg Tablet 100 Mg PO DAILY 09/02/16 Reported Potassium Chloride 10 Meq Tablet.er 10 Meq PO DAILY 09/02/16 Reported Metformin Hcl Er (Metformin Hcl) 500 Mg Tab.er.24h 1 Tab PO DAILY 09/13/15 Reported Restoril (Temazepam) 15 Mg Capsule 15 Mg PO PRN QHS PRN 01/20/15 Rx Children's Aspirin (Aspirin) 81 Mg Tab.chew 81 Mg PO DAILY 01/17/15 Reported Impression . FULL CONSULT DICTATED AECOPD KALEY NO PE AGREE WITH CURRENT RX THANKS ROSAURA ALFRED MD Jun 01, 2017 17:41
[2017-06-01 19:00] VITALS: BP 136/96
--- NOTE | 2017-06-01 20:05 | PDOC2 ---
CONSULT Date of Consult Date of Consult DATE: 06/01/17 TIME: 19:57 Reason for Consult Reason for Consult: Dyspnea Referring Physician Referring Physician: Dr Navarro Identification/Chief Complaint Chief Complaint Dyspnea and abdominal right upper quadrant pain Problems: History of Present Illness Reason for Visit: This patient is a 56-year-old gentleman that has a history of a previously treated lymphoma, obesity, hypertension and previous problems with EtOH abuse. He's had asthma issues. CHF due to systolic and diastolic dysfunction have also been a problem. The patient has had previous admissions due to to this abdominal right upper quadrant pain and also some tenderness and pain to the ribs on the area. It has been difficult to determine if there is any significant gallbladder disease but with the last tests no stones or sludge was seen. In previous x-rays no rib fractures were noted. The patient has been having a lot of cough and this may have caused him to have some discomforts. He comes in with exertional dyspnea and wheezing. Past Medical History Cardiovascular: AFIB, CAD, CHF, HTN Pulmonary: COPD CENTRAL NERVOUS SYSTEM: CVA, TIA GI: Constipation Heme/Onc: B12 deficiency, Cancer (Hodgkins), Other Psych: Depression Rheumatologic: Gout Endocrine: Diabetes Past Surgical History Past Surgical History: Pacemaker Family History Family History: Cancer, Diabetes Social History No ALCOHOL: none Drugs: None Current Problem List Problem List Problems Medical Problems: (1) Shortness of breath Status: Acute Current Medications Current Medications Current Medications Iohexol (Omnipaque 350 Mg/ml) 100 ml 1X ONCE IV Last administered on 16:33; Start 05/31/17 at 16:30; Stop 05/31/17 at 16:31; Status DC Info (Do NOT chart on this entry -- for MONITORING) 1 each PRN DAILY PRN MC SEE COMMENTS; Start 05/31/17 at 16:30; Stop 06/02/17 at 16:29 Ondansetron HCl (Zofran) 4 mg PRN Q8HRS PRN IV NAUSEA/VOMITING; Start 05/31/17 at 16:45; Stop 06/01/17 at 16:44; Status DC Allopurinol (Zyloprim) 100 mg DAILY PO Last administered on 06/01/17 08:47; Start 06/01/17 at 09:00 Aspirin (Children'S Aspirin) 81 mg DAILY08 PO Last administered on 06/01/17 08: 44; Start 06/01/17 at 08:00 Carvedilol (Coreg) 12.5 mg BIDWMEALS PO Last administered on 06/01/17 17:18; Start 05/31/17 at 21:00 Diltiazem HCl (Cardizem 24hr Cd) 120 mg DAILY PO Last administered on 06/01/17 08:46; Start 06/01/17 at 09:00 Furosemide (Lasix) 40 mg DAILY PO Last administered on 06/01/17 08:47; Start at 09:00 Acetaminophen/ Hydrocodone Bitart (Lortab 5/325) 1 tab PRN Q4HRS PRN PO MILD PAIN; Start 05/31/17 at 19:45 Lidocaine (Lidoderm) 1 patch DAILY TD Last administered on 06/01/17 14:17; Start 06/01/17 at 09:00 Losartan Potassium (Cozaar) 100 mg DAILY PO Last administered on 06/01/17 08:47 ; Start 06/01/17 at 09:00 Lubiprostone (Amitiza) 16 mcg BIDWMEALS PO Last administered on 06/01/17 17:18 ; Start 05/31/17 at 21:00 Magnesium Citrate (Citroma) 296 ml PRN DAILY PRN PO CONSTIPATION; Start at 19:45 Metformin HCl (Glucophage Xr) 500 mg DAILYWBKFT PO ; Start 06/03/17 at 08:00 Potassium Chloride (Klor-Con) 10 meq DAILY08 PO Last administered on 06/01/17 08:45; Start 06/01/17 at 08:00 Tamsulosin HCl (Flomax) 0.4 mg QHS PO Last administered on 05/31/17 20:55; Start 05/31/17 at 21:00 Temazepam (Restoril) 15 mg PRN QHS PRN PO INSOMNIA Last administered on 20:55; Start 05/31/17 at 19:45 Lactulose 20 gm PRN BID PRN PO CONSTIPATION; Start 05/31/17 at 20:15 Insulin Detemir (Levemir) 50 units QHS SQ Last administered on 05/31/17 20:59 ; Start 05/31/17 at 21:00 Insulin Aspart (NovoLOG) 20 units TIDAC SQ Last administered on 06/01/17 12:14 ; Start 06/01/17 at 07:30 Insulin Aspart (NovoLOG) 0-9 UNITS QIDACHS SQ Last administered on 05/31/17 20 :59; Start 05/31/17 at 21:00 Dextrose (Dextrose 50%-Water Syringe) 12.5 gm PRN Q15MIN PRN IV SEE COMMENTS; Start 05/31/17 at 20:45 Albuterol/ Ipratropium (Duoneb) 3 ml BID NEB Last administered on 06/01/17 19: 26; Start 05/31/17 at 21:00 Zolpidem Tartrate (Ambien) 5 mg PRN QHS PRN PO INSOMNIA, MAY REPEAT IN 1HR; Start 05/31/17 at 22:15 Albuterol Sulfate (Ventolin Neb Soln) 2.5 mg RTQID NEB Last administered on 06/01 15:23; Start 06/01/17 at 08:00 Albuterol Sulfate (Ventolin Neb Soln) 2.5 mg PRN Q4HRS PRN NEB SHORTNESS OF BREATH; Start 05/31/17 at 22:15 Budesonide (Pulmicort) 0.5 mg RTBID NEB Last administered on 06/01/17 19:27; Start 06/01/17 at 08:00 Budesonide (Pulmicort) 0.5 mg 1X ONCE NEB Last administered on 05/31/17 22:37 ; Start 05/31/17 at 22:30; Stop 05/31/17 at 22:31; Status DC Oxycodone/ Acetaminophen (Percocet 5/325) 1 tab PRN Q4HRS PRN PO PAIN Last administered on 06/01/17 14:17; Start 05/31/17 at 22:30 Magnesium Sulfate/ Dextrose 50 ml @ 25 mls/hr 1X ONCE IV Last administered on 05/31/17 22:37; Start 05/31/17 at 22:30; Stop 06/01/17 at 00:29; Status DC Azithromycin (Zithromax) 500 mg DAILY PO Last administered on 06/01/17 15:53; Start 06/01/17 at 15:00; Stop 06/03/17 at 15:00 Codeine Sulfate (Codeine) 15 mg PRN Q6HRS PRN PO cough; Start 06/01/17 at 15:00 Codeine Sulfate (Codeine) 30 mg PRN Q6HRS PRN PO cough Last administered on 06/01t 15:54; Start 06/01/17 at 15:00 Active Scripts Active Flomax (Tamsulosin Hcl) 0.4 Mg Cap.er.24h 0.4 Mg PO QHS 30 Days Furosemide 40 Mg Tablet 40 Mg PO DAILY 30 Days Lidoderm (Lidocaine) 700 Mg Adh..patch 1 Patch TD DAILY Diltiazem 24HR Cd (Diltiazem Hcl) 120 Mg Cap.er.24h 120 Mg PO DAILY Cozaar (Losartan Potassium) 50 Mg Tablet 100 Mg PO DAILY Lactulose 20 Gm/30 Ml Solution 20 Gm PO BID PRN Hydrocodone-Apap 5-325 (Hydrocodone Bit/Acetaminophen) 1 Each Tablet 1 Tab PO PRN Q4HRS PRN 14 Days Carvedilol 12.5 Mg Tablet 12.5 Mg PO BIDWMEALS Restoril (Temazepam) 15 Mg Capsule 15 Mg PO PRN QHS PRN Reported Novolog Mix 70-30 Flexpen Syrn (Insuln Asp Prt/Insulin Aspart) 100 Unit/1 Ml Insuln.pen 60 Unit SQ BID Magnesium Citrate 296 Ml Solution 296 Ml PO PRN PRN Amitiza (Lubiprostone) 8 Mcg Capsule 2 Cap PO BID Allopurinol 100 Mg Tablet 100 Mg PO DAILY Potassium Chloride 10 Meq Tablet.er 10 Meq PO DAILY Metformin Hcl Er (Metformin Hcl) 500 Mg Tab.er.24h 1 Tab PO DAILY Children's Aspirin (Aspirin) 81 Mg Tab.chew 81 Mg PO DAILY Allergies Allergies: Coded Allergies: No Known Drug Allergies (Unverified , 09/02/16) Physical Exam General: Alert, Oriented X3, Cooperative HEENT: PERRLA, Mucous membr. moist/pink Lungs: Other (mild wheezing) Heart: Other (irregular, S1 and S2,) Abdomen: Other (abdomen is protuberant, bowel sounds were present, no significant tenderness.) Neuro: Other (1+ edema) Psych/Mental Status: Mental status NL Vitals VITALS Vital Signs Date Time Temp Pulse Resp B/P (MAP) Pulse Ox O2 Delivery O2 Flow Rate FiO2 06/01/17 19:30 98 Nasal Cannula 1.0 06/01/17 17:18 116 147/102 06/01/17 15:00 97.9 20 97.9 Labs Labs Laboratory Tests Test 05/31/17 14:15 05/31/17 14:20 05/31/17 14:25 05/31/17 20:28 D-Dimer (Rimma) < 0.27 ug/mlFEU White Blood Count 6.3 x10^3/uL (4.0-11.0) Red Blood Count 4.06 x10^6/uL (4.30-5.70) Hemoglobin 13.3 g/dL (13.0-17.5) Hematocrit 38.3 % (39.0-53.0) Mean Corpuscular Volume 94 fL (79-100) Mean Corpuscular Hemoglobin 33 pg (25-35) Mean Corpuscular Hemoglobin Concent 35 g/dL (31-37) Red Cell Distribution Width 14.2 % (11.5-14.5) Platelet Count 203 x10^3/uL (140-400) Neutrophils (%) (Auto) 65 % (31-73) Lymphocytes (%) (Auto) 22 % (24-48) Monocytes (%) (Auto) 9 % (0-9) Eosinophils (%) (Auto) 3 % (0-3) Basophils (%) (Auto) 1 % (0-3) Neutrophils # (Auto) 4.1 x10^3uL (1.8-7.7) Lymphocytes # (Auto) 1.4 x10^3/uL (1.0-4.8) Monocytes # (Auto) 0.5 x10^3/uL (0.0-1.1) Eosinophils # (Auto) 0.2 x10^3/uL (0.0-0.7) Basophils # (Auto) 0.1 x10^3/uL (0.0-0.2) Prothrombin Time 12.1 SEC (11.7-14.0) Prothromb Time International Ratio 1.0 (0.8-1.1) Sodium Level 141 mmol/L (136-145) Potassium Level 3.9 mmol/L (3.5-5.1) Chloride Level 103 mmol/L (98-107) Carbon Dioxide Level 29 mmol/L (21-32) Anion Gap 9 (6-14) Blood Urea Nitrogen 25 mg/dL (8-26) Creatinine 1.6 mg/dL (0.7-1.3) Estimated GFR (Cockcroft-Gault) 54.6 Glucose Level 227 mg/dL (70-99) Calcium Level 8.4 mg/dL (8.5-10.1) Magnesium Level 1.7 mg/dL (1.8-2.4) Total Bilirubin 1.3 mg/dL (0.2-1.0) Direct Bilirubin 0.3 mg/dL (0.0-0.2) Aspartate Amino Transf (AST/SGOT) 16 U/L (15-37) Alanine Aminotransferase (ALT/SGPT) 22 U/L (16-63) Alkaline Phosphatase 79 U/L (46-116) Creatine Kinase 111 U/L (39-308) Creatine Kinase MB (Mass) 2.4 ng/mL (0.0-3.6) Creatine Kinase MB Relative Index 2.2 % (0-4) Troponin I Quantitative < 0.017 ng/mL (0.000-0.055) OI-Oto-J-Type Natriuretic Peptide 392 pg/mL (0-124) Total Protein 7.2 g/dL (6.4-8.2) Albumin 3.5 g/dL (3.4-5.0) Lipase 93 U/L (73-393) Urine Collection Type Unknown Urine Color Yellow Urine Clarity Clear Urine pH 5.5 Urine Specific [place] 1.020 Urine Protein Negative mg/dL (NEG-TRACE) Urine Glucose (UA) >=1000 mg/dL (NEG) Urine Ketones (Stick) Negative mg/dL (NEG) Urine Blood Negative (NEG) Urine Nitrite Negative (NEG) Urine Bilirubin Negative (NEG) Urine Urobilinogen Dipstick 0.2 mg/dL (0.2 mg/dL) Urine Leukocyte Esterase Negative (NEG) Urine RBC 0 /HPF (0-2) Urine WBC 0 /HPF (0-4) Urine Squamous Epithelial Cells Occ /LPF Urine Bacteria 0 /HPF (0-FEW) Urine Mucus Slight /LPF Glucose (Fingerstick) 238 mg/dL (70-99) Test 05/31/17 22:20 06/01/17 04:30 06/01/17 07:54 06/01/17 11:25 Troponin I Quantitative < 0.017 ng/mL (0.000-0.055) < 0.017 ng/mL (0.000-0.055) White Blood Count 5.6 x10^3/uL (4.0-11.0) Red Blood Count 3.68 x10^6/uL (4.30-5.70) Hemoglobin 11.8 g/dL (13.0-17.5) Hematocrit 35.6 % (39.0-53.0) Mean Corpuscular Volume 97 fL (79-100) Mean Corpuscular Hemoglobin 32 pg (25-35) Mean Corpuscular Hemoglobin Concent 33 g/dL (31-37) Red Cell Distribution Width 14.2 % (11.5-14.5) Platelet Count 175 x10^3/uL (140-400) Neutrophils (%) (Auto) 59 % (31-73) Lymphocytes (%) (Auto) 28 % (24-48) Monocytes (%) (Auto) 9 % (0-9) Eosinophils (%) (Auto) 4 % (0-3) Basophils (%) (Auto) 1 % (0-3) Neutrophils # (Auto) 3.3 x10^3uL (1.8-7.7) Lymphocytes # (Auto) 1.6 x10^3/uL (1.0-4.8) Monocytes # (Auto) 0.5 x10^3/uL (0.0-1.1) Eosinophils # (Auto) 0.2 x10^3/uL (0.0-0.7) Basophils # (Auto) 0.0 x10^3/uL (0.0-0.2) Sodium Level 139 mmol/L (136-145) Potassium Level 3.7 mmol/L (3.5-5.1) Chloride Level 102 mmol/L (98-107) Carbon Dioxide Level 28 mmol/L (21-32) Anion Gap 9 (6-14) Blood Urea Nitrogen 20 mg/dL (8-26) Creatinine 1.6 mg/dL (0.7-1.3) Estimated GFR (Cockcroft-Gault) 54.6 Glucose Level 226 mg/dL (70-99) Calcium Level 9.0 mg/dL (8.5-10.1) Glucose (Fingerstick) 195 mg/dL (70-99) 140 mg/dL (70-99) Test 06/01/17 16:23 Glucose (Fingerstick) 76 mg/dL (70-99) Laboratory Tests Test 05/31/17 20:28 05/31/17 22:20 06/01/17 04:30 06/01/17 07:54 Glucose (Fingerstick) 238 mg/dL (70-99) 195 mg/dL (70-99) Troponin I Quantitative < 0.017 ng/mL (0.000-0.055) < 0.017 ng/mL (0.000-0.055) White Blood Count 5.6 x10^3/uL (4.0-11.0) Red Blood Count 3.68 x10^6/uL (4.30-5.70) Hemoglobin 11.8 g/dL (13.0-17.5) Hematocrit 35.6 % (39.0-53.0) Mean Corpuscular Volume 97 fL (79-100) Mean Corpuscular Hemoglobin 32 pg (25-35) Mean Corpuscular Hemoglobin Concent 33 g/dL (31-37) Red Cell Distribution Width 14.2 % (11.5-14.5) Platelet Count 175 x10^3/uL (140-400) Neutrophils (%) (Auto) 59 % (31-73) Lymphocytes (%) (Auto) 28 % (24-48) Monocytes (%) (Auto) 9 % (0-9) Eosinophils (%) (Auto) 4 % (0-3) Basophils (%) (Auto) 1 % (0-3) Neutrophils # (Auto) 3.3 x10^3uL (1.8-7.7) Lymphocytes # (Auto) 1.6 x10^3/uL (1.0-4.8) Monocytes # (Auto) 0.5 x10^3/uL (0.0-1.1) Eosinophils # (Auto) 0.2 x10^3/uL (0.0-0.7) Basophils # (Auto) 0.0 x10^3/uL (0.0-0.2) Sodium Level 139 mmol/L (136-145) Potassium Level 3.7 mmol/L (3.5-5.1) Chloride Level 102 mmol/L (98-107) Carbon Dioxide Level 28 mmol/L (21-32) Anion Gap 9 (6-14) Blood Urea Nitrogen 20 mg/dL (8-26) Creatinine 1.6 mg/dL (0.7-1.3) Estimated GFR (Cockcroft-Gault) 54.6 Glucose Level 226 mg/dL (70-99) Calcium Level 9.0 mg/dL (8.5-10.1) Test 06/01/17 11:25 06/01/17 16:23 Glucose (Fingerstick) 140 mg/dL (70-99) 76 mg/dL (70-99) Assessment/Plan Assessment/Plan His patient has a known history of cardiac issues and comes in with dyspnea but this appears to be COPD related. The automotive brake technician are treating the patient already. The patient's pain seems to be most likely noncardiac in origin. I agree with present plan. Thank you very much for asking me to participate in the care of this patient GEORGES DE LA FUENTE MD Jun 01, 2017 20:05
[2017-06-01] MEDS: TAMSULOSIN 0.4 MG CAP.ER.24H. PO SCH ×2 (20:30→23:02)
[2017-06-01] MEDS: INSULIN DETEMIR 300 UNITS/3 ML INSULN.PEN. SQ SCH (22:58)
[2017-06-01 23:00] VITALS: BP 140/86
--- NOTE | 2017-06-02 00:08 | CONS ---
DATE OF CONSULTATION: 06/01/2017 ATTENDING PHYSICIAN: Gwen Navarro MD REASON FOR CONSULTATION: The patient is seen in pulmonary consultation at the request of Dr. Navarro for increasing shortness of air and left-sided chest pain. HISTORY OF PRESENT ILLNESS: The patient is well known to me. He is a 56-year-old with history of obstructive sleep apnea, presented with increasing shortness of breath, some left-sided chest discomfort. He underwent CT angiogram. There was no central major segmental pulmonary artery filling defects. He has some small sub 5 mm noncalcified nodules. No pleural effusions. The heart size was normal without any pericardial effusion. No fever, chills or night sweats. PAST MEDICAL HISTORY: Otherwise remarkable for obstructive sleep apnea on home CPAP, AFib, coronary artery disease, hypertension, COPD, previous CVA, TIA, Hodgkin's lymphoma, vitamin B12 deficiency, gout, diabetes, depression. PAST SURGICAL HISTORY: Status post pacemaker. ALLERGIES: No known drug allergies. CURRENT MEDICATION: List was reviewed. Please see the MRAD. HOME MEDICATIONS: List was likewise reviewed. PHYSICAL EXAMINATION: GENERAL: Morbid obese individual in no respiratory distress, currently on 2 liters of oxygen supplementation. HEENT: Eyes, the sclerae were nonicteric. NECK: Jugular venous distention could not be assessed secondary to body habitus. LUNGS: Adequate airway flow, no wheezes. CARDIOVASCULAR: Regular rate and rhythm with S1, S2, no S3. ABDOMEN: Soft, nontender, obese. EXTREMITIES: No clubbing or cyanosis. Some edema. NEUROLOGIC: The patient was awake, alert, following commands. A detailed neurologic exam was not performed. LABORATORY DATA: Reviewed. White count was normal. Hemoglobin and hematocrit were normal. Electrolytes were normal. D-dimer was less than 0.27. UA was noted. CT as indicated above. IMPRESSION: 1. Progressive dyspnea secondary to acute nonspecific bronchitis, morbid obesity, deconditioning and suspect secondary pulmonary hypertension. 2. Hodgkin's lymphoma, status post cardiac surgery in 2002 and chemotherapy in 2004. 3. Obstructive sleep apnea. 4. Morbid obesity. 5. Depression. 6. Chronic kidney disease. PLAN: 1. Recommend treating acute bronchitis with Zithromax and short course of prednisone. 2. Continue home CPAP unit. 3. Continue other home medications. I suspect the patient could be discharged within the next 24-48 hours. I do appreciate the privilege in sharing in the patient's care. ROSAURA ALFRED MD DR: SHALA/sagar JOB#: [id number] / [id number]
[2017-06-02 07:00] VITALS: BP 128/100
[2017-06-02] MEDS: IPRATRPIUM/ALBUTEROL 0.5/2.5MG 3 ML NEBU. NEB SCH (08:16)
[2017-06-02] MEDS: BUDESONIDE 0.5 MG/2 ML NEBU. NEB SCH (08:16)
[2017-06-02] MEDS: ALBUTEROL SULFATE 2.5 MG/3 ML NEBU. NEB SCH (08:17)
[2017-06-02] MEDS: AZITHROMYCIN 250 MG TABLET. PO SCH (08:20)
[2017-06-02] MEDS: LUBIPROSTONE 8 MCG CAPSULE PO SCH (08:20)
[2017-06-02] MEDS: POTASSIUM CHLORIDE 10 MEQ TABLET.ER. PO SCH (08:21)
[2017-06-02] MEDS: ASPIRIN CHEWABLE 81 MG TABLET. PO SCH (08:21)
[2017-06-02] MEDS: FUROSEMIDE 40 MG TABLET. PO SCH (08:21)
[2017-06-02] MEDS: CARVEDILOL 12.5 MG TABLET. PO SCH (08:21)
[2017-06-02] MEDS: LIDOCAINE (700MG/PATCH) PATCH. TD SCH (08:22)
[2017-06-02] MEDS: LOSARTAN POTASSIUM 50 MG TABLET. PO SCH (08:22)
[2017-06-02] MEDS: INSULIN ASPART 300 UNITS/3 ML INSULN.PEN SQ SCH ×4 (08:30→11:09)
[2017-06-02] MEDS: ALLOPURINOL 100 MG TABLET. PO SCH (08:52)
[2017-06-02] MEDS ORDERED: ENOXAPARIN 40 MG/0.4 ML SYRINGE. SQ SCH (09:15)
--- NOTE | 2017-06-02 10:19 | PDOC ---
PULMONARY PROGRESS NOTES Vitals Vital Signs Date Time Temp Pulse Resp B/P (MAP) Pulse Ox O2 Delivery O2 Flow Rate FiO2 06/02/17 08:22 103 128/100 06/02/17 08:19 Room Air 06/02/17 08:00 1.0 06/02/17 07:00 97.8 20 100 97.8 Lungs: Wheezing Cardiovascular: S1 Abdomen: Soft, Non-tender, Other Extremities: Other Labs Laboratory Tests Test 05/31/17 14:15 05/31/17 14:20 05/31/17 14:25 05/31/17 20:28 D-Dimer (Rimma) < 0.27 ug/mlFEU White Blood Count 6.3 x10^3/uL (4.0-11.0) Red Blood Count 4.06 x10^6/uL (4.30-5.70) Hemoglobin 13.3 g/dL (13.0-17.5) Hematocrit 38.3 % (39.0-53.0) Mean Corpuscular Volume 94 fL (79-100) Mean Corpuscular Hemoglobin 33 pg (25-35) Mean Corpuscular Hemoglobin Concent 35 g/dL (31-37) Red Cell Distribution Width 14.2 % (11.5-14.5) Platelet Count 203 x10^3/uL (140-400) Neutrophils (%) (Auto) 65 % (31-73) Lymphocytes (%) (Auto) 22 % (24-48) Monocytes (%) (Auto) 9 % (0-9) Eosinophils (%) (Auto) 3 % (0-3) Basophils (%) (Auto) 1 % (0-3) Neutrophils # (Auto) 4.1 x10^3uL (1.8-7.7) Lymphocytes # (Auto) 1.4 x10^3/uL (1.0-4.8) Monocytes # (Auto) 0.5 x10^3/uL (0.0-1.1) Eosinophils # (Auto) 0.2 x10^3/uL (0.0-0.7) Basophils # (Auto) 0.1 x10^3/uL (0.0-0.2) Prothrombin Time 12.1 SEC (11.7-14.0) Prothromb Time International Ratio 1.0 (0.8-1.1) Sodium Level 141 mmol/L (136-145) Potassium Level 3.9 mmol/L (3.5-5.1) Chloride Level 103 mmol/L (98-107) Carbon Dioxide Level 29 mmol/L (21-32) Anion Gap 9 (6-14) Blood Urea Nitrogen 25 mg/dL (8-26) Creatinine 1.6 mg/dL (0.7-1.3) Estimated GFR (Cockcroft-Gault) 54.6 Glucose Level 227 mg/dL (70-99) Calcium Level 8.4 mg/dL (8.5-10.1) Magnesium Level 1.7 mg/dL (1.8-2.4) Total Bilirubin 1.3 mg/dL (0.2-1.0) Direct Bilirubin 0.3 mg/dL (0.0-0.2) Aspartate Amino Transf (AST/SGOT) 16 U/L (15-37) Alanine Aminotransferase (ALT/SGPT) 22 U/L (16-63) Alkaline Phosphatase 79 U/L (46-116) Creatine Kinase 111 U/L (39-308) Creatine Kinase MB (Mass) 2.4 ng/mL (0.0-3.6) Creatine Kinase MB Relative Index 2.2 % (0-4) Troponin I Quantitative < 0.017 ng/mL (0.000-0.055) KB-Snt-W-Type Natriuretic Peptide 392 pg/mL (0-124) Total Protein 7.2 g/dL (6.4-8.2) Albumin 3.5 g/dL (3.4-5.0) Lipase 93 U/L (73-393) Urine Collection Type Unknown Urine Color Yellow Urine Clarity Clear Urine pH 5.5 Urine Specific [place] 1.020 Urine Protein Negative mg/dL (NEG-TRACE) Urine Glucose (UA) >=1000 mg/dL (NEG) Urine Ketones (Stick) Negative mg/dL (NEG) Urine Blood Negative (NEG) Urine Nitrite Negative (NEG) Urine Bilirubin Negative (NEG) Urine Urobilinogen Dipstick 0.2 mg/dL (0.2 mg/dL) Urine Leukocyte Esterase Negative (NEG) Urine RBC 0 /HPF (0-2) Urine WBC 0 /HPF (0-4) Urine Squamous Epithelial Cells Occ /LPF Urine Bacteria 0 /HPF (0-FEW) Urine Mucus Slight /LPF Glucose (Fingerstick) 238 mg/dL (70-99) Test 05/31/17 22:20 06/01/17 04:30 06/01/17 07:54 06/01/17 11:25 Troponin I Quantitative < 0.017 ng/mL (0.000-0.055) < 0.017 ng/mL (0.000-0.055) White Blood Count 5.6 x10^3/uL (4.0-11.0) Red Blood Count 3.68 x10^6/uL (4.30-5.70) Hemoglobin 11.8 g/dL (13.0-17.5) Hematocrit 35.6 % (39.0-53.0) Mean Corpuscular Volume 97 fL (79-100) Mean Corpuscular Hemoglobin 32 pg (25-35) Mean Corpuscular Hemoglobin Concent 33 g/dL (31-37) Red Cell Distribution Width 14.2 % (11.5-14.5) Platelet Count 175 x10^3/uL (140-400) Neutrophils (%) (Auto) 59 % (31-73) Lymphocytes (%) (Auto) 28 % (24-48) Monocytes (%) (Auto) 9 % (0-9) Eosinophils (%) (Auto) 4 % (0-3) Basophils (%) (Auto) 1 % (0-3) Neutrophils # (Auto) 3.3 x10^3uL (1.8-7.7) Lymphocytes # (Auto) 1.6 x10^3/uL (1.0-4.8) Monocytes # (Auto) 0.5 x10^3/uL (0.0-1.1) Eosinophils # (Auto) 0.2 x10^3/uL (0.0-0.7) Basophils # (Auto) 0.0 x10^3/uL (0.0-0.2) Sodium Level 139 mmol/L (136-145) Potassium Level 3.7 mmol/L (3.5-5.1) Chloride Level 102 mmol/L (98-107) Carbon Dioxide Level 28 mmol/L (21-32) Anion Gap 9 (6-14) Blood Urea Nitrogen 20 mg/dL (8-26) Creatinine 1.6 mg/dL (0.7-1.3) Estimated GFR (Cockcroft-Gault) 54.6 Glucose Level 226 mg/dL (70-99) Hemoglobin A1c 7.5 % (4.8-5.6) Calcium Level 9.0 mg/dL (8.5-10.1) Glucose (Fingerstick) 195 mg/dL (70-99) 140 mg/dL (70-99) Test 06/01/17 16:23 06/01/17 20:51 06/02/17 07:10 Glucose (Fingerstick) 76 mg/dL (70-99) 189 mg/dL (70-99) 224 mg/dL (70-99) Laboratory Tests Test 06/01/17 11:25 06/01/17 16:23 06/01/17 20:51 06/02/17 07:10 Glucose (Fingerstick) 140 mg/dL (70-99) 76 mg/dL (70-99) 189 mg/dL (70-99) 224 mg/dL (70-99) Medications Active Scripts Medications Dose Route/Sig Max Daily Dose Days Date Category Novolog Mix 70-30 Flexpen Syrn (Insuln Asp Prt/Insulin Aspart) 100 Unit/1 Ml Insuln.pen 60 Unit SQ BID 05/31/17 Reported Flomax (Tamsulosin Hcl) 0.4 Mg Cap.er.24h 0.4 Mg PO QHS 30 05/18/17 Rx Furosemide 40 Mg Tablet 40 Mg PO DAILY 30 05/18/17 Rx Lidoderm (Lidocaine) 700 Mg Adh..patch 1 Patch TD DAILY 11/07/16 Rx Diltiazem 24HR Cd (Diltiazem Hcl) 120 Mg Cap.er.24h 120 Mg PO DAILY 11/07/16 Rx Cozaar (Losartan Potassium) 50 Mg Tablet 100 Mg PO DAILY 11/02/16 Rx Lactulose 20 Gm/30 Ml Solution 20 Gm PO BID PRN 11/02/16 Rx Hydrocodone-Apap 5-325 (Hydrocodone Bit/Acetaminophen) 1 Each Tablet 1 Tab PO PRN Q4HRS PRN 14 11/02/16 Rx Carvedilol 12.5 Mg Tablet 12.5 Mg PO BIDWMEALS 11/02/16 Rx Magnesium Citrate 296 Ml Solution 296 Ml PO PRN PRN 10/26/16 Reported Amitiza (Lubiprostone) 8 Mcg Capsule 2 Cap PO BID 10/26/16 Reported Allopurinol 100 Mg Tablet 100 Mg PO DAILY 09/02/16 Reported Potassium Chloride 10 Meq Tablet.er 10 Meq PO DAILY 09/02/16 Reported Metformin Hcl Er (Metformin Hcl) 500 Mg Tab.er.24h 1 Tab PO DAILY 09/13/15 Reported Restoril (Temazepam) 15 Mg Capsule 15 Mg PO PRN QHS PRN 01/20/15 Rx Children's Aspirin (Aspirin) 81 Mg Tab.chew 81 Mg PO DAILY 01/17/15 Reported Impression . FULL CONSULT DICTATED AECOPD KALEY NO PE AGREE WITH CURRENT RX THANKS ROSAURA ALFRED MD Jun 02, 2017 10:19
[2017-06-02 10:53] VITALS: BP 115/81
[2017-06-02] MEDS: CODEINE SULFATE 30 MG TABLET. PO PRN (11:01)
[2017-06-02] MEDS ORDERED: IPRATRPIUM/ALBUTEROL 0.5/2.5MG 3 ML NEBU. ONE (11:12)
--- NOTE | 2017-06-02 11:49 | PDOC ---
PROGRESS NOTES Chief Complaint Chief Complaint Chest pain, cough ASSESSMENT AND PLAN: Acute shortness of breath 2/2 COPD EXacerbation and acute systolic CHF exacerbation EF 45% acute hypoxic resp failure Obesity morbid Hypertension Diabetes mellitus type 2 uncontrolled 70/30 bid Sleep apnea with CPAP urination difficulty, BPH likely Chronic A. fib wo AC PPM h/o hodgkins morbid obesity plan: fu with card, pulm cont home meds ssi and insulin increase duoneb, add cough meds dvt ppx ptot dc soon History of Present Illness History of Present Illness c/o right rib cage pain, sharp, 1 sec, intermittent, not tenderness, not pleuritic cont cough with some sputum Vitals Vitals Vital Signs Date Time Temp Pulse Resp B/P (MAP) Pulse Ox O2 Delivery O2 Flow Rate FiO2 06/02/17 11:15 Room Air 06/02/17 11:01 99 1.0 06/02/17 10:53 97.8 109 20 115/81 (92) 97.8 Physical Exam General: Alert, Oriented X3, Cooperative Heart: Regular rate, Normal S1, Normal S2, Other (irregular, S1 and S2,) Lungs: Other (bl decreased bs) Abdomen: Other (abdomen is protuberant, bowel sounds were present, no significant tenderness.) Extremities: No clubbing, No edema Skin: No significant lesion Labs LABS Laboratory Tests Test 06/01/17 16:23 06/01/17 20:51 06/02/17 07:10 06/02/17 10:41 Glucose (Fingerstick) 76 mg/dL (70-99) 189 mg/dL (70-99) 224 mg/dL (70-99) 171 mg/dL (70-99) Review of Systems Review of Systems no fever, chills, chest pain Assessment and Plan Assessmemt and Plan Problems Medical Problems: (1) Shortness of breath Status: Acute Problems: Comment Review of Relevant I have reviewed the following items antonino (where applicable) has been applied. Labs Laboratory Tests Test 05/31/17 14:15 05/31/17 14:20 05/31/17 14:25 05/31/17 20:28 D-Dimer (Rimma) < 0.27 ug/mlFEU White Blood Count 6.3 x10^3/uL (4.0-11.0) Red Blood Count 4.06 x10^6/uL (4.30-5.70) Hemoglobin 13.3 g/dL (13.0-17.5) Hematocrit 38.3 % (39.0-53.0) Mean Corpuscular Volume 94 fL (79-100) Mean Corpuscular Hemoglobin 33 pg (25-35) Mean Corpuscular Hemoglobin Concent 35 g/dL (31-37) Red Cell Distribution Width 14.2 % (11.5-14.5) Platelet Count 203 x10^3/uL (140-400) Neutrophils (%) (Auto) 65 % (31-73) Lymphocytes (%) (Auto) 22 % (24-48) Monocytes (%) (Auto) 9 % (0-9) Eosinophils (%) (Auto) 3 % (0-3) Basophils (%) (Auto) 1 % (0-3) Neutrophils # (Auto) 4.1 x10^3uL (1.8-7.7) Lymphocytes # (Auto) 1.4 x10^3/uL (1.0-4.8) Monocytes # (Auto) 0.5 x10^3/uL (0.0-1.1) Eosinophils # (Auto) 0.2 x10^3/uL (0.0-0.7) Basophils # (Auto) 0.1 x10^3/uL (0.0-0.2) Prothrombin Time 12.1 SEC (11.7-14.0) Prothromb Time International Ratio 1.0 (0.8-1.1) Sodium Level 141 mmol/L (136-145) Potassium Level 3.9 mmol/L (3.5-5.1) Chloride Level 103 mmol/L (98-107) Carbon Dioxide Level 29 mmol/L (21-32) Anion Gap 9 (6-14) Blood Urea Nitrogen 25 mg/dL (8-26) Creatinine 1.6 mg/dL (0.7-1.3) Estimated GFR (Cockcroft-Gault) 54.6 Glucose Level 227 mg/dL (70-99) Calcium Level 8.4 mg/dL (8.5-10.1) Magnesium Level 1.7 mg/dL (1.8-2.4) Total Bilirubin 1.3 mg/dL (0.2-1.0) Direct Bilirubin 0.3 mg/dL (0.0-0.2) Aspartate Amino Transf (AST/SGOT) 16 U/L (15-37) Alanine Aminotransferase (ALT/SGPT) 22 U/L (16-63) Alkaline Phosphatase 79 U/L (46-116) Creatine Kinase 111 U/L (39-308) Creatine Kinase MB (Mass) 2.4 ng/mL (0.0-3.6) Creatine Kinase MB Relative Index 2.2 % (0-4) Troponin I Quantitative < 0.017 ng/mL (0.000-0.055) ZS-Osb-F-Type Natriuretic Peptide 392 pg/mL (0-124) Total Protein 7.2 g/dL (6.4-8.2) Albumin 3.5 g/dL (3.4-5.0) Lipase 93 U/L (73-393) Urine Collection Type Unknown Urine Color Yellow Urine Clarity Clear Urine pH 5.5 Urine Specific [place] 1.020 Urine Protein Negative mg/dL (NEG-TRACE) Urine Glucose (UA) >=1000 mg/dL (NEG) Urine Ketones (Stick) Negative mg/dL (NEG) Urine Blood Negative (NEG) Urine Nitrite Negative (NEG) Urine Bilirubin Negative (NEG) Urine Urobilinogen Dipstick 0.2 mg/dL (0.2 mg/dL) Urine Leukocyte Esterase Negative (NEG) Urine RBC 0 /HPF (0-2) Urine WBC 0 /HPF (0-4) Urine Squamous Epithelial Cells Occ /LPF Urine Bacteria 0 /HPF (0-FEW) Urine Mucus Slight /LPF Glucose (Fingerstick) 238 mg/dL (70-99) Test 05/31/17 22:20 06/01/17 04:30 06/01/17 07:54 06/01/17 11:25 Troponin I Quantitative < 0.017 ng/mL (0.000-0.055) < 0.017 ng/mL (0.000-0.055) White Blood Count 5.6 x10^3/uL (4.0-11.0) Red Blood Count 3.68 x10^6/uL (4.30-5.70) Hemoglobin 11.8 g/dL (13.0-17.5) Hematocrit 35.6 % (39.0-53.0) Mean Corpuscular Volume 97 fL (79-100) Mean Corpuscular Hemoglobin 32 pg (25-35) Mean Corpuscular Hemoglobin Concent 33 g/dL (31-37) Red Cell Distribution Width 14.2 % (11.5-14.5) Platelet Count 175 x10^3/uL (140-400) Neutrophils (%) (Auto) 59 % (31-73) Lymphocytes (%) (Auto) 28 % (24-48) Monocytes (%) (Auto) 9 % (0-9) Eosinophils (%) (Auto) 4 % (0-3) Basophils (%) (Auto) 1 % (0-3) Neutrophils # (Auto) 3.3 x10^3uL (1.8-7.7) Lymphocytes # (Auto) 1.6 x10^3/uL (1.0-4.8) Monocytes # (Auto) 0.5 x10^3/uL (0.0-1.1) Eosinophils # (Auto) 0.2 x10^3/uL (0.0-0.7) Basophils # (Auto) 0.0 x10^3/uL (0.0-0.2) Sodium Level 139 mmol/L (136-145) Potassium Level 3.7 mmol/L (3.5-5.1) Chloride Level 102 mmol/L (98-107) Carbon Dioxide Level 28 mmol/L (21-32) Anion Gap 9 (6-14) Blood Urea Nitrogen 20 mg/dL (8-26) Creatinine 1.6 mg/dL (0.7-1.3) Estimated GFR (Cockcroft-Gault) 54.6 Glucose Level 226 mg/dL (70-99) Hemoglobin A1c 7.5 % (4.8-5.6) Calcium Level 9.0 mg/dL (8.5-10.1) Glucose (Fingerstick) 195 mg/dL (70-99) 140 mg/dL (70-99) Test 06/01/17 16:23 06/01/17 20:51 06/02/17 07:10 06/02/17 10:41 Glucose (Fingerstick) 76 mg/dL (70-99) 189 mg/dL (70-99) 224 mg/dL (70-99) 171 mg/dL (70-99) Laboratory Tests Test 06/01/17 16:23 06/01/17 20:51 06/02/17 07:10 06/02/17 10:41 Glucose (Fingerstick) 76 mg/dL (70-99) 189 mg/dL (70-99) 224 mg/dL (70-99) 171 mg/dL (70-99) Medications Current Medications Iohexol (Omnipaque 350 Mg/ml) 100 ml 1X ONCE IV Last administered on 16:33; Start 05/31/17 at 16:30; Stop 05/31/17 at 16:31; Status DC Info (Do NOT chart on this entry -- for MONITORING) 1 each PRN DAILY PRN MC SEE COMMENTS; Start 05/31/17 at 16:30; Stop 06/02/17 at 16:29 Ondansetron HCl (Zofran) 4 mg PRN Q8HRS PRN IV NAUSEA/VOMITING; Start 05/31/17 at 16:45; Stop 06/01/17 at 16:44; Status DC Allopurinol (Zyloprim) 100 mg DAILY PO Last administered on 06/02/17 08:52; Start 06/01/17 at 09:00 Aspirin (Children'S Aspirin) 81 mg DAILY08 PO Last administered on 06/02/17 08: 21; Start 06/01/17 at 08:00 Carvedilol (Coreg) 12.5 mg BIDWMEALS PO Last administered on 06/02/17 08:21; Start 05/31/17 at 21:00 Diltiazem HCl (Cardizem 24hr Cd) 120 mg DAILY PO Last administered on 06/02/17 08:21; Start 06/01/17 at 09:00 Furosemide (Lasix) 40 mg DAILY PO Last administered on 06/02/17 08:21; Start at 09:00 Acetaminophen/ Hydrocodone Bitart (Lortab 5/325) 1 tab PRN Q4HRS PRN PO MILD PAIN; Start 05/31/17 at 19:45 Lidocaine (Lidoderm) 1 patch DAILY TD Last administered on 06/02/17 08:22; Start 06/01/17 at 09:00 Losartan Potassium (Cozaar) 100 mg DAILY PO Last administered on 06/02/17 08:22 ; Start 06/01/17 at 09:00 Lubiprostone (Amitiza) 16 mcg BIDWMEALS PO Last administered on 06/02/17 08:20 ; Start 05/31/17 at 21:00 Magnesium Citrate (Citroma) 296 ml PRN DAILY PRN PO CONSTIPATION Last administered on 06/01/17 20:30; Start 05/31/17 at 19:45 Metformin HCl (Glucophage Xr) 500 mg DAILYWBKFT PO ; Start 06/03/17 at 08:00 Potassium Chloride (Klor-Con) 10 meq DAILY08 PO Last administered on 06/02/17 08:21; Start 06/01/17 at 08:00 Tamsulosin HCl (Flomax) 0.4 mg QHS PO Last administered on 06/01/17 23:02; Start 05/31/17 at 21:00 Temazepam (Restoril) 15 mg PRN QHS PRN PO INSOMNIA Last administered on 20:55; Start 05/31/17 at 19:45 Lactulose 20 gm PRN BID PRN PO CONSTIPATION; Start 05/31/17 at 20:15 Insulin Detemir (Levemir) 50 units QHS SQ Last administered on 06/01/17 22:58; Start 05/31/17 at 21:00 Insulin Aspart (NovoLOG) 20 units TIDAC SQ Last administered on 06/02/17 11:08 ; Start 06/01/17 at 07:30 Insulin Aspart (NovoLOG) 0-9 UNITS QIDACHS SQ Last administered on 06/02/17 11: 09; Start 05/31/17 at 21:00 Dextrose (Dextrose 50%-Water Syringe) 12.5 gm PRN Q15MIN PRN IV SEE COMMENTS; Start 05/31/17 at 20:45 Albuterol/ Ipratropium (Duoneb) 3 ml BID NEB Last administered on 06/02/17 08: 16; Start 05/31/17 at 21:00; Stop 06/02/17 at 09:08; Status DC Zolpidem Tartrate (Ambien) 5 mg PRN QHS PRN PO INSOMNIA, MAY REPEAT IN 1HR Last administered on 06/01/17 23:01; Start 05/31/17 at 22:15 Albuterol Sulfate (Ventolin Neb Soln) 2.5 mg RTQID NEB Last administered on 06/01 15:23; Start 06/01/17 at 08:00; Stop 06/02/17 at 09:08; Status DC Albuterol Sulfate (Ventolin Neb Soln) 2.5 mg PRN Q4HRS PRN NEB SHORTNESS OF BREATH; Start 05/31/17 at 22:15 Budesonide (Pulmicort) 0.5 mg RTBID NEB Last administered on 06/02/17 08:16; Start 06/01/17 at 08:00 Budesonide (Pulmicort) 0.5 mg 1X ONCE NEB Last administered on 05/31/17 22:37 ; Start 05/31/17 at 22:30; Stop 05/31/17 at 22:31; Status DC Oxycodone/ Acetaminophen (Percocet 5/325) 1 tab PRN Q4HRS PRN PO PAIN Last administered on 06/01/17 14:17; Start 05/31/17 at 22:30 Magnesium Sulfate/ Dextrose 50 ml @ 25 mls/hr 1X ONCE IV Last administered on 05/31/17 22:37; Start 05/31/17 at 22:30; Stop 06/01/17 at 00:29; Status DC Azithromycin (Zithromax) 500 mg DAILY PO Last administered on 06/02/17 08:20; Start 06/01/17 at 15:00; Stop 06/03/17 at 15:00 Codeine Sulfate (Codeine) 15 mg PRN Q6HRS PRN PO cough; Start 06/01/17 at 15:00 Codeine Sulfate (Codeine) 30 mg PRN Q6HRS PRN PO cough Last administered on 06/02 11:01; Start 06/01/17 at 15:00 Albuterol Sulfate (Ventolin Neb Soln) 2.5 mg PRN Q2HR PRN NEB SHORTNESS OF BREATH; Start 06/03/17 at 08:00 Albuterol/ Ipratropium (Duoneb) 3 ml QID NEB Last administered on 06/02/17 11: 15; Start 06/02/17 at 13:00 Benzonatate (Tessalon Perle) 100 mg THQ666 PO ; Start 06/02/17 at 14:00 Enoxaparin Sodium (Lovenox 40mg Syringe) 40 mg Q24H SQ Last administered on 06/02t 11:02; Start 06/02/17 at 09:15 Albuterol/ Ipratropium (Duoneb) 3 ml STK-MED ONCE .ROUTE ; Start 06/02/17 at 11: 12; Stop 06/02/17 at 11:13; Status DC Active Scripts Active Flomax (Tamsulosin Hcl) 0.4 Mg Cap.er.24h 0.4 Mg PO QHS 30 Days Furosemide 40 Mg Tablet 40 Mg PO DAILY 30 Days Lidoderm (Lidocaine) 700 Mg Adh..patch 1 Patch TD DAILY Diltiazem 24HR Cd (Diltiazem Hcl) 120 Mg Cap.er.24h 120 Mg PO DAILY Cozaar (Losartan Potassium) 50 Mg Tablet 100 Mg PO DAILY Lactulose 20 Gm/30 Ml Solution 20 Gm PO BID PRN Hydrocodone-Apap 5-325 (Hydrocodone Bit/Acetaminophen) 1 Each Tablet 1 Tab PO PRN Q4HRS PRN 14 Days Carvedilol 12.5 Mg Tablet 12.5 Mg PO BIDWMEALS Restoril (Temazepam) 15 Mg Capsule 15 Mg PO PRN QHS PRN Reported Novolog Mix 70-30 Flexpen Syrn (Insuln Asp Prt/Insulin Aspart) 100 Unit/1 Ml Insuln.pen 60 Unit SQ BID Magnesium Citrate 296 Ml Solution 296 Ml PO PRN PRN Amitiza (Lubiprostone) 8 Mcg Capsule 2 Cap PO BID Allopurinol 100 Mg Tablet 100 Mg PO DAILY Potassium Chloride 10 Meq Tablet.er 10 Meq PO DAILY Metformin Hcl Er (Metformin Hcl) 500 Mg Tab.er.24h 1 Tab PO DAILY Children's Aspirin (Aspirin) 81 Mg Tab.chew 81 Mg PO DAILY Vitals/I & O Vital Sign - Last 24 Hours 06/01/17 06/01/17 06/01/17 06/01/17 12:00 14:17 15:00 15:24 Temp 97.9 97.9 97.9 97.9 Pulse 72 118 Resp 20 20 B/P (MAP) 149/82 (104) 136/92 (107) Pulse Ox 95 97 98 O2 Delivery Room Air Room Air Room Air Nasal Cannula O2 Flow Rate 2.0 06/01/17 06/01/17 06/01/17 06/01/17 15:30 15:54 17:17 17:18 Pulse 116 B/P (MAP) 147/102 O2 Delivery Nasal Cannula Room Air Nasal Cannula O2 Flow Rate 2.0 2.0 06/01/17 06/01/17 06/01/17 06/01/17 19:00 19:30 20:00 23:00 Temp 98.2 98.2 98.2 98.2 Pulse 113 71 Resp 20 20 B/P (MAP) 136/96 (109) 140/86 (104) Pulse Ox 96 98 98 O2 Delivery Room Air Nasal Cannula Room Air Room Air O2 Flow Rate 1.0 06/02/17 06/02/17 06/02/17 06/02/17 07:00 08:00 08:19 08:21 Temp 97.8 97.8 Pulse 103 103 Resp 20 B/P (MAP) 128/100 (109) 128/100 Pulse Ox 100 O2 Delivery Room Air Room Air Room Air O2 Flow Rate 1.0 06/02/17 06/02/17 06/02/17 06/02/17 08:21 08:22 10:53 11:01 Temp 97.8 97.8 Pulse 103 103 109 Resp 20 B/P (MAP) 128/100 128/100 115/81 (92) Pulse Ox 99 99 O2 Delivery Room Air Room Air O2 Flow Rate 1.0 06/02/17 11:15 O2 Delivery Room Air Intake and Output 06/01/17 06/01/17 06/02/17 15:00 23:00 07:00 Intake Total 360 ml 1200 ml 500 ml Output Total 1200 ml Balance 360 ml 1200 ml -700 ml ALMAS ARELLANO MD Jun 02, 2017 11:49
[2017-06-02] MEDS ORDERED: IPRATRPIUM/ALBUTEROL 0.5/2.5MG 3 ML NEBU. NEB SCH (13:00)
[2017-06-02] MEDS ORDERED: AZIT250T6 PO (13:16)
[2017-06-02] MEDS ORDERED: BENZ100C15 PO (13:16)
--- NOTE | 2017-06-02 13:19 | PDOC3 ---
Discharge Summary [facility] Date of Admission: May 31, 2017 Discharge Date: Jun 02, 2017 Admitting Diagnosis Acute shortness of breath 2/2 COPD EXacerbation and acute systolic CHF exacerbation EF 45% acute hypoxic resp failure Obesity morbid Hypertension Diabetes mellitus type 2 uncontrolled 70/30 bid Sleep apnea with CPAP urination difficulty, BPH likely Chronic A. fib wo AC PPM h/o hodgkins morbid obesity Problems: Final Diagnosis CONSULTS card pulm Brief Hospital Course Mr. King is a 56 old obese M, comes for sob. He was just dced 1 week ago for sob, was treated with lasix for chf. Echo showed EF 45%. PT cont having cough, some sputum, on jerome and duoneb for COPD this time. He also c/o some right chest cage sharp pain which last only 1sec, likely 2/2 nerve pain. educated him to ob for now. dc home with jerome and cough meds dc tiem 35mn Patient History: FH: CHF (congestive heart failure) father FH: colon cancer G8 BROTHER Family history: Cardiovascular disease (situation) 32 MOTHER father Family history: Diabetes mellitus (situation) 32 MOTHER Problems: Disposition home CONDITION AT DISCHARGE: Improved Diet cardiac Scheduled Allopurinol (Allopurinol), 100 MG PO DAILY, (Reported) Aspirin (Children's Aspirin), 81 MG PO DAILY, (Reported) Azithromycin (Azithromycin Tablet), 500 MG PO DAILY Benzonatate (Benzonatate), 100 MG PO [id number] Carvedilol (Carvedilol), 12.5 MG PO BIDWMEALS Diltiazem Hcl (Diltiazem 24HR Cd), 120 MG PO DAILY Furosemide (Furosemide), 40 MG PO DAILY Insuln Asp Prt/Insulin Aspart (Novolog Mix 70-30 Flexpen Syrn), 60 UNIT SQ BID, (Reported) Lidocaine (Lidoderm), 1 PATCH TD DAILY Losartan Potassium (Cozaar), 100 MG PO DAILY Lubiprostone (Amitiza), 2 CAP PO BID, (Reported) Metformin Hcl (Metformin Hcl Er), 1 TAB PO DAILY, (Reported) Potassium Chloride (Potassium Chloride), 10 MEQ PO DAILY, (Reported) Tamsulosin Hcl (Flomax), 0.4 MG PO QHS Scheduled PRN Hydrocodone Bit/Acetaminophen (Hydrocodone-Apap 5-325 ), 1 TAB PO PRN Q4HRS PRN for MILD PAIN Lactulose (Lactulose), 20 GM PO BID PRN for CONSTIPATION Magnesium Citrate (Magnesium Citrate), 296 ML PO PRN PRN for CONSTIPATION, ( Reported) Temazepam (Restoril), 15 MG PO PRN QHS PRN for INSOMNIA Discontinued Medications Insulin Aspart (Novolog Flexpen), 20 UNIT SQ TIDWMEALS, (Reported) Insulin Detemir (Levemir), 50 UNIT SQ HS, (Reported) Follow Up card and pulm in 2 weeks ALMAS ARELLANO MD Jun 02, 2017 13:19
[2017-06-02] MEDS ORDERED: BENZONATATE 100 MG CAPSULE. PO SCH (14:00)
[2017-06-03] MEDS ORDERED: ALBUTEROL SULFATE 2.5 MG/3 ML NEBU. NEB PRN (08:00)
[2017-06-03] MEDS ORDERED: metFORMIN XR 500 MG TAB.ER.24H PO SCH (08:00)
== END 2017-06-02 15:04 | disposition home or self-care (01) | DRG 291 ==
LOC: ER 13:48 → 5 SOUTH 16:40
PROVIDERS: ADMIT Internal Medicine; ATTEND Internal Medicine
DX: I13.0 Hypertensive heart and chronic kidney disease with heart failure and stage 1 through stage 4 chronic kidney disease, or unspecified chronic kidney disease (principal); J96.01 Acute respiratory failure with hypoxia; I50.43 Acute on chronic combined systolic (congestive) and diastolic (congestive) heart failure; Z68.41 Body mass index [BMI] 40.0-44.9, adult; J44.1 Chronic obstructive pulmonary disease with (acute) exacerbation; C81.90 Hodgkin lymphoma, unspecified, unspecified site; J44.0 Chronic obstructive pulmonary disease with (acute) lower respiratory infection; E66.01 Morbid (severe) obesity due to excess calories; E78.5 Hyperlipidemia, unspecified; E11.65 Type 2 diabetes mellitus with hyperglycemia; E11.22 Type 2 diabetes mellitus with diabetic chronic kidney disease; I48.2 Chronic atrial fibrillation; I25.10 Atherosclerotic heart disease of native coronary artery without angina pectoris; F32.9 Major depressive disorder, single episode, unspecified; G47.33 Obstructive sleep apnea (adult) (pediatric); E53.8 Deficiency of other specified B group vitamins; M10.9 Gout, unspecified; N18.3 Chronic kidney disease, stage 3 (moderate); N40.1 Benign prostatic hyperplasia with lower urinary tract symptoms; F10.10 Alcohol abuse, uncomplicated; K59.00 Constipation, unspecified; J20.9 Acute bronchitis, unspecified; Z80.0 Family history of malignant neoplasm of digestive organs; Z80.42 Family history of malignant neoplasm of prostate; Z83.3 Family history of diabetes mellitus; Z82.49 Family history of ischemic heart disease and other diseases of the circulatory system; Z86.73 Personal history of transient ischemic attack (TIA), and cerebral infarction without residual deficits; Z95.0 Presence of cardiac pacemaker; Z92.21 Personal history of antineoplastic chemotherapy; Z85.72 Personal history of non-Hodgkin lymphomas
CPT/HCPCS: 36415; 71010; 71275; 80048; 80076; 81001; 82553; 82962; 83036; 83690; 83735; 83880; 84484; 85027; 85379; 85610; 93005; 93306; 94640; 99285; J1650; J1815; J7060; J7613; J7620; J7626; Q0144; Q9967

== ENCOUNTER 2017-09-20 12:21 | Emergency (ER) | payer MEDICARE, MEDICAID ==
[~2017-09-20] VITALS: Ht 182.9 cm; Wt 136.1 kg
[~2017-09-20 12:21] MED LIST changes: +AZIT250T6 PO; +BENZ100C15 PO; +INSU100V13 SQ; -LOSA1TAB17 PO; +LOSA1TAB22 PO
[2017-09-20 13:24] LABS: BASO # 0.1 x10^3/uL (0.0-0.2); BASO % 1 % (0-3); EOS % 4 % (0-3); HEMATOCRIT 35.6 % (39.0-53.0); HEMOGLOBIN 11.9 g/dL (13.0-17.5); LYMPH # 1.3 x10^3/uL (1.0-4.8); LYMPH % 21 % (24-48); MEAN CORPUSCULAR HEMOGLOBIN 32 pg (25-35); MEAN CORPUSCULAR HGB CONC 33 g/dL (31-37); MEAN CORPUSCULAR VOLUME 97 fL (79-100); MONO % 10 % (0-9); NEUT % 64 % (31-73); PLATELET COUNT 248 x10^3/uL (140-400); RED BLOOD COUNT 3.67 x10^6/uL (4.30-5.70); RED CELL DISTRIBUTION WIDTH 13.9 % (11.5-14.5); WHITE BLOOD COUNT 6.1 x10^3/uL (4.0-11.0)
[2017-09-20] MEDS ORDERED: KETOROLAC 30 MG/ML INJ. IV ONE (13:30)
[2017-09-20 13:56] LABS: BILIRUBIN,URINE NEGATIVE (NEG); GLUCOSE,URINE NEGATIVE (NEG); NITRITE,URINE NEGATIVE (NEG); PROTEIN,URINE NEGATIVE (NEG-TRACE); UROBILINOGEN,URINE 0.2 mg/dL (0.2 mg/dL)
[2017-09-20] MEDS ORDERED: IOHEXOL 300 MG/ML 100ML VIAL. IV ONE (14:00)
[2017-09-20 14:01] VITALS: BP 166/108
[2017-09-20] MEDS ORDERED: CONTRAST GIVEN MC PRN (14:15)
[2017-09-20 14:16] LABS: CALCIUM 8.9 mg/dL (8.5-10.1); CREATININE 1.8 mg/dL (0.7-1.3); GFR 47.5; POTASSIUM 3.8 mmol/L (3.5-5.1)
[2017-09-20 14:21] LABS: ALBUMIN 3.7 g/dL (3.4-5.0); ALBUMIN/GLOBULIN RATIO 0.9 (1.0-1.7); TOTAL BILIRUBIN 1.5 mg/dL (0.2-1.0); TOTAL PROTEIN 7.8 g/dL (6.4-8.2)
[2017-09-20 14:27] LABS: BACTERIA,URINE 0 /HPF (0-FEW); RBC,URINE 0 /HPF (0-2); SQUAMOUS EPITHELIAL CELL,UR OCC /LPF; WBC,URINE OCC /HPF (0-4)
--- NOTE | 2017-09-20 14:44 | EKG ---
[facility] [address] [place] [address] Test Date: 2017-09-20 Test Time: 12:42:42 Pat Name: REBEKAH GAMEZ Department: Room: Gender: M [employer] Application Consultant: [id number] : 1960 Requested By: SOLIS YANG Order Number: [id number] Reading MD: Measurements Intervals [place] Rate: 83 P: 0 RI: 174 QRS: -26 QRSD: 92 T: 48 QT: 370 QTc: 440 Interpretive Statements SINUS RHYTHM COMPLEX(ES) WITH ABERRANT INTRAVENTRICULAR CONDUCTION ATRIAL PREMATURE COMPLEX(ES) LEFTWARD AXIS QRS(T) CONTOUR ABNORMALITY CONSIDER ANTEROSEPTAL MYOCARDIAL DAMAGE CONSISTENT WITH INFERIOR INFARCT PROBABLY OLD ABNORMAL ECG RI6.01 No previous ECG available for comparison
--- NOTE | 2017-09-20 15:06 | RAD ---
EXAM: CT abdomen/pelvis with contrast. HISTORY: Left abdominal pain radiating to the back. TECHNIQUE: Computed tomography of the abdomen and pelvis was performed after the intravenous administration of 60 mL Omnipaque 300. COMPARISON: 10/27/2016. FINDINGS: Lung windows through the visualized portions of the bases reveal a calcified granuloma in the right lower lobe. Pacemaker leads and changes of median sternotomy are partially visualized. Bone windows reveal no suspicious lesions. Contrast opacification is suboptimal. There are small cysts in the left kidney. Mild hepatic surface nodularity suggesting chronic change. No focal hepatic lesions are seen. The adrenal glands, pancreas, gallbladder and spleen are unremarkable. There are no pathologically enlarged lymph nodes. The appendix is not inflamed. There is no obstruction. No inflammatory changes are identified. IMPRESSION: 1. No cause for acute pain is identified. 2. Mild hepatic surface nodularity suggests cirrhotic change. *One or more of the following individualized dose reduction techniques were utilized for this examination: 1. Automated exposure control. 2. Adjustment of the mA and/or kV according to patient size. 3. Use of iterative reconstruction technique.
--- NOTE | 2017-09-20 15:23 | PHYS DOC ---
Past Medical History Past Medical History: A-Fib, Asthma, Cancer, CHF, Constipation, CVA, Depression , Diabetes-Type II, High Cholesterol, Hypertension, Renal Disease, Other Additional Past Medical Histor: Sleep Apnea, MULTIPLE CARDIAC TUMORS, HOGDKINS LYMPHOMA,GOUT, C-DIFF Past Surgical History: Angioplasty, Coronary Bypass Surgery, Pacemaker, Tonsillectomy, Other Additional Past Surgical Histo: 2 surgeries to attempt to remove tumors on heart,Adenoids Alcohol Use: Occasionally Drug Use: None Adult General Chief Complaint Chief Complaint: CHEST WALL PAIN HPI HPI Patient is a 57 year old [f__sex] who presents with [] Review of Systems Review of Systems Constitutional: Denies fever or chills [] Eyes: Denies change in visual acuity, redness, or eye pain [] HENT: Denies nasal congestion or sore throat [] Respiratory: Denies cough or shortness of breath [] Cardiovascular: No additional information not addressed in HPI [] GI: Denies abdominal pain, nausea, vomiting, bloody stools or diarrhea [] : Denies dysuria or hematuria [] Musculoskeletal: Denies back pain or joint pain [] Integument: Denies rash or skin lesions [] Neurologic: Denies headache, focal weakness or sensory changes [] Endocrine: Denies polyuria or polydipsia [] All other systems were reviewed and found to be within normal limits, except as documented in this note. Current Medications Current Medications Current Medications Medications (Trade) Dose Ordered Sig/Lizzie Start Time Stop Time Status Last Admin Dose Admin Info (Do NOT chart on this entry -- for MONITORING) 1 each PRN DAILY PRN 09/20/17 14:15 09/22/17 14:14 Iohexol (Omnipaque 300 Mg/ml) 75 ml 1X ONCE 09/20/17 14:00 09/20/17 14:01 DC 09/20/17 14:26 60 ML Ketorolac Tromethamine (Toradol) 15 mg 1X ONCE 09/20/17 13:30 09/20/17 13:31 DC 09/20/17 13:31 15 MG Allergies Allergies Allergies Coded Allergies Type Severity Reaction Last Updated Verified No Known Drug Allergies 09/02/16 No Physical Exam Physical Exam Constitutional: Well developed, well nourished, no acute distress, non-toxic appearance. [] HENT: Normocephalic, atraumatic, bilateral external ears normal, oropharynx moist, no oral exudates, nose normal. [] Eyes: PERRLA, EOMI, conjunctiva normal, no discharge. [] Neck: Normal range of motion, no tenderness, supple, no stridor. [] Cardiovascular:Heart rate regular rhythm, no murmur [] Lungs & Thorax: Bilateral breath sounds clear to auscultation [] Abdomen: Bowel sounds normal, soft, no tenderness, no masses, no pulsatile masses. [] Skin: Warm, dry, no erythema, no rash. [] Back: No tenderness, no CVA tenderness. [] Extremities: No tenderness, no cyanosis, no clubbing, ROM intact, no edema. [] Neurologic: Alert and oriented X 3, normal motor function, normal sensory function, no focal deficits noted. [] Psychologic: Affect normal, judgement normal, mood normal. [] Current Patient Data Vital Signs Vital Signs Date Time Temp Pulse Resp B/P (MAP) Pulse Ox O2 Delivery O2 Flow Rate FiO2 09/20/17 14:01 104 19 166/108 (127) 97 Room Air 09/20/17 12:30 97.7 97.7 Lab Values Laboratory Tests Test 09/20/17 12:40 09/20/17 13:45 09/20/17 13:50 White Blood Count 6.1 x10^3/uL (4.0-11.0) Red Blood Count 3.67 x10^6/uL (4.30-5.70) L Hemoglobin 11.9 g/dL (13.0-17.5) L Hematocrit 35.6 % (39.0-53.0) L Mean Corpuscular Volume 97 fL (79-100) Mean Corpuscular Hemoglobin 32 pg (25-35) Mean Corpuscular Hemoglobin Concent 33 g/dL (31-37) Red Cell Distribution Width 13.9 % (11.5-14.5) Platelet Count 248 x10^3/uL (140-400) Neutrophils (%) (Auto) 64 % (31-73) Lymphocytes (%) (Auto) 21 % (24-48) L Monocytes (%) (Auto) 10 % (0-9) H Eosinophils (%) (Auto) 4 % (0-3) H Basophils (%) (Auto) 1 % (0-3) Neutrophils # (Auto) 3.9 x10^3uL (1.8-7.7) Lymphocytes # (Auto) 1.3 x10^3/uL (1.0-4.8) Monocytes # (Auto) 0.6 x10^3/uL (0.0-1.1) Eosinophils # (Auto) 0.2 x10^3/uL (0.0-0.7) Basophils # (Auto) 0.1 x10^3/uL (0.0-0.2) Sodium Level 138 mmol/L (136-145) Potassium Level 3.8 mmol/L (3.5-5.1) Chloride Level 103 mmol/L (98-107) Carbon Dioxide Level 27 mmol/L (21-32) Anion Gap 8 (6-14) Blood Urea Nitrogen 26 mg/dL (8-26) Creatinine 1.8 mg/dL (0.7-1.3) H Estimated GFR (Cockcroft-Gault) 47.5 BUN/Creatinine Ratio 14 (6-20) Glucose Level 133 mg/dL (70-99) H Calcium Level 8.9 mg/dL (8.5-10.1) Total Bilirubin 1.5 mg/dL (0.2-1.0) H Aspartate Amino Transferase (AST) 20 U/L (15-37) Alanine Aminotransferase (ALT) 21 U/L (16-63) Alkaline Phosphatase 72 U/L (46-116) Total Protein 7.8 g/dL (6.4-8.2) Albumin 3.7 g/dL (3.4-5.0) Albumin/Globulin Ratio 0.9 (1.0-1.7) L Lipase 75 U/L (73-393) Urine Color Yellow Urine Clarity Clear Urine pH 6.0 Urine Specific [place] 1.015 Urine Protein Negative mg/dL (NEG-TRACE) Urine Glucose (UA) Negative mg/dL (NEG) Urine Ketones (Stick) Negative mg/dL (NEG) Urine Blood Negative (NEG) Urine Nitrite Negative (NEG) Urine Bilirubin Negative (NEG) Urine Urobilinogen Dipstick 0.2 mg/dL (0.2 mg/dL) Urine Leukocyte Esterase Negative (NEG) Urine RBC 0 /HPF (0-2) Urine WBC Occ /HPF (0-4) Urine Squamous Epithelial Cells Occ /LPF Urine Bacteria 0 /HPF (0-FEW) Urine Mucus Slight /LPF Laboratory Tests 09/20/17 12:40 Laboratory Tests 09/20/17 13:45 EKG EKG [] Radiology/Procedures Radiology/Procedures [] Course & Med Decision Making Course & Med Decision Making Pertinent Labs and Imaging studies reviewed. (See chart for details) [] Dragon Disclaimer Dragon Disclaimer This electronic medical record was generated, in whole or in part, using a voice recognition dictation system. Departure Departure Impression: Primary Impression: Nonspecific abdominal pain Additional Impressions: Constipation Mild anemia Disposition: HOME, SELF-CARE Referrals: Meli FIELDS MD (PCP) Patient Instructions: Abdominal Pain (Nonspecific), Constipation, Adult Additional Instructions: It is not clear what has been causing your intermittent abdominal pain for weeks. As you have a history of constipation this is very possibly the cause of your pain. A full workup today was unremarkable except incidental finding of mild anemia with hemoglobin of 11.9. As you have no evidence of bleeding and this result is very mild, it's appropriate for you to follow up with your doctor for recheck and further workup and treatment as needed. Your creatinine is 1.8 which represents renal insufficiency, however this is unchanged from May 2017 when the value was the same. Consider homeopathic remedies for constipation such as prune juice and a high-fiber diet. Use MiraLAX twice a day as needed and if you have worsening constipation consider a mineral oil 15 mL by mouth twice a day. Follow up with your doctor today or tomorrow and return immediately for new severe worsening symptoms Problem Qualifiers SOLIS YANG MD Sep 20, 2017 15:23
== END 2017-09-20 15:30 | disposition home or self-care (01) ==
LOC: ER 12:21
DX: R10.9 Unspecified abdominal pain (principal); K59.00 Constipation, unspecified; D64.9 Anemia, unspecified; N28.9 Disorder of kidney and ureter, unspecified; I11.0 Hypertensive heart disease with heart failure; I50.9 Heart failure, unspecified; E11.9 Type 2 diabetes mellitus without complications; E78.00 Pure hypercholesterolemia, unspecified; J45.909 Unspecified asthma, uncomplicated; I48.91 Unspecified atrial fibrillation; G47.30 Sleep apnea, unspecified; M10.9 Gout, unspecified; C81.90 Hodgkin lymphoma, unspecified, unspecified site; F32.9 Major depressive disorder, single episode, unspecified; Z86.73 Personal history of transient ischemic attack (TIA), and cerebral infarction without residual deficits; Z98.61 Coronary angioplasty status; Z95.0 Presence of cardiac pacemaker; Z95.1 Presence of aortocoronary bypass graft
CPT/HCPCS: 36415; 74177; 80053; 81001; 83690; 85025; 93005; 96374; 99285; J1885; Q9967

== ENCOUNTER → 2017-11-25 | Outpatient (CLI) | payer MEDICARE, MEDICAID ==
[2017-11-25] MEDS: BARIUM SULFATE 340 GM SUSPENSION. PO (09:41)
[2017-11-25] MEDS: BARIUM SULFATE 60% 355 ML SUSP PO (09:41)
[2017-11-25] MEDS: SIMETHICONE/SOD BICARB/CITRIC ACID PACKET. PO (09:41)
== END | disposition home or self-care (01) ==
LOC: RAD 08:23
DX: R10.12 Left upper quadrant pain (principal)
CPT/HCPCS: 74245

== ENCOUNTER 2017-12-07 08:08 | Inpatient (IN) | payer OTHER, MEDICAID ==
[2017-12-07] MEDS: LIDOCAINE/EPI/TETRACAINE TOPICAL GEL 3 ML. TP ×2 (08:30→09:07)
[2017-12-07] MEDS: LIDOCAINE WITH 8.4% SOD BICARB 3 ML DISP.SYRIN. INJ ×2 (08:30→09:07)
[2017-12-07 08:44] LABS: ADD MAN DIFF? NO
[2017-12-07 08:52] LABS: BASO # 0.1 x10^3/uL (0.0-0.2); BASO % 1 % (0-3); EOS # 0.2 x10^3/uL (0.0-0.7); EOS % 3 % (0-3); HEMATOCRIT 33.1 % (39.0-53.0); HEMOGLOBIN 11.5 g/dL (13.0-17.5); LYMPH # 0.7 x10^3/uL (1.0-4.8); LYMPH % 8 % (24-48); MEAN CORPUSCULAR HEMOGLOBIN 33 pg (25-35); MEAN CORPUSCULAR HGB CONC 35 g/dL (31-37); MEAN CORPUSCULAR VOLUME 95 fL (79-100); MONO # 0.7 x10^3/uL (0.0-1.1); MONO % 8 % (0-9); NEUT # 7.1 x10^3uL (1.8-7.7); NEUT % 81 % (31-73); PLATELET COUNT 261 x10^3/uL (140-400); RED CELL DISTRIBUTION WIDTH 12.9 % (11.5-14.5); WHITE BLOOD COUNT 8.8 x10^3/uL (4.0-11.0)
[2017-12-07 09:01] LABS: ANION GAP 10 (6-14); BLOOD UREA NITROGEN 23 mg/dL (8-26); CALCIUM 9.1 mg/dL (8.5-10.1); CARBON DIOXIDE 26 mmol/L (21-32); CHLORIDE 100 mmol/L (98-107); CREATININE 1.5 mg/dL (0.7-1.3); GFR 58.6; GLUCOSE 230 mg/dL (70-99); SODIUM 136 mmol/L (136-145)
[2017-12-07 09:06] LABS: ALBUMIN 3.3 g/dL (3.4-5.0); ALK PHOS 93 U/L (46-116); ALT (SGPT) 12 U/L (16-63); AST (SGOT) 17 U/L (15-37); DIRECT BILIRUBIN 0.2 mg/dL (0.0-0.2); LIPASE 80 U/L (73-393); TOTAL BILIRUBIN 0.8 mg/dL (0.2-1.0); TOTAL PROTEIN 7.6 g/dL (6.4-8.2)
[2017-12-07 09:13] LABS: TROPONINI < 0.017 ng/mL (0.000-0.055)
[2017-12-07 09:16] LABS: CKMB INDEX 1.3 % (0-4); CKMB MASS 1.4 ng/mL (0.0-3.6); CREATINE KINASE 104 U/L (39-308)
[2017-12-07 09:16] LABS: NT-PRO BNP 255 pg/mL (0-124)
[2017-12-07 09:32] LABS: BILIRUBIN,URINE NEGATIVE (NEG); CLARITY,URINE CLEAR; COLOR,URINE YELLOW; GLUCOSE,URINE 250 mg/dL (NEG); NITRITE,URINE NEGATIVE (NEG); PROTEIN,URINE 30 mg/dL (NEG-TRACE); UROBILINOGEN,URINE 0.2 mg/dL (0.2 mg/dL)
[2017-12-07 09:45] LABS: BACTERIA,URINE FEW /HPF (0-FEW); RBC,URINE OCC /HPF (0-2)
[2017-12-07] MEDS ORDERED: NITROGLYCERIN SUBLINGUAL 0.4 MG BOTTLE OF 25. SL (10:17)
[2017-12-07] MEDS: NITROGLYCERIN SUBLINGUAL 0.4 MG BOTTLE OF 25. SL ×3 (10:19→10:34)
[2017-12-07] MEDS ORDERED: ONDANSETRON PF 4 MG/2 ML VIAL. IV (12:00)
[2017-12-07] MEDS: fentaNYL PF VIAL 100 MCG/2 ML VIAL IV ×3 (12:30→18:11)
[2017-12-07] MEDS ORDERED: MAGNESIUM CITRATE 296 ML SOLUTION. PO (15:00)
[2017-12-07] MEDS ORDERED: LACTULOSE 20 GM/30 ML SOLUTION. PO (15:15)
[2017-12-07] MEDS: LUBIPROSTONE 8 MCG CAPSULE PO (15:43)
[2017-12-07] MEDS: INDOMETHACIN 25 MG CAPSULE. PO (15:43)
[2017-12-07] MEDS: ASPIRIN CHEWABLE 81 MG TABLET. PO (15:43)
[2017-12-07] MEDS: ALLOPURINOL 100 MG TABLET. PO (15:43)
[2017-12-07] MEDS: CARVEDILOL 12.5 MG TABLET. PO (15:43)
[2017-12-07] MEDS: FUROSEMIDE 40 MG TABLET. PO (15:44)
[2017-12-07] MEDS: POTASSIUM CHLORIDE 10 MEQ TABLET.ER. PO (15:44)
[2017-12-07] MEDS: LOSARTAN POTASSIUM 50 MG TABLET. PO (15:44)
[2017-12-07] MEDS ORDERED: LABETALOL 20 MG/4 ML DISP.SYRIN. IVP (16:15)
[2017-12-07] MEDS ORDERED: CONTRAST GIVEN MC (16:45)
[2017-12-07] MEDS: INSULN ASP PRT/INSULIN ASPART 300 UNITS/3 ML INSULN.PEN. SQ ×2 (17:00→18:31)
[2017-12-07] MEDS: IOHEXOL 300 MG/ML 100ML VIAL. IV (17:20)
[2017-12-07 17:51] LABS: POC GLUCOSE 227 mg/dL (70-99)
[2017-12-07] MEDS: COLCHICINE 0.6 MG TABLET PO ×3 (18:11→21:57)
[2017-12-07 18:17] LABS: C-REACTIVE PROTEIN 89.9 mg/L (0-3.3)
[2017-12-07 18:24] LABS: TROPONINI < 0.017 ng/mL (0.000-0.055)
[2017-12-07 23:42] LABS: TROPONINI < 0.017 ng/mL (0.000-0.055)
[2017-12-07] MEDS: VANCOMYCIN 125 MG/2.5 ML ORAL SOLUTION. PO (23:59)
[2017-12-08 00:31] LABS: SEDIMENTATION RATE 72 (0-15)
[2017-12-08 01:48] LABS: C DIFF BY PCR Positive (Negative)
[2017-12-08 03:44] LABS: ADD MAN DIFF? NO
[2017-12-08 03:45] LABS: BASO % 1 % (0-3); EOS # 0.2 x10^3/uL (0.0-0.7); EOS % 2 % (0-3); HEMATOCRIT 33.1 % (39.0-53.0); HEMOGLOBIN 11.3 g/dL (13.0-17.5); LYMPH # 1.1 x10^3/uL (1.0-4.8); LYMPH % 14 % (24-48); MEAN CORPUSCULAR HEMOGLOBIN 32 pg (25-35); MEAN CORPUSCULAR HGB CONC 34 g/dL (31-37); MEAN CORPUSCULAR VOLUME 94 fL (79-100); MONO # 0.9 x10^3/uL (0.0-1.1); MONO % 12 % (0-9); NEUT # 5.2 x10^3uL (1.8-7.7); NEUT % 71 % (31-73); PLATELET COUNT 247 x10^3/uL (140-400); RED CELL DISTRIBUTION WIDTH 12.8 % (11.5-14.5); WHITE BLOOD COUNT 7.4 x10^3/uL (4.0-11.0)
[2017-12-08 04:10] LABS: ANION GAP 9 (6-14); BLOOD UREA NITROGEN 16 mg/dL (8-26); CARBON DIOXIDE 27 mmol/L (21-32); CHLORIDE 99 mmol/L (98-107); CREATININE 1.6 mg/dL (0.7-1.3); GFR 54.4; GLUCOSE 275 mg/dL (70-99); POTASSIUM 3.8 mmol/L (3.5-5.1); SODIUM 135 mmol/L (136-145)
[2017-12-08 07:51] LABS: POC GLUCOSE 228 mg/dL (70-99)
[2017-12-08] MEDS: LUBIPROSTONE 8 MCG CAPSULE PO ×3 (07:57→19:21)
[2017-12-08] MEDS: INSULN ASP PRT/INSULIN ASPART 300 UNITS/3 ML INSULN.PEN. SQ ×2 (08:00→20:36)
[2017-12-08] MEDS: FUROSEMIDE 40 MG TABLET. PO (08:28)
[2017-12-08] MEDS: ASPIRIN CHEWABLE 81 MG TABLET. PO (08:28)
[2017-12-08] MEDS: ALLOPURINOL 300 MG TABLET. PO (08:28)
[2017-12-08] MEDS: LOSARTAN POTASSIUM 50 MG TABLET. PO (08:28)
[2017-12-08] MEDS: POTASSIUM CHLORIDE 10 MEQ TABLET.ER. PO (08:29)
[2017-12-08] MEDS: CARVEDILOL 12.5 MG TABLET. PO ×2 (08:29→16:20)
[2017-12-08] MEDS: INDOMETHACIN 25 MG CAPSULE. PO ×3 (08:29→16:18)
[2017-12-08] MEDS: fentaNYL PF VIAL 100 MCG/2 ML VIAL IV (08:31)
[2017-12-08] MEDS: VANCOMYCIN 125 MG/2.5 ML ORAL SOLUTION. PO ×4 (08:33→20:34)
[2017-12-08] MEDS: IPRATRPIUM/ALBUTEROL 0.5/2.5MG 3 ML NEBU. NEB ×3 (12:00→21:14)
[2017-12-08] MEDS: COLCHICINE 0.6 MG TABLET PO ×2 (12:11→18:07)
[2017-12-08 12:50] LABS: POC GLUCOSE 238 mg/dL (70-99)
[2017-12-08 17:44] LABS: POC GLUCOSE 319 mg/dL (70-99)
[2017-12-08] MEDS: TEMAZEPAM 15 MG CAPSULE PO (20:34)
[2017-12-08] MEDS: FUROSEMIDE 40 MG/4 ML VIAL. IVP (20:34)
[2017-12-08 20:37] LABS: POC GLUCOSE 363 mg/dL (70-99)
[2017-12-08] MEDS: LACTOBACILLUS RHAMNOSUS GG 1 CAPSULE. PO (20:47)
[2017-12-08] MEDS ORDERED: HYDROcodone/APAP 7.5/325MG 1 TAB TABLET PO (21:45)
[2017-12-08] MEDS: predniSONE 10 MG TABLET PO (22:05)
[2017-12-08] MEDS: HYDROcodone/APAP 7.5/325MG 1 TAB TABLET PO (22:06)
[2017-12-09 04:23] LABS: POC GLUCOSE 246 mg/dL (70-99)
[2017-12-09 04:48] LABS: BASO % 0 % (0-3); EOS # 0.1 x10^3/uL (0.0-0.7); EOS % 1 % (0-3); HEMATOCRIT 35.6 % (39.0-53.0); HEMOGLOBIN 12.2 g/dL (13.0-17.5); LYMPH # 0.4 x10^3/uL (1.0-4.8); LYMPH % 5 % (24-48); MEAN CORPUSCULAR HEMOGLOBIN 33 pg (25-35); MEAN CORPUSCULAR HGB CONC 34 g/dL (31-37); MEAN CORPUSCULAR VOLUME 95 fL (79-100); MONO # 0.2 x10^3/uL (0.0-1.1); MONO % 2 % (0-9); NEUT # 7.4 x10^3uL (1.8-7.7); NEUT % 92 % (31-73); PLATELET COUNT 285 x10^3/uL (140-400); RED BLOOD COUNT 3.75 x10^6/uL (4.30-5.70); WHITE BLOOD COUNT 8.1 x10^3/uL (4.0-11.0)
[2017-12-09 05:17] LABS: ALBUMIN/GLOBULIN RATIO 0.6 (1.0-1.7); ALK PHOS 96 U/L (46-116); ALT (SGPT) 11 U/L (16-63); ANION GAP 10 (6-14); AST (SGOT) 11 U/L (15-37); BLOOD UREA NITROGEN 29 mg/dL (8-26); BUN/CREATININE RATIO 16 (6-20); CALCIUM 9.5 mg/dL (8.5-10.1); CARBON DIOXIDE 25 mmol/L (21-32); CHLORIDE 98 mmol/L (98-107); CREATININE 1.8 mg/dL (0.7-1.3); GFR 47.5; GLUCOSE 295 mg/dL (70-99); SODIUM 133 mmol/L (136-145); TOTAL BILIRUBIN 0.7 mg/dL (0.2-1.0); TOTAL PROTEIN 8.4 g/dL (6.4-8.2)
[2017-12-09 05:35] LABS: ADD MAN DIFF? YES
[2017-12-09] MEDS: INSULN ASP PRT/INSULIN ASPART 300 UNITS/3 ML INSULN.PEN. SQ ×3 (08:00→18:04)
[2017-12-09] MEDS: POTASSIUM CHLORIDE 20 MEQ TABLET.ER. PO (08:00)
[2017-12-09 08:01] LABS: POC GLUCOSE 290 mg/dL (70-99)
[2017-12-09] MEDS: IPRATRPIUM/ALBUTEROL 0.5/2.5MG 3 ML NEBU. NEB ×4 (08:12→20:26)
[2017-12-09 08:56] LABS: % BANDS 1 % (0-9); % BASOS 1 % (0-3); % EOS 1 % (0-5); % LYMPHS 4 % (24-48); % SEGS 93 % (35-66); PLT ESTIMATE ADEQUATE (ADEQUATE)
[2017-12-09] MEDS: INDOMETHACIN 25 MG CAPSULE. PO ×3 (09:07→17:55)
[2017-12-09] MEDS: ALLOPURINOL 300 MG TABLET. PO (09:08)
[2017-12-09] MEDS: ASPIRIN CHEWABLE 81 MG TABLET. PO (09:08)
[2017-12-09] MEDS: LOSARTAN POTASSIUM 50 MG TABLET. PO (09:09)
[2017-12-09] MEDS: VANCOMYCIN 125 MG/2.5 ML ORAL SOLUTION. PO ×4 (09:10→20:41)
[2017-12-09] MEDS: FUROSEMIDE 40 MG/4 ML VIAL. IVP (09:10)
[2017-12-09] MEDS: CARVEDILOL 12.5 MG TABLET. PO ×2 (09:10→17:55)
[2017-12-09] MEDS: LACTOBACILLUS RHAMNOSUS GG 1 CAPSULE. PO ×2 (09:30→20:41)
[2017-12-09] MEDS: HYDROcodone/APAP 7.5/325MG 1 TAB TABLET PO ×2 (09:30→19:34)
[2017-12-09 11:55] LABS: POC GLUCOSE 433 mg/dL (70-99)
[2017-12-09] MEDS: INSULIN ASPART 300 UNITS/3 ML INSULN.PEN SQ (13:14)
[2017-12-09] MEDS: LUBIPROSTONE 8 MCG CAPSULE PO (16:04)
[2017-12-09 17:07] LABS: POC GLUCOSE 320 mg/dL (70-99)
[2017-12-09] MEDS ORDERED: DEXTROSE 50% 25 GM / 50ML DISP.SYRIN. IV (18:00)
[2017-12-09] MEDS: FUROSEMIDE 40 MG TABLET. PO (20:41)
[2017-12-09 20:47] LABS: POC GLUCOSE 238 mg/dL (70-99)
[2017-12-09] MEDS: TEMAZEPAM 15 MG CAPSULE PO (22:02)
[2017-12-10] MEDS: IPRATRPIUM/ALBUTEROL 0.5/2.5MG 3 ML NEBU. NEB ×4 (07:46→20:10)
[2017-12-10 07:56] LABS: POC GLUCOSE 76 mg/dL (70-99)
[2017-12-10] MEDS: INSULN ASP PRT/INSULIN ASPART 300 UNITS/3 ML INSULN.PEN. SQ ×2 (08:00→21:03)
[2017-12-10] MEDS: INSULIN ASPART 300 UNITS/3 ML INSULN.PEN SQ ×3 (08:00→17:37)
[2017-12-10] MEDS: CARVEDILOL 12.5 MG TABLET. PO ×2 (08:28→17:27)
[2017-12-10] MEDS: LUBIPROSTONE 8 MCG CAPSULE PO ×2 (08:28→17:27)
[2017-12-10] MEDS: INDOMETHACIN 25 MG CAPSULE. PO ×2 (08:28→12:36)
[2017-12-10] MEDS: FUROSEMIDE 40 MG TABLET. PO ×2 (08:28→20:56)
[2017-12-10] MEDS: LACTOBACILLUS RHAMNOSUS GG 1 CAPSULE. PO ×2 (08:28→20:56)
[2017-12-10] MEDS: ALLOPURINOL 300 MG TABLET. PO (08:29)
[2017-12-10] MEDS: LOSARTAN POTASSIUM 50 MG TABLET. PO (08:30)
[2017-12-10] MEDS: VANCOMYCIN 125 MG/2.5 ML ORAL SOLUTION. PO ×4 (08:31→20:56)
[2017-12-10] MEDS: ASPIRIN CHEWABLE 81 MG TABLET. PO (08:31)
[2017-12-10] MEDS: POTASSIUM CHLORIDE 20 MEQ TABLET.ER. PO (08:31)
[2017-12-10 11:52] LABS: POC GLUCOSE 177 mg/dL (70-99)
[2017-12-10 17:09] LABS: POC GLUCOSE 303 mg/dL (70-99)
[2017-12-10] MEDS: COLCHICINE 0.6 MG TABLET PO (17:27)
[2017-12-10 21:02] LABS: POC GLUCOSE 376 mg/dL (70-99)
[2017-12-10] MEDS: TEMAZEPAM 15 MG CAPSULE PO (21:04)
[2017-12-11] MEDS: IPRATRPIUM/ALBUTEROL 0.5/2.5MG 3 ML NEBU. NEB (07:22)
[2017-12-11] MEDS: POTASSIUM CHLORIDE 20 MEQ TABLET.ER. PO (08:00)
[2017-12-11] MEDS: INSULN ASP PRT/INSULIN ASPART 300 UNITS/3 ML INSULN.PEN. SQ (08:00)
[2017-12-11] MEDS: INSULIN ASPART 300 UNITS/3 ML INSULN.PEN SQ (08:00)
[2017-12-11 08:06] LABS: POC GLUCOSE 84 mg/dL (70-99)
[2017-12-11] MEDS: ASPIRIN CHEWABLE 81 MG TABLET. PO (08:32)
[2017-12-11] MEDS: CARVEDILOL 12.5 MG TABLET. PO (08:32)
[2017-12-11] MEDS: LACTOBACILLUS RHAMNOSUS GG 1 CAPSULE. PO (08:32)
[2017-12-11] MEDS: ALLOPURINOL 300 MG TABLET. PO (08:32)
[2017-12-11] MEDS: FUROSEMIDE 40 MG TABLET. PO (08:33)
[2017-12-11] MEDS: LOSARTAN POTASSIUM 50 MG TABLET. PO (08:34)
[2017-12-11] MEDS: INDOMETHACIN 25 MG CAPSULE. PO (08:35)
[2017-12-11] MEDS: LUBIPROSTONE 8 MCG CAPSULE PO (08:35)
[2017-12-11] MEDS: COLCHICINE 0.6 MG TABLET PO (08:44)
[2017-12-11] MEDS: VANCOMYCIN 125 MG/2.5 ML ORAL SOLUTION. PO (09:21)
== END 2017-12-11 10:57 | disposition home or self-care (01) | DRG 371 ==
LOC: ER 08:08 → 6 SOUTH 10:45
PROC: 5A09357 Assistance with Respiratory Ventilation, Less than 24 Consecutive Hours, Continuous Positive Airway Pressure (ICD-10-PCS; principal; 2017-12-07)
PROC: 5A09357 Assistance with Respiratory Ventilation, Less than 24 Consecutive Hours, Continuous Positive Airway Pressure (ICD-10-PCS; 2017-12-07)
PROC: 5A09357 Assistance with Respiratory Ventilation, Less than 24 Consecutive Hours, Continuous Positive Airway Pressure (ICD-10-PCS; 2017-12-07)
DX: A04.72 Enterocolitis due to Clostridium difficile, not specified as recurrent (principal); I50.33 Acute on chronic diastolic (congestive) heart failure; N17.9 Acute kidney failure, unspecified; E11.22 Type 2 diabetes mellitus with diabetic chronic kidney disease; I13.0 Hypertensive heart and chronic kidney disease with heart failure and stage 1 through stage 4 chronic kidney disease, or unspecified chronic kidney disease; Z68.41 Body mass index [BMI] 40.0-44.9, adult; E11.65 Type 2 diabetes mellitus with hyperglycemia; I50.9 Heart failure, unspecified; M10.9 Gout, unspecified; E66.01 Morbid (severe) obesity due to excess calories; R07.9 Chest pain, unspecified; I25.119 Atherosclerotic heart disease of native coronary artery with unspecified angina pectoris; E78.00 Pure hypercholesterolemia, unspecified; E78.5 Hyperlipidemia, unspecified; G47.30 Sleep apnea, unspecified; I25.5 Ischemic cardiomyopathy; I48.91 Unspecified atrial fibrillation; J44.9 Chronic obstructive pulmonary disease, unspecified; K59.09 Other constipation; N18.9 Chronic kidney disease, unspecified; Z80.0 Family history of malignant neoplasm of digestive organs; Z80.42 Family history of malignant neoplasm of prostate; Z82.49 Family history of ischemic heart disease and other diseases of the circulatory system; Z83.3 Family history of diabetes mellitus; Z85.71 Personal history of Hodgkin lymphoma; Z86.73 Personal history of transient ischemic attack (TIA), and cerebral infarction without residual deficits; Z95.0 Presence of cardiac pacemaker; Z95.1 Presence of aortocoronary bypass graft; E53.8 Deficiency of other specified B group vitamins; F32.9 Major depressive disorder, single episode, unspecified; R39.11 Hesitancy of micturition; M65.871 Other synovitis and tenosynovitis, right ankle and foot
CPT/HCPCS: 36415; 70470; 71045; 73110; 80048; 80053; 80076; 81001; 82553; 82962; 83690; 83735; 83880; 84484; 84550; 85007; 85025; 85651; 86140; 87324; 93005; 93306; 93971; 94640; 94660; 94760; 95811; 97116-GP; 97162-GP; 97166-GO; 97535-GO; 99285; 99285-25; J1815; J1940; J3010; J7512; J7620; Q9967

== ENCOUNTER → 2018-05-23 | Day surgery (SDC) | payer MEDICARE, MEDICAID, OTHER ==
[~2018-05-23] MED LIST changes: -ALLO100T PO; -APIX5TAB PO; -ASPI81TA44 PO; -AZIT250T6 PO; -BENZ100C15 PO; -CARV12.52 PO; -CARV25TA PO; -COLE1TAB PO; -CYAN10002 IM; -DIGO125T PO; -DILT120C80 PO; -DILT180C2 PO; -DILT180C64 PO; -FAMO-63 PO; -FURO20TA3 PO; -FURO40TA4 PO; -HYDR-2758 PO; -INSU100I13 SQ; -INSU100I16 SQ; -INSU100I17 SQ; -INSU100I27 SQ; -INSU100I7 SQ; -INSU100V13 SQ; -LACT20SO PO; -LEVO250T25 PO; -LIDO700A4 TD; +LIDOCAINE 1% PF 2 ML VIAL. ID; +LIDOCAINE 2% PF Vial for OR 5 ML VIAL.; -LOSA1TAB22 PO; -LOSA25TA PO; -LOSA50TA2 PO; -LUBI8CAP4 PO; -MAGN296S9 PO; -METF500T9 PO; -METR500T PO; +MIDAZOLAM HCL/PF 2 MG/2 ML VIAL.; +MORPHINE SULFATE 2 MG/ML DISP.SYRIN. IV; +ONDANSETRON PF 4 MG/2 ML VIAL. IV; -PANT40TA5 PO; -POLY17PO29 PO; -POTA10TA12 PO; -PRED-220 PO; +PROCHLORPERAZINE 10 MG/2 ML VIAL. IV; +PROPOFOL 0 ML IV; -SACC250C PO; -SIME80TA PO; -TAMS0.4C97 PO; -TEMA15CA6 PO; +ceFAZolin 2GM PREMIX 2 GM/50 ML BAG IV; +fentaNYL PF VIAL 100 MCG/2 ML VIAL; +fentaNYL PF VIAL 100 MCG/2 ML VIAL IV
[2018-05-23 07:01] LABS: POC GLUCOSE 225 mg/dL (70-99)
[2018-05-23] MEDS: IV RINGERS,LACTATED 1000ML 1,000 ML IV (07:16)
== END ==
LOC: SURG 06:17
DX: L02.415 Cutaneous abscess of right lower limb (principal); Z53.8 Procedure and treatment not carried out for other reasons; Z72.89 Other problems related to lifestyle; I13.0 Hypertensive heart and chronic kidney disease with heart failure and stage 1 through stage 4 chronic kidney disease, or unspecified chronic kidney disease; E11.22 Type 2 diabetes mellitus with diabetic chronic kidney disease; N18.9 Chronic kidney disease, unspecified; I50.33 Acute on chronic diastolic (congestive) heart failure; E66.01 Morbid (severe) obesity due to excess calories; Z68.41 Body mass index [BMI] 40.0-44.9, adult; E78.00 Pure hypercholesterolemia, unspecified; J44.9 Chronic obstructive pulmonary disease, unspecified; G47.33 Obstructive sleep apnea (adult) (pediatric); I48.91 Unspecified atrial fibrillation; I25.10 Atherosclerotic heart disease of native coronary artery without angina pectoris; F32.9 Major depressive disorder, single episode, unspecified; I25.5 Ischemic cardiomyopathy; K21.9 Gastro-esophageal reflux disease without esophagitis; M10.9 Gout, unspecified; Z79.84 Long term (current) use of oral hypoglycemic drugs; Z79.2 Long term (current) use of antibiotics; Z79.01 Long term (current) use of anticoagulants; Z79.82 Long term (current) use of aspirin; Z79.4 Long term (current) use of insulin; Z79.899 Other long term (current) drug therapy; Z86.73 Personal history of transient ischemic attack (TIA), and cerebral infarction without residual deficits; Z85.72 Personal history of non-Hodgkin lymphomas; Z95.1 Presence of aortocoronary bypass graft; Z95.0 Presence of cardiac pacemaker; Z90.49 Acquired absence of other specified parts of digestive tract; Z98.890 Other specified postprocedural states; Z83.3 Family history of diabetes mellitus; Z82.49 Family history of ischemic heart disease and other diseases of the circulatory system; Z80.42 Family history of malignant neoplasm of prostate; Z80.0 Family history of malignant neoplasm of digestive organs
CPT/HCPCS: 82962; 93005; J0690; J2001; J2250; J2704; J3010

== ENCOUNTER → 2018-05-23 | Outpatient (CLI) | payer MEDICARE, MEDICAID | END | disposition home or self-care (01) | LOC: ECHO 08:33 | DX: R07.9 Chest pain, unspecified (principal); I13.0 Hypertensive heart and chronic kidney disease with heart failure and stage 1 through stage 4 chronic kidney disease, or unspecified chronic kidney disease; E11.22 Type 2 diabetes mellitus with diabetic chronic kidney disease; I50.33 Acute on chronic diastolic (congestive) heart failure; N18.3 Chronic kidney disease, stage 3 (moderate); E78.00 Pure hypercholesterolemia, unspecified; E78.5 Hyperlipidemia, unspecified; J45.909 Unspecified asthma, uncomplicated; E66.9 Obesity, unspecified; K21.9 Gastro-esophageal reflux disease without esophagitis | CPT/HCPCS: 93308 ==

== ENCOUNTER 2018-06-20 07:48 | Day surgery (SDC) | payer MEDICARE, MEDICAID ==
[~2018-06-20] VITALS: Ht 180.3 cm; Wt 142.0 kg
[~2018-06-20 07:48] MED LIST changes: +ALLO100T PO; +ALLO300T PO; +APIX5TAB PO; +ASPI81TA59 PO; +AZIT250T6 PO; +BENZ-8 PO; +CARV12.52 PO; +CARV25TA PO; +CEPH-264 PO; +COLC0.6T34 PO; +COLE1TAB PO; +CYAN10002 IM; +DIGO125T PO; +DILT120C80 PO; +DILT180C2 PO; +DILT180C64 PO; +FAMO-63 PO; +FURO20TA3 PO; +FURO40TA4 PO; +HYDR-2758 PO; +HYDR-2762 PO; +INDO50CA5 PO; +INSU100I13 SQ; +INSU100I16 SQ; +INSU100I17 SQ; +INSU100I27 SQ; +INSU100I7 SQ; +INSU100V13 SQ; +IV RINGERS,LACTATED 1000ML 1,000 ML IV SCH; +LACT1CAP19 PO; +LACT20SO PO; +LEVO250T25 PO; +LIDO700A4 TD; -LIDOCAINE 1% PF 2 ML VIAL. ID; +LIDOCAINE 1% PF 2 ML VIAL. ID PRN; -LIDOCAINE 2% PF Vial for OR 5 ML VIAL.; +LOSA1TAB22 PO; +LOSA25TA PO; +LOSA50TA2 PO; +LUBI8CAP4 PO; +MAGN296S9 PO; +METF500T9 PO; +METR500T PO; -MIDAZOLAM HCL/PF 2 MG/2 ML VIAL.; -MORPHINE SULFATE 2 MG/ML DISP.SYRIN. IV; +MORPHINE SULFATE 2 MG/ML VIAL. IV PRN; -ONDANSETRON PF 4 MG/2 ML VIAL. IV; +ONDANSETRON PF 4 MG/2 ML VIAL. IV PRN; +PANT40TA5 PO; +POLY17PO29 PO; +POTA10TA12 PO; +PRED-220 PO; -PROCHLORPERAZINE 10 MG/2 ML VIAL. IV; +PROCHLORPERAZINE 10 MG/2 ML VIAL. IV PRN; +PROP150T2 PO; -PROPOFOL 0 ML IV; +RIVA15TA PO; +SACC250C PO; +SIME80TA PO; +SPIR25TA5 PO; +TAMS0.4C97 PO; +TEMA15CA6 PO; +VANC500V PO; +VENTOLIN HFA18 GM INH; -ceFAZolin 2GM PREMIX 2 GM/50 ML BAG IV; +ceFAZolin 2GM PREMIX 2 GM/50 ML BAG IV ONE; -fentaNYL PF VIAL 100 MCG/2 ML VIAL; -fentaNYL PF VIAL 100 MCG/2 ML VIAL IV; +fentaNYL PF VIAL 100 MCG/2 ML VIAL IV PRN
[2018-06-20] MEDS ORDERED: fentaNYL PF VIAL 100 MCG/2 ML VIAL ONE (08:05)
[2018-06-20] MEDS ORDERED: LIDOCAINE 2% PF Vial for OR 5 ML VIAL. ONE (08:05)
[2018-06-20] MEDS ORDERED: PROPOFOL 20 ML IV ONE (08:05)
[2018-06-20] MEDS ORDERED: BUPIVACAINE-EPI 0.5%-1:200000 50 ML VIAL. ONE (09:36)
--- NOTE | 2018-06-20 10:25 | PDOC1 ---
History and Physical Date of Admission Date of Admission DATE: 06/20/18 TIME: 10:19 Identification/Chief Complaint Chief Complaint right thigh pain, drainage Source Source: Chart review, Patient History of Present Illness History of Present Illness Gurmeet is a morbidly obese 57 yo male diabetic with chronic pain and drainage from the lateral aspect of his right thigh. He comes for excision/debridement Past Medical History Cardiovascular: AFIB, CAD, CHF, HTN Pulmonary: COPD CENTRAL NERVOUS SYSTEM: CVA, TIA GI: Constipation Heme/Onc: B12 deficiency, Cancer, Other Psych: Depression Rheumatologic: Gout Endocrine: Diabetes Past Surgical History Past Surgical History: Pacemaker Family History Family History: Cancer, Diabetes Social History Smoke: No ALCOHOL: none Drugs: None Current Medications Current Medications Current Medications Ondansetron HCl (Zofran) 4 mg PRN Q6HRS PRN IV NAUSEA/VOMITING; Start 06/20/18 at 07:00; Stop 06/21/18 at 06:59 Fentanyl Citrate (Fentanyl 2ml Vial) 25 mcg PRN Q5MIN PRN IV MILD PAIN; Start 06/20/18 at 07:00; Stop 06/21/18 at 06:59 Fentanyl Citrate (Fentanyl 2ml Vial) 50 mcg PRN Q5MIN PRN IV MODERATE TO SEVERE PAIN; Start 06/20/18 at 07:00; Stop 06/21/18 at 06:59 Morphine Sulfate (Morphine Sulfate) 1 mg PRN Q10MIN PRN IV SEVERE PAIN; Start 06/20/18 at 07:00; Stop 06/21/18 at 06:59 Ringer's Solution 1,000 ml @ 30 mls/hr Q24H IV Last administered on 06/20/18at 08:47; Start 06/20/18 at 07:00; Stop 06/20/18 at 18:59 Lidocaine HCl (Xylocaine-Mpf 1% 2ml Vial) 2 ml PRN 1X PRN ID PRIOR TO IV START ; Start 06/20/18 at 07:00; Stop 06/21/18 at 06:59 Hydromorphone HCl (Dilaudid) 0.5 mg PRN Q10MIN PRN IV SEV PAIN, Second choice; Start 06/20/18 at 07:00; Stop 06/21/18 at 06:59 Prochlorperazine Edisylate (Compazine) 5 mg PACU PRN PRN IV NAUSEA, MRX1; Start 06/20/18 at 07:00; Stop 06/21/18 at 06:59 Cefazolin Sodium/ Dextrose 50 ml @ 100 mls/hr 1X PREOP PRN IV PRIOR TO PROCEDURE; Start 06/20/18 at 06:00; Stop 06/20/18 at 18:00 Propofol 20 ml @ As Directed STK-MED ONCE IV ; Start 06/20/18 at 08:05; Stop at 08:06; Status DC Lidocaine HCl (Lidocaine Pf 2% Vial) 5 ml STK-MED ONCE .ROUTE ; Start 06/20/18 at 08:05; Stop 06/20/18 at 08:06; Status DC Fentanyl Citrate (Fentanyl 2ml Vial) 100 mcg STK-MED ONCE .ROUTE ; Start at 08:05; Stop 06/20/18 at 08:06; Status DC Active Scripts Active Allopurinol 300 Mg Tablet 300 Mg PO DAILY 30 Days Furosemide 40 Mg Tablet 40 Mg PO DAILY 30 Days Restoril (Temazepam) 15 Mg Capsule 15 Mg PO PRN QHS PRN Reported Spironolactone 25 Mg Tablet 25 Mg PO BID Propafenone Hcl 150 Mg Tablet 75 Mg PO BID Xarelto (Rivaroxaban) 15 Mg Tablet 20 Mg PO DAILY Losartan-Hctz 100-25 Mg Tab (Losartan/Hydrochlorothiazide) 1 Each Tablet 1 Each PO DAILY Ventolin Hfa Inhaler (Albuterol Sulfate) 18 Gm Hfa.aer.ad 2 Puff INH QID Coreg (Carvedilol) 25 Mg Tablet 25 Mg PO BIDWMEALS Indomethacin 50 Mg Capsule 1 Cap PO TID Diltiazem 24HR Cd (Diltiazem Hcl) 120 Mg Cap.er.24h 1 Cap PO DAILY Novolog Mix 70-30 Flexpen Syrn (Insuln Asp Prt/Insulin Aspart) 100 Unit/1 Ml Insuln.pen 60 Unit SQ BID Potassium Chloride 10 Meq Tablet.er 10 Meq PO DAILY Metformin Hcl Er (Metformin Hcl) 500 Mg Tab.er.24h 2 Tab PO DAILYWBKFT Children's Aspirin (Aspirin) 81 Mg Tab.chew 81 Mg PO DAILY Allergies Allergies: Coded Allergies: I S O L A T I O N *CONTACT* (Verified Allergy, Unknown, 06/20/18) No Known Medication Allergies (Verified Allergy, Unknown, 06/20/18) ROS Review of System negative with exception present complaints Physical Exam General: Alert, Oriented X3, No acute distress HEENT: Atraumatic Lungs: Normal air movement Heart: RRR Abdomen: Soft Extremities: Other (right lateral thigh with induration, erythema, TTP) Vitals Vitals Vital Signs Date Time Temp Pulse Resp B/P (MAP) Pulse Ox O2 Delivery O2 Flow Rate FiO2 06/20/18 08:47 97.0 89 18 147/85 97 Room Air 97.0 Labs Labs Laboratory Tests Test 06/20/18 08:35 Glucose (Fingerstick) 214 mg/dL (70-99) Laboratory Tests Test 06/20/18 08:35 Glucose (Fingerstick) 214 mg/dL (70-99) VTE Prophylaxis Ordered VTE Prophylaxis Devices: Yes VTE Pharmacological Prophylaxi: No Assessment/Plan Assessment/Plan sebaceous abscess right thigh excisional debridement explained R/B/A including possible need for an open wound requiring packing he will proceed SURINDER MÉNDEZ MD Jun 20, 2018 10:25
[2018-06-20] MEDS ORDERED: DEXAMETHASONE SOD PHOS 20 MG/5 ML VIAL. ONE (10:40)
[2018-06-20] MEDS ORDERED: ONDANSETRON PF 4 MG/2 ML VIAL. ONE (10:40)
[2018-06-20] MEDS ORDERED: SEVOFLURANE 16 TO 30 MINUTES. IH ONE (10:40)
--- NOTE | 2018-06-20 11:08 | DISCH ---
DISCHARGE INSTRUCTIONS Condition on Discharge Condition on Discharge: Stable Activity After Discharge Activity Instructions for Disc: Activity as tolerated, Avoid exertion Exercise Instruction after Dis: Progress as tolerated Driving Instructions after Dis: Do not drive today Diet after Discharge Diet after Discharge: Cardiac, Diabetic No Calorie Level Diet Texture: Regular Wound Incision Care Wound/Incision Care: Ice to area for comfort, No wound care needed Checks after Discharge Checks after discharge: Check blood press - daily, Check blood sugar, ac/hs Follow-Up Follow up with: Yovani Sunday 06/24 Treatment/Equipment after DC Adaptive Equipment Issued: None SURINDER MÉNDEZ MD Jun 20, 2018 11:08
--- NOTE | 2018-06-20 11:16 | PDOC ---
BRIEF OPERATIVE NOTE Date: Jun 20, 2018 Pre-Op Diagnosis sebaceous abscess right thigh Post-Op Diagnosis same Procedure Performed excisional debridement of skin and subcutaneous tissue Surgeon Yovani Anesthesia Type: General Blood Loss 5cc IV Fluid 300cc Specimens Obtained skin and subcutaneous tissue 6x4x2 cm Findings sebaceous abscess Complications none SURINDER MÉNDEZ MD Jun 20, 2018 11:16
[2018-06-20] MEDS: fentaNYL PF VIAL 100 MCG/2 ML VIAL IV PRN ×4 (11:18→11:53)
[2018-06-20] MEDS ORDERED: OXYC-327 PO (11:57)
[2018-06-20] MEDS: HYDROmorphone 2 MG/ML VIAL IV PRN ×2 (12:11→12:22)
[2018-06-20] MEDS ORDERED: oxyCODONE/APAP 7.5/325 1 TAB TABLET PO PRN (12:15)
[2018-06-20 12:24] VITALS: BP 137/83
--- NOTE | 2018-06-20 18:27 | OP ---
DATE OF SURGERY: 06/20/2018 PREOPERATIVE DIAGNOSIS: Right thigh mass. POSTOPERATIVE DIAGNOSIS: Right thigh mass. PROCEDURE: Excisional debridement of skin and subcutaneous tissue, right thigh, 6 x 4 x 2 cm. SURGEON: Derick Méndez MD. ANESTHESIA: General LMA. ESTIMATED BLOOD LOSS: 5 mL. INTRAVENOUS: 300. INDICATIONS: The patient is an obese 57-year-old diabetic with chronic induration and drainage from the right thigh thought to represent a sebaceous abscess brought for excision. DESCRIPTION OF PROCEDURE: The patient brought to the operating suite, given a general LMA, placed in the left lateral decubitus position and the right thigh was prepped and draped in usual sterile fashion. An elliptical incision around the process was infiltrated with local anesthetic, incised and the skin, subcutaneous tissue, infected cyst and surrounding fat were excised en bloc with cautery dissection. Wound was cultured. Checked for hemostasis. When present and a correct sponge count was obtained, it was closed loosely with interrupted 2-0 nylon stitches and 3-0 Prolene stitches. Telfa aileen were placed in the wound. A sterile dressing applied. The patient was placed supine, awakened from his anesthetic and taken to the recovery room in satisfactory condition. DERICK MÉNDEZ MD DR: TALON/sagar JOB#: [id number] / [id number]
--- NOTE | 2018-06-22 12:08 | PATHOLOGY ---
[facility] Accession Number: [id number] . 01 Material submitted: . RIGHT THIGH SKIN AND SUBCUTANEOUS TISSUE . 01 Clinical history: . Right thigh cyst . 02 Diagnosis: Skin and subcutaneous tissue, right thigh debridement: - Follicular cyst, infundibular type, ruptured, with acute and chronic inflammation and foreign body giant cell reaction to keratinaceous material. LBQ/06/22/2018 . 02 Comment: There is no evidence of malignancy. (JPM/db; 06/22/18) . 02 Electronically signed: . Jose Alberto Laurent MD, Pathologist NPI- [id number] . 01 Gross description: . The specimen is received in formalin, labeled "Gurmeet King, and right thigh skin and subcutaneous tissue", is an unoriented ellipse of dark brown skin, 5.5 x 2.5 cm excised to a depth of 2.0 cm. The skin surface contains a 0.3 x 0.2 cm opening that is 1.7 cm from the closest tip and 1.0 cm from the closest peripheral margin. Sectioning through this opening reveals a contiguous cyst 2.0 x 1.5 x 0.7 cm filled with rebolledo-purulent and hemorrhagic material. . Associate Program Manager sections are submitted as follows: A1-A2. Single section bisected (Blue ink = cut surface) A3-A4. Single section bisected (Blue ink = cut surface) A5. Tips ([facility]; 06/20/2018) SHS/SHS . 02 Pathologist provided ICD-10: L72.9, L08.9 . 02 CPT . 139679 Performed at: [address], [place], [place] [id number] MD Yaw Bernabe MD Phone: [phone] Performed at: [address] [facility] [address] [place], [place] [id number] MD Jose Alberto Laurent MD Phone: [phone]
== END 2018-06-20 13:05 | disposition home or self-care (01) ==
LOC: SURG 07:48
PROVIDERS: ATTEND Surgery
DX: L72.8 Other follicular cysts of the skin and subcutaneous tissue (principal); I13.0 Hypertensive heart and chronic kidney disease with heart failure and stage 1 through stage 4 chronic kidney disease, or unspecified chronic kidney disease; E11.22 Type 2 diabetes mellitus with diabetic chronic kidney disease; N18.3 Chronic kidney disease, stage 3 (moderate); I50.33 Acute on chronic diastolic (congestive) heart failure; I25.10 Atherosclerotic heart disease of native coronary artery without angina pectoris; J44.9 Chronic obstructive pulmonary disease, unspecified; Z83.3 Family history of diabetes mellitus; K21.9 Gastro-esophageal reflux disease without esophagitis; F32.9 Major depressive disorder, single episode, unspecified; G47.33 Obstructive sleep apnea (adult) (pediatric); E78.00 Pure hypercholesterolemia, unspecified; J45.909 Unspecified asthma, uncomplicated; I25.5 Ischemic cardiomyopathy; E66.01 Morbid (severe) obesity due to excess calories; Z68.41 Body mass index [BMI] 40.0-44.9, adult; Z79.2 Long term (current) use of antibiotics; Z79.01 Long term (current) use of anticoagulants; Z79.82 Long term (current) use of aspirin; Z79.84 Long term (current) use of oral hypoglycemic drugs; Z79.4 Long term (current) use of insulin; Z79.899 Other long term (current) drug therapy; Z72.89 Other problems related to lifestyle; Z98.890 Other specified postprocedural states; Z85.72 Personal history of non-Hodgkin lymphomas; Z95.1 Presence of aortocoronary bypass graft; Z95.0 Presence of cardiac pacemaker; Z86.73 Personal history of transient ischemic attack (TIA), and cerebral infarction without residual deficits; Z90.49 Acquired absence of other specified parts of digestive tract; Z80.42 Family history of malignant neoplasm of prostate; Z82.49 Family history of ischemic heart disease and other diseases of the circulatory system; Z80.0 Family history of malignant neoplasm of digestive organs
CPT/HCPCS: 11406; 82962; 87071; 87075; J0690; J1100; J1170; J2001; J2270; J2405; J2704; J3010; 88304; A7015

== ENCOUNTER → 2019-03-07 | Outpatient (CLI) | payer MEDICARE, MEDICAID ==
[2018-09-18 09:19] VITALS: BP 115/61
[~2019-03-07] MED LIST changes: +ALBU1.25 NEB; +ASPI81TA50 PO; +CARV12.511 PO; -CARV12.52 PO; -DILT120C80 PO; +DILT120C85 PO; -HYDR-2758 PO; +HYDR-2761 PO; -HYDR-2762 PO; +HYDR-2765 PO; -IV RINGERS,LACTATED 1000ML 1,000 ML IV SCH; -LIDOCAINE 1% PF 2 ML VIAL. ID PRN; +LOSA-73 PO; -LOSA50TA2 PO; +MAGN400T22 PO; -MORPHINE SULFATE 2 MG/ML VIAL. IV PRN; +OMEP20TA8 PO; -ONDANSETRON PF 4 MG/2 ML VIAL. IV PRN; +OXYC1TAB19 PO; -PROCHLORPERAZINE 10 MG/2 ML VIAL. IV PRN; -ceFAZolin 2GM PREMIX 2 GM/50 ML BAG IV ONE; -fentaNYL PF VIAL 100 MCG/2 ML VIAL IV PRN
--- NOTE | 2019-03-07 13:52 | RAD ---
DATE: 03/07/2019 EXAM: DIGITAL DIAGNOSTIC BILATERAL, BREAST RIGHT HISTORY: Right breast lump COMPARISON: Baseline study This study was interpreted with the benefit of Computerized Aided Detection (CAD). Breast Density: SCATTERED The breast parenchyma shows scattered fibroglandular densities. Breast parenchyma level B. FINDINGS: There is streaky increased density in the superior retroareolar region of the right breast corresponding to the patient's area of palpable concern. No similar tissue is present at this level is the left breast. The configuration suggests unilateral gynecomastia. No discrete suspicious mass is seen. Minimal benign type calcifications are present. No suspicious microcalcifications are evident. Right breast ultrasound, 03/07/2019: A targeted ultrasound exam of the area of palpable concern in the right breast was performed. There is a heterogeneous irregular triangular-shaped process centered at the 12:00 retroareolar region. It contains hypoechoic and hyperechoic foci. Correlation with the mammographic findings suggest gynecomastia. IMPRESSION: Unilateral gynecomastia. Underlying neoplasm cannot be entirely excluded. Clinical surveillance is suggested. BI-RADS CATEGORY: 2 BENIGN FINDING(S) RECOMMENDED FOLLOW-UP: CLIN FOLLOW UP IMAGING CLINICALLY INDICATED PQRS compliance statement: Patient information was entered into a reminder system with a target due date for the next mammogram. Mammography is a sensitive method for finding small breast cancers, but it does not detect them all and is not a substitute for careful clinical examination. A negative mammogram does not negate a clinically suspicious finding and should not result in delay in biopsying a clinically suspicious abnormality. "Our facility is accredited by the [employer] Mammography Program."
== END | disposition home or self-care (01) ==
LOC: MAMMO 13:05
PROVIDERS: ATTEND Internal Medicine Hematology & Oncology
DX: N62 Hypertrophy of breast (principal); R92.1 Mammographic calcification found on diagnostic imaging of breast
CPT/HCPCS: 76641; 77066

== ENCOUNTER → 2019-03-09 | Outpatient (CLI) | payer MEDICARE, MEDICAID ==
[2018-09-18 09:19] VITALS: BP 115/61
--- NOTE | 2019-03-09 12:23 | RAD ---
FDG tumor localization scan, PET/CT, 03/09/2019: History: Restaging Hodgkin's disease Following IV injection of 14.5 mCi of 18 F-FDG, imaging was performed from the skull base to the proximal thighs. The noncontrast CT component was performed for attenuation correction and anatomic localization purposes rather than for primary diagnosis. The patient's blood glucose level at the time of injection was 190 MG/DL. Physiologic activity is evident in the neck including paraspinous muscular uptake. No hypermetabolic neck mass is seen. No abnormal mediastinal or hilar FDG uptake is seen. The pulmonary activity is unremarkable. There has been a previous median sternotomy. Normal GI tract and urinary tract activity is present in the abdomen and pelvis. No hypermetabolic intra-abdominal lesion is seen. A small right groin lymph node demonstrates low level FDG uptake with a maximum SUV of 2.5. This node measures 1.5 cm in short axis dimension. There is no other evidence of abdominal or pelvic adenopathy. Increased activity in the right gluteal musculature is probably physiologic. There is mildly increased activity in the right retroareolar region. This is presumably related to gynecomastia as described on the 03/07/2019 breast imaging workup. A 4 x 2 cm ill-defined lesion is identified in the subcutaneous soft tissues posteromedially in the right upper thigh. This involves the skin. It is hypermetabolic with a maximum SUV of 6.9. This lesion could be inflammatory or neoplastic. IMPRESSION: 1. Hypermetabolic superficial lesion in the soft tissues of the right upper thigh which is likely inflammatory, although a neoplastic process cannot be excluded. Clinical correlation is suggested. 2. A mildly enlarged right inguinal lymph node demonstrates low level FDG uptake. This is a nonspecific appearance which may be reactive or neoplastic. The former possibility is favored in view of the right upper thigh skin related lesion described above. 2. No other FDG PET evidence of recurrent lymphoma.
== END | disposition home or self-care (01) ==
LOC: PETSC 09:52
PROVIDERS: ATTEND Internal Medicine Hematology & Oncology
DX: C85.90 Non-Hodgkin lymphoma, unspecified, unspecified site (principal); R22.41 Localized swelling, mass and lump, right lower limb; R19.09 Other intra-abdominal and pelvic swelling, mass and lump; D51.8 Other vitamin B12 deficiency anemias; K62.5 Hemorrhage of anus and rectum; Z85.79 Personal history of other malignant neoplasms of lymphoid, hematopoietic and related tissues
CPT/HCPCS: 78815; A9552

== ENCOUNTER → 2019-03-20 | Outpatient (CLI) | payer MEDICARE, MEDICAID ==
[2018-09-18 09:19] VITALS: BP 115/61
[2019-03-20 10:45] LABS: BASO % 1 % (0-3); EOS # 0.3 x10^3/uL (0.0-0.7); EOS % 4 % (0-3); HEMATOCRIT 28.7 % (39.0-53.0); HEMOGLOBIN 9.6 g/dL (13.0-17.5); LYMPH % 18 % (24-48); MEAN CORPUSCULAR HEMOGLOBIN 34 pg (25-35); MEAN CORPUSCULAR HGB CONC 33 g/dL (31-37); MEAN CORPUSCULAR VOLUME 101 fL (79-100); MONO # 0.6 x10^3/uL (0.0-1.1); MONO % 10 % (0-9); NEUT % 68 % (31-73); PLATELET COUNT 193 x10^3/uL (140-400); RED BLOOD COUNT 2.83 x10^6/uL (4.30-5.70); RED CELL DISTRIBUTION WIDTH 14.3 % (11.5-14.5); WHITE BLOOD COUNT 5.9 x10^3/uL (4.0-11.0)
[2019-03-20 11:01] LABS: ALBUMIN 3.4 g/dL (3.4-5.0); CALCIUM 9.1 mg/dL (8.5-10.1); CREATININE 2.2 mg/dL (0.7-1.3); GFR 37.5; POTASSIUM 4.6 mmol/L (3.5-5.1)
== END | disposition home or self-care (01) ==
LOC: SURGPAT 09:47
PROVIDERS: ATTEND Surgery
DX: Z01.818 Encounter for other preprocedural examination (principal); N63.41 Unspecified lump in right breast, subareolar; R22.41 Localized swelling, mass and lump, right lower limb
CPT/HCPCS: 36415; 80048; 82040; 85025

== ENCOUNTER → 2019-03-23 | Day surgery (SDC) | payer MEDICARE, MEDICAID ==
[~2019-03-23] MED LIST changes: +HYDROmorphone 2 MG/ML VIAL IV PRN; +IV RINGERS,LACTATED 1000ML 1,000 ML IV SCH; +LIDOCAINE 1% PF 2 ML VIAL. ID PRN; +LIDOCAINE 2% PF 5 ML VIAL. ONE; +MORPHINE SULFATE 2 MG/ML VIAL. IV PRN; +ONDANSETRON PF 4 MG/2 ML VIAL. IV PRN; +PROCHLORPERAZINE 10 MG/2 ML VIAL. IV PRN; +PROPOFOL 40 ML IV ONE; +fentaNYL PF VIAL 100 MCG/2 ML VIAL IV PRN
[2019-03-23 13:51] VITALS: BP 142/76
--- NOTE | 2019-03-24 06:17 | HP ---
ADMIT DATE: 03/24/2019 HISTORY OF PRESENT ILLNESS: This is a 58-year-old male whose past medical history is significant for diabetes, C. diff, AFib, history of lymphoma as well as hypertension and history of pacemaker, is seen for diarrhea and rectal bleeding. He had previously undergone chemotherapy without radiation. He now has increased bleeding and diarrhea. Consultation is requested for undergoing colonoscopy. Risks and benefits have been discussed and the patient is willing to proceed. PAST MEDICAL HISTORY: Hypertension, hyperlipidemia, diabetes and Hodgkin's lymphoma. ALLERGIES: None. MEDICATIONS: Include albuterol, allopurinol, aspirin, carvedilol, diltiazem, furosemide, indomethacin, insulin, losartan, magnesium, metformin, omeprazole, potassium chloride, propafenone, Xarelto, spironolactone and temazepam. FAMILY HISTORY: Significant for stomach cancer with sibling and colon cancer with his father. REVIEW OF SYSTEMS: Per records. SOCIAL HISTORY: He is a nonsmoker and social drinker. PAST SURGICAL HISTORY: Status post lymphoma resection and tonsillectomy. PHYSICAL EXAMINATION: GENERAL: Reveals a well-nourished, well-developed male. VITAL SIGNS: Temp 98.3, pulse 95 and respirations 20. HEENT: Normocephalic and atraumatic head. Pupils and extraocular muscles are not tested. Sclerae are icteric. NECK: Supple. LUNGS: Clear. CARDIOVASCULAR: Reveals an S1, S2 without S3, S4 or appreciable murmur. ABDOMEN: Reveals soft abdomen, normal bowel sounds without appreciable hepatosplenomegaly. EXTREMITIES: Reveals no cyanosis, clubbing or edema. IMPRESSION: Diarrhea and rectal bleeding, history of Hodgkin's lymphoma. Differential includes C. difficile colitis, ischemic colitis, inflammatory bowel disease, colon cancer and/or recurrent lymphoma. Risks and benefits of the procedure including risk of hemorrhage and perforation during the operation were discussed. The patient is willing to proceed at this time. DG SANTANA MD DR: TRENTON/sagar JOB#: [id number] / [id number]
--- NOTE | 2019-03-24 15:05 | PATHOLOGY ---
[facility] Accession Number: [id number] . 01 Material submitted: . colon - RANDOM COLON BIOPSY . 01 Clinical history: . Pre-OP DX: Diarrhea, LLQ pain, Hx lymphoma Post-OP DX: Rule out microscopic colitis . 02 Diagnosis: Colonic mucosa, random colon biopsies: - No significant pathologic abnormalities, with several focally hyperplastic mucosal-associated lymphoid aggregates. (JPM:[facility] 03/24/2019) P/03/24/2019 . 02 Comment: There is no evidence of a chronic destructive colitis, lymphocytic colitis, or collagenous colitis. (JPM:[facility] 03/24/2019) . 02 Electronically signed: . Jose Alberto Laurent MD, Pathologist NPI- [id number] . 01 Gross description: . Received in formalin labeled "Gurmeet King, random colon BX," are multiple segments of esparza soft tissue measuring 1.8 x 0.9 x 0.1 cm in aggregate dimensions. The specimen is filtered and entirely submitted in cassette A1. ([facility]; 03/23/2019) TOB/TOB . 02 Pathologist provided ICD-10: R19.7, R10.31 . 02 CPT . 919114 Specimen Comment: A courtesy copy of this report has been sent to Specimen Comment: [phone], . Specimen Comment: Report sent to / DR FIELDS Performed at: 01 [facility] [address], [place] [id number] MD Yaw Bernabe MD Phone: [phone] Performed at: 02 [facility] [address] [place], [place] [id number] MD Jose Alberto Laurent MD Phone: [phone]
== END | disposition home or self-care (01) ==
LOC: SURG 11:46
PROVIDERS: ATTEND Internal Medicine Gastroenterology
DX: K64.0 First degree hemorrhoids (principal); K63.89 Other specified diseases of intestine; E11.9 Type 2 diabetes mellitus without complications; I48.91 Unspecified atrial fibrillation; I10 Essential (primary) hypertension; E78.5 Hyperlipidemia, unspecified; Z95.0 Presence of cardiac pacemaker; Z85.72 Personal history of non-Hodgkin lymphomas; Z79.82 Long term (current) use of aspirin; Z79.4 Long term (current) use of insulin; Z79.84 Long term (current) use of oral hypoglycemic drugs; Z79.899 Other long term (current) drug therapy; Z80.0 Family history of malignant neoplasm of digestive organs; Z98.890 Other specified postprocedural states
CPT/HCPCS: 45380; 88305; J2001; J2704

== ENCOUNTER 2019-04-03 07:48 | Inpatient (IN) | payer MEDICARE, MEDICAID ==
[~2019-04-03] VITALS: Ht 180.3 cm; Wt 66.0 kg
[~2019-04-03 07:48] MED LIST changes: -ALBU1.25 NEB; -LIDOCAINE 2% PF 5 ML VIAL. ONE; -PROPOFOL 40 ML IV ONE
[2019-04-03] MEDS ORDERED: ALBU1.25 NEB (08:19)
[2019-04-03] MEDS ORDERED: ONDANSETRON PF 4 MG/2 ML VIAL. ONE (08:38)
[2019-04-03] MEDS ORDERED: PROPOFOL 20 ML IV ONE ×2 (08:38→10:48)
[2019-04-03] MEDS ORDERED: fentaNYL PF VIAL 100 MCG/2 ML VIAL ONE ×3 (08:38→12:40)
[2019-04-03] MEDS ORDERED: LIDOCAINE 2% PF 5 ML VIAL. ONE (08:38)
[2019-04-03] MEDS ORDERED: DEXAMETHASONE SOD PHOS 4 MG/ML VIAL ONE (08:38)
[2019-04-03] MEDS ORDERED: ceFAZolin SODIUM 3 GM in IV DEXTROSE 5% 100ML 100 ML IV PRN (09:00)
[2019-04-03] MEDS ORDERED: BUPIVAC MPF-EPI 0.5%-1:200000 30 ML VIAL. ONE (09:11)
--- NOTE | 2019-04-03 09:45 | RAD ---
EXAM: Right breast ultrasound. HISTORY: History of lymphoma. Right Breast mass. Ultrasound-guided marking is requested. COMPARISON: 03/09/2019, 03/07/2019. FINDINGS: Sonography of the right periareolar breast was performed at the site of concern. This reveals a hypoechoic subareolar region as seen on prior studies. A discrete mass is not identifiable sonographically. The skin about the nipple was marked in preparation for surgery as requested by Dr. Pina. IMPRESSION: 1. Ultrasound guided skin marking in the right periareolar region. 2. BI-RADS Category 4: Suspicious abnormality-biopsy is suggested.
[2019-04-03] MEDS ORDERED: PHENYLEPHRINE in 0.9% NACL PF 1 MG/10 ML SYRINGE. IV ONE ×2 (10:33→11:00)
[2019-04-03] MEDS ORDERED: ePHEDrine PF IN SALINE 50 MG/10 ML SYRINGE. IV ONE ×2 (10:37→11:00)
[2019-04-03] MEDS ORDERED: BUPIVAC MPF-EPI 0.5%-1:200000 30 ML VIAL. INJ ONE (10:44)
[2019-04-03] MEDS ORDERED: PROPOFOL 10 MG/ML (20ML) VIAL. IV ONE (11:00)
[2019-04-03] MEDS ORDERED: OXYC1TAB19 PO (11:38)
[2019-04-03] MEDS ORDERED: oxyCODONE/APAP 7.5/325 1 TAB TABLET PO ONE (11:45)
--- NOTE | 2019-04-03 12:15 | DISCH ---
DISCHARGE INSTRUCTIONS Condition on Discharge Condition on Discharge: Stable Activity After Discharge Activity Instructions for Disc: Activity as tolerated, Avoid exertion Lifting Instructions after Dis: No heavy lifting, Do not lift >10 pounds Exercise Instruction after Dis: Progress as tolerated Driving Instructions after Dis: Do not drive today Weight Bearing Status after Di: No restrictions Diet after Discharge Diet after Discharge: Cardiac, Diabetic No Calorie Level Diet Texture: Regular Swallowing Supervision: None needed Wound Incision Care Wound/Incision Care: Ice to area for comfort Other wound/incision instructi: march shower Wednesday Checks after Discharge Checks after discharge: Check blood press - daily, Check blood sugar, ac/hs Follow-Up Follow up with: Yovani 04/07 Treatment/Equipment after DC Adaptive Equipment Issued: None SURINDER MÉNDEZ MD Apr 03, 2019 12:14
[2019-04-03] MEDS: fentaNYL PF VIAL 100 MCG/2 ML VIAL IV PRN ×4 (12:20→12:57)
--- NOTE | 2019-04-03 12:20 | PDOC ---
BRIEF OPERATIVE NOTE Date: Apr 03, 2019 Pre-Op Diagnosis right breast mass Post-Op Diagnosis same Procedure Performed excision after US localization Surgeon Yovani Anesthesia Type: General (LMA) Blood Loss 10cc IV Fluid 500cc Specimens Obtained right breast tissue, subareolarly, 10:00 Findings lipoma, gynecomastia Complications none Operative Note Wk # [id number] SURINDER MÉNDEZ MD Apr 03, 2019 12:20
--- NOTE | 2019-04-03 12:28 | OP ---
DATE OF SURGERY: 04/03/2019 PREOPERATIVE DIAGNOSIS: Right breast mass. POSTOPERATIVE DIAGNOSIS: Right breast mass. PROCEDURE: Excision after ultrasound localization. SURGEON: Derick Méndez MD ANESTHESIA: General LMA. ESTIMATED BLOOD LOSS: 10 mL. INTRAVENOUS FLUID: 500 mL. DESCRIPTION OF PROCEDURE: The patient went to ultrasound where he was marked on the right breast in the area at 10 o'clock circumareolarly that corresponded to the palpable change. He was brought to the OR, given a general LMA and the right breast prepped and draped in usual sterile fashion. A curvilinear incision from 9-12 o'clock was infiltrated with local anesthetic, incised and dissection carried down over the palpable mass, which suggested a lipoma. The firm white fibrinous tissue subareolarly was removed en bloc with this. Hemostasis with cautery. A 15-Macedonian round Demetri drain left in the depths of the wound for postoperative drainage, secured to the skin with a silk stitch. Incision closed with a subcuticular 4-0 Monocryl. Steri-Strips and sterile dressing applied. The patient was awakened from his anesthetic and taken to the recovery room in satisfactory condition. DERICK MÉNDEZ MD DR: TALON/sagar JOB#: [id number] / [id number]
--- NOTE | 2019-04-03 15:01 | PDOC ---
Provider Note Provider Note SURG pt is s/p excision right breast mass, has a drain unable to manage at home and without help available will observe til able to go home SURINDER MÉNDEZ MD Apr 03, 2019 15:01
[2019-04-03] MEDS ORDERED: TEMAZEPAM 15 MG CAPSULE PO PRN (15:15)
[2019-04-03] MEDS ORDERED: INDOMETHACIN 25 MG CAPSULE. PO PRN (17:00)
[2019-04-03] MEDS: INSULIN NPH/REG INSULIN 70/30 300 UNITS/3 ML INSULN.PEN. SQ SCH ×2 (17:00→20:01)
[2019-04-03] MEDS ORDERED: NON FORMULARY ITEM (Albuterol Sulfate (Ventolin Hfa Inhaler) 2 PUFF) INH SCH (17:00)
[2019-04-03] MEDS: CARVEDILOL 12.5 MG TABLET. PO SCH (17:03)
[2019-04-03] MEDS: oxyCODONE/APAP 7.5/325 1 TAB TABLET PO PRN ×2 (17:04→21:19)
[2019-04-03 19:00] VITALS: BP 116/53
[2019-04-03] MEDS ORDERED: DEXTROSE 50% 25 GM / 50ML DISP.SYRIN. IV PRN (19:45)
[2019-04-03] MEDS: ALBUTEROL SULFATE 2.5 MG/3 ML NEBU. NEB SCH (20:08)
[2019-04-03] MEDS ORDERED: NON FORMULARY ITEM (Albuterol Sulfate (Albuterol Sulfate Neb Soln) 1 VIAL) NEB SCH (21:00)
[2019-04-03] MEDS: SPIRONOLACTONE 25 MG TABLET PO SCH (21:20)
[2019-04-03] MEDS: PROPAFENONE 150 MG TABLET. PO SCH (21:21)
[2019-04-03 23:00] VITALS: BP 153/78
[2019-04-04] MEDS: oxyCODONE/APAP 7.5/325 1 TAB TABLET PO PRN ×4 (01:12→20:49)
[2019-04-04 03:00] VITALS: BP 156/83
[2019-04-04] MEDS: PANTOPRAZOLE 40 MG TABLET.DR. PO SCH (06:06)
[2019-04-04 07:00] VITALS: BP 140/75
[2019-04-04] MEDS: ALBUTEROL SULFATE 2.5 MG/3 ML NEBU. NEB SCH ×4 (07:25→19:33)
[2019-04-04] MEDS: INSULIN LISPRO 300 UNITS/3 ML INSULN.PEN. SQ SCH ×3 (08:00→17:00)
[2019-04-04] MEDS: INSULIN NPH/REG INSULIN 70/30 300 UNITS/3 ML INSULN.PEN. SQ SCH ×2 (08:00→18:27)
[2019-04-04] MEDS: MAGNESIUM OXIDE 400 MG TABLET PO SCH (08:58)
[2019-04-04] MEDS: ALLOPURINOL 300 MG TABLET. PO SCH (08:59)
[2019-04-04] MEDS: metFORMIN XR 500 MG TAB.ER.24H PO SCH (09:00)
[2019-04-04] MEDS: CARVEDILOL 12.5 MG TABLET. PO SCH ×2 (09:00→17:00)
[2019-04-04] MEDS: ASPIRIN CHEWABLE 81 MG TABLET. PO SCH (09:00)
[2019-04-04] MEDS: FUROSEMIDE 40 MG TABLET. PO SCH (09:00)
[2019-04-04] MEDS: POTASSIUM CHLORIDE 10 MEQ TABLET.ER. PO SCH (09:00)
[2019-04-04] MEDS: LOSARTAN POTASSIUM 50 MG TABLET. PO SCH (09:01)
[2019-04-04] MEDS: SPIRONOLACTONE 25 MG TABLET PO SCH ×2 (09:01→20:49)
[2019-04-04] MEDS: PROPAFENONE 150 MG TABLET. PO SCH ×2 (09:02→20:49)
[2019-04-04 11:00] VITALS: BP 141/70
--- NOTE | 2019-04-04 11:49 | PDOC1 ---
History and Physical Date of Admission Date of Admission 04/03/19 Identification/Chief Complaint Chief Complaint breast mass Source Source: Chart review, Patient History of Present Illness History of Present Illness 58 yr old male diagnosed with breast mass had outpatient breast biopsy and drain placed yesterday with anticipation of discharge home post procedure but was hyperglycemic and ran into logistical issues with getting home and admitted, overnight he has remained hyperglycemic and complaining of pain at incision site and fom drain Past Medical History Cardiovascular: AFIB, CAD, CHF, HTN Pulmonary: COPD CENTRAL NERVOUS SYSTEM: CVA, TIA GI: Constipation Heme/Onc: B12 deficiency, Cancer, Other Psych: Depression Rheumatologic: Gout Endocrine: Diabetes Past Surgical History Past Surgical History: Pacemaker Family History Family History: Cancer, Diabetes Social History ALCOHOL: none Drugs: None Current Medications Current Medications Current Medications Medications (Trade) Dose Ordered Sig/Lizzie Start Time Stop Time Status Last Admin Dose Admin Albuterol Sulfate (Ventolin Neb Soln) 2.5 mg RTQID 04/03/19 20:00 04/04/19 11:24 2.5 MG Allopurinol (Zyloprim) 300 mg DAILY 04/04/19 09:00 04/04/19 08:59 300 MG Aspirin (Children'S Aspirin) 81 mg DAILY 04/04/19 09:00 04/04/19 09:00 81 MG Bupivacaine HCl/ Epinephrine Bitart (Sensorcain-Mpf Epi 0.5%-1:[id number]) 30 ml STK-MED ONCE 04/03/19 10:44 04/03/19 10:53 DC 04/03/19 10:44 30 ML Carvedilol (Coreg) 25 mg BIDWMEALS 04/03/19 17:00 04/04/19 09:00 25 MG Cefazolin Sodium 3 gm/Dextrose 100 ml @ 200 mls/hr 1X PREOP PRN 04/03/19 09:00 04/04/19 08:59 DC 04/03/19 10:16 200 MLS/HR Cefazolin Sodium/ Dextrose 50 ml @ 100 mls/hr 1X ONCE 04/03/19 06:00 04/03/19 06:29 Cancel Dexamethasone Sodium Phosphate (Decadron) 4 mg STK-MED ONCE 04/03/19 08:38 04/03/19 08:39 DC Dextrose (Dextrose 50%-Water Syringe) 12.5 gm PRN Q15MIN PRN 04/03/19 19:45 Diltiazem HCl (Cardizem 24hr Cd) 180 mg DAILY 04/04/19 09:00 04/04/19 08:58 180 MG Fentanyl Citrate (Fentanyl 2ml Vial) 100 mcg STK-MED ONCE 04/03/19 08:38 04/03/19 08:39 DC Furosemide (Lasix) 40 mg DAILY 04/04/19 09:00 04/04/19 09:00 40 MG Hydromorphone HCl (Dilaudid) 0.5 mg PRN Q10MIN PRN 04/03/19 07:00 04/04/19 06:59 DC Indomethacin (Indocin) 50 mg PRN TID PRN 04/03/19 17:00 Insulin Human Isoph/Insulin Regular (HumuLIN 70/30) 75 units BIDWMEALS 04/03/19 17:00 04/03/19 20:01 60 UNITS Insulin Human Lispro (HumaLOG) 0-7 UNITS TIDWMEALS 04/04/19 08:00 Lidocaine HCl (Lidocaine Pf 2% Vial) 5 ml STK-MED ONCE 04/03/19 08:38 04/03/19 08:39 DC Lidocaine HCl (Xylocaine-Mpf 1% 2ml Vial) 2 ml PRN 1X PRN 04/03/19 07:00 04/04/19 06:59 DC Losartan Potassium (Cozaar) 50 mg DAILY 04/04/19 09:00 04/04/19 09:01 50 MG Magnesium Oxide (Magnesium Oxide) 400 mg DAILY 04/04/19 09:00 04/04/19 08:58 400 MG Metformin HCl (Glucophage Xr) 1,000 mg DAILYWBKFT 04/04/19 08:00 04/04/19 09:00 1,000 MG Morphine Sulfate (Morphine Sulfate) 1 mg PRN Q10MIN PRN 04/03/19 07:00 04/04/19 06:59 DC Non-Formulary Medication (Albuterol Sulfate (Albuterol Sulfate Neb Soln)) 1 vial BID 04/03/19 21:00 UNV Non-Formulary Medication (Albuterol Sulfate (Ventolin Hfa Inhaler)) 2 puff QID 04/03/19 17:00 UNV Ondansetron HCl (Zofran) 4 mg STK-MED ONCE 04/03/19 08:38 04/03/19 08:39 DC Oxycodone/ Acetaminophen (Percocet 7.5/ 325) 1 tab PRN Q4HRS PRN 04/03/19 14:45 04/04/19 06:07 1 TAB Pantoprazole Sodium (Protonix) 40 mg DAILYAC 04/04/19 07:30 04/04/19 06:06 40 MG Potassium Chloride (Klor-Con) 10 meq DAILY 04/04/19 09:00 04/04/19 09:00 10 MEQ Prochlorperazine Edisylate (Compazine) 5 mg PACU PRN PRN 04/03/19 07:00 04/04/19 06:59 DC Propafenone HCl (Rythmol) 75 mg BID 04/03/19 21:00 04/04/19 09:02 75 MG Propofol 20 ml @ As Directed STK-MED ONCE 04/03/19 08:38 04/03/19 08:39 DC Ringer's Solution 1,000 ml @ 30 mls/hr Q24H 04/03/19 07:00 04/03/19 18:59 DC 04/03/19 08:36 30 MLS/HR Spironolactone (Aldactone) 25 mg BID 04/03/19 21:00 04/04/19 09:01 25 MG Temazepam (Restoril) 15 mg PRN QHS PRN 04/03/19 15:15 04/04/19 01:12 15 MG Allergies Allergies Allergies Coded Allergies Type Severity Reaction Last Updated Verified No Known Medication Allergies Allergy Unknown 04/03/19 Yes ROS Review of System CONSTITUTIONAL: No fever or chills EYES: No recent changes SKIN: No rash or itching CARDIOVASCULAR: No chest pain, syncope, palpitations, or edema RESPIRATORY: No SOB or cough GASTROINTESTINAL: No nausea, vomiting or abdominal pain NEUROLOGICAL: No headaches or weakness ENDOCRINE: No cold or heat intolerance GENITOURINARY: No urgency or frequency of urination MUSCULOSKELETAL: No back pain or joint pain LYMPHATICS: No enlarged lymph nodes PSYCHIATRIC: No anxiety or depression Physical Exam Physical Exam GEN.: No apparent distress. Alert and oriented. HEENT: Head is normocephalic, atraumatic NECK: Supple. CHEST/BREAST: dressing drain right breast LUNGS: Clear to auscultation. HEART: RRR, S1, S2 present. Peripheral pulses intact ABDOMEN: Soft, nontender. Positive bowel sounds. EXTREMITIES: Without any cyanosis. NEUROLOGIC: Normal speech, normal tone PSYCHIATRIC: Normal affect, normal mood. SKIN: No ulcerations Vitals Vitals Vital Signs Date Time Temp Pulse Resp B/P (MAP) Pulse Ox O2 Delivery O2 Flow Rate FiO2 04/04/19 11:25 Room Air 04/04/19 11:00 97.9 84 18 141/70 (93) 100 97.9 04/03/19 11:38 8 Labs Labs Laboratory Tests Test 04/03/19 11:56 04/03/19 16:31 04/03/19 19:48 04/04/19 07:42 Glucose (Fingerstick) 157 mg/dL (70-99) 274 mg/dL (70-99) 263 mg/dL (70-99) 212 mg/dL (70-99) Test 04/04/19 11:34 Glucose (Fingerstick) 237 mg/dL (70-99) Laboratory Tests Test 04/03/19 11:56 04/03/19 16:31 04/03/19 19:48 04/04/19 07:42 Glucose (Fingerstick) 157 mg/dL (70-99) 274 mg/dL (70-99) 263 mg/dL (70-99) 212 mg/dL (70-99) Test 04/04/19 11:34 Glucose (Fingerstick) 237 mg/dL (70-99) Images Images EXAM: Right breast ultrasound. HISTORY: History of lymphoma. Right Breast mass. Ultrasound-guided marking is requested. COMPARISON: 03/09/2019, 03/07/2019. FINDINGS: Sonography of the right periareolar breast was performed at the site of concern. This reveals a hypoechoic subareolar region as seen on prior studies. A discrete mass is not identifiable sonographically. The skin about the nipple was marked in preparation for surgery as requested by Dr. Pina. IMPRESSION: 1. Ultrasound guided skin marking in the right periareolar region. 2. BI-RADS Category 4: Suspicious abnormality-biopsy is suggested. VTE Prophylaxis Ordered VTE Prophylaxis Devices: No VTE Pharmacological Prophylaxi: No Assessment/Plan Assessment/Plan s/p breast biopsy - wound care, await pathology, surgery f/u 04/07 hx of lymphoma - await path - hx of right thigh mass uncontrolled type 2 diabetes - SSI, home meds hypertension - home meds asthma - neb tx Meli FIELDS MD Apr 04, 2019 11:49
--- NOTE | 2019-04-04 11:52 | PDOC ---
MYAH CRUZ MANAGER RN CASE 04/04/19 1152: SURGICAL PROGRESS NOTE Subjective does not like food here instructed on how to care for drain home issues--lives alone Vital Signs Vital Signs Date Time Temp Pulse Resp B/P (MAP) Pulse Ox O2 Delivery O2 Flow Rate FiO2 04/04/19 11:25 Room Air 04/04/19 11:00 97.9 84 18 141/70 (93) 100 97.9 04/03/19 11:38 8 I&O Intake and Output 04/04/19 06:59 Intake Total 670 ml Output Total 25 ml Balance 645 ml Intake Oral 120 ml IV Total 550 ml Output Drainage Total 15 ml Estimated Blood Loss 10 ml # Voids 3 General: Alert, Oriented X3, Cooperative, No acute distress Skin: Other (beast dressing dry, drain serosang) Labs Laboratory Tests Test 04/03/19 11:56 04/03/19 16:31 04/03/19 19:48 04/04/19 07:42 Glucose (Fingerstick) 157 mg/dL (70-99) 274 mg/dL (70-99) 263 mg/dL (70-99) 212 mg/dL (70-99) Test 04/04/19 11:34 Glucose (Fingerstick) 237 mg/dL (70-99) Laboratory Tests Test 04/03/19 11:56 04/03/19 16:31 04/03/19 19:48 04/04/19 07:42 Glucose (Fingerstick) 157 mg/dL (70-99) 274 mg/dL (70-99) 263 mg/dL (70-99) 212 mg/dL (70-99) Test 04/04/19 11:34 Glucose (Fingerstick) 237 mg/dL (70-99) Assessment/Plan will ask SW to see--possible home health to assist dc planning SURINDER MÉNDEZ MD 04/04/19 1328: SURGICAL PROGRESS NOTE Assessment/Plan pt seen minimal serosanguineous APRIL output will d/c APRIL drain hope to be able to release later today or tomorrow now has oxygen on, despite having adequate O2 sats on RA per RN will defer med recs to Dr Ford his PCP MYAH CRUZ APRN Apr 04, 2019 11:52 SURINDER MÉNDEZ MD Apr 04, 2019 13:28
[2019-04-04 15:00] VITALS: BP 92/45
--- NOTE | 2019-04-04 16:07 | NUR ---
EVANGELIST following for discharge planning. Discussed with RN, pt [facility]. Pt reports everyone in his apartment building are on drugs or abuse alcohol. Pt lives alone and uses a cane to get around, however has been told he should use a walker - pt states he can't afford it. 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 Pt stated he has been to some food pantries but reports the food is mostly processed and he has been told not to eat processed food apparently. Pt reported in 2016, Marlon (EVANGELIST) gave him information on [employer], a meal delivery program for people with medicaid. Pt reported he has not been able to figure out if he is eligible, and has contacted various places, including the [facility]. Pt believes he has been on a wait list for 2 years for a decision about whether he qualifies for this meal service. EVANGELIST contacted [employer] ([phone]) with pt present and was advised pt needs to contact his insurance to determine if he has a long term care administrator medicaid waiver and what his benefits are. EVANGELIST contacted the Archiver's flyer pt had, which was another food assistance program ([phone]), pt is not eligible as he does not have the HCBS waiver, a TBI or have full physical disability, as well as his medicaid being his secondary insurance. EVANGELIST contacted the [facility], they advised SW contact Trent ([phone]) to determine where pt is at on the wait list for the physically disabled waiver. Trent advised pt is not on the wait list at all, and Trent could not see any notes in the system under the pt's name, advised SW to contact the [facility] again. EVANGELIST contacted [facility], they could see pt have done the intake in 2018 but had not been seen by an border machine operator. Brittney at [facility] took information regarding pt, including some income information, as well as medical hx. Brittney advised, Jaz will be the person doing the assessment on pt, when pt is home from the hospital. Jaz will contact pt to arrange a time to come to his home, Brittney should hear from Jaz by April 11. EVANGELIST googled various food hernandez and resources and provided to pt. SW to give more information to pt tomorrow (04/05/19). Pt agreeable to home health, [facility] has a psychiatric social worker who could possibly provide further assistance to pt when pt is home. Pt does not want to go to a prison - wants to return to his apartment. There is a possibility of a letter from pt's physician stating without these services pt is an imminent risk pt will end up in a prison and a crisis exception request can be made through the area on aging. Physician to contact the area on aging if they agree this is the case. RN notified. EVANGELIST will continue to follow.
--- NOTE | 2019-04-04 16:41 | EKG ---
[facility] [address] [place] [address] Test Date: 2019-04-04 Test Time: 16:32:29 Pat Name: REBEKAH GAMEZ Department: Room: 414 1 Gender: M Line Supervisor: LIT : 1960 Requested By: Meli FIELSD Order Number: [id number] Reading MD: Measurements Intervals Morton Rate: 78 P: 0 UT: 258 QRS: -20 QRSD: 78 T: 48 QT: 356 QTc: 409 Interpretive Statements SINUS RHYTHM PROLONGED UT INTERVAL LEFTWARD AXIS QRS(T) CONTOUR ABNORMALITY CONSISTENT WITH ANTEROSEPTAL INFARCT PROBABLY OLD CONSISTENT WITH INFERIOR INFARCT PROBABLY OLD ABNORMAL ECG RI6.01 Compared to ECG 09/16/2018 11:58:01 Ventricular-paced complex(es) or rhythm no longer present Myocardial infarct finding still present
--- NOTE | 2019-04-04 19:15 | RAD ---
EXAM: Chest, single view. HISTORY: Chest pain. COMPARISON: 09/15/2018 FINDINGS: A frontal view of the chest is obtained. There is suspected left lower lobe atelectasis or infiltrate. There is no pleural effusion or pneumothorax. The heart is normal in size. There is evidence of prior CABG. There is a cardiac pacemaker in expected position. IMPRESSION: Suspected left lower lobe atelectasis or infiltrate. Electronically signed by: Taylor Moreno MD (04/04/2019 7:13 PM) [facility]
[2019-04-04 19:25] VITALS: BP 108/59
[2019-04-04 23:02] VITALS: BP 106/62
[2019-04-05 03:22] VITALS: BP 112/62
[2019-04-05] MEDS: oxyCODONE/APAP 7.5/325 1 TAB TABLET PO PRN (04:43)
[2019-04-05] MEDS: PANTOPRAZOLE 40 MG TABLET.DR. PO SCH (05:46)
[2019-04-05 07:00] VITALS: BP 95/54
[2019-04-05] MEDS: INSULIN LISPRO 300 UNITS/3 ML INSULN.PEN. SQ SCH ×2 (08:00→12:00)
[2019-04-05] MEDS: CARVEDILOL 12.5 MG TABLET. PO SCH (08:00)
[2019-04-05] MEDS: metFORMIN XR 500 MG TAB.ER.24H PO SCH (08:00)
[2019-04-05] MEDS: INSULIN NPH/REG INSULIN 70/30 300 UNITS/3 ML INSULN.PEN. SQ SCH (08:00)
[2019-04-05] MEDS: FUROSEMIDE 40 MG TABLET. PO SCH (09:00)
[2019-04-05] MEDS: POTASSIUM CHLORIDE 10 MEQ TABLET.ER. PO SCH (09:00)
[2019-04-05] MEDS: ALLOPURINOL 300 MG TABLET. PO SCH (09:00)
[2019-04-05] MEDS: LOSARTAN POTASSIUM 50 MG TABLET. PO SCH (09:00)
[2019-04-05] MEDS: MAGNESIUM OXIDE 400 MG TABLET PO SCH (09:00)
[2019-04-05] MEDS: ASPIRIN CHEWABLE 81 MG TABLET. PO SCH (09:00)
[2019-04-05] MEDS: PROPAFENONE 150 MG TABLET. PO SCH (09:00)
[2019-04-05] MEDS: SPIRONOLACTONE 25 MG TABLET PO SCH (09:00)
--- NOTE | 2019-04-05 09:58 | PDOC ---
PROGRESS NOTES Subjective Sugar controlled, pain resolved, drain out, up ambulating, wants to go home, hoping to get path results soon Objective Afebrile General: NAD, pleasant Heart: RRR Lungs: CTA Abd: obese, soft Ext: no C/C/E skin: healing biopsy site, drain site dressing dry Vital Signs Vital Signs Date Time Temp Pulse Resp B/P (MAP) Pulse Ox O2 Delivery O2 Flow Rate FiO2 04/05/19 07:00 97.7 71 18 95/54 (68) 95 Room Air 97.7 04/03/19 11:38 8 I & O Intake and Output 04/05/19 06:59 Intake Total 420 ml Balance 420 ml Intake Oral 420 ml # Voids 2 Assessment and Plan s/p breast biopsy - wound care, await pathology, drain out yesterday hx of lymphoma - await path - hx of right thigh mass 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
--- NOTE | 2019-04-05 10:34 | NUR ---
SW following for discharge planning. Discussed with RN, Mathieu GEORGE, Yuridia to meet with pt to discuss home health. SW notified Dr. Pina of the home health plan, home health order for PT/OT/RN and SW. SW will continue to follow, pt should discharge home today.
--- NOTE | 2019-04-05 10:52 | PDOC3 ---
Discharge Summary Visit Information Date of Admission: Apr 03, 2019 Date of Discharge: Apr 05, 2019 Admitting Diagnosis Comment: right breast mass Final Diagnosis gynecomastia (path PND) Brief Hospital Course Allergies Allergies Coded Allergies Type Severity Reaction Last Updated Verified No Known Medication Allergies Allergy Unknown 04/03/19 Yes Vital Signs Vital Signs Date Time Temp Pulse Resp B/P (MAP) Pulse Ox O2 Delivery O2 Flow Rate FiO2 04/05/19 07:00 97.7 71 18 95/54 (68) 95 Room Air 97.7 Lab Results Laboratory Tests Test 04/03/19 11:56 04/03/19 16:31 04/03/19 19:48 04/04/19 07:42 Glucose (Fingerstick) 157 mg/dL (70-99) 274 mg/dL (70-99) 263 mg/dL (70-99) 212 mg/dL (70-99) Test 04/04/19 11:34 04/04/19 16:43 04/04/19 20:58 04/05/19 07:39 Glucose (Fingerstick) 237 mg/dL (70-99) 200 mg/dL (70-99) 170 mg/dL (70-99) 101 mg/dL (70-99) Laboratory Tests Test 04/04/19 11:34 04/04/19 16:43 04/04/19 20:58 04/05/19 07:39 Glucose (Fingerstick) 237 mg/dL (70-99) 200 mg/dL (70-99) 170 mg/dL (70-99) 101 mg/dL (70-99) Brief Hospital Course Mr. King is a 58 old male who presented for excision right breast mass after sono localization. He was unable to go home post op and was kept in house, seen by his PCP. Drain removed. Discharge Information Condition at Discharge: Stable Follow Up: As Needed Scheduled Albuterol Sulfate (Ventolin Hfa Inhaler) 18 Gm Hfa.aer.ad, 2 PUFF INH QID for FOR ASTHMA, Ref 0 (Reported) Entered as Reported by: MARV PIMENTEL on 05/19/18 09 Last Taken: Unknown Dose on 04/03/19 0600 Last Action: Converted on 04/03/19 1443 by SURINDER MÉNDEZ Albuterol Sulfate (Albuterol Sulfate Neb Soln) 1.25 Mg/3 Ml Vial.neb, 1 VIAL NEB BID for asthma, #150 (Reported) Entered as Reported by: MARV PIMENTEL on 04/03/19 0819 Last Action: Converted on 04/03/191442 by SURINDER MÉNDEZ Allopurinol (Allopurinol) 300 Mg Tablet, 300 MG PO DAILY for 30 Days, #30 Prescribed by: SOLIS BABIN on 12/11/17 0842 Last Taken: Unknown Dose on 04/03/19 0600 Last Action: Continued on 04/03/19 144 by SURINDER MÉNDEZ Aspirin (Children's Aspirin) 81 Mg Tab.chew, 81 MG PO DAILY, (Reported) Entered as Reported by: JEANNETTE DEJESUS on 01/17/15 1534 Last Taken: Unknown Dose on 03/31/19 Last Action: Continued on 04/03/19 144 by SURINDER MÉNDEZ Carvedilol (Coreg) 25 Mg Tablet, 25 MG PO BIDWMEALS, (Reported) Entered as Reported by: MARV PIMENTEL on 05/19/18 0952 Last Taken: Unknown Dose on 04/03/19 06 Last Action: Converted on 04/03/191442 by SURINDER MÉNDEZ Diltiazem Hcl (Diltiazem 24HR Cd) 120 Mg Cap.er.24h, 180 MG PO DAILY for HTN, #90 Ref 1 (Reported) Entered as Reported by: URIAH VEGA on 12/07/17 1336 Last Taken: Unknown Dose on 04/03/19 0600 Last Action: Converted on 04/03/191442 by SURINDER MÉNDEZ Furosemide (Furosemide) 40 Mg Tablet, 40 MG PO DAILY for 30 Days, #30 Prescribed by: ALMAS ARELLANO MD on 05/18/17 1055 Last Taken: Unknown Dose on 04/02/19 Last Action: Continued on 04/03/191442 by SURINDER MÉNDEZ Insuln Asp Prt/Insulin Aspart (Novolog Mix 70-30 Flexpen Syrn) 100 Unit/1 Ml Insuln.pen, 75 UNIT SQ BID for DIABETES, #1 (Reported) Entered as Reported by: MORGAN ADAMES on 05/31/17 1943 Last Taken: Unknown Dose on 04/02/19 2230 Last Action: Converted on 04/03/191442 by SURINDER MÉNDEZ Losartan Potassium (Losartan Potassium) 50 Mg Tablet, 50 MG PO DAILY for HYPERTENSION, (Reported) Entered as Reported by: GLENROY BARILLAS on 03/20/19 1025 Last Taken: Unknown Dose on 04/03/19 0600 Last Action: Continued on 04/03/191442 by SURINDER MÉNDZE Magnesium Oxide (Mag-Oxide) 400 Mg Tablet, 400 MG PO DAILY for low mag for 90 Days, #90 Ref 3 Prescribed by: SOLIS BABIN on 09/18/18 0903 Last Taken: Unknown Dose on 04/02/19 Last Action: Converted on 04/03/191442 by SURINDER MÉNDEZ Metformin Hcl (Metformin Hcl Er) 500 Mg Tab.er.24h, 2 TAB PO DAILYWBKFT, #90 Ref 3 (Reported) Entered as Reported by: Kentrell Joy on 09/13/152020 Last Taken: Unknown Dose on 04/02/19 Last Action: Converted on 04/03/191442 by SURINDER MÉNDEZ Omeprazole (Omeprazole) 20 Mg Tablet.dr, 20 MG PO DAILY for GERD, (Reported) Entered as Reported by: GLENROY BARILLAS on 03/20/19 1018 Last Taken: Unknown Dose on 04/02/19 Last Action: Converted on 04/03/191442 by SURINDER MÉNDEZ Potassium Chloride (Potassium Chloride) 10 Meq Tablet.er, 10 MEQ PO DAILY, (Reported) Entered as Reported by: PRINCE OROZCO on 09/02/16 0804 Last Taken: Unknown Dose on 04/02/19 Last Action: Continued on 04/03/191442 by SURINDER MÉNDEZ Propafenone Hcl (Propafenone Hcl) 150 Mg Tablet, 75 MG PO BID, (Reported) Entered as Reported by: MARV PIMENTEL on 05/19/18 0955 Last Taken: Unknown Dose on 04/02/19 2100 Last Action: Converted on 04/03/191442 by SURINDER MÉNDEZ Rivaroxaban (Xarelto) 15 Mg Tablet, 20 MG PO DAILY, (Reported) Entered as Reported by: MARV PIMENTEL on 05/19/18 0954 Last Taken: Unknown Dose on 03/31/19 Last Action: HELD on 04/03/191442 by SURINDER MÉNDEZ Spironolactone (Spironolactone) 25 Mg Tablet, 25 MG PO BID, (Reported) Entered as Reported by: MARV PIMENTEL on 05/19/18 0955 Last Taken: Unknown Dose on 04/02/19 2100 Last Action: Converted on 04/03/191442 by SURINDER MÉNDEZ Scheduled PRN Indomethacin (Indomethacin) 50 Mg Capsule, 1 CAP PO TID PRN PRN for gout, #30 Ref 1 (Reported) Entered as Reported by: URIAH VEGA on 12/07/17 1336 Last Action: Converted on 04/03/191442 by SURINDER MÉNDEZ Oxycodone/Apap 7.5-325 (Percocet 7.5-325 Mg Tablet ) 1 Each Tablet, 1 TAB PO PRN Q4-6HRS PRN for PAIN, #32 Ref 0 (Reported) Entered as Reported by: ARLYN MARTINEZ, RN on 04/03/19 1138 Last Action: Continued on 04/03/191442 by SURINDER MÉNDEZ Temazepam (Restoril) 15 Mg Capsule, 15 MG PO PRN QHS PRN for INSOMNIA, #30 Prescribed by: JACOB JOSE on 01/20/15 1223 Last Taken: Unknown Dose on 04/01/19 Last Action: Converted on 04/03/191442 by SURINDER YARBROUGH MD Apr 05, 2019 10:52
[2019-04-05 11:00] VITALS: BP 120/72
[2019-04-05] MEDS: ALBUTEROL SULFATE 2.5 MG/3 ML NEBU. NEB SCH (11:14)
--- NOTE | 2019-04-05 12:57 | NUR ---
Pt discharged home with home health. Discharge instructions and prescriptions discussed. IV removed. VSS. Pt assisted to wheelchair and was taken to main entrance and was secured in vehicle with brother.
--- NOTE | 2019-04-05 14:07 | PATHOLOGY ---
[facility] Accession Number: [id number] . 01 Material submitted: . breast - RIGHT BREAST TISSUE, SUBAREOLAR 10:00. Modifiers: right, 10:00 . 01 Clinical history: . Excision of breast mass . 02 Diagnosis: Breast "right breast tissue subareolar 10:00", lumpectomy: - Gynecomastia with focal usual ductal hyperplasia without atypia. - There is no evidence of atypia or malignancy. See comment. - The surgical resection margins are free. . ([facility]; 04/05/2019) S/04/05/2019 . 02 Comment: This case was also reviewed by Dr. Brooklyn Gonzalez. . ([facility]; 04/05/2019) . 02 Electronically signed: . Dario Rodarte MD, Pathologist NPI- [id number] . 01 Gross description: . The specimen is received in formalin, labeled "Gurmeet King, right breast tissue subareolar, 10:00", is a 43 g, unoriented, fibroadipose tissue measuring 5.5 x 4.7 x 4.0 cm. The specimen is serially sectioned to show a predominantly rebolledo-white pink cut surface that abuts the black inked. Marine Safety Officer tissue is submitted in A1-A6. ([facility]; 04/03/2019) SHS/SHS . 02 Pathologist provided ICD-10: N62 . 02 CPT . 927455 Specimen Comment: A courtesy copy of this report has been sent to Specimen Comment: [phone], . Specimen Comment: Report sent to / DR FIELDS Performed at: [address], [place] [id number] MD Yaw Bernabe MD Phone: [phone] Performed at: [address] [id number] MD Jose Alberto Laurent MD Phone: [phone]
== END 2019-04-05 12:00 | disposition home health service (06) | DRG 585 ==
LOC: SURG 07:48 → 4 NORTH 14:14
PROVIDERS: ADMIT Surgery; ATTEND Surgery
PROC: 0HBT0ZZ Excision of Right Breast, Open Approach (ICD-10-PCS; principal; 2019-04-03 10:00)
DX: N62 Hypertrophy of breast (principal); E11.65 Type 2 diabetes mellitus with hyperglycemia; I11.0 Hypertensive heart disease with heart failure; F32.9 Major depressive disorder, single episode, unspecified; G47.00 Insomnia, unspecified; M10.9 Gout, unspecified; Z60.2 Problems related to living alone; I25.10 Atherosclerotic heart disease of native coronary artery without angina pectoris; I48.91 Unspecified atrial fibrillation; I50.9 Heart failure, unspecified; J44.9 Chronic obstructive pulmonary disease, unspecified; Z83.3 Family history of diabetes mellitus; Z85.72 Personal history of non-Hodgkin lymphomas; Z86.73 Personal history of transient ischemic attack (TIA), and cerebral infarction without residual deficits
CPT/HCPCS: 71045; 76641; 82962; 88305; 93005; 94640; 94760; J0171; J0696; J1100; J1815; J2001; J2370; J2405; J2704; J3010; J3490; J7613

== ENCOUNTER → 2019-05-31 | Day surgery (SDC) | payer MEDICARE, MEDICAID ==
[~2019-05-31] MED LIST changes: +ALBU1.25 NEB; -LIDOCAINE 1% PF 2 ML VIAL. ID PRN; +LIDOCAINE 2% PF 5 ML VIAL. ONE; -PANT40TA5 PO; +PANT40TA77 PO; +PROPOFOL 40 ML IV ONE
[2019-05-31 09:35] VITALS: BP 181/107
== END | disposition home or self-care (01) ==
LOC: SURG 06:57
PROVIDERS: ATTEND Internal Medicine Gastroenterology
DX: K29.50 Unspecified chronic gastritis without bleeding (principal); I12.9 Hypertensive chronic kidney disease with stage 1 through stage 4 chronic kidney disease, or unspecified chronic kidney disease; J45.909 Unspecified asthma, uncomplicated; E78.00 Pure hypercholesterolemia, unspecified; E11.22 Type 2 diabetes mellitus with diabetic chronic kidney disease; N18.9 Chronic kidney disease, unspecified; Z80.0 Family history of malignant neoplasm of digestive organs; Z86.73 Personal history of transient ischemic attack (TIA), and cerebral infarction without residual deficits; Z79.84 Long term (current) use of oral hypoglycemic drugs
CPT/HCPCS: 43235; J2001; J2704; 82962

== ENCOUNTER → 2019-06-06 | Outpatient (CLI) | payer MEDICARE, MEDICAID ==
[2019-05-31 09:35] VITALS: BP 181/107
[~2019-06-06] MED LIST changes: -HYDROmorphone 2 MG/ML VIAL IV PRN; -IV RINGERS,LACTATED 1000ML 1,000 ML IV SCH; -LIDOCAINE 2% PF 5 ML VIAL. ONE; -MORPHINE SULFATE 2 MG/ML VIAL. IV PRN; -ONDANSETRON PF 4 MG/2 ML VIAL. IV PRN; -PROCHLORPERAZINE 10 MG/2 ML VIAL. IV PRN; -PROPOFOL 40 ML IV ONE; -fentaNYL PF VIAL 100 MCG/2 ML VIAL IV PRN
--- NOTE | 2019-06-06 16:41 | RAD ---
DATE: 06/06/2019 EXAM: DIGITAL DIAGNOSTIC RT, BREAST RIGHT HISTORY: Abnormal breast ultrasound and abnormal prior mammogram COMPARISON: Right breast ultrasound 03/07/2019, diagnostic mammogram bilateral 03/07/2019 Limited right breast ultrasound was performed at the 9:00 region. There is a hypoechoic structure measuring 2.4 cm x 1.7 cm x 1 cm tall. It is irregularly marginated and subareolar in location. No flow evident within it. This study was interpreted with the benefit of Computerized Aided Detection (CAD). Breast Density: SCATTERED The breast parenchyma shows scattered fibroglandular densities. Breast parenchyma level B. FINDINGS: Focal asymmetry in the right subareolar region is present. This is smaller in extent as compared to the prior exam. No mass lesion or distortion. No suspicious calcifications. IMPRESSION: Ultrasound and mammographic findings compatible with right gynecomastia. BI-RADS CATEGORY: 1 NEGATIVE RECOMMENDED FOLLOW-UP: CLIN FOLLOW UP IMAGING CLINICALLY INDICATED PQRS compliance statement: Patient information was entered into a reminder system with a target due date based on clinical necessity for the next mammogram. Mammography is a sensitive method for finding small breast cancers, but it does not detect them all and is not a substitute for careful clinical examination. A negative mammogram does not negate a clinically suspicious finding and should not result in delay in biopsying a clinically suspicious abnormality. "Our facility is accredited by the [employer] Mammography Program."
== END | disposition home or self-care (01) ==
LOC: US 10:34
PROVIDERS: ATTEND Internal Medicine Hematology & Oncology
DX: N63.11 Unspecified lump in the right breast, upper outer quadrant (principal)
CPT/HCPCS: 76641; 77065

== ENCOUNTER 2019-07-14 15:24 | Inpatient (IN) | payer MEDICARE, MEDICAID ==
[~2019-07-14] VITALS: Ht 182.9 cm; Wt 136.2 kg
[~2019-07-14 15:24] MED LIST changes: +INDO50CA15 PO; -INDO50CA5 PO; +METF500T11 PO; -METF500T9 PO
[2019-07-14] MEDS ORDERED: NITROGLYCERIN SUBLINGUAL 0.4 MG BOTTLE OF 25. SL PRN (15:45)
[2019-07-14] MEDS ORDERED: ASPIRIN 325 MG TABLET PO ONE (15:45)
[2019-07-14] MEDS ORDERED: IPRATRPIUM/ALBUTEROL 0.5/2.5MG 3 ML NEBU. NEB ONE (15:45)
--- NOTE | 2019-07-14 15:57 | PHYS DOC ---
Past Medical History Past Medical History: A-Fib, Asthma, Cancer, CHF, Constipation, CVA, Depr ession, Diabetes-Type II, High Cholesterol, Hypertension, Renal Disease, Other Additional Past Medical Histor: Sleep Apnea, MULTIPLE CARDIAC TUMORS, HOGDKINS LYMPHOMA,GOUT, C-DIFF Past Surgical History: Angioplasty, Coronary Bypass Surgery, Pacemaker, Tonsillectomy, Other Additional Past Surgical Histo: 2 surgeries to attempt to remove tumors on heart,Adenoids Alcohol Use: Occasionally Drug Use: None Adult General Chief Complaint Chief Complaint: CHEST PAIN HPI HPI Patient is a 58 year old male who presents with complaining of chest pain. Patient complaining of intermittent episodes of left lower chest wall pain with radiation to axillary area for the last 4 days associated with active cough with clear sputum and rated his pain 8/10. Patient complaining of pressure 17 substernal area intermittently since this morning that lasted about 20 minutes and repeated once an hour and getting force with activity and taking deep breaths. Patient complaining of shortness of breath and dizziness associated with the pain and rated his pain 10 over 10. Patient denies taking any aspirin o r nitroglycerin the pain medication and states he had the same pain with previous episodes of heart tumor in and 2004. Patient states he has a scheduled for right breast surgery in 3 days. Review of Systems Review of Systems Constitutional: Denies fever or chills [] Eyes: Denies change in visual acuity, redness, or eye pain [] HENT: Denies nasal congestion or sore throat [] Respiratory: Reports cough and shortness of breath Cardiovascular: No additional information not addressed in HPI [] GI: Denies abdominal pain, nausea, vomiting, bloody stools or diarrhea [] : Denies dysuria or hematuria [] Musculoskeletal: Denies back pain or joint pain [] Integument: Denies rash or skin lesions [] Neurologic: Denies headache, focal weakness or sensory changes [] Endocrine: Denies polyuria or polydipsia [] All other systems were reviewed and found to be within normal limits, except as documented in this note. Current Medications Current Medications Current Medications Medications (Trade) Dose Ordered Sig/Lizzie Start Time Stop Time Status Last Admin Dose Admin Albuterol/ Ipratropium (Duoneb) 3 ml 1X ONCE 07/14/19 15:45 07/14/19 15:46 DC 07/14/19 17:52 3 ML Aspirin (Will Aspirin) 325 mg 1X ONCE 07/14/19 15:45 07/14/19 15:46 DC 07/14/19 16:24 325 MG Nitroglycerin (Nitrostat) 0.4 mg PRN Q5MIN PRN 07/14/19 15:45 07/15/19 15:44 07/14/19 16:24 0.4 MG Allergies Allergies Allergies Coded Allergies Type Severity Reaction Last Updated Verified No Known Drug Allergies 07/14/19 No Physical Exam Physical Exam Constitutional: Well developed, well nourished, mild distress, non-toxic appearance, morbidly obese. [] HENT: Normocephalic, atraumatic. Eyes: PERRLA, EOMI, conjunctiva normal, no discharge. [] Neck: Normal range of motion, no tenderness, supple, no stridor. [] Cardiovascular:Heart rate regular rhythm, no murmur [] Lungs & Thorax: Bilateral breath sounds clear to auscultation , reproducible right lower chest wall tenderness[] Abdomen: Bowel sounds normal, soft, no tenderness, no masses, no pulsatile masses. [] Skin: Warm, dry, no erythema, no rash. [] Back: No tenderness, no CVA tenderness. [] Extremities: No tenderness, no cyanosis, no clubbing, ROM intact, no edema. [] Neurologic: Alert and oriented X 3, no focal deficits noted. [] Psychologic: Affect anxious, judgement normal, mood normal. [] Current Patient Data Vital Signs Vital Signs Date Time Temp Pulse Resp B/P (MAP) Pulse Ox O2 Delivery O2 Flow Rate FiO2 07/14/19 15:41 82 18 156/78 (104) 99 Room Air 07/14/19 15:40 98.6 98.6 EKG EKG EKG interpreted by me. EKG at 1540 showed normal sinus rhythm at rate of 82, PVCs, left ivey axis, poor R-wave progress in inferior and anteroseptal leads, no acute ST and T-wave elevation. Radiology/Procedures Radiology/Procedures [][facility] [address] [place] [address] IMAGING REPORT Signed PATIENT: REBEKAH GAMEZ ACCOUNT: [id number] : 1960 LOCATION: [address] [place] [address] AGE: 58 SEX: M EXAM STATUS: ADM IN ORD. PHYSICIAN: NAVDEEP PERSON MD REASON: chest pain 210 PROCEDURE: PORTABLE CHEST 1V PORTABLE CHEST 1V Clinical indications: Chest pain. COMPARISON: April 04, 2019. Findings: No acute lung infiltrate or pleural effusion or pulmonary edema or lung mass or pneumothorax is seen. The heart size, pulmonary vasculature, mediastinum and both cat are stable. Impression: No acute radiographic abnormality is seen. Electronically signed by: Tristin Le MD (07/14/2019 4:35 PM) [place] [id number] DICTATED and SIGNED BY: TRISTIN LE MD DATE: 07/14/19 163 Course & Med Decision Making Course & Med Decision Making Pertinent Labs and Imaging studies reviewed. (See chart for details) Evaluation of patient in ER showed 58-year-old male patient with heart score of 6 and complaining of chest pain since this morning. Patient had unremarkable EKG and cardiac enzyme. Patient also had right chest wall pain for several days and schedule right breast surgery in 2 days. Patient treated with nitroglycerin and aspirin in ER. Patient requiring admission for further evaluation and treatment. Discussed with Dr. Arguello who is in agreement with admission. Discussed findings and plan with patient and family, who acknowledge understanding and agreement. Dragon Disclaimer Dragon Disclaimer This electronic medical record was generated, in whole or in part, using a voice recognition dictation system. Departure Departure Impression: Primary Impression: Chest pain Additional Impressions: Musculoskeletal chest pain Hypomagnesemia Renal insufficiency Uncontrolled diabetes mellitus Disposition: ADMITTED INPATIENT (at 1725) Admitting Physician: CAIT (Dr Arguello accepted admission at 1725) Condition: IMPROVED Referrals: Meli FIELDS MD (PCP) The HEART Score for CP Pts HEART Score for Chest Pain: HEART Score for Chest Pain Response (Comments) Value History Moderately Suspicious 1 ECG Nonspecific Repolarizatio 1 Age >45 - < 65 1 Risk Factors >3 Risk Factors or Hx CAD 2 Troponin < Normal Limit 0 Total 5 Risk Factors: Risk Factors: DM, Current or recent (<one month) smoker, HTN, HLP, family history of CAD, obesity. Risk Scores: Score 0 - 3: 2.5% MACE over next 6 weeks - Discharge Home Score 4 - 6: 20.3% MACE over next 6 weeks - Admit for Clinical Observation Score 7 - 10: 72.7% MACE over next 6 weeks - Early Invasive Strategies Problem Qualifiers Primary Impression: Chest pain Chest pain type: unspecified Qualified Codes: R07.9 - Chest pain, unspecified Additional Impressions: Uncontrolled diabetes mellitus Diabetes mellitus type: other specified (including KRIS) Glycemic state: with hyperglycemia Qualified Codes: E13.65 - Other specified diabetes mellitus with hyperglycemia NAVDEEP PERSON MD Jul 14, 2019 15:57
[2019-07-14 16:09] LABS: BASO # 0.1 x10^3/uL (0.0-0.2); BASO % 1 % (0-3); EOS # 0.2 x10^3/uL (0.0-0.7); EOS % 4 % (0-3); HEMATOCRIT 35.4 % (39.0-53.0); HEMOGLOBIN 11.9 g/dL (13.0-17.5); LYMPH # 1.2 x10^3/uL (1.0-4.8); LYMPH % 18 % (24-48); MEAN CORPUSCULAR HEMOGLOBIN 33 pg (25-35); MEAN CORPUSCULAR HGB CONC 34 g/dL (31-37); MEAN CORPUSCULAR VOLUME 98 fL (79-100); MONO # 0.6 x10^3/uL (0.0-1.1); MONO % 9 % (0-9); NEUT # 4.8 x10^3/uL (1.8-7.7); NEUT % 69 % (31-73); PLATELET COUNT 226 x10^3/uL (140-400); RED BLOOD COUNT 3.62 x10^6/uL (4.30-5.70); RED CELL DISTRIBUTION WIDTH 14.7 % (11.5-14.5)
[2019-07-14 16:19] LABS: CALCIUM 8.7 mg/dL (8.5-10.1); CREATININE 2.1 mg/dL (0.7-1.3); GFR 39.6; POTASSIUM 4.9 mmol/L (3.5-5.1)
[2019-07-14 16:24] LABS: ALBUMIN 3.5 g/dL (3.4-5.0); ALBUMIN/GLOBULIN RATIO 0.8 (1.0-1.7); MAGNESIUM 1.6 mg/dL (1.8-2.4); TOTAL BILIRUBIN 0.7 mg/dL (0.2-1.0); TOTAL PROTEIN 7.8 g/dL (6.4-8.2)
--- NOTE | 2019-07-14 16:38 | RAD ---
PORTABLE CHEST 1V Clinical indications: Chest pain. COMPARISON: April 04, 2019. Findings: No acute lung infiltrate or pleural effusion or pulmonary edema or lung mass or pneumothorax is seen. The heart size, pulmonary vasculature, mediastinum and both cat are stable. Impression: No acute radiographic abnormality is seen. Electronically signed by: Isaac Le MD (07/14/2019 4:35 PM) [facility]
[2019-07-14 16:55] VITALS: BP 139/87
[2019-07-14 17:26] LABS: PROTHROMBIN TIME PATIENT 20.2 SEC (11.7-14.0)
[2019-07-14 17:31] LABS: D-DIMER < 0.27 ug/mlFEU (0.00-0.50)
[2019-07-14] MEDS ORDERED: ALLO100T PO (17:44)
[2019-07-14] MEDS ORDERED: PROP150T2 PO (17:48)
[2019-07-14] MEDS ORDERED: HYDR50TA6 PO (17:48)
[2019-07-14] MEDS ORDERED: INSU100I7 SQ (17:48)
[2019-07-14] MEDS ORDERED: FURO20TA3 PO (17:48)
[2019-07-14] MEDS ORDERED: TEMAZEPAM 15 MG CAPSULE PO PRN (18:15)
[2019-07-14] MEDS ORDERED: DEXTROSE 50% 25 GM / 50ML DISP.SYRIN. IV PRN (18:30)
[2019-07-14] MEDS ORDERED: IV DEXTROSE 5% 250 ML BAG. IV PRN (18:30)
[2019-07-14 19:00] VITALS: BP 149/68
[2019-07-14] MEDS: CARVEDILOL 12.5 MG TABLET. PO SCH (19:41)
[2019-07-14] MEDS: fentaNYL PF VIAL 100 MCG/2 ML VIAL IV PRN ×2 (19:42→22:27)
[2019-07-14] MEDS: RIVAROXABAN 10 MG TABLET. PO SCH (19:42)
[2019-07-14] MEDS: HYDROcodone/APAP 7.5/325MG 1 TAB TABLET PO PRN (19:42)
[2019-07-14] MEDS: ALBUTEROL SULFATE 2.5 MG/3 ML NEBU. NEB SCH (20:30)
[2019-07-14] MEDS ORDERED: INSULIN GLARGINE SYRINGE. SQ SCH (21:00)
[2019-07-14] MEDS: PROPAFENONE 150 MG TABLET. PO SCH (21:44)
[2019-07-14] MEDS: SPIRONOLACTONE 25 MG TABLET PO SCH (21:44)
[2019-07-14] MEDS: BENZOCAINE/MENTHOL LOZENGE. PO PRN (22:27)
[2019-07-14 23:00] VITALS: BP 157/74
[2019-07-15 03:00] VITALS: BP 127/77
[2019-07-15] MEDS: HYDROcodone/APAP 7.5/325MG 1 TAB TABLET PO PRN (05:45)
[2019-07-15] MEDS: BENZOCAINE/MENTHOL LOZENGE. PO PRN (05:45)
[2019-07-15] MEDS: PROPAFENONE 150 MG TABLET. PO SCH ×2 (05:45→14:00)
[2019-07-15 07:00] VITALS: BP 128/77
[2019-07-15] MEDS: ALBUTEROL SULFATE 2.5 MG/3 ML NEBU. NEB SCH ×3 (07:19→15:17)
[2019-07-15] MEDS ORDERED: PANTOPRAZOLE 40 MG TABLET.DR. PO SCH (07:30)
[2019-07-15] MEDS: INSULIN LISPRO 300 UNITS/3 ML VIAL. SQ SCH ×2 (08:00→12:00)
[2019-07-15] MEDS ORDERED: FUROSEMIDE 20 MG TABLET PO SCH (09:00)
[2019-07-15] MEDS ORDERED: LOSARTAN POTASSIUM 50 MG TABLET. PO SCH (09:00)
[2019-07-15] MEDS ORDERED: POTASSIUM CHLORIDE 10 MEQ TABLET.ER. PO SCH (09:00)
[2019-07-15] MEDS ORDERED: hydroCHLOROthiazide 25 MG TABLET PO SCH (09:00)
[2019-07-15] MEDS ORDERED: ASPIRIN CHEWABLE 81 MG TABLET. PO SCH (09:00)
[2019-07-15] MEDS ORDERED: ALLOPURINOL 100 MG TABLET. PO SCH (09:00)
[2019-07-15] MEDS ORDERED: MAGNESIUM OXIDE 400 MG TABLET PO SCH (09:00)
--- NOTE | 2019-07-15 09:11 | EKG ---
[facility] [address] [place] [address] Test Date: 2019-07-14 Test Time: 15:40:06 Pat Name: REBEKAH GAMEZ Department: Room: 210 1 Gender: M [employer]: : 1960 Requested By: NAVDEEP PERSON Order Number: [id number] Reading MD: Measurements Intervals [place] Rate: 82 P: VA: QRS: -29 QRSD: 80 T: 43 QT: 348 QTc: 409 Interpretive Statements ATRIAL FIBRILLATION VENTRICULAR PREMATURE COMPLEX(ES) LEFTWARD AXIS QRS(T) CONTOUR ABNORMALITY CONSISTENT WITH INFERIOR INFARCT PROBABLY OLD ABNORMAL ECG No previous ECG available for comparison
[2019-07-15] MEDS: SPIRONOLACTONE 25 MG TABLET PO SCH (09:21)
[2019-07-15] MEDS: CARVEDILOL 12.5 MG TABLET. PO SCH (09:21)
[2019-07-15] MEDS: RIVAROXABAN 10 MG TABLET. PO SCH (09:28)
[2019-07-15] MEDS ORDERED: BENZ-8 PO (09:49)
[2019-07-15] MEDS ORDERED: MAGN400T22 PO (09:49)
[2019-07-15] MEDS ORDERED: AZIT250T6 PO (09:49)
--- NOTE | 2019-07-15 10:18 | HP ---
ADMIT DATE: 07/14/2019 ADMISSION HISTORY AND PHYSICAL COMBINED DISCHARGE SUMMARY DATE OF DISCHARGE: 07/15/2019 ADMITTING DIAGNOSIS: Chest pain. DISMISSAL DIAGNOSIS: Chest wall pain. SECONDARY DIAGNOSES: 1. Hypomagnesemia. 2. Acute on chronic renal failure. 3. Uncontrolled type 2 diabetes. CHRONIC DIAGNOSES: 1. Sick sinus syndrome with pacer. 2. Coronary artery disease. 3. Breast mass. 4. Chronic atrial fibrillation. 5. Hypertension. 6. High cholesterol. 7. History of lymphoma. 8. Chronic kidney disease with baseline creatinine of 1.88. 9. Obstructive sleep apnea. 10. Morbid obesity. 11. Remote history of congestive heart failure. HISTORY OF PRESENT ILLNESS AND HOSPITAL COURSE: This patient is a 58-year-old -[place] male with multiple medical problems, came to the Emergency Room with 3-day history of cough, congestion, had right-sided chest pain and some chest pressure only associated with cough, not lasting for more than several minutes, but would be recurrent with cough all day long. He had no significant shortness of breath, diaphoresis, nausea, vomiting, but did have productive white sputum. The patient was seen in the ER and due to multiple risk factors, was admitted for possible cardiac evaluation. He had a negative D-dimer in the ER, had negative troponins, had negative unchanged EKGs. The patient had palpable pain in his chest wall consistent with pain that he came to the Emergency Room for. The patient was not hypoxic, had no elevation of white count. The patient did have low magnesium, which was treated with p.o. medication. The patient is scheduled for excision of breast mass in several days and Xarelto was held with INR of 1.8 noted on admission. The patient's BUN and creatinine were slightly elevated, but near baseline. P.o. fluids were encouraged. The patient stabilized throughout hospital stay. He was started on Zithromax for possible sinusitis/bronchitis. He was given Tessalon Perles for cough as well as p.o. magnesium supplementation. He will follow up with Dr. Pina for surgical procedure on Wednesday. PAST MEDICAL HISTORY: Again in this patient is as listed above. MEDICATIONS: As per DEC. PAST SURGICAL HISTORY: Significant for coronary artery bypass graft, pacemaker implantation, tonsil and adenoidectomy, angioplasties in the past, lymphoma masses removed in 2002 and 2004, debridement of thigh abscess, previous excision of right breast mass. FAMILY HISTORY: His mother is alive with diabetes, end-stage renal disease. His father with prostate cancer, colon cancer. Did have diabetes, hypertension and high cholesterol. He has a brother who is alive with colon cancer and prostate cancer. He has a grandmother who with end-stage renal disease. SOCIAL HISTORY: He is a nonsmoker. The patient drinks occasionally. The patient has had a positive cocaine screen 2 years ago during that hospitalization. The patient does live alone. The patient is on disability. ALLERGIES: The patient has no known drug allergies. REVIEW OF SYSTEMS: The patient was doing well until a cough 3-4 days ago. He denies any nausea, vomiting, diarrhea or constipation. He has no recent weight loss or night sweats. The patient is only short of breath with coughing and does use home nebulizer treatments. PHYSICAL EXAMINATION: GENERAL: This is a morbidly obese -[place] male in no apparent distress. On my exam, he is alert and oriented x 3. HEENT: Benign. NECK: Supple, without JVD or bruit. CARDIAC: Regular rate and rhythm. LUNGS: Clear on my auscultation. ABDOMEN: Soft, nontender. EXTREMITIES: With 2+ nonpitting edema. NEUROLOGIC: Showed no unilateral findings. ASSESSMENT: 1. Costochondritis. 2. Chest wall pain. 3. Sinusitis/bronchitis. 4. Type 2 diabetes, out of control. 5. Hypomagnesemia. 6. Chronic renal insufficiency with acute on chronic renal failure due to mild dehydration. PLAN: To start the patient on p.o. antibiotics, obtain CT of chest to rule out occult pneumonia. Continue routine breathing treatments at home. Continue diabetic care at home. Continue antitussive pills started in the hospital. Supplement magnesium with p.o. magnesium. Follow up with Surgery for planned superficial breast biopsy. Hold Xarelto for 48 hours prior to surgery starting today. Restart Xarelto postoperatively per Surgery. Follow up with Dr. Ford in 1 week for continued care. SOLIS BABIN MD DR: RAMONA/sagar JOB#: [id number] / [id number]
[2019-07-15] MEDS ORDERED: AZITHROMYCIN 250 MG TABLET. PO ONE (10:30)
[2019-07-15] MEDS ORDERED: BENZONATATE 100 MG CAPSULE. PO ONE (10:30)
[2019-07-15 11:00] VITALS: BP 154/88
--- NOTE | 2019-07-15 11:44 | CONS ---
DATE OF CONSULTATION: PULMONARY CONSULTATION ATTENDING PHYSICIAN: Chnadra Feliciano MD REASON FOR CONSULTATION: Cough. HISTORY OF PRESENT ILLNESS: The patient is a 58-year-old morbidly obese male, who has history of asthma and history of obstructive sleep apnea, who was brought into the hospital with complaint of cough, which was nonproductive. He had some sweats but no obvious fever and he was coughing as well as was having chest pain. The patient was having some wheezing as well. He was treated with nebulizer treatments along with antibiotic. He feels better and wants to go home. No headaches. No nausea or vomiting. No diarrhea. He is compliant with his CPAP. PAST MEDICAL HISTORY: Significant for history of asthma, history of coronary artery disease, history of chronic atrial fibrillation, dyslipidemia, history of lymphoma, and chronic kidney disease. PAST SURGICAL HISTORY: No recent surgeries. ALLERGIES: None. MEDICATIONS: Reviewed as listed in the MRAD. REVIEW OF SYSTEMS: Twelve-point system obtained; pertinent positives discussed in my history of present illness, otherwise noncontributory. All systems that were negative were reviewed as well. SOCIAL HISTORY: No significant tobacco history; drinks occasionally. PHYSICAL EXAMINATION: VITAL SIGNS: Reviewed; afebrile; pulse oximetry 97% on room air. NECK: Supple. LUNGS: Clear. CARDIOVASCULAR: Regular rate and rhythm. ABDOMEN: Soft, obese. EXTREMITIES: With no pitting edema. LABORATORY DATA: Labs were reviewed; white cell count 7.0, hemoglobin 11.9, and platelets are 226,000. IMPRESSION: 1. Dyspnea secondary to acute bronchitis and acute asthma exacerbation; clinically much improved. 2. History of morbid obesity and obstructive sleep apnea, compliant with CPAP. 3. Chest pain related to bronchitis. RECOMMENDATIONS: 1. Clinically better. 2. Okay to discharge home on nebulizer treatments and oral antibiotic. 3. The patient would benefit from outpatient steroid nebulizer since he does not do well with inhaler. The patient is to follow with Dr. Valdez in the office. JEFFREY SHIPLEY MD DR: QUETA/sagar JOB#: [id number] / [id number]
--- NOTE | 2019-07-15 13:35 | RAD ---
Examination: CT CHEST WO CONTRAST History: Cough and chest pain Comparison/Correlation: 03/09/2019 PET/CT exam Findings: Axial images of chest were obtained without contrast. Sagittal and coronal reformatted images were provided. Single lead left-sided pacemaker is present. Sternal wires [place] clips are present. No pleural or pericardial effusion. No enlarged thoracic lymph nodes. Patchy infiltrate at the left lower lobe superior segment is noted. Ill-defined patchy nodular infiltrates are especially present at the left lower lobe basilar aspect. Tracheobronchial tree is unremarkable. Partially visualized upper abdomen is unremarkable. Bony structures are unremarkable. Impression: Nodular infiltrates involves the left lower lobe basilar aspect and to a lesser extent within its superior segment. These are new upon correlation with previous PET/CT exam. Follow-up to resolution is recommended. PQRS Compliance Statement: One or more of the following individualized dose reduction techniques were utilized for this examination: 1. Automated exposure control 2. Adjustment of the mA and/or kV according to patient size 3. Use of iterative reconstruction technique Electronically signed by: Kaden Burgess MD (07/15/2019 1:33 PM) [facility]
[2019-07-15 15:00] VITALS: BP 154/77
--- NOTE | 2019-07-15 17:56 | NUR ---
Pt discharged to home, all discharge orders, follow-ups, education given to pt. Pt with scripts at discharge. Pt denies further needs at time of discharge.
== END 2019-07-15 17:58 | disposition home or self-care (01) | DRG 202 ==
LOC: ER 15:24 → 2 NORTH 15:45
PROVIDERS: ADMIT Family Medicine; ATTEND Family Medicine
DX: J45.901 Unspecified asthma with (acute) exacerbation (principal); N17.9 Acute kidney failure, unspecified; Z68.41 Body mass index [BMI] 40.0-44.9, adult; I13.0 Hypertensive heart and chronic kidney disease with heart failure and stage 1 through stage 4 chronic kidney disease, or unspecified chronic kidney disease; J20.9 Acute bronchitis, unspecified; M94.0 Chondrocostal junction syndrome [Tietze]; I50.9 Heart failure, unspecified; F32.9 Major depressive disorder, single episode, unspecified; M10.9 Gout, unspecified; E78.00 Pure hypercholesterolemia, unspecified; E83.42 Hypomagnesemia; N18.9 Chronic kidney disease, unspecified; I49.5 Sick sinus syndrome; I25.10 Atherosclerotic heart disease of native coronary artery without angina pectoris; I48.2 Chronic atrial fibrillation; G47.33 Obstructive sleep apnea (adult) (pediatric); E66.01 Morbid (severe) obesity due to excess calories; E11.65 Type 2 diabetes mellitus with hyperglycemia; E86.0 Dehydration; E11.22 Type 2 diabetes mellitus with diabetic chronic kidney disease; E78.5 Hyperlipidemia, unspecified; Z86.73 Personal history of transient ischemic attack (TIA), and cerebral infarction without residual deficits; Z95.1 Presence of aortocoronary bypass graft; Z95.0 Presence of cardiac pacemaker; Z83.3 Family history of diabetes mellitus; Z80.0 Family history of malignant neoplasm of digestive organs; Z80.42 Family history of malignant neoplasm of prostate; Z82.49 Family history of ischemic heart disease and other diseases of the circulatory system; Z85.72 Personal history of non-Hodgkin lymphomas
CPT/HCPCS: 36415; 71045; 71250; 80053; 82550; 82962; 83605; 83690; 83735; 83880; 84484; 85025; 85379; 85610; 93005; 94640; 94760; J1815; J3010; J7613; J7620; Q0144; G0378

== ENCOUNTER 2019-07-17 06:44 | Observation (INO) | payer MEDICARE, MEDICAID ==
[2019-07-17] VITALS (10 sets, daily range): BP systolic 18–151; BP diastolic 77–84
[~2019-07-17] VITALS: Ht 180.3 cm; Wt 137.0 kg
[~2019-07-17 06:44] MED LIST changes: +HYDR50TA6 PO; +ceFAZolin SODIUM 3 GM in IV DEXTROSE 5% 100ML 100 ML IV PRN
[2019-07-17] MEDS ORDERED: PROCHLORPERAZINE 10 MG/2 ML VIAL. IV PRN (07:00)
[2019-07-17] MEDS ORDERED: MORPHINE SULFATE 2 MG/ML VIAL. IV PRN (07:00)
[2019-07-17] MEDS ORDERED: fentaNYL PF VIAL 100 MCG/2 ML VIAL IV PRN ×2 (07:00)
[2019-07-17] MEDS ORDERED: IV RINGERS,LACTATED 1000ML 1,000 ML IV SCH (07:00)
[2019-07-17] MEDS ORDERED: HYDROmorphone 2 MG/ML VIAL IV PRN (07:00)
[2019-07-17] MEDS ORDERED: PROPOFOL 20 ML IV ONE (07:07)
[2019-07-17] MEDS ORDERED: DEXAMETHASONE SOD PHOS 4 MG/ML VIAL ONE (07:07)
[2019-07-17] MEDS ORDERED: LIDOCAINE 2% PF 5 ML VIAL. ONE (07:07)
[2019-07-17] MEDS ORDERED: ONDANSETRON PF 4 MG/2 ML VIAL. ONE (07:07)
[2019-07-17] MEDS ORDERED: BUPIVACAINE MPF 0.5% 30 ML VIAL. ONE (07:11)
[2019-07-17] MEDS ORDERED: ALBUTEROL SULFATE 2.5 MG/3 ML NEBU. NEB ONE (07:30)
[2019-07-17] MEDS ORDERED: fentaNYL PF VIAL 100 MCG/2 ML VIAL ONE ×2 (07:41→10:27)
[2019-07-17] MEDS ORDERED: SUCCINYLCHOLINE 200 MG/10 ML VIAL. ONE (07:42)
[2019-07-17] MEDS: INSULIN LISPRO 100 UNIT/ML 3ML VIAL for OP,RR ONLY. SQ PRN ×2 (07:47→10:00)
[2019-07-17] MEDS ORDERED: IV NORMAL SALINE 1000ML BAG 1,000 ML IV SCH ×2 (08:15→09:49)
--- NOTE | 2019-07-17 08:26 | PDOC ---
Provider Note Provider Note SURG spoke with Prudencio in the outpatient pre op area he was in over the weekend for cardiac eval still has an "off and on" cough that causes chest pain offered delaying his procedure he would like to proceed I explained he may not have resolution of the right sided pain even after removing his breast will have a drain post op incision drawn with a marking pen questions answered he understands want to go ahead SURINDER MÉNDEZ MD Jul 17, 2019 08:26
[2019-07-17] MEDS ORDERED: FAMOTIDINE 20 MG/2 ML VIAL ONE (08:27)
[2019-07-17] MEDS ORDERED: PHENYLEPHRINE in 0.9% NACL PF 1 MG/10 ML SYRINGE. IV ONE (08:54)
[2019-07-17] MEDS ORDERED: ePHEDrine PF IN SALINE 50 MG/10 ML SYRINGE. IV ONE (08:54)
[2019-07-17] MEDS ORDERED: ONDANSETRON PF 4 MG/2 ML VIAL. IV PRN (10:00)
[2019-07-17] MEDS ORDERED: oxyCODONE/APAP 5/325 1 TAB TABLET PO PRN (10:00)
[2019-07-17] MEDS ORDERED: 0.9 % SODIUM CHLORIDE 10 ML DISP.SYRIN. IV PRN (10:00)
[2019-07-17] MEDS ORDERED: diphenhydrAMINE HCL 25 MG CAPSULE PO PRN (10:00)
[2019-07-17] MEDS ORDERED: TEMAZEPAM 15 MG CAPSULE PO PRN (10:00)
[2019-07-17] MEDS ORDERED: NALOXONE 0.4 MG/ML VIAL. IV PRN (10:00)
[2019-07-17] MEDS ORDERED: BENZONATATE 100 MG CAPSULE. PO PRN (10:00)
--- NOTE | 2019-07-17 10:02 | PDOC ---
BRIEF OPERATIVE NOTE Date: Jul 17, 2019 Pre-Op Diagnosis recurrent right subareolar gynecomastia breast pain Post-Op Diagnosis same Procedure Performed right simple mastectomy Surgeon Yovani Rn Medical Surgical Christa WATSON Anesthesia Type: General (LMA) Blood Loss 25cc IV Fluid 800cc Specimens Obtained right breast, silk stitch at 3:00 Findings palpable change subareolarly Complications none Operative Note WK # [id number] SURINDER MÉNDEZ MD Jul 17, 2019 10:02
--- NOTE | 2019-07-17 10:28 | OP ---
DATE OF SURGERY: 07/17/2019 PREOPERATIVE DIAGNOSIS: Recurrent right subareolar gynecomastia, breast pain. POSTOPERATIVE DIAGNOSIS: Recurrent right subareolar gynecomastia, breast pain. PROCEDURE: Right simple mastectomy. SURGEON: Derick Méndez MD TOOL AND DIE TECHNICIAN: WALTER Mata. ANESTHESIA: General LMA. ESTIMATED BLOOD LOSS: 25 mL. INTRAVENOUS FLUIDS: 800 mL. INDICATIONS: The patient is a 58-year-old with chronic right breast pain. He has had previous excision of subareolar gynecomastia, now has recurrence. He is brought for simple mastectomy. OPERATIVE REPORT: The patient brought to the operating suite, given a general LMA and the right breast and arm were prepped and draped in usual sterile fashion. An elliptical incision was made including the nipple areolar complex as discussed with the patient preoperatively. Superior skin flap incised and developed with cautery dissection. Inferior skin flap incised and developed with cautery dissection. The breast was swept off the chest wall from medial to lateral. Marking stitch at 3 o'clock and the specimen passed off. Wound was checked for adequate hemostasis, and when present and a correct sponge count was obtained, a 19-[place] round Demetri drain was brought through an inferior stab wound out and left in the subcutaneous space for postoperative drainage. Incision closed with interrupted inverted 3-0 Vicryl for subcutaneous tissue and subcuticular 4-0 Monocryl for the skin. Sterile dressing applied. The patient was awakened from his anesthetic and taken to the recovery room in satisfactory condition. DERICK MÉNDEZ MD DR: TALON/sagar JOB#: [id number] / [id number]
[2019-07-17] MEDS: INSULIN NPH/REG INSULIN 70/30 300 UNITS/3 ML INSULN.PEN. SQ SCH ×2 (11:00→17:00)
[2019-07-17] MEDS ORDERED: FLU VAX QS 2019-20 (36MOS+)/PF 0.5 ML SYRINGE. VAX IM ONE (12:00)
[2019-07-17] MEDS: ALBUTEROL SULFATE 2.5 MG/3 ML NEBU. NEB SCH ×3 (12:00→19:27)
[2019-07-17] MEDS: CARVEDILOL 12.5 MG TABLET. PO SCH ×2 (12:00→17:43)
--- NOTE | 2019-07-17 12:00 | NUR ---
pt arrived to unit at 1130 in stable condition. pt is oriented but drowsy. pt is rating his pain 10/10 but then appears to be resting comfortably. pain medication given. assessment completed. dressings are CDI and APRIL drain has sanguinous fluid in tube. pt is on 2LNC. call light is within reach. received report from DORIS Mane in PACU. will continue to monitor.
[2019-07-17] MEDS: HYDROmorphone 2 MG/ML VIAL IV PRN ×2 (12:25→17:48)
[2019-07-17] MEDS: ALLOPURINOL 100 MG TABLET. PO SCH (12:34)
[2019-07-17] MEDS: POTASSIUM CHLORIDE 10 MEQ TABLET.ER. PO SCH (12:34)
[2019-07-17] MEDS: hydroCHLOROthiazide 25 MG TABLET PO SCH (12:35)
[2019-07-17] MEDS: SPIRONOLACTONE 25 MG TABLET PO SCH ×2 (12:35→20:45)
[2019-07-17] MEDS: DOCUSATE SODIUM 100 MG CAPSULE. PO SCH ×2 (12:35→20:45)
[2019-07-17] MEDS: PANTOPRAZOLE 40 MG TABLET.DR. PO SCH (12:35)
[2019-07-17] MEDS: LOSARTAN POTASSIUM 50 MG TABLET. PO SCH (12:35)
[2019-07-17] MEDS: AZITHROMYCIN 250 MG TABLET. PO SCH (12:35)
[2019-07-17] MEDS: MAGNESIUM OXIDE 400 MG TABLET PO SCH (12:36)
[2019-07-17] MEDS: POTASSIUM CL 20MEQ-0.45% NACL 1,000 ML IV SCH ×2 (12:36→23:49)
[2019-07-17] MEDS: ASPIRIN CHEWABLE 81 MG TABLET. PO SCH (12:36)
[2019-07-17] MEDS: FUROSEMIDE 20 MG TABLET PO SCH (12:36)
[2019-07-17] MEDS ORDERED: NON FORMULARY ITEM (Albuterol Sulfate (Ventolin Hfa Inhaler) 2 PUFF) INH SCH (13:00)
[2019-07-17] MEDS: guaiFENesin DM 600/30MG 1 TAB TAB.ER.12H PO SCH ×2 (15:25→20:45)
[2019-07-17] MEDS: PROPAFENONE 150 MG TABLET. PO SCH ×2 (15:27→20:45)
[2019-07-17] MEDS: oxyCODONE/APAP 5/325 1 TAB TABLET PO PRN (15:39)
--- NOTE | 2019-07-17 17:52 | PDOC1 ---
History and Physical Date of Admission Date of Admission 07/17/19 Identification/Chief Complaint Chief Complaint right breast mass Source Source: Chart review, Patient History of Present Illness History of Present Illness He presented for right mastectomy due to mask and requested consultation due to cough and abnormal chest imaging and medical management by Dr. Pina, also being followed by Dr. Wylie Past Medical History Cardiovascular: AFIB, CAD, CHF, HTN Pulmonary: COPD CENTRAL NERVOUS SYSTEM: CVA, TIA GI: Constipation Heme/Onc: B12 deficiency, Cancer, Other Psych: Depression Rheumatologic: Gout Endocrine: Diabetes Past Surgical History Past Surgical History: Pacemaker Family History Family History: Cancer, Diabetes Social History ALCOHOL: none Drugs: None Current Medications Current Medications Current Medications Medications (Trade) Dose Ordered Sig/Lizzie Start Time Stop Time Status Last Admin Dose Admin Albuterol Sulfate (Ventolin Neb Soln) 2.5 mg RTQID 07/17/19 12:00 07/17/19 15:50 2.5 MG Allopurinol (Zyloprim) 300 mg DAILY 07/17/19 12:00 07/17/19 12:37 300 MG Aspirin (Children'S Aspirin) 81 mg DAILY 07/17/19 12:00 07/17/19 12:37 81 MG Azithromycin (Zithromax) 250 mg DAILY 07/17/19 12:00 07/18/19 09:01 07/17/19 12:37 250 MG Benzonatate (Tessalon Perle) 100 mg TID PRN PRN 07/17/19 10:00 Budesonide (Pulmicort) 0.5 mg RTBID 07/17/19 20:00 Bupivacaine HCl (Sensorcaine Mpf 0.5%) 30 ml STK-MED ONCE 07/17/19 07:11 07/17/19 07:11 DC 07/17/19 09:22 17 ML Carvedilol (Coreg) 25 mg BIDWMEALS 07/17/19 12:00 07/17/19 17:44 25 MG Cefazolin Sodium 3 gm/Dextrose 100 ml @ 200 mls/hr 1X PREOP PRN 07/17/19 06:00 07/17/19 15:00 DC 07/17/19 08:50 200 MLS/HR Dexamethasone Sodium Phosphate (Decadron) 4 mg STK-MED ONCE 07/17/19 07:07 07/17/19 07:07 DC Diphenhydramine HCl (Benadryl) 25 mg PRN Q6HRS PRN 07/17/19 10:00 Docusate Sodium (Colace) 100 mg BID 07/17/19 12:00 07/17/19 12:37 100 MG Enoxaparin Sodium (Lovenox 40mg Syringe) 40 mg Q24H 07/18/19 09:00 Ephedrine Sulfate (ePHEDrine PF IN SALINE SYRINGE) 50 mg STK-MED ONCE 07/17/19 08:54 07/17/19 08:55 DC Famotidine (Pepcid Vial) 20 mg STK-MED ONCE 07/17/19 08:27 07/17/19 08:28 DC Fentanyl Citrate (Fentanyl 2ml Vial) 100 mcg STK-MED ONCE 07/17/19 10:27 07/17/19 10:27 DC Furosemide (Lasix) 40 mg DAILY 07/17/19 12:00 07/17/19 12:37 40 MG Guaifenesin (MUCINEX ER with DM) 1 tab BID 07/17/19 13:00 07/17/19 15:27 1 TAB Hydrochlorothiazide (Hydrodiuril) 25 mg DAILY 07/17/19 12:00 07/17/19 12:37 25 MG Hydromorphone HCl (Dilaudid) 1 mg PRN Q4HRS PRN 07/17/19 10:00 07/17/19 12:37 1 MG Influenza Virus Vaccine Quadrival (Afluria Quad 2019-20 (3yr Up) Syringe) 0.5 ml ONCE ONCE 07/17/19 12:00 07/17/19 12:01 UNV Insulin Human Isoph/Insulin Regular (HumuLIN 70/30) 60 units BIDWMEALS 07/17/19 11:00 Insulin Human Lispro (HumaLOG VIAL for OP,RR ONLY) 0-10 units PRN Q1HR PRN 07/17/19 07:45 07/18/19 07:44 07/17/19 10:00 4 UNIT Lidocaine HCl (Lidocaine Pf 2% Vial) 5 ml STK-MED ONCE 07/17/19 07:07 07/17/19 07:07 DC Losartan Potassium (Cozaar) 50 mg DAILY 07/17/19 12:00 07/17/19 12:37 50 MG Magnesium Oxide (Magnesium Oxide) 400 mg DAILY 07/17/19 12:00 07/17/19 12:37 400 MG Morphine Sulfate (Morphine Sulfate) 1 mg PRN Q10MIN PRN 07/17/19 07:00 07/18/19 06:59 Naloxone HCl (Narcan) 0.4 mg PRN Q2MIN PRN 07/17/19 10:00 Non-Formulary Medication (Albuterol Sulfate (Ventolin Hfa Inhaler)) 2 puff QID 07/17/19 13:00 UNV Ondansetron HCl (Zofran) 4 mg PRN Q6HRS PRN 07/17/19 10:00 Oxycodone/ Acetaminophen (Percocet 5/325) 2 tab PRN Q4HRS PRN 07/17/19 10:00 07/17/19 15:39 2 TAB Pantoprazole Sodium (Protonix) 40 mg DAILYAC 07/17/19 11:30 07/17/19 12:37 40 MG Phenylephrine HCl (PHENYLEPHRINE in 0.9% NACL PF) 1 mg STK-MED ONCE 07/17/19 08:54 07/17/19 08:54 DC Potassium Chloride/Sodium Chloride 1,000 ml @ 75 mls/hr [id number] 07/17/19 09:49 07/17/19 12:37 75 MLS/HR Potassium Chloride (Klor-Con) 10 meq DAILY 07/17/19 12:00 07/17/19 12:37 10 MEQ Prochlorperazine Edisylate (Compazine) 5 mg PACU PRN PRN 07/17/19 07:00 07/18/19 06:59 Propafenone HCl (Rythmol) 150 mg Q8HRS 07/17/19 14:00 07/17/19 15:27 150 MG Propofol 20 ml @ As Directed STK-MED ONCE 07/17/19 07:07 07/17/19 07:07 DC Ringer's Solution 1,000 ml @ 30 mls/hr Q24H 07/17/19 07:00 07/17/19 18:59 Sodium Chloride 1,000 ml @ 25 mls/hr Q24H 07/17/19 09:49 Sodium Chloride (Normal Saline Flush) 3 ml QSHIFT PRN 07/17/19 10:00 Spironolactone (Aldactone) 25 mg BID 07/17/19 12:00 07/17/19 12:37 25 MG Succinylcholine Chloride (Anectine) 200 mg STK-MED ONCE 07/17/19 07:42 07/17/19 07:42 DC Temazepam (Restoril) 15 mg PRN QHS PRN 07/17/19 10:00 Allergies Allergies Allergies Coded Allergies Type Severity Reaction Last Updated Verified No Known Drug Allergies 07/14/19 No ROS Review of System CONSTITUTIONAL: No fever or chills EYES: No recent changes SKIN: No rash or itching CARDIOVASCULAR: No chest pain, syncope, palpitations, or edema RESPIRATORY: No SOB or cough GASTROINTESTINAL: No nausea, vomiting or abdominal pain NEUROLOGICAL: No headaches or weakness ENDOCRINE: No cold or heat intolerance GENITOURINARY: No urgency or frequency of urination MUSCULOSKELETAL: No back pain or joint pain LYMPHATICS: No enlarged lymph nodes PSYCHIATRIC: No anxiety or depression Physical Exam Physical Exam GEN.: Ice pack right chest wall over surgical site, Alert and oriented. HEENT: Head is normocephalic, atraumatic NECK: Supple. LUNGS: Clear to auscultation but with cough producing clear phlegm. HEART: RRR, S1, S2 present. Peripheral pulses intact ABDOMEN: Soft, nontender. Positive bowel sounds. EXTREMITIES: Without any cyanosis. NEUROLOGIC: Normal speech, normal tone PSYCHIATRIC: Normal affect, normal mood. SKIN: No ulcerations Vitals Vitals Vital Signs Date Time Temp Pulse Resp B/P (MAP) Pulse Ox O2 Delivery O2 Flow Rate FiO2 07/17/19 17:44 67 144/77 07/17/19 17:41 Nasal Cannula 2.0 07/17/19 15:53 99 07/17/19 15:39 18 07/17/19 11:30 97.4 97.4 Labs Labs Laboratory Tests Test 07/17/19 07:34 07/17/19 09:48 07/17/19 11:15 07/17/19 12:24 Glucose (Fingerstick) 233 mg/dL (70-99) 171 mg/dL (70-99) 137 mg/dL (70-99) 147 mg/dL (70-99) Test 07/17/19 16:56 Glucose (Fingerstick) 225 mg/dL (70-99) Laboratory Tests Test 07/17/19 07:34 07/17/19 09:48 07/17/19 11:15 07/17/19 12:24 Glucose (Fingerstick) 233 mg/dL (70-99) 171 mg/dL (70-99) 137 mg/dL (70-99) 147 mg/dL (70-99) Test 07/17/19 16:56 Glucose (Fingerstick) 225 mg/dL (70-99) Images Images PROCEDURE: CT CHEST WO CONTRAST Examination: CT CHEST WO CONTRAST History: Cough and chest pain Comparison/Correlation: 03/09/2019 PET/CT exam Findings: Axial images of chest were obtained without contrast. Sagittal and coronal reformatted images were provided. Single lead left-sided pacemaker is present. Sternal wires [place] clips are present. No pleural or pericardial effusion. No enlarged thoracic lymph nodes. Patchy infiltrate at the left lower lobe superior segment is noted. Ill-defined patchy nodular infiltrates are especially present at the left lower lobe basilar aspect. Tracheobronchial tree is unremarkable. Partially visualized upper abdomen is unremarkable. Bony structures are unremarkable. Impression: Nodular infiltrates involves the left lower lobe basilar aspect and to a lesser extent within its superior segment. These are new upon correlation with previous PET/CT exam. Follow-up to resolution is recommended. VTE Prophylaxis Ordered VTE Prophylaxis Devices: Yes VTE Pharmacological Prophylaxi: No Assessment/Plan Assessment/Plan POD #0 right mastectomy needing medical management - see orders Meli FIELDS MD Jul 17, 2019 17:52
[2019-07-17] MEDS: BUDESONIDE 0.5 MG/2 ML NEBU. NEB SCH (19:27)
[2019-07-18 03:00] VITALS: BP 122/64
[2019-07-18] MEDS: PANTOPRAZOLE 40 MG TABLET.DR. PO SCH (06:08)
[2019-07-18] MEDS: PROPAFENONE 150 MG TABLET. PO SCH ×2 (06:08→13:42)
[2019-07-18 07:00] VITALS: BP 109/67
[2019-07-18] MEDS: INSULIN NPH/REG INSULIN 70/30 300 UNITS/3 ML INSULN.PEN. SQ SCH (08:00)
[2019-07-18] MEDS: CARVEDILOL 12.5 MG TABLET. PO SCH (08:00)
[2019-07-18] MEDS: ALBUTEROL SULFATE 2.5 MG/3 ML NEBU. NEB SCH ×2 (08:23→12:02)
[2019-07-18] MEDS: BUDESONIDE 0.5 MG/2 ML NEBU. NEB SCH (08:23)
--- NOTE | 2019-07-18 08:40 | PDOC ---
MYAH CRUZ REFUSE COLLECTOR 07/18/19 0840: SURGICAL PROGRESS NOTE Subjective pain with movement of arm tolerated clears Vital Signs Vital Signs Date Time Temp Pulse Resp B/P (MAP) Pulse Ox O2 Delivery O2 Flow Rate FiO2 07/18/19 08:27 98 Nasal Cannula 2.0 07/18/19 07:00 97.8 66 18 109/67 (81) 97.8 I&O Intake and Output 07/18/19 06:59 Intake Total 1000 ml Output Total 1265 ml Balance -265 ml Intake IV Total 1000 ml Output Urine Total 1200 ml Drainage Total 40 ml Estimated Blood Loss 25 ml General: Alert, Oriented X3, Cooperative, No acute distress Skin: Other (right chest incision c/d/i, no active bleeding-drain serosang ) Labs Laboratory Tests Test 07/17/19 07:34 07/17/19 09:48 07/17/19 11:15 07/17/19 12:24 Glucose (Fingerstick) 233 mg/dL (70-99) 171 mg/dL (70-99) 137 mg/dL (70-99) 147 mg/dL (70-99) Test 07/17/19 16:56 07/17/19 20:49 07/18/19 08:05 Glucose (Fingerstick) 225 mg/dL (70-99) 216 mg/dL (70-99) 237 mg/dL (70-99) Laboratory Tests Test 07/17/19 09:48 07/17/19 11:15 07/17/19 12:24 07/17/19 16:56 Glucose (Fingerstick) 171 mg/dL (70-99) 137 mg/dL (70-99) 147 mg/dL (70-99) 225 mg/dL (70-99) Test 07/17/19 20:49 07/18/19 08:05 Glucose (Fingerstick) 216 mg/dL (70-99) 237 mg/dL (70-99) Assessment/Plan s/p right mastectomy advance diet if pain managed possible dc later today drain teaching SURINDER MÉNDEZ MD 07/18/19 1140: SURGICAL PROGRESS NOTE Assessment/Plan pt seen and examined he is unhappy about taking the drain home I offered to take it out after explaining why it's there he'll keep it MYAH CRUZ REFUSE COLLECTOR Jul 18, 2019 08:40 SURINDER MÉNDEZ MD Jul 18, 2019 11:40
[2019-07-18] MEDS ORDERED: OXYC1TAB15 PO (08:42)
--- NOTE | 2019-07-18 08:48 | DISCH ---
DISCHARGE INSTRUCTIONS Condition on Discharge Condition on Discharge: Stable Activity After Discharge Activity Instructions for Disc: Activity as tolerated, Avoid exertion Lifting Instructions after Dis: No heavy lifting, No pulling or pushing Exercise Instruction after Dis: Progress as tolerated Driving Instructions after Dis: Do not drive today Weight Bearing Status after Di: No restrictions Diet after Discharge Diet after Discharge: Diabetic No Calorie Level Diet Texture: Regular Swallowing Supervision: None needed Wound Incision Care Wound/Incision Care: Ice to area for comfort, Change dressing Other wound/incision instructi: drain care as instructed Checks after Discharge Checks after discharge: Check blood press - daily, Check blood sugar, ac/hs Contacting the DRLaci after DC Call your doctor for: Concerns you may have Follow-Up Follow up with: Dr Pina on 07/21 at 9:45 am, call with questions [phone] Treatment/Equipment after DC Adaptive Equipment Issued: None MYAH CRUZ APRN Jul 18, 2019 08:48
[2019-07-18] MEDS: FUROSEMIDE 20 MG TABLET PO SCH (09:00)
[2019-07-18] MEDS: POTASSIUM CHLORIDE 10 MEQ TABLET.ER. PO SCH (09:00)
[2019-07-18] MEDS: LOSARTAN POTASSIUM 50 MG TABLET. PO SCH (09:00)
[2019-07-18] MEDS: SPIRONOLACTONE 25 MG TABLET PO SCH (09:00)
[2019-07-18] MEDS: ALLOPURINOL 100 MG TABLET. PO SCH (09:00)
[2019-07-18] MEDS ORDERED: ENOXAPARIN 40 MG/0.4 ML SYRINGE. SQ SCH ×2 (09:00→21:00)
[2019-07-18] MEDS: hydroCHLOROthiazide 25 MG TABLET PO SCH (09:00)
[2019-07-18] MEDS: ASPIRIN CHEWABLE 81 MG TABLET. PO SCH (09:00)
[2019-07-18] MEDS: guaiFENesin DM 600/30MG 1 TAB TAB.ER.12H PO SCH (09:47)
[2019-07-18] MEDS: DOCUSATE SODIUM 100 MG CAPSULE. PO SCH (09:47)
[2019-07-18] MEDS: MAGNESIUM OXIDE 400 MG TABLET PO SCH (09:47)
[2019-07-18] MEDS: AZITHROMYCIN 250 MG TABLET. PO SCH (09:48)
[2019-07-18] MEDS: oxyCODONE/APAP 5/325 1 TAB TABLET PO PRN (09:51)
[2019-07-18 11:00] VITALS: BP 113/65
--- NOTE | 2019-07-18 11:43 | PDOC3 ---
Discharge Summary Visit Information Date of Admission: Jul 17, 2019 Date of Discharge: Jul 18, 2019 Admitting Diagnosis Comment: post op right simple mastectomy for pain control Final Diagnosis same Brief Hospital Course Allergies Allergies Coded Allergies Type Severity Reaction Last Updated Verified No Known Drug Allergies 07/14/19 No Vital Signs Vital Signs Date Time Temp Pulse Resp B/P (MAP) Pulse Ox O2 Delivery O2 Flow Rate FiO2 07/18/19 11:14 Room Air 07/18/19 11:00 98.1 77 18 113/65 (81) 97 98.1 07/18/19 10:03 2.0 Lab Results Laboratory Tests Test 07/17/19 07:34 07/17/19 09:48 07/17/19 11:15 07/17/19 12:24 Glucose (Fingerstick) 233 mg/dL (70-99) 171 mg/dL (70-99) 137 mg/dL (70-99) 147 mg/dL (70-99) Test 07/17/19 16:56 07/17/19 20:49 07/18/19 08:05 07/18/19 10:54 Glucose (Fingerstick) 225 mg/dL (70-99) 216 mg/dL (70-99) 237 mg/dL (70-99) 280 mg/dL (70-99) Laboratory Tests Test 07/17/19 12:24 07/17/19 16:56 07/17/19 20:49 07/18/19 08:05 Glucose (Fingerstick) 147 mg/dL (70-99) 225 mg/dL (70-99) 216 mg/dL (70-99) 237 mg/dL (70-99) Test 07/18/19 10:54 Glucose (Fingerstick) 280 mg/dL (70-99) Brief Hospital Course Mr. King is a 58 old poorly controlled diabetic male who presented with recurrent painful right breast gynecomastia. Assessment Assessment recurrent gynecomastia s/p right simple mastectomy Discharge Information Condition at Discharge: Stable Follow Up: As Needed Disposition/Orders: D/C to Home w/ HH Scheduled Albuterol Sulfate (Ventolin Hfa Inhaler) 18 Gm Hfa.aer.ad, 2 PUFF INH QID for FOR ASTHMA, Ref 0 (Reported) Entered as Reported by: MARV PIMENTEL on 05/19/18951 Last Action: Converted on 07/17/19956 by SURINDER MÉNDEZ Allopurinol (Allopurinol) 100 Mg Tablet, 3 TAB PO DAILY for gout, #30 Ref 5 (Reported) Entered as Reported by: JORGE MCLAUGHLIN on 07/14/191743 Last Action: Continued on 07/17/19956 by SURINDER MÉNDEZ Aspirin (Children's Aspirin) 81 Mg Tab.chew, 81 MG PO DAILY, (Reported) Entered as Reported by: JEANNETTE DEJESUS on 01/17/15 153 Last Action: Continued on 07/17/19956 by SURINDER MÉNDEZ Azithromycin (Azithromycin Tablet) 250 Mg Tablet, 250 MG PO DAILY for sinusitis for 4 Days, #4 Prescribed by: SOLIS BABIN on 07/15/19948 Last Action: Continued on 07/17/19956 by SURINDER MÉNDEZ Carvedilol (Coreg) 25 Mg Tablet, 25 MG PO BIDWMEALS, (Reported) Entered as Reported by: MARV PIMENTEL on 05/19/18951 Last Taken: Unknown Dose on 07/17/19499 Last Action: Converted on 07/17/19956 by SURINDER MÉNDEZ Furosemide (Furosemide) 20 Mg Tablet, 2 TAB PO DAILY for chf, #90 Ref 1 (Reported) Entered as Reported by: JORGE MCLAUGHLIN on 07/14/191747 Last Action: Continued on 07/17/19956 by SURINDER MÉNDEZ Hydrochlorothiazide (Hydrochlorothiazide Tablet) 50 Mg Tablet, 25 MG PO DAILY for DIURETIC, Ref 0 (Reported) Entered as Reported by: JORGE MCLAUGHLIN on 07/14/191747 Last Action: Converted on 07/17/19956 by SURINDER MÉNDEZ Insulin Npl/Insulin Lispro (Humalog Mix 75-25 Kwikpen) 100 Unit/1 Ml Insuln.pen, 60 UNIT SQ BIDWMEALS for dm, (Reported) Entered as Reported by: JORGE MCLAUGHLIN on 07/14/191747 Last Action: Converted on 07/17/19956 by SURINDER MÉNDEZ Losartan Potassium (Losartan Potassium) 50 Mg Tablet, 50 MG PO DAILY for HYPERTENSION, (Reported) Entered as Reported by: GLENROY BARILLAS on 03/20/19 1025 Last Taken: Unknown Dose on 07/17/190 Last Action: Continued on 07/17/19956 by SURINDER MÉNDEZ Magnesium Oxide (Mag-Oxide) 400 Mg Tablet, 400 MG PO DAILY for hypomagnasemia for 30 Days, #30 Prescribed by: SOLIS BABIN on 07/15/19948 Last Action: Continued on 07/17/19956 by SURINDER MÉNDEZ Omeprazole (Omeprazole) 20 Mg Tablet.dr, 20 MG PO DAILY for GERD, (Reported) Entered as Reported by: GLENROY BARILLAS on 03/20/19 1018 Last Action: Converted on 07/17/19956 by SURINDER MÉNDEZ Potassium Chloride (Potassium Chloride) 10 Meq Tablet.er, 10 MEQ PO DAILY, (Reported) Entered as Reported by: PRINCE OROZCO on 09/02/16 0804 Last Action: Continued on 07/17/19956 by SURINDER MÉNDEZ Propafenone Hcl (Propafenone Hcl) 150 Mg Tablet, 150 MG PO Q8HRS for CARDIAC ARRHYTHMIAS, (Reported) Entered as Reported by: JORGE MCLAUGHLIN on 07/14/19 1748 Last Action: Continued on 07/17/19956 by SURINDER MÉNDEZ Spironolactone (Spironolactone) 25 Mg Tablet, 25 MG PO BID, (Reported) Entered as Reported by: MARV PIMENTEL on 05/19/18 0955 Last Action: Continued on 07/17/19956 by SURINDER MÉNDEZ Scheduled PRN Benzonatate (Benzonatate) 100 Mg Capsule, 100 MG PO TID PRN PRN for COUGH for 14 Days, #30 Prescribed by: SOLIS BABIN on 07/15/19948 Last Action: Continued on 07/17/19956 by SURINDER MÉNDEZ Oxycodone/Apap 5-325 (Percocet 5-325 Mg Tablet ) 1 Each Tablet, 1 TAB PO PRN Q4HRS PRN for MILD PAIN, 1ST CHOICE, #30 Ref 0 Prescribed by: Malgorzata Sterling on 07/18/19 0842 Temazepam (Restoril) 15 Mg Capsule, 15 MG PO PRN QHS PRN for INSOMNIA, #30 Prescribed by: JACOB JOSE on 01/20/15 1223 Last Action: Continued on 07/17/19956 by SURINDER MÉNDEZ Discontinued Medications Rivaroxaban (Xarelto) 15 Mg Tablet, 20 MG PO DAILY, (Reported) Entered as Reported by: MARV PIMENTEL on 05/19/18 0954 Last Action: Reviewed on 07/14/19 1400 by SURINDER GREGORIO MD Jul 18, 2019 11:43
[2019-07-18] MEDS: POTASSIUM CL 20MEQ-0.45% NACL 1,000 ML IV SCH (12:29)
--- NOTE | 2019-07-18 12:56 | NUR ---
SS following up with discharge planning. SS reviewed pt chart. Pt is from home and was previously on services with [facility], ; fax [phone]. Discharge orders for home healthcare on the chart. SS phoned and faxed discharge orders and referral to [facility]. Pt's RN notified.
--- NOTE | 2019-07-18 16:04 | NUR ---
dial painter noted that pt was leaving unit but was unable to reach him before he got in the elevator. Discharge interventions had been done earlier today by DORIS Carolina. Pt had requested cab passed which we had been waiting for since 1430. After searching in room it appears that pt took all belonging with his prior to leaving hospital. Addendum: 07/18/19 at 1609 by LIS URBINA RN patrol community service officer witness pt leaving at approx [phone]
--- NOTE | 2019-07-18 16:08 | PDOC ---
PROGRESS NOTES Subjective He is cleared for discharge with surgery, will have home health and keep drain in, no medical issues, pain controlled, cough improved, slept well, eating but doesn't like the food on the menu Objective Afebrile General: A&O Heart: RRR Chest: dressing right chest wall, drain bulb about half full of bloody drainage Lungs: clear, minimal cough Abd: soft, obese Ext: no C/C/E Vital Signs Vital Signs Date Time Temp Pulse Resp B/P (MAP) Pulse Ox O2 Delivery O2 Flow Rate FiO2 07/18/19 12:03 Nasal Cannula 2.0 07/18/19 11:00 98.1 77 18 113/65 (81) 97 98.1 I & O Intake and Output 07/18/19 07:00 Intake Total 1000 ml Output Total 1265 ml Balance -265 ml IV Total 1000 ml Output Urine Total 1200 ml Drainage Total 40 ml Estimated Blood Loss 25 ml Assessment and Plan POD # 1 right mastectomy due to painful gynecomastia, stable medical issues, stable for discharge, reviewed his meds, questions answered, f/u with me 1-2 weeks Meli FIELDS MD Jul 18, 2019 16:08
[2019-07-18] MEDS ORDERED: LOSARTAN POTASSIUM 50 MG TABLET. PO SCH (21:00)
[2019-07-18] MEDS ORDERED: FUROSEMIDE 20 MG TABLET PO SCH (21:00)
[2019-07-18] MEDS ORDERED: ALLOPURINOL 100 MG TABLET. PO SCH (21:00)
[2019-07-18] MEDS ORDERED: hydroCHLOROthiazide 25 MG TABLET PO SCH (21:00)
[2019-07-18] MEDS ORDERED: ASPIRIN CHEWABLE 81 MG TABLET. PO SCH (21:00)
[2019-07-18] MEDS ORDERED: POTASSIUM CHLORIDE 10 MEQ TABLET.ER. PO SCH (21:00)
== END 2019-07-18 15:45 | disposition home health service (06) ==
LOC: SURG 06:44 → 4 NORTH 11:15
PROVIDERS: ADMIT Surgery; ATTEND Surgery
DX: N62 Hypertrophy of breast (principal); I48.91 Unspecified atrial fibrillation; I25.10 Atherosclerotic heart disease of native coronary artery without angina pectoris; E11.9 Type 2 diabetes mellitus without complications; F32.9 Major depressive disorder, single episode, unspecified; I11.0 Hypertensive heart disease with heart failure; I50.9 Heart failure, unspecified; J44.9 Chronic obstructive pulmonary disease, unspecified; N64.4 Mastodynia; N63.10 Unspecified lump in the right breast, unspecified quadrant; M10.9 Gout, unspecified; Z83.3 Family history of diabetes mellitus; Z86.73 Personal history of transient ischemic attack (TIA), and cerebral infarction without residual deficits; Z95.0 Presence of cardiac pacemaker; E53.8 Deficiency of other specified B group vitamins; K59.00 Constipation, unspecified
CPT/HCPCS: 19303; 82962; 94640; 94760; 96372; 96374; 96376; A7015; G0378; G0379; J0171; J0330; J1100; J1170; J1650; J2001; J2370; J2405; J2704; J3010; J3490; J7613; J7626; Q0144; 88307; J1815

== ENCOUNTER 2019-09-18 07:43 | Outpatient (CLI) | payer MEDICARE, MEDICAID ==
[2019-09-18] VITALS (11 sets, daily range): BP systolic 147–192; BP diastolic 81–101
[~2019-09-18] VITALS: Ht 182.9 cm; Wt 136.1 kg
[~2019-09-18 07:43] MED LIST changes: -DIGO125T PO; +DIGO125T3 PO; -DILT120C85 PO; +DILT120C99 PO; +OXYC1TAB15 PO; -POTA10TA12 PO; +POTASSIUM CHLO10 ME1 PO; -ceFAZolin SODIUM 3 GM in IV DEXTROSE 5% 100ML 100 ML IV PRN
[2019-09-18] MEDS ORDERED: IODIXANOL 320 MG/ML 100 ML VIAL. ONE ×3 (07:52→10:48)
[2019-09-18 08:23] LABS: HEMATOCRIT 38.2 % (39.0-53.0); HEMOGLOBIN 12.6 g/dL (13.0-17.5); RED BLOOD COUNT 3.85 x10^6/uL (4.30-5.70); RED CELL DISTRIBUTION WIDTH 14.2 % (11.5-14.5); WHITE BLOOD COUNT 4.5 x10^3/uL (4.0-11.0)
[2019-09-18 08:31] LABS: PROTHROMBIN TIME PATIENT 13.1 SEC (11.7-14.0)
[2019-09-18] MEDS ORDERED: RIVA20TA2 PO (08:37)
[2019-09-18] MEDS ORDERED: LUBI24CA7 PO (08:37)
[2019-09-18] MEDS ORDERED: METF500T16 PO (08:37)
[2019-09-18] MEDS ORDERED: LABE200T4 PO (08:39)
[2019-09-18 08:42] LABS: CREATININE 1.5 mg/dL (0.7-1.3); GFR 58.2
--- NOTE | 2019-09-18 09:10 | NUR ---
Called Dr. Ford's office to request a chest x-ray per patient's request. Patient complaining of pain and swelling in the right chest unrelated to his heart catheterization procedure today. Patient had previous procedure (mastectomy 07/20) and is concerned about the site/area. Message left with Dr. Ford's medical office representative.
[2019-09-18] MEDS ORDERED: LIDOCAINE 1% Multi-Dose 20 ML VIAL. ONE (09:47)
[2019-09-18] MEDS ORDERED: MIDAZOLAM HCL/PF 5 MG/5 ML VIAL. ONE (09:51)
[2019-09-18] MEDS ORDERED: fentaNYL PF VIAL 100 MCG/2 ML VIAL ONE ×2 (09:52→10:58)
[2019-09-18] MEDS ORDERED: IODIXANOL 320 MG/ML 100 ML VIAL. IART ONE (10:45)
[2019-09-18] MEDS ORDERED: fentaNYL PF VIAL 100 MCG/2 ML VIAL IV ONE (10:45)
[2019-09-18] MEDS ORDERED: LIDOCAINE 1% Multi-Dose 20 ML VIAL. INJ ONE (10:45)
[2019-09-18] MEDS ORDERED: MIDAZOLAM HCL/PF 5 MG/5 ML VIAL. IV ONE (10:45)
[2019-09-18] MEDS ORDERED: IV 1/2 NORMAL SALINE 1,000 ML IV SCH (11:28)
--- NOTE | 2019-09-18 11:28 | PDOC ---
MODERATE SEDATION ASSESSMENT RISKS/ALTERNATIVES Risks/Alternatives Risks and alternatives of this type of sedation and procedure discussed with: RISK/ALTERNATIVES: Patient H & P ON CHART H & P H & P on chart and reviewed for co-morbid conditions and appropriate labs. H&P ON CHART: Yes STATUS PREG STATUS ASSESSED: N/A MEDS/ALLERGIES REVIEWED Meds/Allergies Reviewed Medications and Allergies including time and route of recently administered narcotics and sedatives. MEDS/ALLERGIES REVIEWED: Yes ASA RATING ASA RATING: II AIRWAY ASSESSMENT Airway Assessment Airway patency, oral function limitations, presence of caps, crowns, dentures, partials, and ability to extend neck assessed. AIRWAY ASSESSMENT: Yes MALLAMPATI SCORE MALLAMPATI SCORE: II PRE-SEDATION ASSESSMENT PRE-SEDATION ASSESSMENT: Yes DEBBIE DE JESUS MD Sep 18, 2019 11:28
[2019-09-18] MEDS ORDERED: NITROGLYCERIN SUBLINGUAL 0.4 MG BOTTLE OF 25. SL PRN (11:30)
--- NOTE | 2019-09-18 13:07 | CARD ---
MR#: [id number] Date of Study: 09/18/2019 Ordering Physician: DEBBIE DE JESUS, Referring Physician: DEBBIE DE JESUS Tech: NATHALIE ALVARADO RTR APPROVED REPORT Technologist: NATHALIE ALVARADO RTR Nurse: Maribel Massey R.N. Procedure(s) performed: 1. Right and left heart catheterization and selective coronary angiography. 2. Bilateral selective renal angiography MODERATE SEDATION TIME: 57 MINUTES FLUORO TIME: 27.6 MIN DOSE: 242 GYCM2 CONTRAST: 254CC INDICATION The indication(s) include : Refractory chest pain and dyspnea on exertion concerning for unstable ang rylie and resistant hypertension. [facility] Clinical Frailty Scale [facility] Clinical Frailty Scale: Mildly Frail Heart Failure Heart Failure: No PROCEDURE NARRATIVE After explaining the risks, benefits and alternative options, informed consent was obtained from radha ent. Patient was brought to the cardiac Swift Tender and his right groin was prepped and draped in the us ual fashion. 20 mL of 2% lidocaine was infiltrated into the skin and subcutaneous tissues for local a nesthesia. Arterial and venous accesses were obtained in the right common femoral artery and vein res pectively and 6 and 5 Tajik sheaths were inserted. 5 Tajik Abiquiu-Esteban catheter was advanced under fl uoroscopy guidance and intracardiac pressures, oxygen saturations were measured. Subsequently, 6 Fren ch JL4 catheter was used to perform selective angiography of the left coronary artery. After several unsuccessful attempts at engaging the right coronary artery using 6 Tajik JR4, 6 Tajik AR, 6 Tajik MPA and 6 Tajik AL 0.75 catheters, this was subselectively engaged with 6 Tajik AL1 catheter and a ngiography was performed. LVEDP and transaortic gradients were measured. Finally, 6 Tajik JR4 cathet er was used to perform bilateral selective renal angiography. Left ventriculography was not performed due to the contrast load used during the procedure. Patient tolerated the procedure well. Hemostasis was achieved using Angio-Seal and manual compression. There were no immediate complications. A. RIGHT HEART CATHETERIZATION 1. Intracardiac pressures: Mean right atrial pressure 19 mmHg, right ventricular pressure 63/10 mmH g, mean pulmonary capillary wedge pressure 28 mmHg with a prominent V wave, pulmonary artery pressure 62/29 mmHg with mean PA pressure 41 mmHg. This is consistent with elevated left-sided filling pressu res probably from diastolic heart failure resulting in moderate probably hypertension. 2. Oxygen saturations: Right atrium 63.2%, right ventricle 64.6%, femoral arterial sheath 95.1%. No evidence of intracardiac shunt. 3. Cardiac output by Enoc method 5.8 L/m. B. LEFT HEART CATHETERIZATION 1. Hemodynamics: Elevated left ventricle end-diastolic pressure of 28 mmHg consistent with acute on chronic diastolic heart failure. No pullback gradient across the aortic valve. 2. Selective coronary angiography: a. The left main coronary artery arose from the left sinus of Valsalva, gave rise to the left anteri or descending and left circumflex arteries and did not show any significant stenosis. b. The left anterior descending artery did not show any significant stenosis. c. The left circumflex artery did not show any significant stenosis. d. The right coronary artery was subselectively engaged but no obvious stenoses were noted. C. RENAL ANGIOGRAPHY Bilateral selective renal angiography did not show any significant renal artery stenosis. Conclusion 1. No significant coronary artery disease 2. Elevated left-sided filling pressures as evidenced by elevated LVEDP 28 mmHg and mean pulmonary c apillary wedge pressure 28 mmHg consistent with acute on chronic diastolic heart failure 3. No evidence of intracardiac shunt 4. No significant renal artery stenosis Recommendations Medical Therapy Signed by : Debbie De Jesus, Electronically Approved : 09/18/2019 13:07:07
--- NOTE | 2019-09-18 13:56 | NUR ---
pt discharged to home with friends. Pt tolerated PO and ambulated. PIV dcd. Discharge education reveiwed with pt.Pt reminded to hold metformin for 48 hours
== END 2019-09-18 13:58 | disposition home or self-care (01) ==
LOC: CCL 07:43
PROVIDERS: ATTEND Internal Medicine Cardiovascular Disease
DX: R07.89 Other chest pain (principal); I20.0 Unstable angina; I11.0 Hypertensive heart disease with heart failure; I50.9 Heart failure, unspecified; I48.91 Unspecified atrial fibrillation; E78.5 Hyperlipidemia, unspecified; C81.90 Hodgkin lymphoma, unspecified, unspecified site; J45.909 Unspecified asthma, uncomplicated; Z79.82 Long term (current) use of aspirin; Z95.0 Presence of cardiac pacemaker; Z90.11 Acquired absence of right breast and nipple; Z72.89 Other problems related to lifestyle
CPT/HCPCS: 36252; 36415; 80048; 85027; 85610; 93460; 99152; 99153; C1760; C1769; C1773; C1887; C1892; J1644; J2250; J3010; Q9967; 93453; G0269; C1771

== ENCOUNTER → 2020-04-29 | Outpatient (CLI) | payer MEDICARE, MEDICAID ==
[2020-04-26 14:39] VITALS: BP 173/86
[~2020-04-29] MED LIST changes: +AMIO200T4 PO; +AMIO200T7 PO; +AMLO10TA8 PO; +HYDR-2759 PO; +HYDR-2868 PO; +LABE200T4 PO; +LUBI24CA7 PO; +MAGN296S68 PO; -MAGN296S9 PO; +METF-658 PO; -METF500T11 PO; +METF500T16 PO; +OLME1TAB25 PO; +RIVA20TA2 PO
[2020-04-29 10:36] LABS: CREATININE 2.1 mg/dL (0.7-1.3); GFR 39.4; MAGNESIUM 2.3 mg/dL (1.8-2.4)
== END | disposition home or self-care (01) ==
LOC: LAB 09:34
PROVIDERS: ATTEND Internal Medicine Cardiovascular Disease
DX: I13.0 Hypertensive heart and chronic kidney disease with heart failure and stage 1 through stage 4 chronic kidney disease, or unspecified chronic kidney disease (principal); I50.33 Acute on chronic diastolic (congestive) heart failure; N18.2 Chronic kidney disease, stage 2 (mild)
CPT/HCPCS: 36415; 80048; 83735

== ENCOUNTER → 2020-05-17 | Outpatient (CLI) | payer MEDICAID, MEDICARE ==
[2020-04-26 14:39] VITALS: BP 173/86
--- NOTE | 2020-05-17 11:22 | CARD ---
MR#: [id number] Date of Study: 05/17/2020 Ordering Physician: DEBBIE BILL, Referring Physician: DEBBIE BILL, Tech: Aleah Morelos APPROVED REPORT EXAM: Two-dimensional and M-mode echocardiogram with Doppler and color Doppler. Other Information Quality : FairHR: 60bpm Technically limited study due to body habitus. INDICATION Atrial Fibrillation Congestive Heart Failure Surgery/Intervention Pacemaker: RISK FACTORS Hypertension 2D DIMENSIONS RVDd3.8 (2.9-3.5cm)Left Atrium(2D)3.5 (1.6-4.0cm) IVSd1.3 (0.7-1.1cm)Aortic Root(2D)3.8 (2.0-3.7cm) LVDd4.9 (3.9-5.9cm)LVOT Diameter2.1 (1.8-2.4cm) PWd1.3 (0.7-1.1cm)LVDs2.9 (2.5-4.0cm) FS (%) 41.8 %SV83.0 ml LVEF(%)72.6 (>50%) Aortic Valve AoV Peak Duke.162.8cm/sAoV VTI30.2cm AO Peak GR.10.6mmHgLVOT Peak Duke.127.1cm/s LVOT VTI 23.26cmAO Mean GR.7mmHg VINOD (VMAX)1.50uh7VKO (VTI)2.70cm2 Mitral Valve MV E Mean Gr.3mmHg Tricuspid Valve TR P. [id number] [id number] TR Peak Gr.51azRaJTRE48pfTp LEFT VENTRICLE The left ventricle is normal size. There is mild concentric left ventricular hypertrophy. The left ve ntricular systolic function is normal. The Ejection Fraction is 55%. Septal motion consistent with pa cemaker activation. Diastology indeterminate due to atrial fibrillation. RIGHT VENTRICLE The right ventricle is normal size. There is normal right ventricular wall thickness. The right ventr icular systolic function is normal. ATRIA The left atrium is mildly dilated. The right atrium is borderline dilated. The interatrial septum is intact with no evidence for an atrial septal defect or patent foramen ovale as noted on 2-D or Dopple r imaging. AORTIC VALVE The aortic valve is thickened but opens well. Doppler and Color Flow revealed no significant aortic r egurgitation. There is no significant aortic valvular stenosis. Calculated aortic valve area is 2.10 cm2 with maximum pressure gradient of 16 mmHg and mean pressure gradient of 10 mmHg. MITRAL VALVE The mitral valve is normal in structure and function. There is no evidence of mitral valve prolapse. There is no mitral valve stenosis with an mean gradient of 3.4 mmHg. Doppler and Color-flow revealed trace to mild mitral regurgitation. TRICUSPID VALVE The tricuspid valve is normal in structure and function. Doppler and Color Flow revealed trace tricus pid regurgitation with an estimated PAP of 49 mmHg. There is no tricuspid valve stenosis. PULMONIC VALVE The pulmonic valve is not well visualized. Doppler and Color Flow revealed trace pulmonic valvular re gurgitation. GREAT VESSELS The aortic root is normal in size. The IVC is normal in size and collapses >50% with inspiration. PERICARDIAL EFFUSION There is no evidence of significant pericardial effusion. Critical Notification Critical Value: No <Conclusion> The left ventricular systolic function is normal. The Ejection Fraction is 55%. The left atrium is mildly dilated. Pacer wire noted RA/RV. Trace to mild mitral regurgitation. Trace tricuspid regurgitation with an estimated PAP of 49 mmHg. There is no evidence of significant pericardial effusion. Signed by : Debbie Bill, Electronically Approved : 05/17/2020 11:21:43
== END | disposition home or self-care (01) ==
LOC: ECHO 07:47
PROVIDERS: ATTEND Internal Medicine Cardiovascular Disease
DX: I34.0 Nonrheumatic mitral (valve) insufficiency (principal); I11.0 Hypertensive heart disease with heart failure; I50.9 Heart failure, unspecified; I48.0 Paroxysmal atrial fibrillation
CPT/HCPCS: 93306

== ENCOUNTER → 2020-06-07 | Outpatient (CLI) | payer MEDICARE, MEDICAID ==
[2020-04-26 14:39] VITALS: BP 173/86
--- NOTE | 2020-06-07 17:22 | RAD ---
EXAM: PET W CT SKULL TO MIDTHIGH EXAM DATE: 06/07/2020 INDICATION: Restage lymphoma RADIOPHARMACEUTICAL: 16.7 mCi of F-18 Fluorodeoxyglucose (FDG) I.V. via the left forearm. TECHNIQUE: Patient weight: 280 pounds. Following at least four-hour fasting, the patient's blood glucose was 102 mg/dl. Approximately 1 hour after administration of FDG, overlapping emission scanning was performed from the orbital meatal line through the pelvis. A low-dose CT was performed for attenuation correction purposes and anatomic localization. Fused images of PET and CT were reviewed. Any standardized uptake values (SUV) reported are maximum values within a volume region of interest, expressed in gm/ml. COMPARISON: Noncontrast chest CT of 03/05/2020 and abdomen and pelvis CT without IV contrast of 03/07/2020 FINDINGS: PET: In the head and neck, high background activity in the faucial tonsils is seen to max SUV of 5.9 on the right and 5.5 on the left, compared with mediastinal background activity of 4.0 and liver activity of 4.7. No abnormal FDG uptake in the chest, abdomen or pelvis nor in the skeletal system. CT: Head and neck shows no adenopathy. Chest shows left chest pacemaker and sternotomy wires. There are surgical changes from a right mastectomy. No adenopathy. No lung nodules or masses. No pleural effusion. Abdomen and pelvis shows no adenopathy, mass, ascites or fluid collection. No aggressive appearing osseous lesions. IMPRESSION: Mildly greater than background activity in the faucial tonsils is nonspecific. No adenopathy or additional hypermetabolic lesions suspicious for active lymphoma. Electronically signed by: Mariajose Love MD (06/07/2020 5:18 PM) [id number]
== END ==
LOC: PETSC 09:37
PROVIDERS: ATTEND Internal Medicine Hematology & Oncology
DX: C81.92 Hodgkin lymphoma, unspecified, intrathoracic lymph nodes (principal); C85.90 Non-Hodgkin lymphoma, unspecified, unspecified site; D51.8 Other vitamin B12 deficiency anemias
CPT/HCPCS: 78815; A9552

== ENCOUNTER → 2020-12-06 | Outpatient (CLI) | payer MEDICARE, MEDICAID ==
[2020-04-26 14:39] VITALS: BP 173/86
[~2020-12-06] MED LIST changes: -AMIO200T4 PO; +AMIO200T6 PO; +AMLO-187 PO; -AMLO10TA8 PO; +DOXY100T PO; +FURO-68 PO; +GABA-585 PO; -HYDR50TA6 PO; +HYDR50TA9 PO; +LEVO50TA5 PO
--- NOTE | 2020-12-06 16:25 | RAD ---
Scrotal ultrasound INDICATION: Left groin scrotal mass. History of lymphoma with multiple tumors removed. COMPARISON: PET CT of 06/07/2020, abdomen and pelvis CT without IV contrast of 03/07/2020 TECHNIQUE: Grayscale and color Doppler imaging with spectral Doppler imaging of the scrotal contents was performed. FINDINGS: Right testicle measures 3.5 x 2.6 x 1.5 cm and demonstrates normal blood flow. Epididymis is unremarkable with the right epididymal head measuring 9 mm. Left testicle measures 3.0 x 2.1 x 2.0 cm and demonstrates normal blood flow. Left epididymis is unremarkable. Epididymal head measures 6 mm. The area of interest in the left groin reveals a peripherally vascular oval mass with central cystic space measuring 1.5 x 0.8 cm. IMPRESSION: 1. Normal testicles. 2. Area of concern represents an oval 1.5 cm mixed solid and cystic mass with peripheral vascularity, that is nonspecific. It could represent a centrally necrotic lymph node or thick-walled fluid collec tion. Correlation with CT or MRI of the pelvis could be helpful in further characterization. If indic ated, tissue sampling can also be pursued with ultrasound imaging guidance. Electronically signed by: Mariajose Love MD (12/06/2020 4:23 PM) [id number]
== END ==
LOC: US 13:41
PROVIDERS: ATTEND Family Medicine
DX: N50.9 Disorder of male genital organs, unspecified (principal)
CPT/HCPCS: 76870

== ENCOUNTER → 2021-01-27 | Outpatient (CLI) | payer MEDICARE, MEDICAID ==
[2020-04-26 14:39] VITALS: BP 173/86
[~2021-01-27] MED LIST changes: -DOXY100T PO; -FURO-68 PO; -GABA-585 PO; -LEVO50TA5 PO
--- NOTE | 2021-01-27 21:02 | KCIC ---
Right hand 3 views: Reason for examination: Right hand pain and swelling for 2 days. Pain in the distal second digit. No acute fracture or dislocation is seen. The bone density is normal. No abnormal periosteal reaction is seen. Joint spaces are maintained. IMPRESSION: No acute bony abnormality evident in the right hand. Electronically signed by: Brittney Lawler MD (01/27/2021 8:59 PM) SANTOS
== END ==
LOC: KCIC 10:07
PROVIDERS: ATTEND Family Medicine
DX: R22.31 Localized swelling, mass and lump, right upper limb (principal)
CPT/HCPCS: 73130

== ENCOUNTER 2021-04-09 06:28 | Inpatient (IN) | payer MEDICARE, MEDICAID ==
[~2021-04-09] VITALS: Ht 172.7 cm; Wt 146.0 kg
--- NOTE | 2021-04-09 07:09 | PHYS DOC ---
Past Medical History Past Medical History: A-Fib, Asthma, Cancer, CHF, Constipation, CVA, Depr ession, Diabetes-Type II, High Cholesterol, Hypertension, Renal Disease, Other Additional Past Medical Histor: Sleep Apnea, MULTIPLE CARDIAC TUMORS, HOGDKINS LYMPHOMA,GOUT, C-DIFF Past Surgical History: Angioplasty, Coronary Bypass Surgery, Pacemaker, Tonsillectomy, Other Additional Past Surgical Histo: 2 surgeries to attempt to remove tumors on heart,Adenoids Smoking Status: Never Smoker Alcohol Use: Occasionally Drug Use: None General Adult EDM: Chief Complaint: SHORTNESS OF BREATH HPI: HPI: 60-year-old male presents emergency department today with dyspnea for the past 2 to 3 days. His dyspnea is worse with laying down. It is associate with bilateral leg swelling. He denies any fevers or chills. He does have a mild chest pressure intermittently over the past few days as well. He denies vomiting diaphoresis fevers or chills. He denies abdominal pain. Review of systems negative for headache nuchal rigidity rashes. Positive for dyspnea, chest pain and bilateral leg swelling. Heart Score: C/O Chest Pain: Yes HEART Score for Chest Pain: HEART Score for Chest Pain Response (Comments) Value History Moderately Suspicious 1 ECG Nonspecific Repolarizatio 1 Age >45 - < 65 1 Risk Factors >3 Risk Factors or Hx CAD 2 Troponin < Normal Limit 0 Total 5 Risk Factors: Risk Factors: DM, Current or recent (<one month) smoker, HTN, HLP, family history of CAD, obesity. Risk Scores: Score 0 - 3: 2.5% MACE over next 6 weeks - Discharge Home Score 4 - 6: 20.3% MACE over next 6 weeks - Admit for Clinical Observation Score 7 - 10: 72.7% MACE over next 6 weeks - Early Invasive Strategies Allergies: Allergies: Allergies Coded Allergies Type Severity Reaction Last Updated Verified No Known Drug Allergies 07/14/19 No Physical Exam: PE: Constitutional: Well developed, well nourished, no acute distress, non-toxic appearance. [] HENT: Normocephalic, atraumatic, bilateral external ears normal, oropharynx moist, no oral exudates, nose normal. [] Eyes: PERRLA, EOMI, conjunctiva normal, no discharge. [] Neck: Normal range of motion, no tenderness, supple, no stridor. [] Cardiovascular: Regular rate with regular rhythm, no murmur [] Lungs & Thorax: Crackles bilaterally. No wheezing. Normal respiratory rate and without respiratory distress. Abdomen: Bowel sounds normal, soft, no tenderness, no masses, no pulsatile masses. [] Skin: Warm, dry, no erythema, no rash. [] Back: No tenderness, no CVA tenderness. [] Extremities: No tenderness, no cyanosis, no clubbing, ROM intact, bilateral leg swelling with 2+ edema. Left is more swollen than the right. Neurologic: Alert and oriented X 3, normal motor function, normal sensory function, no focal deficits noted. [] Psychologic: Affect normal, judgement normal, mood normal. [] Current Patient Data: Vital Signs: Vital Signs Date Time Temp Pulse Resp B/P (MAP) Pulse Ox O2 Delivery O2 Flow Rate FiO2 04/09/21 06:37 98.9 98 20 175/71 (105) 97 Room Air 98.9 EKG: EKG: EKG shows A. fib with a regular rate. ST segments are congruent. Not suggestive of acute ischemia. [] Radiology/Procedures: Radiology/Procedures: [] Course & Med Decision Making: Course & Med Decision Making Pertinent Labs and Imaging studies reviewed. (See chart for details) [] 60-year-old male presenting with signs and symptoms suggestive of acute CHF exacerbation. EKG unremarkable and nonspecific. Chest x-ray negative. Ultrasound of the right lower extremity negative for DVT. Patient is currently on an anticoagulant. Blood work shows an elevated proBNP. Troponin within normal limits. We will give the patient IV furosemide and admit the patient to the cardiovascular care unit. Hospitalist is paged around 8:[address] Esquivel returned the page. He accepts patient for admission to the hospital for acute CHF exacerbation. We will treat the patient for developing cellulitis in the right lower extremity as well. Dragsheryl Disclaimer: Violet Disclaimer: This electronic medical record was generated, in whole or in part, using a voice recognition dictation system. Departure Departure Impression: Primary Impression: CHF (congestive heart failure) Additional Impression: Cellulitis Disposition: ADMITTED INPATIENT Admitting Physician: CAIT Condition: STABLE Referrals: Meli FIELDS MD (PCP) MIRI DEJESUS MD Apr 09, 2021 07:09
--- NOTE | 2021-04-09 07:21 | RAD ---
EXAM: CHEST 1 VIEW History: Shortness of breath COMPARISON: 04/23/2020. TECHNIQUE: Single portable radiograph of the chest FINDINGS: Moderate cardiomegaly. Left-sided cardiac pacer identified. The costophrenic sulci are ully ar and well demarcated. IMPRESSION: No radiographic evidence of an acute cardiopulmonary process. Electronically signed by: Nils Helton MD (04/09/2021 7:18 AM) [id number]
[2021-04-09 07:25] LABS: BASO # 0.1 x10^3/uL (0.0-0.2); BASO % 1 % (0-3); EOS % 1 % (0-3); HEMATOCRIT 32.1 % (39.0-53.0); HEMOGLOBIN 10.8 g/dL (13.0-17.5); LYMPH # 0.8 x10^3/uL (1.0-4.8); LYMPH % 10 % (24-48); MEAN CORPUSCULAR HEMOGLOBIN 35 pg (25-35); MEAN CORPUSCULAR HGB CONC 34 g/dL (31-37); MEAN CORPUSCULAR VOLUME 105 fL (79-100); MONO # 0.7 x10^3/uL (0.0-1.1); MONO % 10 % (0-9); NEUT # 5.9 x10^3/uL (1.8-7.7); NEUT % 78 % (31-73); PLATELET COUNT 251 x10^3/uL (140-400); RED BLOOD COUNT 3.07 x10^6/uL (4.30-5.70); WHITE BLOOD COUNT 7.5 x10^3/uL (4.0-11.0)
--- NOTE | 2021-04-09 07:37 | RAD ---
US DPLX VENOUS EXTREMITY LOWER RT 04/09/2021 7:08 AM Clinical Information: Right leg pain Comparison: None. Technique: Multiple grayscale, color Doppler, and spectral Doppler sonographic images of the lower ex tremity venous structures were obtained. Findings: The right common femoral, femoral, and popliteal veins exhibit normal compression, respiratory phasic ity, and augmentation. No intraluminal thrombi are identified. Color Doppler flow is demonstrated in the right posterior tibial veins. Greater saphenous veins are patent at the saphenofemoral junction. Impression: 1. No evidence of deep venous thrombosis of the right lower extremity. Electronically signed by: Susie Swanson MD (04/09/2021 7:35 AM) [id number]
[2021-04-09 08:13] LABS: CALCIUM 8.1 mg/dL (8.5-10.1); CREATININE 1.7 mg/dL (0.7-1.3); GFR 50.2; POTASSIUM 3.6 mmol/L (3.5-5.1)
[2021-04-09 08:15] LABS: ALBUMIN 3.2 g/dL (3.4-5.0); DIRECT BILIRUBIN 0.3 mg/dL (0.0-0.2); TOTAL BILIRUBIN 1.2 mg/dL (0.2-1.0); TOTAL PROTEIN 7.5 g/dL (6.4-8.2)
[2021-04-09] MEDS ORDERED: FUROSEMIDE 40 MG/4 ML VIAL. IVP ONE (08:30)
[2021-04-09] MEDS ORDERED: fentaNYL PF VIAL 100 MCG/2 ML VIAL IV PRN (08:45)
--- NOTE | 2021-04-09 08:49 | PDOC1 ---
History and Physical Date of Admission Date of Admission DATE: 04/09/21 TIME: 08:46 Identification/Chief Complaint Chief Complaint Right leg pain Source Source: Patient History of Present Illness History of Present Illness Mr King is a 60-year-old male w/ PMHx Hodgkin lymphoma diagnosed in 2002 and again in 2004 (s/p ABVD in remission), afib, SSS s/p ventricular PPM, DM2, KALEY on CPAP, HTN, HLD, CKD IIb, gout who presents emergency department today c/o right foot pain for the past 3 days, and was told by his PCP to come to ED yesterday thought he could wait it out but was unable to bear weight on his foot this morning. He dose also note his dyspnea has been worsening and has more orthopnea.both legs are swollen up to right much more so on the left with some erythema and pain even with light touch. He does note history of gout as well as history of lymphoma and has had some compliance difficulties due to affording medications. He notes he is a little anxious about the results of the lymph no de biopsy from December 2019 one of his left groin. He denies any fevers or chills. No sick contacts. He lives alone and prepares his own meals. He does have a mild chest pressure intermittently over the past few days as well. He denies vomiting diaphoresis fevers or chills. He denies abdominal pain. Had a normal nuclear medicine stress test on 03/11/2021. EKG rate controlled A. fib ventricular paced no ST segment or T wave abnormalities. Chest radiograph with cardiomegaly possible left pleural effusion no significant infiltrates. Right lower extremity venous Doppler negative for DVT. Labs with WBC 7.5, Hb 10.8, platelets 251, MCV 105, NA 141, K3.6, BUN 18, CR 1.7, glucose 91, bilirubin 1.2, NT proBNP 47, albumin 3.2, troponin 0 Given IV furosemide in ED. Seen bedside in ED initiated on Rocephin and vancomycin therapy elevate extremity IV fentanyl for pain control Admitted for further care. Past Medical History Cardiovascular: AFIB, HTN, Hyperlipidemia, Other Pulmonary: Asthma, Other CENTRAL NERVOUS SYSTEM: TIA GI: GERD Heme/Onc: Cancer Hepatobiliary: Other Psych: Depression Musculoskeletal: Osteoarthritis Rheumatologic: Gout Infectious disease: No pertinent hx Renal/: Chronic renal insuff Endocrine: Diabetes Past Surgical History Past Surgical History: Pacemaker, Mastectomy, Tonsillectomy, Other Family History Family History: Diabetes Social History Smoke: No ALCOHOL: none Drugs: None Current Medications Current Medications Current Medications Furosemide (Lasix) 40 mg 1X ONCE IVP ; Start 04/09/21 at 08:30; Stop 04/09/21 at 08:31; Status DC Fentanyl Citrate (Fentanyl 2ml Vial) 25 mcg 1X PRN PRN IV SEVERE PAIN 7-10; Start 04/09/21 at 08:45; Status UNV Active Scripts Active Amlodipine Besylate 10 Mg Tablet 10 Mg PO DAILY 30 Days Cozaar (Losartan Potassium) 50 Mg Tablet 100 Mg PO DAILY 30 Days Hydralazine Hcl 25 Mg Tablet 25 Mg PO BID 30 Days Pacerone (Amiodarone Hcl) 200 Mg Tablet 200 Mg PO DAILY 30 Days Hydrocodone-Acetamin 5-325 mg (Hydrocodone/Acetaminophen) 1 Each Tablet 1 Each PO QID PRN 5 Days Restoril (Temazepam) 15 Mg Capsule 15 Mg PO PRN QHS PRN Reported Humalog Mix 75-25 Kwikpen (Insulin Npl/Insulin Lispro) 100 Unit/1 Ml Insuln.pen 60 Unit SQ DAILYWSUP Labetalol Hcl 200 Mg Tablet 1 Tab PO BID Xarelto (Rivaroxaban) 20 Mg Tablet 1 Tab PO DAILYWSUP 30 Days with food Humalog Mix 75-25 Kwikpen (Insulin Npl/Insulin Lispro) 100 Unit/1 Ml Insuln.pen 20 Unit SQ DAILYWBKFT Furosemide 20 Mg Tablet 1 Tab PO DAILY Allopurinol 100 Mg Tablet 1 Tab PO DAILY Ventolin Hfa Inhaler (Albuterol Sulfate) 18 Gm Hfa.aer.ad 2 Puff INH QID Potassium Chloride 10 Meq Tablet.er 10 Meq PO DAILY Allergies Allergies: Coded Allergies: No Known Drug Allergies (Unverified , 07/14/19) ROS General: YES: Fatigue, Malaise; No: Chills, Night Sweats, Appetite, Other PSYCHOLOGICAL ROS: No: Anxiety, Behavioral Disorder, Concentration difficultie, Decreased libido, Depression, Disorientation, Hallucinations, Hostility, Irritablity, Memory difficulties, Mood Swings, Obsessive thoughts, Physical abuse, Sexual abuse, Sleep disturbances, Suicidal ideation, Other Eyes: No Blurry vision, No Decreased vision, No Double vision, No Dry eyes, No Excessive tearing, No Eye Pain, No Itchy Eyes, No Loss of vision, No Photophobia, No Scotomata, No Uses contacts, No Uses glasses, No Other HEENT: No: Heacaches, Visual Changes, Hearing change, Nasal congestion, Nasal discharge, Oral lesions, Sinus pain, Sore Throat, Epistaxis, Sneezing, Snoring, Tinnitus, Vertigo, Vocal changes, Other ALLERGY AND IMMUNOLOGY: No: Hives, Insect Bite Sensitivity, Itchy/Watery Eyes, Nasal Congestion, Post Nasal Drip, Seasonal Allergies, Other Hematological and Lymphatic: No: Bleeding Problems, Blood Clots, Blood Transfusions, Brusing, Night Sweats, Pallor, Swollen Lymph Nodes, Other ENDOCRINE: No: Breast Changes, Galactorrhea, Hair Pattern Changes, Hot Flashes, Malaise/lethargy, Mood Swings, Palpitations, Polydipsia/polyuria, Skin Changes, Temperature Intolerance, Unexpected Weight Changes, Other Breast: No New/Changing Breast Lumps, No Nipple changes, No Nipple discharge, No Other Respiratory: No: Cough, Hemoptysis, Orthopnea, Pleuritic Pain, Shortness of breath, SOB with excertion, Sputum Changes, Stridor, Tachypnea, Wheezing, Other Cardiovascular: yes Chest Pain; No Palpitations, No Orthopnea, No Paroxysmal Noc. Dyspnea, No Edema, No Lt Headedness, No Other Gastrointestinal: Yes Nausea; No Vomiting, No Abdominal Pain, No Diarrhea, No Constipation, No Melena, No Hematochezia, No Other Genitourinary: No Dysuria, No Frequency, No Incontinence, No Hematuria, No Retention, No Discharge, No Urgency, No Pain, No Flank Pain, No Other, No , No , No , No , No , No , No Musculoskeletal: No Gait Disturbance, No Joint Pain, No Joint Stiffness, No Joint Swelling, No Muscle Pain, No Muscular Weakness, No Pain In:, No Swelling In:, No Other Neurological: No Behavorial Changes, No Bowel/Bladder ControlChng, No Confusion, No Dizziness, No Gait Disturbance, No Headaches, No Impaired Coord/balance, No Memory Loss, No Numbness/Tingling, No Seizures, No Speech Problems, No Tremors, No Visual Changes, No Weakness, No Other Skin: No Dry Skin, No Eczema, No Hair Changes, No Lumps, No Mole Changes, No Mottling, No Nail Changes, No Pruritus, No Rash, No Skin Lesion Changes, No Other, No Acne Physical Exam General: Alert, Oriented X3, Cooperative, moderate distress HEENT: Atraumatic, PERRLA, EOMI, Mucous membr. moist/pink Lungs: Clear to auscultation, Normal air movement Heart: S1S2, no thrills, irregularly irregular Abdomen: Normal bowel sounds, Soft, No tenderness, No hepatosplenomegaly, No masses Rectal Exam: not examined Extremities: No clubbing, No cyanosis, Normal pulses, Other (Right ankle hyperesthetic. Swollen edema 1+ left leg 2+ right leg.) Skin: Other (Red circumferential rash 8 x 4 cm right lower leg including ankle nonoccluding foot. Extremely poor nail care with onychomycosis and ingrown nails.) Neuro: Normal gait, Normal speech, Strength at 5/5 X4 ext, Normal tone, Sensation intact, Cranial nerves 3-12 NL, Reflexes 2+ Psych/Mental Status: Mental status NL, Mood NL Vitals Vitals Vital Signs Date Time Temp Pulse Resp B/P (MAP) Pulse Ox O2 Delivery O2 Flow Rate FiO2 04/09/21 06:54 98.9 98 24 175/71 (105) 97 Room Air 98.9 Labs Labs Laboratory Tests Test 04/09/21 06:51 04/09/21 07:40 White Blood Count 7.5 x10^3/uL (4.0-11.0) Red Blood Count 3.07 x10^6/uL (4.30-5.70) Hemoglobin 10.8 g/dL (13.0-17.5) Hematocrit 32.1 % (39.0-53.0) Mean Corpuscular Volume 105 fL (79-100) Mean Corpuscular Hemoglobin 35 pg (25-35) Mean Corpuscular Hemoglobin Concent 34 g/dL (31-37) Red Cell Distribution Width 15.0 % (11.5-14.5) Platelet Count 251 x10^3/uL (140-400) Neutrophils (%) (Auto) 78 % (31-73) Lymphocytes (%) (Auto) 10 % (24-48) Monocytes (%) (Auto) 10 % (0-9) Eosinophils (%) (Auto) 1 % (0-3) Basophils (%) (Auto) 1 % (0-3) Neutrophils # (Auto) 5.9 x10^3/uL (1.8-7.7) Lymphocytes # (Auto) 0.8 x10^3/uL (1.0-4.8) Monocytes # (Auto) 0.7 x10^3/uL (0.0-1.1) Eosinophils # (Auto) 0.0 x10^3/uL (0.0-0.7) Basophils # (Auto) 0.1 x10^3/uL (0.0-0.2) Sodium Level 141 mmol/L (136-145) Potassium Level 3.6 mmol/L (3.5-5.1) Chloride Level 105 mmol/L (98-107) Carbon Dioxide Level 25 mmol/L (21-32) Anion Gap 11 (6-14) Blood Urea Nitrogen 18 mg/dL (8-26) Creatinine 1.7 mg/dL (0.7-1.3) Estimated GFR (Cockcroft-Gault) 50.2 Glucose Level 91 mg/dL (70-99) Calcium Level 8.1 mg/dL (8.5-10.1) Total Bilirubin 1.2 mg/dL (0.2-1.0) Direct Bilirubin 0.3 mg/dL (0.0-0.2) Aspartate Amino Transf (AST/SGOT) 20 U/L (15-37) Alanine Aminotransferase (ALT/SGPT) 17 U/L (16-63) Alkaline Phosphatase 112 U/L (46-116) Troponin I Quantitative < 0.017 ng/mL (0.000-0.055) YX-Nwh-R-Type Natriuretic Peptide 487 pg/mL (0-124) Total Protein 7.5 g/dL (6.4-8.2) Albumin 3.2 g/dL (3.4-5.0) Lipase 47 U/L (73-393) Laboratory Tests Test 04/09/21 06:51 04/09/21 07:40 White Blood Count 7.5 x10^3/uL (4.0-11.0) Red Blood Count 3.07 x10^6/uL (4.30-5.70) Hemoglobin 10.8 g/dL (13.0-17.5) Hematocrit 32.1 % (39.0-53.0) Mean Corpuscular Volume 105 fL (79-100) Mean Corpuscular Hemoglobin 35 pg (25-35) Mean Corpuscular Hemoglobin Concent 34 g/dL (31-37) Red Cell Distribution Width 15.0 % (11.5-14.5) Platelet Count 251 x10^3/uL (140-400) Neutrophils (%) (Auto) 78 % (31-73) Lymphocytes (%) (Auto) 10 % (24-48) Monocytes (%) (Auto) 10 % (0-9) Eosinophils (%) (Auto) 1 % (0-3) Basophils (%) (Auto) 1 % (0-3) Neutrophils # (Auto) 5.9 x10^3/uL (1.8-7.7) Lymphocytes # (Auto) 0.8 x10^3/uL (1.0-4.8) Monocytes # (Auto) 0.7 x10^3/uL (0.0-1.1) Eosinophils # (Auto) 0.0 x10^3/uL (0.0-0.7) Basophils # (Auto) 0.1 x10^3/uL (0.0-0.2) Sodium Level 141 mmol/L (136-145) Potassium Level 3.6 mmol/L (3.5-5.1) Chloride Level 105 mmol/L (98-107) Carbon Dioxide Level 25 mmol/L (21-32) Anion Gap 11 (6-14) Blood Urea Nitrogen 18 mg/dL (8-26) Creatinine 1.7 mg/dL (0.7-1.3) Estimated GFR (Cockcroft-Gault) 50.2 Glucose Level 91 mg/dL (70-99) Calcium Level 8.1 mg/dL (8.5-10.1) Total Bilirubin 1.2 mg/dL (0.2-1.0) Direct Bilirubin 0.3 mg/dL (0.0-0.2) Aspartate Amino Transf (AST/SGOT) 20 U/L (15-37) Alanine Aminotransferase (ALT/SGPT) 17 U/L (16-63) Alkaline Phosphatase 112 U/L (46-116) Troponin I Quantitative < 0.017 ng/mL (0.000-0.055) WQ-Tii-J-Type Natriuretic Peptide 487 pg/mL (0-124) Total Protein 7.5 g/dL (6.4-8.2) Albumin 3.2 g/dL (3.4-5.0) Lipase 47 U/L (73-393) Images Images Chest radiograph: Moderate cardiomegaly. Left-sided cardiac pacer identified. The costophrenic sulci are clear and well demarcated. IMPRESSION: No radiographic evidence of an acute cardiopulmonary process. RLE venous doppler: The right common femoral, femoral, and popliteal veins exhibit normal compression, respiratory phasicity, and augmentation. No intraluminal thrombi are identified. Color Doppler flow is demonstrated in the right posterior tibial veins. Greater saphenous veins are patent at the saphenofemoral junction. Impression: 1. No evidence of deep venous thrombosis of the right lower extremity. VTE Prophylaxis Ordered VTE Prophylaxis Devices: Yes VTE Pharmacological Prophylaxi: Yes Assessment/Plan Assessment/Plan A/P: RLE pain - ankle cellulitis with likely associated gout given his hyperesthesia. Will cont vancomycin, pharmacy to assist in dosing, rocephin, Solumedrol x1. Given CKD will avoid colchicine due to concern for possible rhabdo. Right ankle cellulitis - as above Gout - with acute flare in right ankle, will obtain XR given he is unable to bear weight Acute on chronic diastolic CHF - mild, will give IVF furosemide, consult cardiology. Cont home meds KALEY: uses home CPAP Persistent AFIB: rate controlled. on xarelto and amiodarone. Will check TSH given previously elevated TSH 9 last year SSS s/p PPM - V paced with underlying afib. Macrocytosis - previously on B12 replacement, will check for deficiency CKD - at baseline currently, will monitor given IV lasix dosing and vancomycin dosing CAD - non-obstructive based on prior cath reports and negative stress test within the past month. Chest pain - atypical in nature. Will maintain telemetry, trend troponins, consult cardiology. Cont ASA DM2 - sliding scale insulin. Is on NPH BID, will reduce dosing and continue this Hodgkin lymphoma diagnosed in 2002 and again in 2004 (s/p ABVD in remission) Ingrown nails - with onychomycosis. Given cellulitis he needs urgent nail care. Previously seen by Dr. Desir, has been unable to get into the office FEN - Cardiac ADA diet PPX - xarelto FULL CODE Dispo - inpatient for above Justifications for Admission Other Justification RIC BROWN MD Apr 09, 2021 08:49
[2021-04-09] MEDS ORDERED: VANCOMYCIN 2 GM in IV NORMAL SALINE 500ML BAG 500 ML IV ONE (09:00)
[2021-04-09 09:01] LABS: AMPHETAMINE/METHAMPHETAMINE NEG (NEG); BARBITURATES NEG (NEG); BENZODIAZEPINES NEG (NEG); CANNABINOIDS NEG (NEG); COCAINE NEG (NEG); METHADONE NEG (NEG); OPIATES NEG (NEG); PHENCYCLIDINE NEG (NEG)
[2021-04-09 09:30] VITALS: BP 167/65
[2021-04-09] MEDS ORDERED: FURO-68 PO (10:10)
[2021-04-09] MEDS ORDERED: DEXTROSE 50% 25 GM / 50ML DISP.SYRIN. IV PRN (10:15)
[2021-04-09] MEDS ORDERED: methylPREDNISolone SOD SUCC PF 125 MG/2 ML VIAL. IV ONE (10:30)
--- NOTE | 2021-04-09 10:49 | PDOC2 ---
BALTAZAR STONE [employer]AD[employer] 04/09/21 1049: CARDIAC CONSULT DATE OF CONSULT Date of Consult DATE: 04/09/21 TIME: 10:08 REASON FOR CONSULT Reason for Consult: CP/CHF REFERRING PHYSICIAN Referring Physician: Karl SOURCE Source: Chart review, Patient HISTORY OF PRESENT ILLNESS HISTORY OF PRESENT ILLNESS This is a pleasant 60 yo male admitted for complains of SOA. Positive for orthopena with leg swelling. He has been taking his lasix at home but his diet noncomplaince. He has big sweings in his BG from 80-180 when he checks it. He eats a lot of ramen noodles. He does have skip beats but denies any chest pain. He has been using his CPAP but still wakes up at night at least 3 times to urinate and also at times SOA. He has been having right ankle pain but no recent injury. No fever or chills and he already had his covid-19 vaccine. Upon admission he was noted with high BP and does not check his BP at home. PAST MEDICAL HISTORY Past Medical History Cardiovascular: AFIB (Paroxysmal), HTN, Hyperlipidemia, Other (SSS) Pulmonary: Asthma, Other (KALEY) CENTRAL NERVOUS SYSTEM: TIA, DPN GI: GERD Heme/Onc: Cancer (hodgkins lymphoma) Hepatobiliary: Other (chronic xarelto use) Musculoskeletal: Osteoarthritis Rheumatologic: Gout Renal/: Chronic renal insuff Endocrine: Diabetes (2) Dermatology: No pertinent hx PAST SURGICAL HISTORY Past Surgical History Pacemaker, Mastectomy (right simple), Tonsillectomy, Other (cardiac tumor re moval; LHC, right thigh abscess debridement), [facility] HISTORY Family History: Diabetes SOCIAL HISTORY Smoke: No ALCOHOL: none Drugs: None Lives: with Family CURRENT MEDICATIONS CURRENT MEDICATIONS Current Medications Medications (Trade) Dose Ordered Sig/Lizzie Route PRN Reason Start Time Stop Time Status Last Admin Dose Admin Furosemide (Lasix) 40 mg 1X ONCE IVP 04/09/21 08:30 04/09/21 08:31 DC 04/09/21 08:52 Fentanyl Citrate (Fentanyl 2ml Vial) 25 mcg 1X PRN PRN IV SEVERE PAIN 7-10 04/09/21 08:45 04/09/21 08:52 Vancomycin HCl 2 gm/Sodium Chloride 500 ml @ 250 mls/hr 1X ONCE IV 04/09/21 09:00 04/09/21 10:59 04/09/21 09:58 ALLERGIES ALLERGIES: Coded Allergies: No Known Drug Allergies (Unverified , 07/14/19) ROS Review of System 14 point ROS evaluated with pertinent positives noted per HPI PHYSICAL EXAM General: Alert, Oriented X3, Cooperative, No acute distress HEENT: Atraumatic, Mucous membr. moist/pink Lungs: Clear to auscultation, Normal air movement Heart: Regular rate (SR with first degree av block), Normal S1, Normal S2 Abdomen: Soft, No tenderness Extremities: No cyanosis, Other (2+ bilateral LE pitting edema; 2+ bilateral pedal pulses) Skin: No breakdown, No significant lesion Neuro: Normal speech, Sensation intact Psych/Mental Status: Mental status NL, Mood NL MUSCULOSKELETAL: Osteoarthritic changes both hands VITALS/I&O VITALS/I&O: Vital Signs Date Time Temp Pulse Resp B/P (MAP) Pulse Ox O2 Delivery O2 Flow Rate FiO2 04/09/21 09:30 98.1 80 18 167/65 (99) 100 Room Air 98.1 LABS Lab: Laboratory Tests Test 04/09/21 06:51 04/09/21 07:25 04/09/21 07:40 04/09/21 09:40 White Blood Count 7.5 x10^3/uL (4.0-11.0) Red Blood Count 3.07 x10^6/uL (4.30-5.70) L Hemoglobin 10.8 g/dL (13.0-17.5) L Hematocrit 32.1 % (39.0-53.0) L Mean Corpuscular Volume 105 fL (79-100) H Mean Corpuscular Hemoglobin 35 pg (25-35) Mean Corpuscular Hemoglobin Concent 34 g/dL (31-37) Red Cell Distribution Width 15.0 % (11.5-14.5) H Platelet Count 251 x10^3/uL (140-400) Neutrophils (%) (Auto) 78 % (31-73) H Lymphocytes (%) (Auto) 10 % (24-48) L Monocytes (%) (Auto) 10 % (0-9) H Eosinophils (%) (Auto) 1 % (0-3) Basophils (%) (Auto) 1 % (0-3) Neutrophils # (Auto) 5.9 x10^3/uL (1.8-7.7) Lymphocytes # (Auto) 0.8 x10^3/uL (1.0-4.8) L Monocytes # (Auto) 0.7 x10^3/uL (0.0-1.1) Eosinophils # (Auto) 0.0 x10^3/uL (0.0-0.7) Basophils # (Auto) 0.1 x10^3/uL (0.0-0.2) Urine Opiates Screen Neg (NEG) Urine Methadone Screen Neg (NEG) Urine Barbiturates Neg (NEG) Urine Phencyclidine Screen Neg (NEG) Urine Amphetamine/Methamphetamine Neg (NEG) Urine Benzodiazepines Screen Neg (NEG) Urine Cocaine Screen Neg (NEG) Urine Cannabinoids Screen Neg (NEG) Urine Ethyl Alcohol Neg (NEG) Sodium Level 141 mmol/L (136-145) Potassium Level 3.6 mmol/L (3.5-5.1) Chloride Level 105 mmol/L (98-107) Carbon Dioxide Level 25 mmol/L (21-32) Anion Gap 11 (6-14) Blood Urea Nitrogen 18 mg/dL (8-26) Creatinine 1.7 mg/dL (0.7-1.3) H Estimated GFR (Cockcroft-Gault) 50.2 Glucose Level 91 mg/dL (70-99) Uric Acid 8.3 mg/dL (3.5-7.2) H Calcium Level 8.1 mg/dL (8.5-10.1) L Total Bilirubin 1.2 mg/dL (0.2-1.0) H Direct Bilirubin 0.3 mg/dL (0.0-0.2) H Aspartate Amino Transferase (AST) 20 U/L (15-37) Alanine Aminotransferase (ALT) 17 U/L (16-63) Alkaline Phosphatase 112 U/L (46-116) Troponin I Quantitative < 0.017 ng/mL (0.000-0.055) PO-Rgu-J-Type Natriuretic Peptide 487 pg/mL (0-124) H Total Protein 7.5 g/dL (6.4-8.2) Albumin 3.2 g/dL (3.4-5.0) L Lipase 47 U/L (73-393) L Glucose (Fingerstick) 80 mg/dL (70-99) Laboratory Tests 04/09/21 06:51 Laboratory Tests 04/09/21 07:40 ECHOCARDIOGRAM ECHOCARDIOGRAM <Conclusion> The left ventricular systolic function is normal. The Ejection Fraction is 55%. The left atrium is mildly dilated. Pacer wire noted RA/RV. Trace to mild mitral regurgitation. Trace tricuspid regurgitation with an estimated PAP of 49 mmHg. There is no evidence of significant pericardial effusion. DATE: 05/17/20 1107 STRESS TEST STRESS TEST Conclusion 1. No evidence of EKG changes with stress testing. 2. Normal perfusion at stress/rest. 3. Low risk study. 4. EF > 60%. DATE: 03/11/21 [id number] 0 ASSESSMENT/PLAN ASSESSMENT/PLAN 1. Right ankle pain with erythema with possible acute gout flare 2. Acute on chronic diastolic CHF: possibly driven by diet and uncontrolled HTN 3. HTN: labile 4. DM2 with diet noncomplaince 5. PAFIB: at times SR with first degree AV block 6. CKD2-3 7. Obesity 8. Hyperuricemia 9. KALEY: CPAP compliant 10. Macrocytic anemia 11. PPM/SSS: single lead. V paced with underlying afib. No high rate. 40% V paced. normal function 12. Suspect hypothyroidism Recommendations 1. Dietitian consult 2. to provide list of local food hernandez for clinical trial assistant due to limited financial means 3. TTE, right foot xray. RLE arterial duplex 4. Continue Amiodarone. Xarelto for stroke prohpylaxis. 5. Continue home BP regimen. Lasix therapy 6. DDIMER and if elevated will do V/Q scan PEREZ CHRISTIANSON MD 04/09/21 1708: CARDIAC CONSULT ASSESSMENT/PLAN ASSESSMENT/PLAN The patient was seen and interviewed as well as examined at the bedside. The chart was reviewed. The case was discussed. Agree with the plan of care. BALTAZAR STONE APRN Apr 09, 2021 10:49 PEREZ CHRISTIANSON MD Apr 09, 2021 17:08
[2021-04-09 11:00] VITALS: BP 168/82
[2021-04-09] MEDS: INSULIN NPH/REG HUM 70/30 300 UNITS/3 ML VIAL. SQ SCH (11:00)
[2021-04-09] MEDS ORDERED: ALLOPURINOL 100 MG TABLET. PO SCH (11:00)
[2021-04-09] MEDS ORDERED: LOSARTAN POTASSIUM 50 MG TABLET. PO SCH (11:00)
[2021-04-09] MEDS: LABETALOL HCL 200 MG TABLET PO SCH ×2 (11:15→21:13)
[2021-04-09] MEDS: hydrALAZINE 25 MG TABLET PO SCH ×2 (11:15→21:13)
[2021-04-09] MEDS: FUROSEMIDE 40 MG TABLET. PO SCH (11:16)
[2021-04-09] MEDS: traMADol 50 MG TABLET PO PRN ×2 (11:16→21:15)
[2021-04-09] MEDS: ALBUTEROL SULFATE 2.5 MG/3 ML NEBU. NEB SCH ×3 (11:20→20:15)
[2021-04-09] MEDS: cefTRIAXone IV Push 1 GM VIAL. IVP SCH (11:23)
--- NOTE | 2021-04-09 11:55 | RAD ---
MR#: [id number] Date of Study: 04/09/2021 Ordering Physician: BALTAZAR STONE, Referring Physician: BALTAZAR STONE, Tech: Kel Skinner MBA, RDMS, RVT, RDCS, RTR APPROVED REPORT Patient Location: IN-PATIENT Indications Rest Pain:Right VELOCITY AND DOPPLER WAVEFORM ANALYSIS RIGHT cm/secWaveformSeverity LEFT cm/secWaveform Severity dCFA 172.0TriphasicdCFA Prof Fem Art. 59.0TriphasicProf Fem Art. Fem Art Prox. 186.0TriphasicFem Art Prox. Fem Art Mid. 150.0TriphasicFem Art Mid. Fem Art Dist. 115.0TriphasicFem Art Dist. Pop Art(Fossa) 185.0TriphasicPop Art(AK) PERSONAL CAREGIVER Prox. 96.0TriphasicPTA Prox. PERSONAL CAREGIVER Dist. 93.0TriphasicPTA Dist. DAWIT Prox. 66.0TriphasicATA Prox. DPA 150MonophasicDPA Findings Grayscale images of the right lower extremity arterial vessels demonstrate mild to moderate diffuse a therosclerosis. Above the knee from the common femoral artery to the popliteal segment there are triphasic waveforms. Velocities are mildly elevated but no focal stenosis is identified. Below the knee there is two-ve ssel runoff with again mildly elevated velocities but with triphasic wave pattern in the posterior ti bial and anterior tibial arteries without any clear evidence of stenosis. The peroneal artery is not well visualized. There are elevated velocities in the dorsalis pedis artery suggestive of greater t maynard 75% stenosis. Critical Notification Critical Value: No <Conclusion> 1. No significant above-knee disease on the right side. 2. Two-vessel runoff below the knee with likely small vessel disease at the level of the ankle. Signed by : Tate Borja, Electronically Approved : 04/09/2021 11:54:52
[2021-04-09] MEDS: INSULIN LISPRO 300 UNITS/3 ML VIAL. SQ SCH ×2 (12:00→17:05)
--- NOTE | 2021-04-09 12:56 | RAD ---
EXAM: 1. RIGHT ANKLE 2 VIEWS. 2. RIGHT FOOT 2 VIEWS. HISTORY: Pain, cannot bear weight. COMPARISON: None. FINDINGS: No fractures are identified about the ankle. The alignment of the mortise is maintained. Joint spaces are maintained. There is soft tissue swelling medially and laterally at the ankle and lower leg. No fractures are identified in the foot. There is moderate hallux valgus with only mild first metatar sophalangeal osteoarthritis. There is a small soft tissue and osseous bunion. Navicular-cuneiform ost eoarthritis appears moderate. There are small plantar and posterior calcaneal spurs. There are diffus e atherosclerotic calcifications. IMPRESSION: 1. Soft tissue swelling. No fracture. 2. Moderate hallux valgus. Moderate midfoot osteoarthritis. Electronically signed by: Coco Spence MD (04/09/2021 12:54 PM) [id number]
--- NOTE | 2021-04-09 12:57 | EKG ---
[facility] [address] [place] [address] Test Date: 2021-04-09 Test Time: 06:48:30 Pat Name: REBEKAH GAMEZ Department: Room: 206 1 Gender: M Data Warehouse Analyst: : [id number] Requested By: MIRI DEJESUS Order Number: [id number] Reading MD: Tate Borja MD Measurements Intervals [place] Rate: 86 P: -90 CO: 166 QRS: -32 QRSD: 92 T: 56 QT: 384 QTc: 463 Interpretive Statements SINUS RHYTHM ABNORMAL LEFT AXIS DEVIATION QRS(T) CONTOUR ABNORMALITY CONSISTENT WITH INFERIOR INFARCT CONSISTENT WITH ANTEROSEPTAL INFARCT PROBABLY OLD ABNORMAL ECG Electronically Signed On 04-09-2021 17:07:57 CDT by Ttae Borja MD
[2021-04-09] MEDS ORDERED: NON FORMULARY ITEM (Albuterol Sulfate (Ventolin Hfa Inhaler) 2 PUFF) INH SCH (13:00)
[2021-04-09] MEDS: fentaNYL PF VIAL 100 MCG/2 ML VIAL IVP PRN (13:21)
[2021-04-09] MEDS ORDERED: ANTI-COAG MONITOR BY PHARMACY. MC PRN (14:45)
[2021-04-09] MEDS: VANCOMYCIN PER PHARMACY MC PRN (14:53)
[2021-04-09] MEDS: ANTI-COAG MONITOR BY PHARMACY. MC PRN (14:54)
--- NOTE | 2021-04-09 14:55 | NUR ---
Pharmacy Vancomycin Dosing Note S:Consulted to monitor and dose vancomycin started 04/09/21. O:REBEKAH GAMEZ is a 60 year old M with Cellulitis . Height: 5 feet, 8 inches Weight: 109.0 kg [place] Body Weight: 68.40 Adjusted Body Weight: 84.64 Dosing Weight: Actual Other Antibiotics: ROCEPHIN LABS: Last BUN: 18 Last Creatinine: 1.7 Creatinine Clearance: 56 mL/min Last WBC: 7.5 Last Procalcitonin: Tmax (past 24 hours): 98.9 Microbiology: I/O: 180/1300 Drug Levels: Last level: on at Last dose given 04/09/21 at 0958 Vancomycin Dosing: Loading Dose: 2000 mg x1 Dosing Weight: Actual Target Trough: 10-20 A: Based on: Body weight and renal function P: 1. After 2gm loading dose, start Vancomycin 1750 mg IV q24h 2. Follow up Trough level on 04/11/21 at 0930 3. Pharmacy will continue to monitor, follow and adjust therapy as needed. [facility], 04/09/21 [id number]
[2021-04-09 15:00] VITALS: BP 153/72
[2021-04-09] MEDS ORDERED: INSULIN NPH/REG HUM 70/30 300 UNITS/3 ML VIAL. SQ SCH (17:00)
[2021-04-09] MEDS: RIVAROXABAN 10 MG TABLET. PO SCH (17:02)
[2021-04-09 19:00] VITALS: BP 153/69
[2021-04-09] MEDS: AMIODARONE HCL 200 MG TABLET. PO SCH (21:14)
[2021-04-09] MEDS: LOSARTAN POTASSIUM 50 MG TABLET. PO SCH (21:14)
[2021-04-09] MEDS: ALLOPURINOL 100 MG TABLET. PO SCH (21:15)
[2021-04-09] MEDS: TEMAZEPAM 15 MG CAPSULE PO PRN (21:15)
[2021-04-09] MEDS: LACTOBACILLUS RHAMNOSUS GG 1 CAPSULE. PO SCH (21:15)
[2021-04-09 23:00] VITALS: BP 156/76
[2021-04-10] MEDS: fentaNYL PF VIAL 100 MCG/2 ML VIAL IVP PRN ×3 (02:19→22:55)
[2021-04-10 03:00] VITALS: BP 153/78
[2021-04-10 07:00] VITALS: BP 156/75
[2021-04-10] MEDS: ALBUTEROL SULFATE 2.5 MG/3 ML NEBU. NEB SCH ×4 (07:14→21:14)
[2021-04-10] MEDS: INSULIN NPH/REG HUM 70/30 300 UNITS/3 ML VIAL. SQ SCH ×2 (08:00→23:00)
[2021-04-10] MEDS: traMADol 50 MG TABLET PO PRN ×2 (08:20→20:03)
[2021-04-10] MEDS: LABETALOL HCL 200 MG TABLET PO SCH ×2 (08:21→20:01)
[2021-04-10] MEDS: FUROSEMIDE 40 MG TABLET. PO SCH (08:21)
[2021-04-10] MEDS: hydrALAZINE 25 MG TABLET PO SCH ×2 (08:22→20:03)
[2021-04-10] MEDS: cefTRIAXone IV Push 1 GM VIAL. IVP SCH (08:22)
[2021-04-10] MEDS: LACTOBACILLUS RHAMNOSUS GG 1 CAPSULE. PO SCH ×2 (08:22→20:02)
[2021-04-10] MEDS: VANCOMYCIN 1.75 GM in IV NORMAL SALINE 500ML BAG 500 ML IV SCH (08:23)
[2021-04-10] MEDS: INSULIN LISPRO 300 UNITS/3 ML VIAL. SQ SCH ×3 (08:33→17:20)
[2021-04-10 11:00] VITALS: BP 147/77
--- NOTE | 2021-04-10 11:37 | RAD ---
NUCLEAR MEDICINE PERFUSION ONLY SCAN History: Dyspnea x4 days. Comparison: AP chest, prior day. Technique: Perfusion portion performed after intravenous administration of 6 mCi Technetium 99m MAA. Multiple projection planar images of the lungs were obtained. Findings: Ventilation imaging is not performed due to aerosolized droplet precautions. Perfusion images demonstrate no segmental perfusion defects. IMPRESSION: Normal pulmonary perfusion. Negative for pulmonary embolism. Electronically signed by: Ki Reed MD (04/10/2021 11:34 AM) [id number]
--- NOTE | 2021-04-10 12:45 | NUR ---
SS following for discharge planning. SS reviewed pt chart and discussed with pt RN. Pt is from home and is currently on room air. Pt on IV Vancomycin and IV Rocephin. Cardiology consulted. SS will continue to follow for discharge planning. Addendum: 04/10/21 at 1257 by LANI HAND SS Pt needing help with nutrition resources in the community as he gets limited food stamps. Pt would benefit from home healthcare RN and SW at discharge. Physician notified.
--- NOTE | 2021-04-10 13:18 | PDOC ---
CARDIOLOGY PROGRESS NOTE SUBJECTIVE: No new issues overnight. Right ankle feels a bit better. OBJECTIVE: Vital Signs/I&O: Vital Signs Date Time Temp Pulse Resp B/P (MAP) Pulse Ox O2 Delivery O2 Flow Rate FiO2 04/10/21 11:49 97 Room Air 04/10/21 11:00 97.7 69 16 147/77 (100) 97.7 04/10/21 08:50 2.0 I & O 04/09/21 04/09/21 04/10/21 15:00 23:00 07:00 Intake Total 680 ml 180 ml 200 ml Output Total 1300 ml 200 ml 1050 ml Balance -620 ml -20 ml -850 ml Objective: GEN.: No apparent distress. Alert and oriented. HEENT: Head is normocephalic, atraumatic NECK: Supple. LUNGS: Clear to auscultation. HEART: RRR, S1, S2 present. Peripheral pulses intact ABDOMEN: Soft, nontender. Positive bowel sounds. EXTREMITIES: Right leg with cellulitis. Normal pulses NEUROLOGIC: Normal speech, normal tone PSYCHIATRIC: Normal affect, normal mood. SKIN: No ulcerations CURRENT MEDICATIONS: amiodarone, xarelto, labetalol, lasix. DIAGNOSTIC TESTING: labs reviewed. Echo pending Labs: Laboratory Tests Test 04/09/21 16:42 04/09/21 17:19 04/09/21 20:29 04/10/21 08:09 Glucose (Fingerstick) 254 mg/dL (70-99) H 252 mg/dL (70-99) H 345 mg/dL (70-99) H 299 mg/dL (70-99) H Test 04/10/21 11:22 Glucose (Fingerstick) 262 mg/dL (70-99) H ASSESSMENT: 1. Right ankle pain with erythema with possible acute gout flare 2. Chronic diastolic HF- currently euvolemic. 3. HTN:stable 4. DM2 with diet noncomplaince 5. PAFIB: Currently in SR 6. CKD2-3 7. Obesity 8. Hyperuricemia 9. KALEY: CPAP compliant 10. PPM/SSS: single lead. V paced with underlying afib. No high rate. 40% V paced. normal function PLAN: 1. Continue present CV meds and treatment for cellulitis and possible gout. 2. Supportive care from CV standpoint, await echo given his dyspnea. PE study is unremarkable. Will follow along Justicifation of Admission Dx: Justifications for Admission: Justification of Admission Dx: Comment: PEREZ CHRISTIANSON MD Apr 10, 2021 13:18
[2021-04-10] MEDS ORDERED: DEXTROSE 50% 25 GM / 50ML DISP.SYRIN. IV PRN (13:45)
[2021-04-10] MEDS ORDERED: IV DEXTROSE 5% 250 ML BAG. IV PRN (13:45)
[2021-04-10 13:46] LABS: CALCIUM 8.7 mg/dL (8.5-10.1); CREATININE 2.1 mg/dL (0.7-1.3); GFR 39.3; POTASSIUM 3.9 mmol/L (3.5-5.1)
[2021-04-10] MEDS: VANCOMYCIN PER PHARMACY MC PRN (14:50)
[2021-04-10] MEDS: ANTI-COAG MONITOR BY PHARMACY. MC PRN (14:52)
[2021-04-10 14:59] VITALS: BP 123/66
--- NOTE | 2021-04-10 15:40 | PDOC ---
[employer] PROGRESS NOTE Date of Service DOS: DATE: 04/10/21 TIME: 15:29 Chief Complaint Chief Complaint RLE pain - ankle cellulitis with likely associated gout given his hyperesthesia. Will cont vancomycin, pharmacy to assist in dosing, rocephin, Solumedrol x1. Given CKD will avoid colchicine due to concern for possible rhabdo. Right ankle cellulitis - as above Gout - with acute flare in right ankle, will obtain XR given he is unable to bear weight Acute on chronic diastolic CHF - mild, will give IVF furosemide, consult cardiology. Cont home meds KALEY: uses home CPAP Persistent AFIB: rate controlled. on xarelto and amiodarone. Will check TSH given previously elevated TSH 9 last year SSS s/p PPM - V paced with underlying afib. Macrocytosis - previously on B12 replacement, will check for deficiency CKD - at baseline currently, will monitor given IV lasix dosing and vancomycin dosing CAD - non-obstructive based on prior cath reports and negative stress test within the past month. Chest pain - atypical in nature. Will maintain telemetry, trend troponins, consu lt cardiology. Cont ASA DM2 - sliding scale insulin. Is on NPH BID, will reduce dosing and continue this Hodgkin lymphoma diagnosed in 2002 and again in 2004 (s/p ABVD in remission) Ingrown nails - with onychomycosis. Given cellulitis he needs urgent nail care. Previously seen by Dr. Desir, has been unable to get into the office History of Present Illness History of Present Illness Mr King is a 60-year-old male w/ PMHx Hodgkin lymphoma diagnosed in 2002 and again in 2004 (s/p ABVD in remission), afib, SSS s/p ventricular PPM, DM2, KALEY on CPAP, HTN, HLD, CKD IIb, gout who presents emergency department today c/o right foot pain for the past 3 days, and was told by his PCP to come to ED yesterday thought he could wait it out but was unable to bear weight on his foot this morning. He dose also note his dyspnea has been worsening and has more orthopnea.both legs are swollen up to right much more so on the left with some erythema and pain even with light touch. He does note history of gout as well as history of lymphoma and has had some compliance difficulties due to affording medications. He notes he is a little anxious about the results of the lymph node biopsy from December 2019 one of his left groin. He denies any fevers or chills. No sick contacts. He lives alone and prepares his own meals. He does have a mild chest pressure intermittently over the past few days as well. He denies vomiting diaphoresis fevers or chills. He denies abdominal pain. Had a normal nuclear medicine stress test on 03/11/2021. EKG rate controlled A. fib ventricular paced no ST segment or T wave abnormalities. Chest radiograph with cardiomegaly possible left pleural effusion no significant infiltrates. Right lower extremity venous Doppler negative for DVT. Labs with WBC 7.5, Hb 10.8, platelets 251, MCV 105, NA 141, K3.6, BUN 18, CR 1.7, glucose 91, bilirubin 1.2, NT proBNP 47, albumin 3.2, troponin 0 Given IV furosemide in ED. Seen bedside in ED initiated on Rocephin and vancomycin therapy elevate extremity IV fentanyl for pain control Admitted for further care. 04/10/2021: Afebrile. Patient reports improvement in right ankle swelling. X- ray right ankle showed soft tissue swelling, hallux valgus, and mild osteoarthritis. Patient still reports some difficulty with dorsiflexion right foot. Given current kidney function will treat with prednisone 30 mg daily for 5 days. Cardiology recommending supportive care with continued diuresis. Echocardiogram pending. Vitals/I&O Vitals/I&O: Vital Signs Date Time Temp Pulse Resp B/P (MAP) Pulse Ox O2 Delivery O2 Flow Rate FiO2 04/10/21 14:59 97.5 67 16 123/66 (85) 97 Room Air 97.5 04/10/21 08:50 2.0 I & O 04/09/21 04/09/21 04/10/21 15:00 23:00 07:00 Intake Total 680 ml 180 ml 200 ml Output Total 1300 ml 200 ml 1050 ml Balance -620 ml -20 ml -850 ml Physical Exam General: Alert, Oriented X3, Cooperative, No acute distress Heart: Regular rate (SR with first degree av block), Normal S1, Normal S2 Lungs: Clear, Other Abdomen: Soft, No tenderness Extremities: No cyanosis, Other (Right ankle with mild soft tissue swelling. 2+ bilateral LE pitting edema; 2+ bilateral pedal pulses) Skin: No breakdown, No significant lesion Labs Labs: Laboratory Tests Test 04/09/21 16:42 04/09/21 17:19 04/09/21 18:00 04/09/21 20:29 Glucose (Fingerstick) 254 mg/dL (70-99) 252 mg/dL (70-99) 345 mg/dL (70-99) Troponin I Quantitative < 0.017 ng/mL (0.000-0.055) Test 04/10/21 08:09 04/10/21 11:22 04/10/21 13:10 Glucose (Fingerstick) 299 mg/dL (70-99) 262 mg/dL (70-99) Sodium Level 140 mmol/L (136-145) Potassium Level 3.9 mmol/L (3.5-5.1) Chloride Level 102 mmol/L (98-107) Carbon Dioxide Level 27 mmol/L (21-32) Anion Gap 11 (6-14) Blood Urea Nitrogen 25 mg/dL (8-26) Creatinine 2.1 mg/dL (0.7-1.3) Estimated GFR (Cockcroft-Gault) 39.3 Glucose Level 273 mg/dL (70-99) Calcium Level 8.7 mg/dL (8.5-10.1) Assessment and Plan Assessmemt and Plan Problems Medical Problems: (1) Cellulitis Status: Acute (2) CHF (congestive heart failure) Status: Acute Comment Review of Relevant I have reviewed the following items antonino (where applicable) has been applied. Medications: Current Medications Medications (Trade) Dose Ordered Sig/Lizzie Route PRN Reason Start Time Stop Time Status Last Admin Dose Admin Rivaroxaban (Xarelto) 20 mg DAILYWSUP PO 04/09/21 17:00 04/09/21 17:02 Allopurinol (Zyloprim) 100 mg HS PO 04/09/21 21:00 04/09/21 21:15 Amiodarone HCl (Cordarone) 200 mg HS PO 04/09/21 21:00 04/09/21 21:14 Losartan Potassium (Cozaar) 100 mg HS PO 04/09/21 21:00 04/09/21 21:14 Vancomycin HCl 1.75 gm/Sodium Chloride 500 ml @ 250 mls/hr Q24H IV 04/10/21 10:00 04/10/21 08:23 Lactobacillus Rhamnosus (Culturelle) 1 cap BID PO 04/09/21 21:00 04/10/21 08:22 Justifications for Admission Other Justification BERKLEY HEARD MD Apr 10, 2021 15:40
[2021-04-10] MEDS ORDERED: predniSONE 10 MG TABLET PO ONE (16:30)
[2021-04-10] MEDS ORDERED: INSULIN LISPRO 300 UNITS/3 ML VIAL. SQ SCH (17:00)
[2021-04-10] MEDS: RIVAROXABAN 10 MG TABLET. PO SCH (17:15)
--- NOTE | 2021-04-10 17:15 | CARD ---
MR#: [id number] Date of Study: 04/10/2021 Ordering Physician: BALTAZAR STONE, Referring Physician: BALTAZAR STONE, Tech: Aleah Morelos, [facility] APPROVED REPORT EXAM: Two-dimensional and M-mode echocardiogram with Doppler and color Doppler. Other Information Quality : AverageHR: 68bpm INDICATION Dyspnea Atrial Fibrillation Chest Pain Congestive Heart Failure Surgery/Intervention Pacemaker: RISK FACTORS Hypertension Diabetes 2D DIMENSIONS RVDd4.4 (2.9-3.5cm)Left Atrium(2D)3.9 (1.6-4.0cm) IVSd1.2 (0.7-1.1cm)Aortic Root(2D)1.9 (2.0-3.7cm) LVDd5.8 (3.9-5.9cm)LVOT Diameter2.1 (1.8-2.4cm) PWd1.3 (0.7-1.1cm)LVDs3.8 (2.5-4.0cm) FS (%) 33.5 %SV101.8 ml LVEF(%)61.5 (>50%) Aortic Valve AoV Peak Duke.174.8cm/sAoV VTI41.2cm AO Peak GR.12.2mmHgLVOT VTI 20.78cm AO Mean GR.7mmHg Mitral Valve MV E Tenwzseo189.1cm/sMV DECEL VNQY269se MV A Opfxxpng52.5cm/sE/A Ratio3.1 TDI Lateral E' P. V7.53cm/sMedial E' P. V5.53cm/s E/Lateral E'16.1E/Medial E'21.9 Tricuspid Valve TR P. Qngfhuwm892zc/sRAP NKZKJAXY9wfUn TR Peak Gr.07umKlLSQP23gcVd Pulmonary Vein S1 Qdkmpcxd04.3cm/sS2 Zwvpghgn72.30cm/s D2 Qntnsurn60.3cm/s LEFT VENTRICLE The left ventricle is normal size. There is mild to moderate concentric left ventricular hypertrophy. The left ventricular systolic function is normal. The Ejection Fraction is 55%. There is normal LV s egmental wall motion. RIGHT VENTRICLE The right ventricle is borderline dilated. There is normal right ventricular wall thickness. The righ t ventricular systolic function is normal. There is a pacemaker lead in the right ventricle. ATRIA The left atrium is mildly dilated. The right atrium is borderline dilated. The interatrial septum is intact with no evidence for an atrial septal defect or patent foramen ovale as noted on 2-D or Dopple r imaging. AORTIC VALVE The aortic valve is thickened but opens well. Doppler and Color Flow revealed no significant aortic r egurgitation. There is no significant aortic valvular stenosis. Calculated aortic valve area is 1.73 cm2 with maximum pressure gradient of 12 mmHg and mean pressure gradient of 7 mmHg. MITRAL VALVE The mitral valve is normal in structure and function. There is no evidence of mitral valve prolapse. There is no mitral valve stenosis. Doppler and Color-flow revealed trace mitral regurgitation. TRICUSPID VALVE The tricuspid valve is normal in structure and function. Doppler and Color Flow revealed trace tricus pid regurgitation with an estimated PAP of 44 mmHg. There is no tricuspid valve stenosis. PULMONIC VALVE The pulmonic valve is not well visualized. Doppler and Color Flow revealed no pulmonic valvular regur gitation. GREAT VESSELS The aortic root is normal in size. The IVC is dilated. PERICARDIAL EFFUSION There is no evidence of significant pericardial effusion. Critical Notification Critical Value: No <Conclusion> The left ventricular systolic function is normal. The Ejection Fraction is 55%. Pacer lead noted RA/RV. Trace mitral regurgitation. Trace tricuspid regurgitation with an estimated PAP of 44 mmHg. There is no significant pericardial effusion. Signed by : Jamar Bill, Electronically Approved : 04/10/2021 17:15:05
[2021-04-10 19:00] VITALS: BP 127/70
[2021-04-10] MEDS: LOSARTAN POTASSIUM 50 MG TABLET. PO SCH (20:01)
[2021-04-10] MEDS: ALLOPURINOL 100 MG TABLET. PO SCH (20:02)
[2021-04-10] MEDS: TEMAZEPAM 15 MG CAPSULE PO PRN (20:02)
[2021-04-10] MEDS: AMIODARONE HCL 200 MG TABLET. PO SCH (20:02)
[2021-04-10 22:53] VITALS: BP 128/70
[2021-04-11 02:44] VITALS: BP 144/76
[2021-04-11 07:00] VITALS: BP 166/81
[2021-04-11] MEDS: ALBUTEROL SULFATE 2.5 MG/3 ML NEBU. NEB SCH ×4 (07:25→20:55)
[2021-04-11] MEDS: INSULIN LISPRO 300 UNITS/3 ML VIAL. SQ SCH ×3 (08:00→17:16)
[2021-04-11] MEDS: predniSONE 10 MG TABLET PO SCH (09:13)
[2021-04-11] MEDS: hydrALAZINE 25 MG TABLET PO SCH ×2 (09:14→21:02)
[2021-04-11] MEDS: FUROSEMIDE 40 MG TABLET. PO SCH (09:14)
[2021-04-11] MEDS: LACTOBACILLUS RHAMNOSUS GG 1 CAPSULE. PO SCH ×2 (09:15→21:01)
[2021-04-11] MEDS: LABETALOL HCL 200 MG TABLET PO SCH ×2 (09:15→21:01)
[2021-04-11] MEDS: cefTRIAXone IV Push 1 GM VIAL. IVP SCH (09:15)
[2021-04-11] MEDS: INSULIN NPH/REG HUM 70/30 300 UNITS/3 ML VIAL. SQ SCH ×2 (09:27→23:16)
[2021-04-11 10:00] LABS: POTASSIUM 4.3 mmol/L (3.5-5.1)
[2021-04-11 10:14] LABS: CALCIUM 8.5 mg/dL (8.5-10.1); CREATININE 1.9 mg/dL (0.7-1.3); GFR 44.1
[2021-04-11 10:28] LABS: VANC TR 14.5 mcg/mL (10.0-20.0)
[2021-04-11] MEDS: VANCOMYCIN PER PHARMACY MC PRN (10:45)
--- NOTE | 2021-04-11 10:46 | NUR ---
Pharmacy Vancomycin Dosing Note S: Consulted to monitor and dose vancomycin started 04/09/21. O: REBEKAH GAMEZ is a 60 year old M with cellulitis. Other Antibiotics: ROCEPHIN LABS: Last BUN: 31 Last Creatinine: 1.9 Creatinine Clearance: 55 mL/min Last WBC: 7.5 Last Procalcitonin: -- Tmax (past 24 hours): 97.6 Microbiology: I/O: 1500 / 1000 Drug Levels: Last Trough level: 14.5 on 04/11/21 at 0930 (true trough predicted 16 mcg/mL) Last dose given 04/10/21 at 0823 Vancomycin Dosing: Dosing Weight: Actual Target Trough: 10-20 A: Based on: patient's renal function and trough level. P: 1. Continue Vancomycin 1750 mg IV q24h. 2. Follow up Trough level as needed. 3. Pharmacy will continue to monitor, follow and adjust therapy as needed. UMU CARRENO RPH, 04/11/21 [id number]
[2021-04-11] MEDS ORDERED: AMIODARONE HCL 200 MG TABLET. PO SCH (11:00)
--- NOTE | 2021-04-11 11:02 | NUR ---
SS following up with discharge planning. SS reviewed pt chart and discussed with pt RN. Pt is currently on room air. Pt on IV Vancomycin and IV Rocephin. Pt agreeable to home healthcare services at discharge. Pt accepted on services with [facility], ; fax [phone]. SS will continue to follow for discharge planning.
--- NOTE | 2021-04-11 11:07 | PDOC ---
[employer] PROGRESS NOTE Date of Service DOS: DATE: 04/11/21 TIME: 10:45 Chief Complaint Chief Complaint RLE pain - ankle cellulitis with likely associated gout given his hyperesthesia. Will cont vancomycin, pharmacy to assist in dosing, rocephin, Solumedrol x1. Given CKD will avoid colchicine due to concern for possible rhabdo. Right ankle cellulitis - as above Gout - with acute flare in right ankle, will obtain XR given he is unable to bear weight Acute on chronic diastolic CHF - mild, will give IVF furosemide, consult cardiology. Cont home meds KALEY: uses home CPAP Persistent AFIB: rate controlled. on xarelto and amiodarone. Will check TSH given previously elevated TSH 9 last year SSS s/p PPM - V paced with underlying afib. Macrocytosis - previously on B12 replacement, will check for deficiency CKD - at baseline currently, will monitor given IV lasix dosing and vancomycin dosing CAD - non-obstructive based on prior cath reports and negative stress test within the past month. Chest pain - atypical in nature. Will maintain telemetry, trend troponins, consu lt cardiology. Cont ASA DM2 - sliding scale insulin. Is on NPH BID, will reduce dosing and continue this Hodgkin lymphoma diagnosed in 2002 and again in 2004 (s/p ABVD in remission) Ingrown nails - with onychomycosis. Given cellulitis he needs urgent nail care. Previously seen by Dr. Desir, has been unable to get into the office History of Present Illness History of Present Illness Mr King is a 60-year-old male w/ PMHx Hodgkin lymphoma diagnosed in 2002 and again in 2004 (s/p ABVD in remission), afib, SSS s/p ventricular PPM, DM2, KALEY on CPAP, HTN, HLD, CKD IIb, gout who presents emergency department today c/o right foot pain for the past 3 days, and was told by his PCP to come to ED yesterday thought he could wait it out but was unable to bear weight on his foot this morning. He dose also note his dyspnea has been worsening and has more orthopnea.both legs are swollen up to right much more so on the left with some erythema and pain even with light touch. He does note history of gout as well as history of lymphoma and has had some compliance difficulties due to affording medications. He notes he is a little anxious about the results of the lymph node biopsy from December 2019 one of his left groin. He denies any fevers or chills. No sick contacts. He lives alone and prepares his own meals. He does have a mild chest pressure intermittently over the past few days as well. He denies vomiting diaphoresis fevers or chills. He denies abdominal pain. Had a normal nuclear medicine stress test on 03/11/2021. EKG rate controlled A. fib ventricular paced no ST segment or T wave abnormalities. Chest radiograph with cardiomegaly possible left pleural effusion no significant infiltrates. Right lower extremity venous Doppler negative for DVT. Labs with WBC 7.5, Hb 10.8, platelets 251, MCV 105, NA 141, K3.6, BUN 18, CR 1.7, glucose 91, bilirubin 1.2, NT proBNP 47, albumin 3.2, troponin 0 Given IV furosemide in ED. Seen bedside in ED initiated on Rocephin and vancomycin therapy elevate extremity IV fentanyl for pain control Admitted for further care. 04/10/2021: Afebrile. Patient reports improvement in right ankle swelling. X- ray right ankle showed soft tissue swelling, hallux valgus, and mild osteoarthritis. Patient still reports some difficulty with dorsiflexion right foot. Given current kidney function will treat with prednisone 30 mg daily for 5 days. Cardiology recommending supportive care with continued diuresis. Echocardiogram pending. 04/11/2021: Afebrile, intermittently on 2 L nasal cannula. Echocardiogram yesterday showed normal left ventricular systolic function, EF 55%, trace mitral regurgitation, trace tricuspid regurgitation with estimated PAP of 44 mmHg. I&O's with no net fluid output. Patient still reports pain in his right ankle, minimal swelling. CRP 51.6. TSH 11.32; will initiate levothyroxine at 150 mcg daily and recommend recheck in 6-8 weeks. Patient has not walked much, will order PT. He would like to discharge tomorrow, and recommend follow-up with PCP within 1 week. Continue prednisone for acute gouty arthritis right ankle and may discharge on Augmentin for right ankle cellulitis. Vitals/I&O Vitals/I&O: Vital Signs Date Time Temp Pulse Resp B/P (MAP) Pulse Ox O2 Delivery O2 Flow Rate FiO2 04/11/21 09:15 65 04/11/21 07:26 100 Nasal Cannula 2.0 04/11/21 07:00 97.6 20 166/81 (109) 97.6 I & O 04/10/21 04/10/21 04/11/21 15:00 23:00 07:00 Intake Total 800 ml 400 ml 300 ml Output Total 300 ml 250 ml 450 ml Balance 500 ml 150 ml -150 ml Physical Exam General: Alert, Oriented X3, Cooperative, No acute distress Heart: Regular rate (SR with first degree av block), Normal S1, Normal S2 Lungs: Clear, Other Abdomen: Soft, No tenderness Extremities: No cyanosis, Other (Right ankle with minimal soft tissue swelling. 1+ bilateral LE pitting edema; 1+ bilateral pedal pulses) Skin: No breakdown, No significant lesion Labs Labs: Laboratory Tests Test 04/10/21 11:22 04/10/21 13:10 04/10/21 17:05 04/10/21 19:59 Glucose (Fingerstick) 262 mg/dL (70-99) 229 mg/dL (70-99) 274 mg/dL (70-99) Sodium Level 140 mmol/L (136-145) Potassium Level 3.9 mmol/L (3.5-5.1) Chloride Level 102 mmol/L (98-107) Carbon Dioxide Level 27 mmol/L (21-32) Anion Gap 11 (6-14) Blood Urea Nitrogen 25 mg/dL (8-26) Creatinine 2.1 mg/dL (0.7-1.3) Estimated GFR (Cockcroft-Gault) 39.3 Glucose Level 273 mg/dL (70-99) Calcium Level 8.7 mg/dL (8.5-10.1) Test 04/11/21 07:10 04/11/21 09:30 Glucose (Fingerstick) 239 mg/dL (70-99) Sodium Level 140 mmol/L (136-145) Potassium Level 4.3 mmol/L (3.5-5.1) Chloride Level 103 mmol/L (98-107) Carbon Dioxide Level 28 mmol/L (21-32) Anion Gap 9 (6-14) Blood Urea Nitrogen 31 mg/dL (8-26) Creatinine 1.9 mg/dL (0.7-1.3) Estimated GFR (Cockcroft-Gault) 44.1 Glucose Level 233 mg/dL (70-99) Calcium Level 8.5 mg/dL (8.5-10.1) C-Reactive Protein, Quantitative 51.6 mg/L (0-3.3) Vancomycin Level Trough 14.5 mcg/mL (10.0-20.0) Vancomycin Last Dose Date 04/10/21 Vancomycin Last Dose Time 1000 Assessment and Plan Assessmemt and Plan Problems Medical Problems: (1) Cellulitis Status: Acute (2) CHF (congestive heart failure) Status: Acute Comment Review of Relevant I have reviewed the following items antonino (where applicable) has been applied. Medications: Current Medications Medications (Trade) Dose Ordered Sig/Lizzie Route PRN Reason Start Time Stop Time Status Last Admin Dose Admin Prednisone (Prednisone) 30 mg DAILY PO 04/11/21 09:00 04/15/21 08:59 04/11/21 09:13 Prednisone (Prednisone) 30 mg 1X ONCE PO 04/10/21 16:30 04/10/21 16:31 DC 04/10/21 17:15 Insulin Human Isoph/Insulin Regular (HumuLIN 70-30 VIAL) 20 units HS SQ 04/10/21 21:00 04/10/21 23:00 Justifications for Admission Other Justification BERKLEY HEARD MD Apr 11, 2021 11:07
--- NOTE | 2021-04-11 11:10 | SNU/HH DC ---
DISCHARGE WITH HOME HEALTH DISCHARGE INFORMATION: Discharge Date: Apr 12, 2021 Final Diagnosis: Problems Medical Problems: (1) Cellulitis Status: Acute (2) CHF (congestive heart failure) Status: Acute Condition on Discharge: Stable CODE STATUS: Code Status: Full HOME HEALTH: Face to Face: I certify this patient is under my care and that I, or a nurse practitioner or physician's educational/development assistant working with me, had a face to face encounter that meets the physician face to face encounter requirements with this patient on 04/12/2021. Nursing Home For: Diabetic Care, Medication Management RN For Eval/Treatment: Yes Physical Therapy For: Evalulation/Treatment Pt Meets Homebound Status: Poor coordination w/ amb., Limited distance walking POST DISCHARGE ORDERS: Activity Instructions for Disc: Activity as tolerated Weight Bearing Status after Di: As tolerated Bathing Instructions: Shower-keep dressing dry DIET AFTER DISCHARGE: ADA Wound/Incision Care: Keep wound/cast CDI CHECKS AFTER DISCHARGE: Checks after discharge: Check blood press - daily, Check blood sugar, ac/hs, Check your Temp as needed TREATMENT/EQUIPMENT ORDERS: Adaptive Equipment Issued: None CERTIFICATION STATEMENT: Certification Statement: Certification Statement: Based on the above finding, I certify that this patient is confined to the home and needs intermittent [facility] care, physical therapy and/or speech therapy, or continues to need occupational therapy.~ This patient is under my care, and I have initiated the establishment of the plan of care.~ This patient will be followed by myself or a community physician who will periodically review the plan of care. Home Meds Active Scripts Losartan Potassium (COZAAR ) 50 Mg Tablet, 100 MG PO DAILY for chf for 30 Days, #60 TAB Prov:GEORGES VELASQUEZ MD 04/26/20 Hydralazine Hcl (HYDRALAZINE HCL) 25 Mg Tablet, 25 MG PO BID for hypertension for 30 Days, #60 TAB Prov:GEORGES VELASQUEZ MD 04/26/20 Amiodarone Hcl (PACERONE) 200 Mg Tablet, 200 MG PO DAILY for a fib for 30 Days, #30 TAB Prov:GEORGES VELASQUEZ MD 04/26/20 Temazepam (RESTORIL) 15 Mg Capsule, 15 MG PO PRN QHS PRN for INSOMNIA, #30 Prov:JACOB JOSE MD 01/20/15 Reported Medications Furosemide (LASIX) 40 Mg Tablet, 1 TAB PO DAILY for diuretic for 30 Days, #30 TAB 0 Refills 04/09/21 Insulin Npl/Insulin Lispro (HUMALOG MIX 75-25 KWIKPEN) 100 Unit/1 Ml Insuln.pen, 40 UNIT SQ DAILYWSUP for DM, SYR 03/05/20 Labetalol Hcl (LABETALOL HCL) 200 Mg Tablet, 1 TAB PO BID for heart, #60 TAB 5 Refills 09/18/19 Rivaroxaban (XARELTO) 20 Mg Tablet, 1 TAB PO DAILYWSUP for a-fib for 30 Days, #30 TAB 0 Refills with food 09/18/19 Insulin Npl/Insulin Lispro (HUMALOG MIX 75-25 KWIKPEN) 100 Unit/1 Ml Insuln.pen, 20 UNIT SQ DAILYWBKFT for dm, SYR 07/14/19 Allopurinol (ALLOPURINOL) 100 Mg Tablet, 1 TAB PO DAILY for gout, #30 TAB 5 Refills 07/14/19 Albuterol Sulfate (VENTOLIN HFA INHALER) 18 Gm Hfa.aer.ad, 2 PUFF INH QID for FOR ASTHMA, INHALER 0 Refills 05/19/18 Potassium Chloride (POTASSIUM CHLORIDE) 10 Meq Tablet.er, 10 MEQ PO DAILY, TAB 09/02/16 BERKLEY HEARD MD Apr 11, 2021 11:10
[2021-04-11 11:26] VITALS: BP 144/94
[2021-04-11] MEDS: LEVOTHYROXINE 150 MCG TABLET PO SCH (11:46)
[2021-04-11] MEDS: VANCOMYCIN 1.75 GM in IV NORMAL SALINE 500ML BAG 500 ML IV SCH (11:47)
--- NOTE | 2021-04-11 13:22 | PDOC ---
BALTAZAR STONE TEST AND BALANCE ENGINEER 04/11/21 1322: CARDIO Progress Notes Date and Time Date of Service 04/11/2021 Time of Evaluation 1300 Subjective Subjective: No Chest Pain, No shortness of breath, No Palpitations Vitals Vitals Vital Signs Date Time Temp Pulse Resp B/P (MAP) Pulse Ox O2 Delivery O2 Flow Rate FiO2 04/11/21 11:39 100 Nasal Cannula 2.0 04/11/21 11:26 97.6 62 18 144/94 (111) 97.6 Weight Weight [ ] Input and Output Intake and Output Intake and Output 04/11/21 07:00 Intake Total 1500 ml Output Total 1000 ml Balance 500 ml Intake Oral 1000 ml IV Total 500 ml Output Urine Total 1000 ml Laboratory Labs Laboratory Tests Test 04/10/21 17:05 04/10/21 19:59 04/11/21 07:10 04/11/21 09:30 Glucose (Fingerstick) 229 mg/dL (70-99) 274 mg/dL (70-99) 239 mg/dL (70-99) Sodium Level 140 mmol/L (136-145) Potassium Level 4.3 mmol/L (3.5-5.1) Chloride Level 103 mmol/L (98-107) Carbon Dioxide Level 28 mmol/L (21-32) Anion Gap 9 (6-14) Blood Urea Nitrogen 31 mg/dL (8-26) Creatinine 1.9 mg/dL (0.7-1.3) Estimated GFR (Cockcroft-Gault) 44.1 Glucose Level 233 mg/dL (70-99) Calcium Level 8.5 mg/dL (8.5-10.1) C-Reactive Protein, Quantitative 51.6 mg/L (0-3.3) Vancomycin Level Trough 14.5 mcg/mL (10.0-20.0) Vancomycin Last Dose Date 04/10/21 Vancomycin Last Dose Time 1000 Test 04/11/21 11:46 Glucose (Fingerstick) 200 mg/dL (70-99) Physical Exam HEENT: Neck Supple W Full Motion Chest: Symmetric LUNGS: Other (diminished) Heart: S1S2, RRR (first degree AV block), no thrills Abdomen: Soft N/T Extremities: No Edema, No Calf Tenderness Neurology: alert, oriented, follow commands Assessment Assessment 1. Right ankle pain with erythema with possible acute gout flare. No significant PAD 2. Acute on chronic diastolic CHF: possibly driven by diet and uncontrolled HTN. now compensated 3. HTN: now controlled. EF and WM nml 4. DM2 with diet noncomplaince 5. PAFIB: SR with first degree AV block 6. CKD2-3 7. Obesity 8. Hyperuricemia 9. KALEY: CPAP compliant 10. Macrocytic anemia 11. PPM/SSS: single lead 12. Hypothyroidism: TSH at 11.3 per PCP 13. Dyspnea: related to deconditioning and CHF. low probability PE per V/Q Recommendations 1. Dietitian consult 2. SS to provide list of local food hernandez for dental assistant due to limited financial means 3. Continue Amiodarone. Xarelto for stroke prohpylaxis. 4. Continue home BP regimen. Lasix therapy 5. Follow up in office as scheduled Justicifation of Admission Dx: Justifications for Admission: Justification of Admission Dx: Comment: PEREZ CHRISTIANSON MD 04/11/216: CARDIO Progress Notes Plan Plan The patient was seen and interviewed as well as examined at the bedside. The chart was reviewed. The case was discussed. Agree with the plan of care. BALTAZAR STONE APRN Apr 11, 2021 13:22 PEREZ CHRISTIANSON MD Apr 11, 2021 18:16
[2021-04-11 15:00] VITALS: BP 119/60
[2021-04-11] MEDS: HYDROcodone/APAP 5/325MG 1 TAB TABLET PO PRN ×2 (15:16→21:04)
[2021-04-11] MEDS: RIVAROXABAN 10 MG TABLET. PO SCH (17:13)
[2021-04-11 19:25] VITALS: BP 149/76
[2021-04-11] MEDS: AMIODARONE HCL 200 MG TABLET. PO SCH (21:01)
[2021-04-11] MEDS: LOSARTAN POTASSIUM 50 MG TABLET. PO SCH (21:02)
[2021-04-11] MEDS: ALLOPURINOL 100 MG TABLET. PO SCH (21:02)
[2021-04-11] MEDS: TEMAZEPAM 15 MG CAPSULE PO PRN (23:10)
[2021-04-11 23:15] VITALS: BP 154/77
[2021-04-12 04:20] VITALS: BP 147/87
[2021-04-12 07:00] VITALS: BP 159/79
--- NOTE | 2021-04-12 07:00 | NUR ---
PT WORE BIPAP THE MAJORITY OF THE NIGHT. LCRN
[2021-04-12 07:15] LABS: CALCIUM 8.8 mg/dL (8.5-10.1); CREATININE 1.9 mg/dL (0.7-1.3); GFR 44.1; POTASSIUM 3.7 mmol/L (3.5-5.1)
[2021-04-12] MEDS: VANCOMYCIN PER PHARMACY MC PRN (07:21)
[2021-04-12] MEDS: ALBUTEROL SULFATE 2.5 MG/3 ML NEBU. NEB SCH ×4 (07:32→20:41)
[2021-04-12] MEDS: INSULIN LISPRO 300 UNITS/3 ML VIAL. SQ SCH ×3 (08:00→18:44)
[2021-04-12] MEDS: INSULIN NPH/REG HUM 70/30 300 UNITS/3 ML VIAL. SQ SCH ×2 (08:00→22:12)
[2021-04-12] MEDS: LEVOTHYROXINE 150 MCG TABLET PO SCH (10:11)
[2021-04-12] MEDS: HYDROcodone/APAP 5/325MG 1 TAB TABLET PO PRN ×2 (10:11→22:00)
[2021-04-12] MEDS: LACTOBACILLUS RHAMNOSUS GG 1 CAPSULE. PO SCH ×2 (10:11→22:01)
[2021-04-12] MEDS: predniSONE 10 MG TABLET PO SCH (10:12)
[2021-04-12] MEDS: FUROSEMIDE 40 MG TABLET. PO SCH (10:12)
[2021-04-12] MEDS: LABETALOL HCL 200 MG TABLET PO SCH ×2 (10:12→22:01)
[2021-04-12] MEDS: hydrALAZINE 25 MG TABLET PO SCH ×2 (10:12→22:02)
[2021-04-12] MEDS: VANCOMYCIN 1.75 GM in IV NORMAL SALINE 500ML BAG 500 ML IV SCH (10:13)
[2021-04-12] MEDS: cefTRIAXone IV Push 1 GM VIAL. IVP SCH (10:14)
[2021-04-12 11:00] VITALS: BP 164/85
[2021-04-12] MEDS ORDERED: COLCHICINE 0.6 MG TABLET PO ONE (12:15)
--- NOTE | 2021-04-12 12:18 | PDOC ---
GENERAL General: Patient examined chart reviewed today is hospital day 4 for this patient with extensive multimorbidity including chronic diastolic congestive heart failure, atrial fibrillation, uncontrolled diabetes, history of lymphoma, and obstructive sleep apnea admitted with intractable right ankle pain medially and acute on chronic diastolic congestive heart failure with bilateral foot swelling that was quite severe. He has responded some to treatment but unfortunately still cannot bear weight without everting his ankle and walking on his lateral edge of his foot. He is on allopurinol which is unlikely to help in an acute gouty flare. He is also on a steroid course and that does not seem to have impacted his pain at all. He is not eligible for nonsteroidal anti-inflammatory due to his chronic stage III renal failure. We will try colchicine start with 1.2 mg today can add an extra 0.6 today if needed and then we will add 0.6 daily. We can stop intravenous antibiotics at this point as there is no evidence of cellulitis currently. The skin changes on admission were likely due to the edema and chronic venous stasis. He has had 4 days of intravenous antibiotics and we will add empiric doxycycline. Given the extent of his pain we will move forward with a CT of that ankle and consult orthopedics depending on his progress. He may need a rehab stay for strengthening and balance training in light of his symptoms. Problems: (1) CHF (congestive heart failure) (2) Atrial fibrillation with RVR (3) Type 2 diabetes mellitus (4) Acute exacerbation of CHF (congestive heart failure) (5) Gouty arthritis (6) Obesity (7) Diabetes 1.5, managed as type 1 VITAL SIGNS Vital Signs/I&O: Vital Signs Date Time Temp Pulse Resp B/P (MAP) Pulse Ox O2 Delivery O2 Flow Rate FiO2 04/12/21 11:37 Room Air 04/12/21 11:00 97.7 64 18 164/85 (111) 99 97.7 04/12/21 10:50 2.0 I & O 04/11/21 04/11/21 04/12/21 15:00 23:00 07:00 Intake Total 360 ml 480 ml 60 ml Output Total 700 ml 1150 ml 400 ml Balance -340 ml -670 ml -340 ml In general the patient is pleasant alert and oriented x3 no acute distress Chest is clear to auscultation Heart S1-S2 normal regular rate and rhythm no murmurs or gallops are noted Abdomen soft nontender nondistended no masses or organomegaly noted Extremity exam is notable for dry hyperpigmented skin with evidence of chronic venous stasis dermatitis. There is a dark dry area in his right medial malleolus that is extremely tender. Patient is unable to flex or extend his right ankle. He tells me that the only way he can bear weight on it is to walk on the edge of his foot laterally. Pulses are intact throughout ALLERGIES Allergies: Allergies Coded Allergies Type Severity Reaction Last Updated Verified No Known Drug Allergies 07/14/19 No MEDS Medications: Current Medications Medications (Trade) Dose Ordered Sig/Lizzie Start Time Stop Time Status Last Admin Dose Admin Acetaminophen/ Hydrocodone Bitart (Lortab 5/325) 1 tab PRN Q4HRS PRN 04/11/21 12:00 04/12/21 10:11 Albuterol Sulfate (Ventolin Neb Soln) 2.5 mg RTQID 04/09/21 12:00 04/12/21 11:36 Allopurinol (Zyloprim) 100 mg HS 04/09/21 21:00 04/11/21 21:02 Amiodarone HCl (Cordarone) 200 mg HS 04/09/21 21:00 04/11/21 21:01 Ceftriaxone Sodium (Rocephin) 1 gm Q24H 04/09/21 10:00 04/12/21 10:14 Dextrose (Dextrose 50%-Water Syringe) 12.5 gm PRN Q15MIN PRN 04/10/21 13:45 04/10/21 14:43 DC Dextrose (Iv Dextrose 5%) 250 ml PRN Q15MIN PRN 04/10/21 13:45 Cancel Fentanyl Citrate (Fentanyl 2ml Vial) 25 mcg PRN Q3HRS PRN 04/09/21 10:15 04/11/21 12:01 DC 04/10/21 22:55 Furosemide (Lasix) 40 mg DAILY 04/09/21 11:00 04/12/21 10:12 Hydralazine HCl (Apresoline) 25 mg BID 04/09/21 11:00 04/12/21 10:12 Info (Anti-Coagulation Monitoring By Pharmacy) 1 each PRN DAILY PRN 04/09/21 14:45 04/09/21 14:42 DC Insulin Human Isoph/Insulin Regular (HumuLIN 70-30 VIAL) 20 units HS 04/10/21 21:00 04/11/21 23:16 Insulin Human Lispro (HumaLOG) 0-9 UNITS TIDWMEALS 04/10/21 17:00 04/10/21 14:43 DC Labetalol HCl (Trandate) 200 mg BID 04/09/21 11:00 04/12/21 10:12 Lactobacillus Rhamnosus (Culturelle) 1 cap BID 04/09/21 21:00 04/12/21 10:11 Levothyroxine Sodium (Synthroid) 150 mcg DAILY06 04/11/21 11:30 04/12/21 10:11 Losartan Potassium (Cozaar) 100 mg HS 04/09/21 21:00 04/11/21 21:02 Methylprednisolone Sodium Succinate (SOLU-Medrol 125MG VIAL) 80 mg 1X ONCE 04/09/21 10:30 04/09/21 10:31 DC 04/09/21 11:18 Non-Formulary Medication (Albuterol Sulfate (Ventolin Hfa Inhaler)) 2 puff QID 04/09/21 13:00 UNV Prednisone (Prednisone) 30 mg 1X ONCE 04/10/21 16:30 04/10/21 16:31 DC 04/10/21 17:15 Rivaroxaban (Xarelto) 20 mg DAILYWSUP 04/09/21 17:00 04/11/21 17:13 Temazepam (Restoril) 15 mg PRN QHS PRN 04/09/21 10:15 04/11/21 23:10 Tramadol HCl (Ultram) 50 mg PRN Q6HRS PRN 04/09/21 10:15 04/10/21 20:03 Vancomycin HCl (Vanco Per Pharmacy) 1 each PRN DAILY PRN 04/09/21 09:00 04/12/21 07:21 Vancomycin HCl (Vancomycin Trough Level) 1 each 1X ONCE 04/11/21 09:30 04/11/21 09:31 DC Vancomycin HCl 1.75 gm/Sodium Chloride 500 ml @ 250 mls/hr Q24H 04/10/21 10:00 04/12/21 10:13 Vancomycin HCl 2 gm/Sodium Chloride 500 ml @ 250 mls/hr 1X ONCE 04/09/21 09:00 04/09/21 10:59 DC 04/09/21 09:58 LAB Lab: Laboratory Tests Test 04/11/21 16:50 04/11/21 21:10 04/12/21 06:05 04/12/21 07:43 Glucose (Fingerstick) 269 mg/dL (70-99) H 272 mg/dL (70-99) H 143 mg/dL (70-99) H Sodium Level 140 mmol/L (136-145) Potassium Level 3.7 mmol/L (3.5-5.1) Chloride Level 104 mmol/L (98-107) Carbon Dioxide Level 29 mmol/L (21-32) Anion Gap 7 (6-14) Blood Urea Nitrogen 33 mg/dL (8-26) H Creatinine 1.9 mg/dL (0.7-1.3) H Estimated GFR (Cockcroft-Gault) 44.1 Glucose Level 150 mg/dL (70-99) H Calcium Level 8.8 mg/dL (8.5-10.1) Laboratory Tests 04/12/21 06:05 ASSESSMENT & PLAN A&P Plan as noted above This note was created using [employer] and may have omissions and/or errors due to the nature of real-time voice matrix plater. Justifications for Admission Other Justification MARCELA NAVARRETE MD Apr 12, 2021 12:18
[2021-04-12] MEDS: DOXYCYCLINE HYCLATE 100 MG TABLET PO SCH ×2 (13:04→22:01)
[2021-04-12 15:00] VITALS: BP 119/59
[2021-04-12] MEDS: RIVAROXABAN 10 MG TABLET. PO SCH (18:21)
[2021-04-12] MEDS ORDERED: INSULIN LISPRO 300 UNITS/3 ML VIAL. SQ ONE (18:45)
[2021-04-12 19:24] VITALS: BP 142/74
[2021-04-12] MEDS: AMIODARONE HCL 200 MG TABLET. PO SCH (21:00)
[2021-04-12] MEDS: TEMAZEPAM 15 MG CAPSULE PO PRN (22:00)
[2021-04-12] MEDS: LOSARTAN POTASSIUM 50 MG TABLET. PO SCH (22:02)
[2021-04-12] MEDS: ALLOPURINOL 100 MG TABLET. PO SCH (22:02)
[2021-04-12 22:21] VITALS: BP 128/60
[2021-04-13 02:30] VITALS: BP 132/72
[2021-04-13 04:15] LABS: BASO % 1 % (0-3); EOS % 0 % (0-3); HEMATOCRIT 34.9 % (39.0-53.0); HEMOGLOBIN 11.6 g/dL (13.0-17.5); LYMPH # 0.6 x10^3/uL (1.0-4.8); LYMPH % 9 % (24-48); MEAN CORPUSCULAR HEMOGLOBIN 36 pg (25-35); MEAN CORPUSCULAR HGB CONC 33 g/dL (31-37); MEAN CORPUSCULAR VOLUME 108 fL (79-100); MONO # 0.6 x10^3/uL (0.0-1.1); MONO % 8 % (0-9); NEUT # 5.7 x10^3/uL (1.8-7.7); NEUT % 83 % (31-73); PLATELET COUNT 250 x10^3/uL (140-400); RED BLOOD COUNT 3.23 x10^6/uL (4.30-5.70); RED CELL DISTRIBUTION WIDTH 15.8 % (11.5-14.5); WHITE BLOOD COUNT 6.9 x10^3/uL (4.0-11.0)
[2021-04-13 04:43] LABS: ALBUMIN 3.3 g/dL (3.4-5.0); ALBUMIN/GLOBULIN RATIO 0.8 (1.0-1.7); CALCIUM 8.9 mg/dL (8.5-10.1); CREATININE 2.1 mg/dL (0.7-1.3); GFR 39.3; POTASSIUM 4.1 mmol/L (3.5-5.1); TOTAL BILIRUBIN 0.5 mg/dL (0.2-1.0); TOTAL PROTEIN 7.7 g/dL (6.4-8.2)
[2021-04-13] MEDS: LEVOTHYROXINE 150 MCG TABLET PO SCH (05:01)
[2021-04-13 07:00] VITALS: BP 180/86
[2021-04-13] MEDS: ALBUTEROL SULFATE 2.5 MG/3 ML NEBU. NEB SCH ×4 (07:47→20:34)
[2021-04-13] MEDS: HYDROcodone/APAP 5/325MG 1 TAB TABLET PO PRN ×2 (08:16→22:36)
[2021-04-13] MEDS: DOXYCYCLINE HYCLATE 100 MG TABLET PO SCH ×2 (08:16→22:35)
[2021-04-13] MEDS: LABETALOL HCL 200 MG TABLET PO SCH ×2 (08:17→22:37)
[2021-04-13] MEDS: predniSONE 10 MG TABLET PO SCH (08:17)
[2021-04-13] MEDS: hydrALAZINE 25 MG TABLET PO SCH ×2 (08:17→22:36)
[2021-04-13] MEDS: LACTOBACILLUS RHAMNOSUS GG 1 CAPSULE. PO SCH ×2 (08:18→22:35)
[2021-04-13] MEDS: FUROSEMIDE 40 MG TABLET. PO SCH (08:18)
[2021-04-13] MEDS: INSULIN LISPRO 300 UNITS/3 ML VIAL. SQ SCH ×3 (08:26→17:26)
[2021-04-13] MEDS: INSULIN NPH/REG HUM 70/30 300 UNITS/3 ML VIAL. SQ SCH ×2 (08:29→22:40)
--- NOTE | 2021-04-13 08:55 | RAD ---
CT right ankle and foot without contrast PQRS statement: CT scans at this facility use dose reduction including either automated exposure cont rol, iterative reconstructions, and /or weight based radiation dosing via mA and kV modification when appropriate to reduce radiation dose to as low as reasonably achievable. HISTORY: Severe right ankle pain. Cannot bear weight. Assess osteomyelitis. COMPARISON: Right ankle x-rays April 09, 2021. FINDINGS: Hallux valgus and osteoarthritis with joint space narrowing and mild bony sclerosis and bon e spurring at the first MTP joint as well as the first metatarsal sesamoid articulation. There is als o osteoarthritis of the midfoot with dorsal bone spurring at the navicular cuneiform articulations. O steoarthritis of the tibiotalar joint with mild bone spurring of the anterior tibial plafond and talu s small intra-articular osseous loose bodies or periarticular ossicles along the joint. There are yola cifications of the talofibular ligaments and deltoid ligament. No fracture or dislocation. No periosteal reaction, bone demineralization or bone lysis to localize a potential site of osteomyelitis. Diffuse arterial vascular calcifications. No soft tissue edema evident. No soft tissue fluid collecti on evident. Muscles at the ankle and foot are unremarkable. CT has limited ability to assess for tend inous or ligamentous pathology. IMPRESSION: No acute osseous injury. No soft tissue edema or abscess evident. No CT imaging features of osteomyelitis. There is osteoarthritis of the ankle and foot as described above. Electronically signed by: Shahbaz Bush MD (04/13/2021 8:53 AM) [id number]
[2021-04-13 11:00] VITALS: BP 138/71
--- NOTE | 2021-04-13 13:55 | PDOC ---
GENERAL General: Patient examined chart reviewed seen with sister at bedside in town from [facility]. She is a nurse and has several questions about her brother's case today. Patient is doing about the same. CT ankle is unremarkable for acute abnormality. His pain is significant in the darkened area of his skin seems to be progressing. Suggestion is made of peripheral arterial disease on the CAT scan. We will proceed with arterial sonogram. Patient tells me that Dr. Bill also recommended a venous Doppler from the office we will add that in. We will consult Dr. Bill and probably vascular surgery depending on his progress. Patient's pain is controlled today and his other issues are stable. We may need titration up on his night dose of 70/30 insulin. Sister plans on speaking with cardiology about the amiodarone she is not happy that he needs now another medicine to control the adverse effects of that we will come down a little bit on levothyroxine as that is a new medication for him and he is currently on high-dose. Time spent today is 30 minutes with greater than 50% in counseling and coordination of care most of which in discussion with patient. Problems: (1) Diabetes (2) CHF (congestive heart failure) (3) Rapid atrial fibrillation (4) Gouty arthritis VITAL SIGNS Vital Signs/I&O: Vital Signs Date Time Temp Pulse Resp B/P (MAP) Pulse Ox O2 Delivery O2 Flow Rate FiO2 04/13/21 11:45 Room Air 04/13/21 11:00 97.8 61 16 138/71 (93) 96 97.8 04/13/21 09:31 2.0 I & O 04/12/21 04/12/21 04/13/21 15:00 23:00 07:00 Intake Total 680 ml 540 ml Output Total 400 ml 400 ml 625 ml Balance 280 ml -400 ml -85 ml In general the patient is pleasant alert and oriented x3 no acute distress HEENT exam is unremarkable Chest is clear to auscultation Heart S1-S2 normal regular rate and rhythm no murmurs or gallops are noted Abdomen is soft nontender nondistended no masses organomegaly noted Extremity exam is notable for unchanged significant pain with light touch over darkened area of his medial right ankle and dorsum of his foot. It does not involve his toes. Pulses are weakly palpable. There is no ulceration or discharge noted toenails are very long he has not had them clipped with podiatry for over a year second right toe is curling over into his plantar aspect of his toe ALLERGIES Allergies: Allergies Coded Allergies Type Severity Reaction Last Updated Verified No Known Drug Allergies 07/14/19 No MEDS Medications: Current Medications Medications (Trade) Dose Ordered Sig/Lizzie Start Time Stop Time Status Last Admin Dose Admin Acetaminophen/ Hydrocodone Bitart (Lortab 5/325) 1 tab PRN Q4HRS PRN 04/11/21 12:00 04/13/21 08:16 Albuterol Sulfate (Ventolin Neb Soln) 2.5 mg RTQID 04/09/21 12:00 04/13/21 11:45 Allopurinol (Zyloprim) 100 mg HS 04/09/21 21:00 04/12/21 22:02 Amiodarone HCl (Cordarone) 200 mg HS 04/09/21 21:00 04/12/21 21:00 Ceftriaxone Sodium (Rocephin) 1 gm Q24H 04/09/21 10:00 04/12/21 12:03 DC 04/12/21 10:14 Colchicine (Colcrys) 1.2 mg 1X ONCE 04/12/21 12:15 04/12/21 12:16 DC 04/12/21 13:04 Dextrose (Dextrose 50%-Water Syringe) 12.5 gm PRN Q15MIN PRN 04/10/21 13:45 04/10/21 14:43 DC Dextrose (Iv Dextrose 5%) 250 ml PRN Q15MIN PRN 04/10/21 13:45 Cancel Doxycycline Hyclate (Vibra-Tab) 100 mg BID 04/12/21 13:00 04/13/21 08:16 Fentanyl Citrate (Fentanyl 2ml Vial) 25 mcg PRN Q3HRS PRN 04/09/21 10:15 04/11/21 12:01 DC 04/10/21 22:55 Furosemide (Lasix) 40 mg DAILY 04/09/21 11:00 04/13/21 08:18 Hydralazine HCl (Apresoline) 25 mg BID 04/09/21 11:00 04/13/21 08:17 Info (Anti-Coagulation Monitoring By Pharmacy) 1 each PRN DAILY PRN 04/09/21 14:45 04/09/21 14:42 DC Insulin Human Isoph/Insulin Regular (HumuLIN 70-30 VIAL) 20 units HS 04/10/21 21:00 04/12/21 22:12 Insulin Human Lispro (HumaLOG) 15 units 1X ONCE 04/12/21 18:45 04/12/21 18:46 DC 04/12/21 18:45 Labetalol HCl (Trandate) 200 mg BID 04/09/21 11:00 04/13/21 08:17 Lactobacillus Rhamnosus (Culturelle) 1 cap BID 04/09/21 21:00 04/13/21 08:18 Levothyroxine Sodium (Synthroid) 150 mcg DAILY06 04/11/21 11:30 04/13/21 05:01 Losartan Potassium (Cozaar) 100 mg HS 04/09/21 21:00 04/12/21 22:02 Methylprednisolone Sodium Succinate (SOLU-Medrol 125MG VIAL) 80 mg 1X ONCE 04/09/21 10:30 04/09/21 10:31 DC 04/09/21 11:18 Non-Formulary Medication (Albuterol Sulfate (Ventolin Hfa Inhaler)) 2 puff QID 04/09/21 13:00 UNV Prednisone (Prednisone) 30 mg 1X ONCE 04/10/21 16:30 04/10/21 16:31 DC 04/10/21 17:15 Rivaroxaban (Xarelto) 20 mg DAILYWSUP 04/09/21 17:00 04/12/21 18:21 Temazepam (Restoril) 15 mg PRN QHS PRN 04/09/21 10:15 04/12/21 22:00 Tramadol HCl (Ultram) 50 mg PRN Q6HRS PRN 04/09/21 10:15 04/10/21 20:03 Vancomycin HCl (Vanco Per Pharmacy) 1 each PRN DAILY PRN 04/09/21 09:00 04/12/21 12:04 DC 04/12/21 07:21 Vancomycin HCl (Vancomycin Trough Level) 1 each 1X ONCE 04/11/21 09:30 04/11/21 09:31 DC Vancomycin HCl 1.75 gm/Sodium Chloride 500 ml @ 250 mls/hr Q24H 04/10/21 10:00 04/12/21 12:03 DC 04/12/21 10:13 Vancomycin HCl 2 gm/Sodium Chloride 500 ml @ 250 mls/hr 1X ONCE 04/09/21 09:00 04/09/21 10:59 DC 04/09/21 09:58 Current Medications Medications (Trade) Dose Ordered Sig/Lizzie Route PRN Reason Start Time Stop Time Status Last Admin Dose Admin Insulin Human Lispro (HumaLOG) 15 units 1X ONCE SQ 04/12/21 18:45 04/12/21 18:46 DC 04/12/21 18:45 LAB Lab: Laboratory Tests Test 04/12/21 18:20 04/12/21 20:55 04/13/21 04:00 04/13/21 08:13 Glucose (Fingerstick) 366 mg/dL (70-99) H 235 mg/dL (70-99) H 184 mg/dL (70-99) H White Blood Count 6.9 x10^3/uL (4.0-11.0) Red Blood Count 3.23 x10^6/uL (4.30-5.70) L Hemoglobin 11.6 g/dL (13.0-17.5) L Hematocrit 34.9 % (39.0-53.0) L Mean Corpuscular Volume 108 fL (79-100) H Mean Corpuscular Hemoglobin 36 pg (25-35) H Mean Corpuscular Hemoglobin Concent 33 g/dL (31-37) Red Cell Distribution Width 15.8 % (11.5-14.5) H Platelet Count 250 x10^3/uL (140-400) Neutrophils (%) (Auto) 83 % (31-73) H Lymphocytes (%) (Auto) 9 % (24-48) L Monocytes (%) (Auto) 8 % (0-9) Eosinophils (%) (Auto) 0 % (0-3) Basophils (%) (Auto) 1 % (0-3) Neutrophils # (Auto) 5.7 x10^3/uL (1.8-7.7) Lymphocytes # (Auto) 0.6 x10^3/uL (1.0-4.8) L Monocytes # (Auto) 0.6 x10^3/uL (0.0-1.1) Eosinophils # (Auto) 0.0 x10^3/uL (0.0-0.7) Basophils # (Auto) 0.0 x10^3/uL (0.0-0.2) Sodium Level 138 mmol/L (136-145) Potassium Level 4.1 mmol/L (3.5-5.1) Chloride Level 102 mmol/L (98-107) Carbon Dioxide Level 28 mmol/L (21-32) Anion Gap 8 (6-14) Blood Urea Nitrogen 38 mg/dL (8-26) H Creatinine 2.1 mg/dL (0.7-1.3) H Estimated GFR (Cockcroft-Gault) 39.3 BUN/Creatinine Ratio 18 (6-20) Glucose Level 193 mg/dL (70-99) H Calcium Level 8.9 mg/dL (8.5-10.1) Total Bilirubin 0.5 mg/dL (0.2-1.0) Aspartate Amino Transferase (AST) 23 U/L (15-37) Alanine Aminotransferase (ALT) 24 U/L (16-63) Alkaline Phosphatase 119 U/L (46-116) H Total Protein 7.7 g/dL (6.4-8.2) Albumin 3.3 g/dL (3.4-5.0) L Albumin/Globulin Ratio 0.8 (1.0-1.7) L Test 04/13/21 11:50 Glucose (Fingerstick) 126 mg/dL (70-99) H Laboratory Tests 04/13/21 04:00 Laboratory Tests 04/13/21 04:00 ASSESSMENT & PLAN A&P Plan as noted above This note was created using [employer] and may have omissions and/or errors due to the nature of real-time voice federal judge. Justifications for Admission Other Justification MARCELA NAVARRETE MD Apr 13, 2021 13:55
--- NOTE | 2021-04-13 14:38 | RAD ---
Right lower extremity venous duplex Doppler ultrasound HISTORY: Right leg edema and swelling, peripheral vascular disease. FINDINGS: No DVT evident by grayscale sonography with compressibility, patent color Doppler blood eulalio w and augmentation of blood flow of the right common femoral vein, profunda femoral vein, superficial femoral vein and popliteal vein. No DVT evident with patent color Doppler blood flow of the posterio r tibial and peroneal veins in the calf. IMPRESSION: Negative right leg for DVT. Electronically signed by: Shahbaz Bush MD (04/13/2021 2:36 PM) [id number]
--- NOTE | 2021-04-13 14:42 | RAD ---
Right lower extremity arterial duplex Doppler ultrasound HISTORY: Right leg peripheral vascular disease, peripheral atherosclerotic disease, right leg edema a nd swelling. FINDINGS: There is mild linear echogenicity of the arterial tucker may indicate some thin calcified pl aque throughout the leg arteries however there is no bulky or irregular plaquing, thrombosis or occlu gokul of the right leg arteries on grayscale and color Doppler sonography. There are normal triphasic waveforms of the right femoral and popliteal arteries with biphasic waveforms of the calf arteries. I ndividual flow velocities are described below. Common femoral artery: 119 cm/s. Profunda femoral artery: 93 cm/s. Superficial femoral artery: 150 cm/s proximal, 108 cm/s mid segment, 87 cm/s distal. Popliteal artery: 120 cm/s. Posterior tibial artery: 61 cm/s proximal, 57 cm/s distal. Peroneal artery: 61 cm/s. Anterior tibial artery: 57 cm/s. Dorsalis pedis artery: 94 cm/s. IMPRESSION: There is mild plaquing of the right leg arteries. Biphasic arterial waveforms of the calf arteries indicating small vessel peripheral vascular disease. No evidence of thrombosis, significant stenosis or occlusion the right leg arteries. See above. Electronically signed by: Shahbaz Bush MD (04/13/2021 2:39 PM) [id number]
[2021-04-13 15:00] VITALS: BP 156/80
[2021-04-13] MEDS: RIVAROXABAN 10 MG TABLET. PO SCH (17:23)
[2021-04-13 19:30] VITALS: BP 144/65
[2021-04-13] MEDS: TEMAZEPAM 15 MG CAPSULE PO PRN (22:34)
[2021-04-13] MEDS: AMIODARONE HCL 200 MG TABLET. PO SCH (22:35)
[2021-04-13] MEDS: ALLOPURINOL 100 MG TABLET. PO SCH (22:35)
[2021-04-13] MEDS: LOSARTAN POTASSIUM 50 MG TABLET. PO SCH (22:36)
[2021-04-13 23:00] VITALS: BP 169/80
[2021-04-14 03:20] VITALS: BP 149/81
[2021-04-14] MEDS ORDERED: LEVOTHYROXINE 50 MCG TABLET PO SCH (06:00)
[2021-04-14 06:03] LABS: BASO % 0 % (0-3); EOS % 0 % (0-3); HEMOGLOBIN 10.3 g/dL (13.0-17.5); LYMPH # 0.9 x10^3/uL (1.0-4.8); LYMPH % 15 % (24-48); MEAN CORPUSCULAR HEMOGLOBIN 36 pg (25-35); MEAN CORPUSCULAR HGB CONC 33 g/dL (31-37); MEAN CORPUSCULAR VOLUME 108 fL (79-100); MONO # 0.7 x10^3/uL (0.0-1.1); MONO % 11 % (0-9); NEUT # 4.6 x10^3/uL (1.8-7.7); NEUT % 74 % (31-73); PLATELET COUNT 239 x10^3/uL (140-400); RED BLOOD COUNT 2.88 x10^6/uL (4.30-5.70); RED CELL DISTRIBUTION WIDTH 15.8 % (11.5-14.5); WHITE BLOOD COUNT 6.3 x10^3/uL (4.0-11.0)
[2021-04-14 06:36] LABS: ALBUMIN/GLOBULIN RATIO 0.8 (1.0-1.7); CALCIUM 8.8 mg/dL (8.5-10.1); GFR 41.6; POTASSIUM 3.9 mmol/L (3.5-5.1); TOTAL BILIRUBIN 0.5 mg/dL (0.2-1.0)
[2021-04-14] MEDS: HYDROcodone/APAP 5/325MG 1 TAB TABLET PO PRN ×2 (06:38→08:57)
[2021-04-14 07:00] VITALS: BP 158/73
[2021-04-14] MEDS: ALBUTEROL SULFATE 2.5 MG/3 ML NEBU. NEB SCH ×3 (07:45→15:09)
[2021-04-14] MEDS: INSULIN LISPRO 300 UNITS/3 ML VIAL. SQ SCH ×2 (08:00→13:07)
[2021-04-14] MEDS: INSULIN NPH/REG HUM 70/30 300 UNITS/3 ML VIAL. SQ SCH (08:00)
[2021-04-14] MEDS: LACTOBACILLUS RHAMNOSUS GG 1 CAPSULE. PO SCH (08:56)
[2021-04-14] MEDS: DOXYCYCLINE HYCLATE 100 MG TABLET PO SCH (08:57)
[2021-04-14] MEDS: predniSONE 10 MG TABLET PO SCH (08:57)
[2021-04-14] MEDS: LABETALOL HCL 200 MG TABLET PO SCH (08:57)
[2021-04-14] MEDS: hydrALAZINE 25 MG TABLET PO SCH (08:58)
[2021-04-14] MEDS: FUROSEMIDE 40 MG TABLET. PO SCH (09:00)
[2021-04-14 11:00] VITALS: BP 159/79
[2021-04-14] MEDS ORDERED: IV NORMAL SALINE 1000ML BAG 1,000 ML IV ONE (11:45)
[2021-04-14] MEDS ORDERED: GABAPENTIN 100 MG CAPSULE. PO SCH (14:00)
[2021-04-14] MEDS ORDERED: DOXY100T PO (14:02)
[2021-04-14] MEDS ORDERED: LEVO50TA5 PO (14:02)
[2021-04-14] MEDS ORDERED: GABA-585 PO (14:02)
[2021-04-14 15:00] VITALS: BP 137/69
--- NOTE | 2021-04-14 17:22 | NUR ---
Discharge Note: REBEKAH GAMEZ Discharge instructions and discharge home medications reviewed with Patient and a and physical therapy recommendations for a home walker mentioned to patient which he declined. All questions have been answered and understanding verbalized including need to follow up with primary care doctor and pediatrist, contact provided to call. The following instructions and handouts were given: Diabetes meal planning. Discontinued iv line and catheter. Patient discharged to home health and he drove himself with his [employer] pickup truck.
--- NOTE | 2021-04-14 20:31 | PDOC3 ---
[facility]-Discharge Summary Date of Admission: Date of Admission: Apr 09, 2021 Date of Discharge: Date of Discharge: Apr 14, 2021 Discharge Diagnosis: Discharge Diagnosis: 1. Right ankle pain with erythema with possible acute gout flare. No significant PAD 2. Acute on chronic diastolic CHF: possibly driven by diet and uncontrolled HTN. now compensated 3. HTN: now controlled. EF and WM nml 4. DM2 with diet noncomplaince 5. PAFIB: SR with first degree AV block 6. CKD2-3 7. Obesity 8. Hyperuricemia 9. KALEY: CPAP compliant 10. Macrocytic anemia 11. PPM/SSS: single lead 12. Hypothyroidism: TSH at 11.3 per PCP 13. Dyspnea: related to deconditioning and CHF. low probability PE per V/Q Consults: Consults: cardiology Recommendations 1. Dietitian consult 2. SS to provide list of local food hernandez for food and nutrition services assistant due to limited financial means 3. Continue Amiodarone. Xarelto for stroke prohpylaxis. 4. Continue home BP regimen. Lasix therapy 5. Follow up in office as scheduled Hospital Course: Hospital Course: 60-year-old male w/ PMHx Hodgkin lymphoma diagnosed in 2002 and again in 2004 (s/p ABVD in remission), afib, SSS s/p ventricular PPM, DM2, KALEY on CPAP, HTN, HLD, CKD IIb, gout who presents emergency department today c/o right foot pain for the past 3 days, and was told by his PCP to come to ED yesterday thought he could wait it out but was unable to bear weight on his foot this morning. He dose also note his dyspnea has been worsening and has more orthopnea.both legs are swollen up to right much more so on the left with some erythema and pain even with light touch. He does note history of gout as well as history of lymphoma and has had some compliance difficulties due to affording medications. He notes he is a little anxious about the results of the lymph node biopsy from December 2019 one of his left groin. He denies any fevers or chills. No sick contacts. He lives alone and prepares his own meals. He does have a mild chest pressure intermittently over the past few days as well. He denies vomiting diaphoresis fevers or chills. He denies abdominal pain. Had a normal nuclear medicine stress test on 03/11/2021. EKG rate controlled A. fib ventricular paced no ST segment or T wave abnormalities. Chest radiograph with cardiomegaly possible left pleural effusion no significant infiltrates. Right lower extremity venous Doppler negative for DVT. Labs with WBC 7.5, Hb 10.8, platelets 251, MCV 105, NA 141, K3.6, BUN 18, CR 1.7, glucose 91, bilirubin 1.2, NT proBNP 47, albumin 3.2, troponin 0 Given IV furosemide in ED. Seen bedside in ED initiated on Rocephin and vancomycin therapy elevate extremity IV fentanyl for pain control Admitted for further care. By day of discharge, pt was clinically stable and ready for discharge. Discussed with Pt about needing to follow closely with Dr Ford for managment of his Synthroid and monitoring his TSH. I have held his Lasix at time of discharge due to his Cr being at 2.0. He will need a post-discharge CMP in order to follow closely his renal function and to restart his Lasix if he starts to become more volume overloaded. Rest of hospital course was uneventful Disposition: Disposition/Orders: D/C to Home w/ HH Activity: Activity: Resume previous activity Diet: Diet: Cardiac Medications: Home Meds Active Scripts Levothyroxine Sodium (LEVOTHYROXINE SODIUM) 50 Mcg Tablet, 50 MCG PO DAILY06 for hypothyroidism for 30 Days, #30 TAB Prov:REGINA CABRERA MD 04/14/21 Gabapentin (GABAPENTIN ) 100 Mg Capsule, 100 MG PO TID for neuropathic pain for 30 Days, #90 CAP Prov:REGINA CABRERA MD 04/14/21 Doxycycline Hyclate (DOXYCYCLINE HYCLATE) 100 Mg Tablet, 100 MG PO BID for cellulitis for 3 Days, #6 TAB Prov:REGINA CABRERA MD 04/14/21 Losartan Potassium (COZAAR ) 50 Mg Tablet, 100 MG PO DAILY for chf for 30 Days, #60 TAB Prov:GEORGES VELASQUEZ MD 04/26/20 Hydralazine Hcl (HYDRALAZINE HCL) 25 Mg Tablet, 25 MG PO BID for hypertension for 30 Days, #60 TAB Prov:GEORGES VELASQUEZ MD 04/26/20 Amiodarone Hcl (PACERONE) 200 Mg Tablet, 200 MG PO DAILY for a fib for 30 Days, #30 TAB Prov:GEORGES VELASQUEZ MD 04/26/20 Temazepam (RESTORIL) 15 Mg Capsule, 15 MG PO PRN QHS PRN for INSOMNIA, #30 Prov:JACOB JOSE MD 01/20/15 Reported Medications Insulin Npl/Insulin Lispro (HUMALOG MIX 75-25 KWIKPEN) 100 Unit/1 Ml Insuln.pen, 40 UNIT SQ DAILYWSUP for DM, SYR 03/05/20 Labetalol Hcl (LABETALOL HCL) 200 Mg Tablet, 1 TAB PO BID for heart, #60 TAB 5 Refills 09/18/19 Rivaroxaban (XARELTO) 20 Mg Tablet, 1 TAB PO DAILYWSUP for a-fib for 30 Days, #30 TAB 0 Refills with food 09/18/19 Insulin Npl/Insulin Lispro (HUMALOG MIX 75-25 KWIKPEN) 100 Unit/1 Ml Insuln.pen, 20 UNIT SQ DAILYWBKFT for dm, SYR 07/14/19 Allopurinol (ALLOPURINOL) 100 Mg Tablet, 1 TAB PO DAILY for gout, #30 TAB 5 Refills 07/14/19 Albuterol Sulfate (VENTOLIN HFA INHALER) 18 Gm Hfa.aer.ad, 2 PUFF INH QID for FOR ASTHMA, INHALER 0 Refills 05/19/18 Discontinued Reported Medications Furosemide (LASIX) 40 Mg Tablet, 1 TAB PO DAILY for diuretic for 30 Days, #30 TAB 0 Refills 04/09/21 Potassium Chloride (POTASSIUM CHLORIDE) 10 Meq Tablet.er, 10 MEQ PO DAILY, TAB 09/02/16 Scheduled Albuterol Sulfate (Ventolin Hfa Inhaler), 2 PUFF INH QID, (Reported) Allopurinol (Allopurinol), 1 TAB PO DAILY, (Reported) Amiodarone Hcl (Pacerone), 200 MG PO DAILY Doxycycline Hyclate (Doxycycline Hyclate), 100 MG PO BID Gabapentin (Gabapentin ), 100 MG PO TID Hydralazine Hcl (Hydralazine Hcl), 25 MG PO BID Insulin Npl/Insulin Lispro (Humalog Mix 75-25 Kwikpen), 20 UNIT SQ DAILYWBKFT, (Reported) Insulin Npl/Insulin Lispro (Humalog Mix 75-25 Kwikpen), 40 UNIT SQ DAILYWSUP, (Reported) Labetalol Hcl (Labetalol Hcl), 1 TAB PO BID, (Reported) Levothyroxine Sodium (Levothyroxine Sodium), 50 MCG PO DAILY06 Losartan Potassium (Cozaar ), 100 MG PO DAILY Rivaroxaban (Xarelto), 1 TAB PO DAILYWSUP, (Reported) Scheduled PRN Temazepam (Restoril), 15 MG PO PRN QHS PRN for INSOMNIA Discontinued Medications Furosemide (Lasix), 1 TAB PO DAILY, (Reported) Potassium Chloride (Potassium Chloride), 10 MEQ PO DAILY, (Reported) Total Time: Total Time: Total time spent was 36 minutes in preparing scripts, discharge planning with SW and RN, and preparing this discharge summary. Patient seen and examined on day of discharge. Justicifation of Admission Dx: Justifications for Admission: Justification of Admission Dx: Comment: REGINA CABRERA MD Apr 14, 2021 20:31
== END 2021-04-14 17:27 | disposition home health service (06) | DRG 291 ==
LOC: ER 06:28 → 2 NORTH 08:26
PROVIDERS: ADMIT Internal Medicine; ATTEND Internal Medicine
PROC: 5A09357 Assistance with Respiratory Ventilation, Less than 24 Consecutive Hours, Continuous Positive Airway Pressure (ICD-10-PCS; 2021-04-12)
PROC: 5A09357 Assistance with Respiratory Ventilation, Less than 24 Consecutive Hours, Continuous Positive Airway Pressure (ICD-10-PCS; principal; 2021-04-13)
DX: I13.0 Hypertensive heart and chronic kidney disease with heart failure and stage 1 through stage 4 chronic kidney disease, or unspecified chronic kidney disease (principal); I50.33 Acute on chronic diastolic (congestive) heart failure; L03.115 Cellulitis of right lower limb; I48.19 Other persistent atrial fibrillation; Z68.42 Body mass index [BMI] 45.0-49.9, adult; M10.071 Idiopathic gout, right ankle and foot; B35.1 Tinea unguium; D53.9 Nutritional anemia, unspecified; E03.9 Hypothyroidism, unspecified; E13.9 Other specified diabetes mellitus without complications; E66.9 Obesity, unspecified; E78.00 Pure hypercholesterolemia, unspecified; E78.5 Hyperlipidemia, unspecified; G47.33 Obstructive sleep apnea (adult) (pediatric); I25.10 Atherosclerotic heart disease of native coronary artery without angina pectoris; I44.0 Atrioventricular block, first degree; J45.909 Unspecified asthma, uncomplicated; M19.90 Unspecified osteoarthritis, unspecified site; M20.10 Hallux valgus (acquired), unspecified foot; N18.2 Chronic kidney disease, stage 2 (mild); Z79.01 Long term (current) use of anticoagulants; Z79.890 Hormone replacement therapy; Z82.49 Family history of ischemic heart disease and other diseases of the circulatory system; Z83.3 Family history of diabetes mellitus; Z85.72 Personal history of non-Hodgkin lymphomas; Z86.73 Personal history of transient ischemic attack (TIA), and cerebral infarction without residual deficits; Z87.891 Personal history of nicotine dependence; Z95.0 Presence of cardiac pacemaker; F32.9 Major depressive disorder, single episode, unspecified; K21.9 Gastro-esophageal reflux disease without esophagitis; Z90.49 Acquired absence of other specified parts of digestive tract; Z95.1 Presence of aortocoronary bypass graft; Z85.71 Personal history of Hodgkin lymphoma; R07.89 Other chest pain; Z60.2 Problems related to living alone
CPT/HCPCS: 36415; 71045; 73600; 73620; 73700; 78580; 80048; 80053; 80076; 80202; 80307; 82607; 82962; 83690; 83880; 84443; 84484; 84550; 85025; 85379; 86140; 93005; 93306; 93923; 93926; 93971; 94640; 94660; 94760; 96374; 96375; A9540; J0696; J1815; J1940; J2930; J3010; J3370; J7030; J7040; J7512; 97116-GP; 99285-25; G0378; J7613

== ENCOUNTER → 2021-04-23 | Outpatient (CLI) | payer MEDICARE, MEDICAID ==
[2021-04-14 15:00] VITALS: BP 137/69
[~2021-04-23] MED LIST changes: +DOXY100T PO; +FURO-68 PO; +GABA-585 PO; +LEVO50TA5 PO
--- NOTE | 2021-04-23 09:54 | RAD ---
MR#: [id number] Date of Study: 04/23/2021 Ordering Physician: DEBBIE DE JESUS, Referring Physician: DEBBIE DE JESUS, Tech: Kel Skinner MBA, RDMS, RVT, RDCS, RTR APPROVED REPORT Patient Location: OUT-PATIENT Indications Rest Pain:Bilaterally Findings Limited grayscale images of the bilateral saphenofemoral junctions did not reveal any obvious evidenc e of thrombus. Incidental note is made of bilateral groin lymphadenopathy. Largest on the right measuring approxima tely 5 cm in largest on the left measuring approximately 4 cm. The right great saphenous vein measures 6 mm and the left great saphenous vein measures 4.7 mm. Bilateral greater and lesser saphenous veins did not show any evidence of reflux. Critical Notification Critical Value: No <Conclusion> 1. No evidence of reflux in the bilateral greater and lesser saphenous veins. 2. Bilateral inguinal lymphadenopathy, correlate with clinical exam and history. Signed by : Tate Borja, Electronically Approved : 04/23/2021 09:53:42
== END ==
LOC: US 08:32
PROVIDERS: ATTEND Internal Medicine Cardiovascular Disease
DX: M79.604 Pain in right leg (principal); M79.605 Pain in left leg; R59.0 Localized enlarged lymph nodes
CPT/HCPCS: 93970

== ENCOUNTER → 2021-09-22 | Outpatient (CLI) | payer MEDICARE, MEDICAID ==
[2021-06-27 14:15] VITALS: BP 140/79
[~2021-09-22] MED LIST changes: +AMIO200T53 PO; -AMIO200T6 PO; +ATOR20TA58 PO; +ONDA4TAB12 PO; +PRED20TA PO; +SIME80TA14 PO
--- NOTE | 2021-09-22 11:16 | RAD ---
EXAM: CT OF THE CHEST WITHOUT CONTRAST. HISTORY: Shortness of breath, interstitial lung disease. TECHNIQUE: Computed tomography of the chest was performed without intravenous contrast using a high-r esolution protocol. One or more of the following individualized dose reduction techniques were utiliz ed for this examination: 1. Automated exposure control. 2. Adjustment of the mA and/or kV according to patient size. 3. Use of iterative reconstruction technique. COMPARISON: 06/24/2021. FINDINGS: Images of the upper abdomen reveal a small amount of ascites. Bone windows reveal no suspic ious lesions. Prominent mediastinal lymph nodes measure up to 2.7 x 1.2 cm in the prevascular territory. These are stable chronically. There is a small right pleural effusion. There is no pericardial effusion. The he art is mildly enlarged. A left-sided pacemaker has its lead in the right ventricle. There are atheros clerotic calcifications of the coronary arteries. Multiple bilateral pulmonary nodules are new since the prior study. The largest in the right upper lo be on image 17 measures 18 x 12 mm. Several other mostly groundglass density nodules predominantly in volve the upper lobes. There is some air trapping in the bases. There is no bronchiectasis. There is mild interstitial line thickening in the costophrenic angles. There is no cystic change. IMPRESSION: 1. Interval development of multiple bilateral ill-defined pulmonary nodules measuring up to 18 mm. An atypical infectious or inflammatory process is favored in the absence of known malignancy. Three-mon th follow-up is recommended. If there is concern for malignancy, PET/CT could further evaluate. 2. Mild air trapping in the bases is consistent with a component of small airways disease. 3. Mild interstitial line thickening in the bases may reflect trace pulmonary edema or mild interstit ial change. 4. Prominent mediastinal lymph nodes are stable chronically and likely benign. 5. Small ascites. Small right pleural effusion. Mild cardiomegaly. Electronically signed by: Coco Spence MD (09/22/2021 11:13 AM) [id number]
== END ==
LOC: CT 09:10
PROVIDERS: ATTEND Internal Medicine Pulmonary Disease
DX: R91.8 Other nonspecific abnormal finding of lung field (principal); I51.7 Cardiomegaly; R18.8 Other ascites; J90 Pleural effusion, not elsewhere classified; I25.10 Atherosclerotic heart disease of native coronary artery without angina pectoris; Z95.0 Presence of cardiac pacemaker; R06.02 Shortness of breath
CPT/HCPCS: 71250

== ENCOUNTER → 2021-12-30 | Outpatient (CLI) | payer MEDICARE, MEDICAID ==
[2021-10-13 12:35] VITALS: BP 141/86
[~2021-12-30] MED LIST changes: +ISOS30TA68 PO; +METH4TAB2 PO
--- NOTE | 2021-12-31 12:36 | CARD ---
MR#: [id number] Date of Study: 12/30/2021 Ordering Physician: DEBBIE DE JESUS, Referring Physician: DEBBIE DE JESUS Tech: Shaila Hernandez [facility] APPROVED REPORT EXAM: Two-dimensional and M-mode echocardiogram with Doppler and color Doppler. Other Information Quality : Technically LimitedHR: 72bpm INDICATION Dyspnea Congestive Heart Failure RISK FACTORS Hypertension Obesity Hyperlipidemia Diabetes 2D DIMENSIONS RVDd4.4 (2.9-3.5cm)Left Atrium(2D)4.1 (1.6-4.0cm) IVSd1.5 (0.7-1.1cm)Aortic Root(2D)3.5 (2.0-3.7cm) LVDd4.8 (3.9-5.9cm)LVOT Diameter2.3 (1.8-2.4cm) PWd1.6 (0.7-1.1cm)LVDs3.3 (2.5-4.0cm) FS (%) 31.2 %SV63.6 ml Aortic Valve AoV Peak Duke.178.4cm/sAoV VTI33.5cm AO Peak GR.12.7mmHgLVOT Peak Duke.102.1cm/s AO Mean GR.6mmHgAVA (VMAX)2.33cm2 Mitral Valve MV E Xccqhnza362.8cm/sMV DECEL [id number] MV A Udqjdzut15.2cm/sE/A Ratio5.0 Pulmonary Valve PV Peak Ngaknlwf447.0cm/s Tricuspid Valve TR P. Ubwvxdre599pt/sTR Peak Gr.47mmHg LEFT VENTRICLE The left ventricle is normal size. There is mild concentric left ventricular hypertrophy. The left ve ntricular systolic function is normal and the ejection fraction is within normal range. LV ejection fraction of 50 to 55%. There is normal LV segmental wall motion. Transmitral Doppler flow pattern is Grade II-pseudonormal filling dynamics. RIGHT VENTRICLE The right ventricle is normal size. There is normal right ventricular wall thickness. The right ventr icular systolic function is normal. ATRIA The left atrium size is normal. The right atrium size is normal. The interatrial septum is intact wit h no evidence for an atrial septal defect or patent foramen ovale as noted on 2-D or Doppler imaging. AORTIC VALVE The aortic valve is normal in structure and function. Doppler and Color Flow revealed no significant aortic regurgitation. There is no significant aortic valvular stenosis. MITRAL VALVE The mitral valve is normal in structure and function. There is no evidence of mitral valve prolapse. There is no mitral valve stenosis. Doppler and Color-flow revealed mild mitral regurgitation. TRICUSPID VALVE The tricuspid valve is normal in structure and function. Doppler and Color Flow revealed mild tricusp id regurgitation. Estimated PAP > 45mmHg. There is no tricuspid valve stenosis. PULMONIC VALVE The pulmonary valve is normal in structure and function. Doppler and Color Flow revealed no pulmonic valvular regurgitation. GREAT VESSELS The aortic root is normal in size. The ascending aorta is normal in size. The IVC is dilated and lianet apses <50% with inspiration. PERICARDIAL EFFUSION There is no evidence of significant pericardial effusion. Critical Notification Critical Value: No <Conclusion> The left ventricle is normal size. The left ventricular systolic function is normal and the ejection fraction is within normal range. LV ejection fraction of 50 to 55%. There is mild concentric left ventricular hypertrophy. Doppler and Color Flow revealed no significant aortic regurgitation. There is no significant aortic valvular stenosis. Doppler and Color-flow revealed mild mitral regurgitation. Doppler and Color Flow revealed mild tricuspid regurgitation. Estimated PAP > 45mmHg. Signed by : Jewel Hunt MD Electronically Approved : 12/31/2021 12:31:31
== END ==
LOC: ECHO 07:27
PROVIDERS: ATTEND Internal Medicine Cardiovascular Disease
DX: I08.1 Rheumatic disorders of both mitral and tricuspid valves (principal); I50.32 Chronic diastolic (congestive) heart failure; R06.00 Dyspnea, unspecified
CPT/HCPCS: 93306; C8929

== ENCOUNTER → 2022-01-27 | Outpatient (CLI) | payer MEDICARE, MEDICAID ==
[2021-10-13 12:35] VITALS: BP 141/86
[2022-01-27 11:02] LABS: BASO % 1 % (0-3); EOS % 1 % (0-3); HEMATOCRIT 35.9 % (39.0-53.0); HEMOGLOBIN 11.6 g/dL (13.0-17.5); LYMPH # 0.9 x10^3/uL (1.0-4.8); LYMPH % 21 % (24-48); MEAN CORPUSCULAR HEMOGLOBIN 35 pg (25-35); MEAN CORPUSCULAR HGB CONC 32 g/dL (31-37); MEAN CORPUSCULAR VOLUME 107 fL (79-100); MONO # 0.5 x10^3/uL (0.0-1.1); MONO % 13 % (0-9); NEUT # 2.6 x10^3/uL (1.8-7.7); NEUT % 65 % (31-73); PLATELET COUNT 206 x10^3/uL (140-400); RED BLOOD COUNT 3.35 x10^6/uL (4.30-5.70); RED CELL DISTRIBUTION WIDTH 15.7 % (11.5-14.5); WHITE BLOOD COUNT 4.1 x10^3/uL (4.0-11.0)
[2022-01-27 11:30] LABS: CALCIUM 8.7 mg/dL (8.5-10.1); CREATININE 1.8 mg/dL (0.7-1.3); GFR 46.8
[2022-01-27 11:47] LABS: ALBUMIN 3.5 g/dL (3.4-5.0); ALBUMIN/GLOBULIN RATIO 0.8 (1.0-1.7)
== END ==
LOC: ONCLAB 10:05
PROVIDERS: ATTEND Internal Medicine Hematology & Oncology
DX: R22.1 Localized swelling, mass and lump, neck (principal)
CPT/HCPCS: 36415; 80053; 85025

== ENCOUNTER → 2022-02-20 | Outpatient (CLI) | payer MEDICARE, OTHER ==
[2021-10-13 12:35] VITALS: BP 141/86
[~2022-02-20] MED LIST changes: -OMEP20TA8 PO; +OMEP20TA91 PO
--- NOTE | 2022-02-20 09:23 | RAD ---
CT NECK SOFT TISSUE WITHOUT CONTRAST History: Left-sided neck mass. Comparison: None. Technique: CT of the neck with intravenous contrast. Findings: Mucosa: No mass in the nasal cavity, nasopharynx, oral cavity, oropharynx, larynx, hypopharynx, or pr oximal trachea/esophagus. Oral cavity is obscured by dental artifact. Glands: Normal bilateral parotid, submandibular, and thyroid glands. Nodes: No pathologically enlarged or necrotic cervical lymph nodes. Vessels: Vascular structures are patent. No carotid space mass. Bones: Multilevel degenerative changes of the cervical spine with moderate to severe disc space narro wing C5-C7. Small left sphenoid sinus mucous retention cyst. Other: Left chest pacemaker generator with single lead. The lung apices are clear. Impression: 1. No mass or adenopathy identified in the neck. ------ Exposure: One or more of the following individualized dose reduction techniques were utilized for thi s examination: 1. Automated exposure control 2. Adjustment of the mA and/or kV according to patient size 3. Use of iterative reconstruction technique. Electronically signed by: Jori Villanueva MD (02/20/2022 9:21 AM) [facility]
== END ==
LOC: CT 07:39
PROVIDERS: ATTEND Internal Medicine Hematology & Oncology
DX: R22.1 Localized swelling, mass and lump, neck (principal); J34.1 Cyst and mucocele of nose and nasal sinus; M47.812 Spondylosis without myelopathy or radiculopathy, cervical region; M48.02 Spinal stenosis, cervical region
CPT/HCPCS: 70490